=== PATIENT | male | born 1965 | race Hispanic/Latino ===

== ENCOUNTER 2016-06-19 23:45 | Observation (INO) | payer OTHER ==
[2016-06-19 23:48] VITALS: BMI 31.1
--- NOTE | 2016-06-20 00:03 | ED PDOC ---
Arrival/HPI - General Chief Complaint: Chest Pain Time Seen by Provider: 06/19/16 23:49 Historian: Patient - History of Present Illness Narrative History of Present Illness (Text): 06/20/16 00:06 Donovan Tariq, a 51 year old male, whose past medical history includes open heart surgery, hypertension and drug abuse, presents to the emergency department complaining of chest pain since today. Patient notes mid sternum chest pain and he feels "anxious". Patient reports has taken aspirin today. Patient denies any fever, cough, nausea, vomiting or any other complaints at this time. Time/Duration: 24 hours Symptom Onset: Sudden Symptom Course: Unchanged Activities at Onset: Rest Context: Home Associated Symptoms (Text): none Past Medical History - Provider Review Nursing Documentation Reviewed: Yes - Infectious Disease Hx of Infectious Diseases: None - Tetanus Immunization Tetanus Immunization: Unknown - Cardiac Hx Cardiac Disorders: Yes Hx Hypertension: Yes - Pulmonary Hx Chronic Obstructive Pulmonary Disease (COPD): Yes Other/Comment: smoker - Neurological Hx Neurological Disorder: Yes Hx Migraine: Yes Other/Comment: Has history of migraine, does not get headaches a lot but has aura most of the time like. floaters - HEENT Hx HEENT Disorder: No - Renal Hx Renal Disorder: No - Endocrine/Metabolic Hx Endocrine Disorders: No - Hematological/Oncological Hx Blood Disorders: No - Integumentary Hx Dermatological Disorder: Yes Other/Comment: rash - Musculoskeletal/Rheumatological Hx Musculoskeletal Disorders: No Hx Falls: No - Gastrointestinal Hx Gastrointestinal Disorders: Yes Hx Gastroesophageal Reflux: Yes - Genitourinary/Gynecological Hx Genitourinary Disorders: No - Psychiatric Hx Psychophysiologic Disorder: Yes Hx Anxiety: Yes Hx Depression: No Hx Emotional Abuse: No Hx Physical Abuse: No Hx Substance Use: Yes - Surgical History Hx Appendectomy: Yes Hx Cardiac Catheterization: Yes Hx Coronary Artery Bypass Graft: Yes (2012) Hx Open Heart Surgery: Yes - Anesthesia Hx Anesthesia: Yes Hx Anesthesia Reactions: No Hx Malignant Hyperthermia: No - Suicidal Assessment Feels Threatened In Home Enviroment: No Family/Social History - Physician Review Nursing Documentation Reviewed: Yes Family/Social History: No Known Family HX Smoking Status: Light Smoker < 10 Cigarettes Daily Hx Alcohol Use: Yes Hx Substance Use: Yes Substance used: cocaine Hx Substance Use Treatment: No Allergies/Home Meds Allergies/Adverse Reactions: Allergies peanut Allergy (Verified 11/11/15 07:46) ANAPHYLAXIS AND ANYTHING THAT IS DERIVED FROM ANY NUTS PER PATIENT. shellfish derived Allergy (Verified 11/11/15 07:46) ANAPHYLAXIS Review of Systems - Physician Review All systems were reviewed & negative as marked: Yes - Review of Systems Constitutional: absent: Fevers Respiratory: absent: Cough Cardiovascular: Chest Pain Gastrointestinal: absent: Nausea, Vomiting Physical Exam Vital Signs Reviewed: Yes Vital Signs Temp Pulse Resp BP Pulse Ox 06/20/16 03:17 115 H 16 154/88 H 06/19/16 23:58 98.5 F 111 H 18 113/73 95 Temperature: Afebrile Blood Pressure: Normal Pulse: Tachycardic Respiratory Rate: Normal Appearance: Positive for: Non-Toxic, Comfortable, Other (anxious appearing) Pain Distress: None Mental Status: Positive for: Alert and Oriented X 3 - Systems Exam Head: Present: Atraumatic, Normocephalic Pupils: Present: PERRL Extroacular Muscles: Present: EOMI Conjunctiva: Present: Normal Mouth: Present: Moist Mucous Membranes Neck: Present: Normal Range of Motion Respiratory/Chest: Present: Wheezes (minimal scattered bilaterally). No: Respiratory Distress Cardiovascular: Present: Tachycardic. No: Murmurs Abdomen: Present: Normal Bowel Sounds. No: Tenderness, Distention, Peritoneal Signs Upper Extremity: Present: Normal Inspection. No: Cyanosis, Edema Lower Extremity: Present: Normal Inspection. No: Edema Neurological: Present: GCS=15, CN II-XII Intact, Speech Normal Skin: Present: Warm, Dry, Normal Color. No: Rashes Psychiatric: Present: Alert, Oriented x 3 Medical Decision Making ED Course and Treatment: 06/20/16 00:00 Impression: 51 year old male with chest pain. Differential Diagnosis include but are not limited to: Plan: -- EKG -- Chest Xray -- Urinalysis -- Labs -- Ativan -- Reassess and disposition Prior Visits: Notes and results from previous visits were reviewed. Patient reported to emergency department on 11/11/15 for evaluation of allergic reaction. Progress Notes: EKG: Ordered, reviewed, and independently interpreted the EKG. Rate : 113 BPM Rhythm : Sinus tachycardia Interpretation : Nonspecific ST/T changes Comparison : No interval changes from previous Chest X-ray: Chest Xray shows no acute disease. 06/20/16 02:15 Dr. hWiting accepts patient for admission. - Lab Interpretations Lab Results: 06/20/16 00:10 06/20/16 00:10 Lab Results 06/20/16 01:31: D-Dimer, Quantitative 0.42 06/20/16 00:10: WBC 10.8 D, RBC 4.94, Hgb 17.4, Hct 46.9, MCV 94.9, MCH 35.2 H , MCHC 37.1 H, RDW 14.8 H, Plt Count 244, MPV 8.9, Gran % 53.3, Lymph % (Auto) 37.6 H, [place] % (Auto) 7.8 H, Eos % (Auto) 0.9 L, Baso % (Auto) 0.4, Gran # 5.77 , Lymph # 4.1 H, [place] # 0.9 H, Eos # 0.1, Baso # 0.04, PT 11.9 H, INR 1.10 H, APTT 29.5, Sodium 132, Potassium 4.3, Chloride 98, Carbon Dioxide 23, Anion Gap 15, BUN 10, Creatinine 0.9, Est GFR ( Amer) > 60, Est GFR (Non-Af Amer) > 60, Random Glucose 86, Calcium 9.0, Magnesium 1.9, Total Bilirubin 1.0, AST 39 , ALT 48, Alkaline Phosphatase 95, Lactate Dehydrogenase 577, Total Creatine Kinase 101, Troponin I < 0.01, Total Protein 8.0, Albumin 4.3, Globulin 3.7, Albumin/Globulin Ratio 1.2 I have reviewed the lab results: Yes - RAD Interpretation Radiology Orders: 06/20/16 00:03 CHEST PORTABLE [RAD] Stat - EKG Interpretation Interpreted by ED Physician: Yes Type: 12 lead EKG - Medication Orders Current Medication Orders: Albuterol/Ipratropium (Duoneb 3 Mg/0.5 Mg (3 Ml) Ud) 3 ml IH [id number] PRN PRN Reason: Shortness of Breath Alprazolam (Xanax) 0.25 mg PO TID PRN; Protocol PRN Reason: Anxiety Stop: 06/27/16 10:01 Last Admin: 06/20/16 09:00 Dose: 0.25 MG Behavioural Document 06/20/16 09:00 RDS (Rec: 06/20/16 09:00 [email or web address]) Maintenance Maintenance Dose No Nonmedicinal Nonmedicinal Interventions Redirect Therapeutic Communication Activity Give food/fluids See nurse's notes Behavior Behavior for Medication: Anxiety Re-Assess: Reassess Psych Meds Document 06/20/16 10:00 RDS (Rec: 06/20/16 11:25 [id number]) Reassess Psych Med Effective Aspirin (Ecotrin) 81 mg PO DAILY [facility] Last Admin: 06/20/16 09:00 Dose: 81 MG Atorvastatin Calcium (Lipitor) 40 mg PO DIN [facility] Lisinopril (Zestril) 20 mg PO DAILY [facility] Last Admin: 06/20/16 09:00 Dose: 20 MG MAR Pulse and Blood Pressure Document 06/20/16 09:00 RDS (Rec: 06/20/16 09:00 [id number]) Pulse Pulse Rate (60-90) 107 Blood Pressure Blood Pressure (100/60-150/90) 107/70 Nicotine (Nicoderm Cq) 1 patch TD DAILY [facility] Last Admin: 06/20/16 09:00 Dose: 1 PATCH MAR Patch Placement/Removal Document 06/20/16 09:00 RDS (Rec: 06/20/16 09:01 [id number]) Patch Removal Removal of previous patch done No: first dose MAR Transdermal Patch Site Document 06/20/16 09:00 RDS (Rec: 06/20/16 09:01 [place] [id number]) Transdermal Patch Site Transdermal Patch Site Left Outer Upper Arm Oxycodone/Acetaminophen (Percocet 5/325 Mg Tab) 1 tab PO Q6H PRN PRN Reason: Pain, moderate (4-7) Stop: 06/23/16 08:16 Last Admin: 06/20/16 08:43 Dose: 1 TAB MAR Pain Assessment Document 06/20/16 08:43 RDS (Rec: 06/20/16 08:46 [email or web address]) Pain Reassessment Is this a pain reassessment? No Sleep Is patient sleeping during reassessment? No Presence of Pain Presence of Pain Yes Pain Scale Used Pain Scale Used Numeric Location Left, Right or Bilateral Bilateral Pain Location Body Site Chest Description Intensity of Pain at present 5 Alleviating Factors/Management Medication Techniques Alleviating Factors Medication Re-Assess: MAR Pain Assessment Document 06/20/16 09:43 RDS (Rec: 06/20/16 11:25 [email or web address]) Pain Reassessment Is this a pain reassessment? Yes Sleep Is patient sleeping during reassessment? No Presence of Pain Presence of Pain No Discontinued Medications Aspirin (Aspirin) 325 mg PO STAT STA Stop: 06/20/16 00:22 Last Admin: 06/20/16 00:33 Dose: Not Given Non-Admin Reason: Patient Refused Lorazepam (Ativan) 0.5 mg IVP ONCE ONE PRN Reason: Protocol Stop: 06/20/16 00:04 Last Admin: 06/20/16 00:15 Dose: 0.5 MG Behavioural Document 06/20/16 00:15 EKEOO (Rec: 06/20/16 00:16 [facility] [id number]) Maintenance Maintenance Dose Yes Nonmedicinal Nonmedicinal Interventions Redirect Therapeutic Communication IVP Administration Document 06/20/16 00:15 EKEOO (Rec: 06/20/16 00:16 [facility] [id number]) Charges for Administration # of IVP Administrations 1 Morphine Sulfate (Morphine) 4 mg IVP STAT STA Stop: 06/20/16 00:34 Last Admin: 06/20/16 00:40 Dose: 4 MG MAR Pain Assessment Document 06/20/16 00:40 EKEOO (Rec: 06/20/16 00:40 [facility] [id number]) Pain Reassessment Is this a pain reassessment? No Sleep Is patient sleeping during reassessment? No Presence of Pain Presence of Pain Yes IVP Administration Document 06/20/16 00:40 EKEOO (Rec: 06/20/16 00:40 EKE[facility] [id number]) Charges for Administration # of IVP Administrations 1 Morphine Sulfate (Morphine) 4 mg IVP STAT STA Stop: 06/20/16 01:37 Last Admin: 06/20/16 01:38 Dose: 4 MG MAR Pain Assessment Document 06/20/16 01:38 EKEOO (Rec: 06/20/16 01:38 EKE[facility] [id number]) Pain Reassessment Is this a pain reassessment? No Sleep Is patient sleeping during reassessment? No Presence of Pain Presence of Pain Yes IVP Administration Document 06/20/16 01:38 EKEOO (Rec: 06/20/16 01:38 EKE[facility] [id number]) Charges for Administration # of IVP Administrations 1 Morphine Sulfate (Morphine) 0.5 mg IVP ONCE ONE Stop: 06/20/16 04:20 Last Admin: 06/20/16 04:25 Dose: 0.5 MG Comments: 0.25ml given MAR Pain Assessment Document 06/20/16 04:25 KTR (Rec: 06/20/16 04:25 KTR [id number]) Pain Reassessment Is this a pain reassessment? No Presence of Pain Presence of Pain Yes Pain Scale Used Pain Scale Used Numeric Location Pain Location Body Site Chest Description Description Constant Pain Behavior Guarding Irritability Alleviating Factors Medication IVP Administration Document 06/20/16 04:25 KTR (Rec: 06/20/16 04:25 KTR [id number]) Charges for Administration # of IVP Administrations 1 - Scribe Statement The provider has reviewed the documentation as recorded by the Scribe Robby Mobley All medical record entries made by the Scribe were at my direction and personally dictated by me. I have reviewed the chart and agree that the record accurately reflects my personal performance of the history, physical exam, medical decision making, and the department course for this patient. I have also personally directed, reviewed, and agree with the discharge instructions and disposition. Disposition/Present on Arrival - Present on Arrival Any Indicators Present on Arrival: No History of DVT/PE: No History of Uncontrolled Diabetes: No Urinary Catheter: No History of Decub. Ulcer: No History Surgical Site Infection Following: None - Disposition Have Diagnosis and Disposition been Completed?: Yes Diagnosis: Chest pain Disposition: HOSPITALIZED Disposition Time: 03:00 Patient Problems: Current Active Problems Problem Status Diagnosed Chest pain Acute Condition: STABLE
[2016-06-20 00:15] LABS: ADD MANUAL DIFF? NO
[2016-06-20 00:21] LABS: BASO # 0.04 K/mm3 (0.0-2.0); BASO % 0.4 % (0.0-3.0); EOS # 0.1 (0.0-0.7); EOS % 0.9 % (1.5-5.0); GRAN # 5.77 (1.4-6.5); GRAN % 53.3 % (50.0-68.0); HEMATOCRIT 46.9 % (42.0-52.0); LYMPH # 4.1 (1.2-3.4); LYMPH % 37.6 % (22.0-35.0); MEAN CELL VOLUME 94.9 fL (80.0-105.0); MEAN CORPUSCULAR HEMOGLOBIN 35.2 pg (25.0-35.0); MEAN CORPUSCULAR HGB CONC 37.1 g/dl (31.0-37.0); MEAN PLATELET VOLUME 8.9 fl (7.0-11.0); MONO # 0.9 (0.1-0.6); MONO % 7.8 % (1.0-6.0); PLATELET COUNT 244 10^3/uL (120.0-450.0); RED CELL DISTRIBUTION WIDTH 14.8 % (11.5-14.5)
[2016-06-20 00:33] LABS: INR 1.1 (0.93-1.08); PARTIAL THROMBOPLASTIN TIME 29.5 Seconds (23.7-30.8)
[2016-06-20] MEDS ORDERED: Morphine 4 mg/ml ISec IVP STA ×2 (00:33→01:36)
[2016-06-20 00:36] LABS: WHITE BLOOD COUNT 10.8 10^3/ul (4.5-11.0)
[2016-06-20 00:49] LABS: ALB/GLOB RATIO 1.2 (1.1-1.8); ALKALINE PHOSPHATASE 95 U/L (38-133); ALT/SGPT 48 U/L (7-56); AST/SGOT 39 U/L (15-59); BLOOD UREA NITROGEN 10 mg/dL (7-21); CARBON DIOXIDE 23 mmol/L (21-33); CHLORIDE 98 mmol/L (98-107); GFR AFRICAN-AMERICAN > 60; GLUCOSE,RANDOM 86 mg/dL (70-110); MAGNESIUM 1.9 mg/dL (1.7-2.2); POTASSIUM 4.3 mmol/L (3.6-5.0); SODIUM 132 mmol/L (132-148)
[2016-06-20 01:18] LABS: TROPONIN I < 0.01 ng/mL
[2016-06-20 03:08] LABS: URINE BILIRUBIN NEGATIVE (NEGATIVE); URINE BLOOD NEGATIVE (NEGATIVE); URINE GLUCOSE (UA) NEGATIVE (NEGATIVE); URINE KETONE NEGATIVE (NEGATIVE); URINE LEUKOCYTE ESTERASE NEGATIVE Leu/uL (NEGATIVE); URINE PROTEIN NEGATIVE mg/dL (<30 mg/dL); URINE UROBILINOGEN 0.2 E.U./dL (<1 E.U./dL)
[2016-06-20 03:12] LABS: URINE APPEARANCE CLEAR (CLEAR); URINE COLOR YELLOW (YELLOW)
[2016-06-20] MEDS ORDERED: Morphine 2 mg/ml ISec IVP ONE (04:19)
[2016-06-20] MEDS ORDERED: Albuterol-Ipratrop 3 mg / 0.5 (3 ml) UD IH PRN (08:17)
[2016-06-20] MEDS: Oxycodone/Acetaminophen 5/325 mg Tab PO PRN ×3 (08:43→22:05)
--- NOTE | 2016-06-20 10:42 | RAD ---
HISTORY: cp COMPARISON: No prior. FINDINGS: LUNGS: Poor inspiration with low lung volumes, mild crowded bronchovascular markings and mild bibasilar atelectasis. PLEURA: No significant pleural effusion identified, no pneumothorax apparent. CARDIOVASCULAR: Normal. OSSEOUS STRUCTURES: No significant abnormalities. VISUALIZED UPPER ABDOMEN: Normal. OTHER FINDINGS: None. IMPRESSION: Poor inspiration with low lung volumes, mild crowded bronchovascular markings and mild bibasilar atelectasis.
--- NOTE | 2016-06-20 11:39 | CARD ---
APPROVED REPORT EKG Measurement Heart [id number] DE 126P [id number] <Conclusion> RSR Possible limb lead reversal RVCD STTW changes Suggest repeat ECG
--- NOTE | 2016-06-20 15:44 | CON ---
DATE: 06/20/2016 REASON FOR CONSULTATION: Chest pain. HISTORY OF PRESENT ILLNESS: The patient is a 51-year-old male who is a smoker, has chronic obstructi ve lung disease, history of coronary artery disease, status post coronary artery bypass surgery 4 yea rs ago at [facility]. The patient is on Percocet at home. He ran out of his medications. He p resented because of bilateral sharp chest pain associated with shortness of breath. The patient letitia es any associated diaphoresis. The patient is experiencing productive cough. SOCIAL HISTORY: The patient is a smoker. MEDICATIONS: Albuterol inhaler q. 6 hours, aspirin 81 mg once a day, Lipitor 40 mg once a day, Nicod erm patch, Zestril 20 mg once a day. REVIEW OF SYSTEMS: No fever or chills. No vomiting or diarrhea. No hemoptysis. PHYSICAL EXAMINATION: GENERAL: The patient is a middle-aged male who does not appear to be in acute distress. VITAL SIGNS: Blood pressure 137/77, heart rate 97, temperature 97.8, respirations 20. HEENT: Normocephalic. NECK: No JVD. CHEST: Diffuse bilateral rhonchi. HEART: S1, S2 regular. ABDOMEN: Soft. EXTREMITIES: No edema. LABORATORY DATA: Hemoglobin and hematocrit 17.4 and 46.9, white count and platelet count are within normal limits. SMA-7 is entirely within normal limits. Two sets of troponins are negative. Urine d rug screen is positive for opiates. D-dimer is within normal limits. EKG revealed sinus tachycardia at a rate of 115, left atrial enlargement, consider arm lead reversal. Chest x-ray revealed poor in spiration with low lung volumes, mild bronchoalveolar markings and mild bibasilar atelectasis. ASSESSMENT: 1. Atypical chest pain, myocardial infarction is ruled out. 2. Coronary artery disease status post coronary artery bypass surgery. 3. Chronic obstructive lung disease. 4. Hypertension. RECOMMENDATIONS: Continue current aspirin, Lipitor and Zestril. The patient is not a suitable renu date for beta xin therapy in view of advanced chronic obstructive lung disease. Danilo Martines MD cc: [id number] TT: 06/20/2016 15:43:55 Confirmation # [id number] Dictation # [id number] rn
--- NOTE | 2016-06-20 18:50 | HP ---
HISTORY OF PRESENT ILLNESS: The patient is a 51-year-old white male known to me from office practice . He states he ran out of his Xanax and Percocet. I saw him on the day before yesterday, unab le to get. He started to have chest discomfort last night associated with palpitation and chest pres sure across the chest. He states he felt the same thing when he had a heart attack, he got nervous, so he came to Emergency Room for further evaluation. The patient is an active smoker, smokes almost half a pack per day. Denies any nausea or vomiting, no fever or chills. Does have history of . PAST MEDICAL HISTORY: Significant for hypertension, hyperlipidemia, and COPD. ALLERGIES: He is not allergic to any medication. SOCIAL HISTORY: He is single, lives in [facility], actively smokes, socially drinks. MEDICATIONS AT HOME: He is on Ventolin inhaler, aspirin 81 daily, Lipitor 40 mg daily, Zestril 20 mg daily, metoprolol 25 daily. REVIEW OF SYSTEMS: Significant for chest pressure and palpitations at times and scanty cough. PHYSICAL EXAMINATION: GENERAL: He is awake and alert, communicative. VITAL SIGNS: He is afebrile, pulse 90, respirations 19, blood pressure 137/77. LUNGS: Bilateral diffusely decreased breath sounds. HEART: S1, S2 audible. ABDOMEN: Soft, nontender, no rebound, no guarding. NEUROLOGIC: He is awake and alert, communicative, ambulatory. LABORATORY DATA: WBC is 10.8, hemoglobin 17, hematocrit 46, platelets 244. PT 11.9, INR 1.10. Chem istry: Sodium 132, potassium 4.3, chloride 98, CO2 of 23, BUN 10, creatinine 0.9, blood sugar of 86. LFTs are within normal limits. Urinalysis is unremarkable. Urine drug is positive for opiates, bu t he takes Xanax at home. ASSESSMENT: 1. Probably noncardiac chest pain. 2. Hypertension. 3. Open heart surgery 2 years old. 4. Active smoking. 5. Hyperlipidemia. PLAN: We will monitor. We will do cardiac monitoring. We will follow up with troponin. Continue h im on nebulizer treatment. If patient remains stable, we will be discharging in a.m. Justin Whiting MD cc: [phone] TT: 06/20/2016 18:49:06 [facility] # [id number] mn
[2016-06-20] MEDS: Albuterol-Ipratrop 3 mg / 0.5 (3 ml) UD IH SCH (20:52)
[2016-06-20] MEDS ORDERED: guaiFENesin DM 200 mg-20 mg/10 ml UD PO STA (23:42)
[2016-06-21] MEDS: Oxycodone/Acetaminophen 5/325 mg Tab PO PRN (04:03)
[2016-06-21 06:01] VITALS: RESP 19; TEMP 97.4; O2SAT 96
[2016-06-21] MEDS ORDERED: DiphenhydrAMINE 50 mg/ml Inj IVP STA (08:35)
[2016-06-21] MEDS: Albuterol-Ipratrop 3 mg / 0.5 (3 ml) UD IH SCH (09:00)
--- NOTE | 2016-06-21 09:47 | CP.PCM.PN ---
Subjective - Date & Time of Evaluation Date of Evaluation: 06/21/16 Time of Evaluation: 08:45 - Subjective Subjective: called by nurse pt states he ate food with packet made in factory where there is peanuts and he is allergic to peanuts and his throat is scratchy and he is afraid he is going to get severe allergic reaction .pt is admitted with chest pain non cardiac. Objective - Vital Signs/Intake and Output Vital Signs (last 24 hours): Temp Pulse Resp BP Pulse Ox 97.4 F L 88 19 127/74 96 06/21/16 06:00 06/21/16 06:00 06/21/16 06:00 06/21/16 06:00 06/21/16 06:00 Intake and Output: 06/21/16 06/21/16 06:59 18:59 Intake Total 660 Output Total 1250 Balance -590 - Medications Medications: Current Medications Albuterol/Ipratropium (Duoneb 3 Mg/0.5 Mg (3 Ml) Ud) [id number] [facility] Last Admin: 06/21/16 09:00 Dose: Not Given Alprazolam (Xanax) 0.25 mg PO TID PRN; Protocol PRN Reason: Anxiety Stop: 06/27/16 10:01 Last Admin: 06/20/16 09:00 Dose: 0.25 mg Aspirin (Ecotrin) [address] [facility] Last Admin: 06/20/16 09:00 Dose: 81 mg Atorvastatin Calcium (Lipitor) [address] [facility] Last Admin: 06/20/16 16:29 Dose: 40 mg Lisinopril (Zestril) [address] [facility] Last Admin: 06/20/16 09:00 Dose: 20 mg Nicotine (Nicoderm Cq) [address] [facility] Last Admin: 06/20/16 09:00 Dose: 1 patch Oxycodone/Acetaminophen (Percocet 5/325 Mg Tab) 1 tab PO Q6H PRN PRN Reason: Pain, moderate (4-7) Stop: 06/23/16 08:16 Last Admin: 06/21/16 04:03 Dose: 1 tab - Labs Labs: PT 11.9 Seconds (9.9-11.8) H 06/20/16 00:10 INR 1.10 (0.93-1.08) H 06/20/16 00:10 APTT 29.5 Seconds (23.7-30.8) 06/20/16 00:10 - Constitutional Appears: No Acute Distress - Head Exam Head Exam: NORMOCEPHALIC - Eye Exam Eye Exam: Normal appearance Pupil Exam: PERRL - ENT Exam ENT Exam: Mucous Membranes Moist - Neck Exam Neck Exam: Full ROM - Respiratory Exam Respiratory Exam: Clear to Ausculation Bilateral - Cardiovascular Exam Cardiovascular Exam: RRR, +S1, +S2 - GI/Abdominal Exam GI & Abdominal Exam: Normal Bowel Sounds - Rectal Exam Rectal Exam: Deferred - Extremities Exam Extremities Exam: Full ROM - Neurological Exam Neurological Exam: Alert, Awake, CN II-XII Intact, Oriented x3 - Psychiatric Exam Psychiatric exam: Anxious - Skin Skin Exam: Dry, Normal Color, Warm Assessment and Plan - Assessment and Plan (Free Text) Assessment: anxiety . allergic reaction. Plan: benadryl 25 mg x1 stat.
--- NOTE | 2016-06-21 11:05 | DS ---
The patient is 51 years old, seen and examined. He seemed to be upset this morning because he did gutierrez ve some bread that has some elements of peanut, and HE DOES HAVE ALLERGY TO PEANUT that was brought t o his ____, and she immediately gave Benadryl. He has been no sign or symptom of reaction at this po int. PHYSICAL EXAMINATION: GENERAL: He is awake and alert, communicative. VITAL SIGNS: He is afebrile, pulse 8____, respirations 19, blood pressure 127/74. LUNGS: Bilateral fair airflow. No rhonchi or crackle. HEART: S1, S2 audible. No murmur. ABDOMEN: Soft, nontender. No rebound, no guarding. NEUROLOGIC: He is awake and alert, communicative, ambulatory. ASSESSMENT AND PLAN: 1. Noncardiac chest pain. 2. Coronary artery disease, status post open heart surgery. 3. Hypertension. 4. Hyperlipidemia. 5. Active smoker. PLAN: The patient is clinically stable. He has no signs of bronchospasm. No chest pain. Cardiac e nzymes are negative. He is being discharged home, and he will resume his medication as prior to admission. Justin Whiting MD cc: [phone] TT: 06/21/2016 11:04:42 jn
[2016-06-21 12:44] VITALS: BP 115/69; PULSE 87
== END 2016-06-21 10:53 | disposition home or self-care (01) ==
LOC: ED 23:45 → ERH 06-20 02:14 → 2RSO 06-20 03:53
PROVIDERS: ADMIT Internal Medicine; ATTEND Internal Medicine
DX: R07.89 Other chest pain (principal); I25.10 Atherosclerotic heart disease of native coronary artery without angina pectoris; I10 Essential (primary) hypertension; E78.5 Hyperlipidemia, unspecified; F17.210 Nicotine dependence, cigarettes, uncomplicated; F41.9 Anxiety disorder, unspecified; J44.9 Chronic obstructive pulmonary disease, unspecified; K21.9 Gastro-esophageal reflux disease without esophagitis; Z90.49 Acquired absence of other specified parts of digestive tract; Z91.010 Allergy to peanuts; Z95.1 Presence of aortocoronary bypass graft; Z79.899 Other long term (current) drug therapy; Z87.892 Personal history of anaphylaxis; Z91.013 Allergy to seafood; R00.0 Tachycardia, unspecified
CPT/HCPCS: 71010; 80053; 80324; 80345; 80346; 80349; 80353; 80358; 80361; 81003; 82550; 83615; 83735; 83992; 84484; 85025; 85378; 85610; 85730; 93005; 94640; 96374; 96375; 96376; 99285; G0378; J1200; J2060; J2270

== ENCOUNTER 2016-07-19 08:44 | Emergency (ER) | payer OTHER ==
[2016-07-19 08:45] VITALS: BMI 31.1
[2016-07-19 09:01] VITALS: RESP 18; TEMP 97.9
--- NOTE | 2016-07-19 09:13 | ED PDOC ---
Arrival/HPI - General Time Seen by Provider: 07/19/16 09:00 Historian: Patient - History of Present Illness Narrative History of Present Illness (Text): 07/19/16 09:09 51 year old male, pmh including hypertension/hyperlipidemia/copd/cad/bypass 4 years ago/chronic testicle pain, psychiatric history including anxiety, nkda, complaining of lt. testicle pain started again this morning with no fall or trauma. Pt. stated that he woke up this morning with the lt. testicle pain again as he had it for the past 40 years, making him feel anxious and scared which he started to panicking and having chest pain for couple seconds but resolved, no nausea or vomiting, no palpitation, no night sweat, no nausea or vomiting, no rash, no night sweat, no other medical or psychological complaints. Past Medical History - Provider Review Nursing Documentation Reviewed: Yes - Infectious Disease Hx of Infectious Diseases: None - Tetanus Immunization Tetanus Immunization: Unknown - Cardiac Hx Cardiac Disorders: Yes Hx Hypertension: Yes - Pulmonary Hx Chronic Obstructive Pulmonary Disease (COPD): Yes Other/Comment: smoker - Neurological Hx Neurological Disorder: Yes Hx Migraine: Yes Other/Comment: Has history of migraine, does not get headaches a lot but has aura most of the time like. floaters - HEENT Hx HEENT Disorder: No - Renal Hx Renal Disorder: No - Endocrine/Metabolic Hx Endocrine Disorders: No - Hematological/Oncological Hx Blood Disorders: No - Integumentary Hx Dermatological Disorder: Yes Other/Comment: rash - Musculoskeletal/Rheumatological Hx Musculoskeletal Disorders: No Hx Falls: No - Gastrointestinal Hx Gastrointestinal Disorders: Yes Hx Gastroesophageal Reflux: Yes - Genitourinary/Gynecological Hx Genitourinary Disorders: No - Psychiatric Hx Psychophysiologic Disorder: Yes Hx Anxiety: Yes Hx Depression: No Hx Emotional Abuse: No Hx Physical Abuse: No Hx Substance Use: Yes - Surgical History Hx Appendectomy: Yes Hx Cardiac Catheterization: Yes Hx Coronary Artery Bypass Graft: Yes (2012) Hx Open Heart Surgery: Yes - Anesthesia Hx Anesthesia: Yes Hx Anesthesia Reactions: No Hx Malignant Hyperthermia: No - Suicidal Assessment Feels Threatened In Home Enviroment: No Family/Social History - Physician Review Nursing Documentation Reviewed: Yes Family/Social History: Unknown Family HX Smoking Status: Light Smoker < 10 Cigarettes Daily Hx Alcohol Use: Yes Hx Substance Use: Yes Substance used: cocaine Hx Substance Use Treatment: No Allergies/Home Meds Allergies/Adverse Reactions: Allergies peanut Allergy (Verified 07/22/16 13:25) ANAPHYLAXIS AND ANYTHING THAT IS DERIVED FROM ANY NUTS PER PATIENT. shellfish derived Allergy (Verified 07/22/16 13:25) ANAPHYLAXIS Home Medications: Home Meds Medication Instructions Recorded Confirmed ALPRAZolam [Xanax] 0 mg PO PRN PRN 07/19/16 07/22/16 oxyCODONE/Acetaminophen [Percocet 1 tab PO PRN PRN 07/19/16 07/22/16 5/325 mg Tab] Review of Systems - Review of Systems Constitutional: absent: Fatigue, Fevers Eyes: absent: Vision Changes ENT: absent: Hearing Changes Respiratory: absent: Cough, Sputum Cardiovascular: absent: Chest Pain Gastrointestinal: absent: Abdominal Pain, Nausea, Vomiting Genitourinary Male: Other (testicle pain) Psychiatric: Anxiety. absent: Depression, Suicidal Ideation Physical Exam Vital Signs Reviewed: Yes Vital Signs Temp Pulse Resp BP Pulse Ox 07/19/16 12:17 89 18 160/79 H 98 07/19/16 11:00 101 H 18 159/96 H 96 07/19/16 09:00 97.9 F 101 H 18 160/98 H 96 Temperature: Afebrile Blood Pressure: Hypertensive Pulse: Tachycardic Respiratory Rate: Normal Appearance: Positive for: Well-Appearing, Non-Toxic, Comfortable Pain Distress: Mild Mental Status: Positive for: Alert and Oriented X 3 - Systems Exam Head: Present: Atraumatic, Normocephalic Pupils: Present: PERRL Extroacular Muscles: Present: EOMI Conjunctiva: Present: Normal Mouth: Present: Moist Mucous Membranes Neck: Present: Normal Range of Motion Respiratory/Chest: Present: Clear to Auscultation, Good Air Exchange. No: Respiratory Distress, Accessory Muscle Use Cardiovascular: Present: Regular Rate and Rhythm, Normal S1, S2. No: Murmurs Abdomen: Present: Normal Bowel Sounds. No: Tenderness, Distention, Peritoneal Signs Genitourinary Male: Present: Normal External Genitalia, Circumcised Penis, Other (Female Eligibility Technician: SPECIAL EVENT ASSISTANTGILLIAN Rosales). No: Lesions, Penile Discharge, Testicle Tenderness, Penile Swelling, Masses, Erythema, Hernias, Testicle Swelling Back: Present: Normal Inspection Upper Extremity: Present: Normal Inspection. No: Cyanosis, Edema Lower Extremity: Present: Normal Inspection. No: Edema Neurological: Present: GCS=15, Speech Normal, Motor Func Grossly Intact, Gait Normal, Memory Normal Skin: Present: Warm, Dry, Normal Color. No: Rashes Psychiatric: Present: Alert, Oriented x 3, Normal Insight, Normal Concentration , Anxious Medical Decision Making ED Course and Treatment: 07/19/16 09:20 -labs/ua -testicular sonogram -IV toradol/ativan/percocet -observe and reassess 07/19/16 11:42 -Labs are non-significant except hemoconcentrated with hgb 18.5 from 17.4, IVF ordered. -Urinalysis show no UTI -Sonogram show hydroceles -I discussed all labs and radiology results with the patient, pt. 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 Pt. has no anxious or chest pain now, relief with ativan. -Discharge home with [facility], follow up with your own pmd and urologist within 2 days, return to the ER for any new or worsening signs or symptoms - Lab Interpretations Lab Results: 07/19/16 09:25 07/19/16 11:15 Lab Results 07/19/16 11:15: Sodium 138, Potassium 4.6, Chloride 106, Carbon Dioxide 23, Anion Gap 14, BUN 17, Creatinine 0.9, Est GFR ( Amer) > 60, Est GFR (Non- Af Amer) > 60, Random Glucose 100, Calcium 8.6, Total Bilirubin 0.9, AST 30, ALT 47, Alkaline Phosphatase 92, Total Protein 7.5, Albumin 4.0, Globulin 3.6, Albumin/Globulin Ratio 1.1 07/19/16 09:25: Urine Color Yellow, Urine Appearance Clear, Urine pH 6.0, Ur Specific [place] 1.015, Urine Protein Negative, Urine Glucose (UA) Negative, Urine Ketones Negative, Urine Blood Negative, Urine Nitrate Negative, Urine Bilirubin Negative, Urine Urobilinogen 0.2, Ur Leukocyte Esterase Negative 07/19/16 09:25: WBC 9.3, RBC 5.45, Hgb 18.5 H*, Hct 52.4 H, MCV 96.1, MCH 33.9, MCHC 35.3, RDW 14.7 H, Plt Count 229, MPV 9.1, Gran % 66.3, Lymph % (Auto) 20.7 L, [place] % (Auto) 11.4 H, Eos % (Auto) 1.2 L, Baso % (Auto) 0.4, Gran # 6.17, Lymph # 1.9, [place] # 1.1 H, Eos # 0.1, Baso # 0.04 I have reviewed the lab results: Yes Interpretation: Abnormal lab values (hgb 18.5) - RAD Interpretation Radiology Orders: 07/19/16 09:21 TESTES DUPLEX COMPLETE [US] Stat HISTORY: chronic lt. testicular pain TECHNIQUE: Realtime sonography through the scrotum with color and doppler flow. COMPARISON: None Available. FINDINGS: RIGHT TESTICLE: Measures 4.2 x 2 x 2.6 cm. Normal echotexture and flow. RIGHT EPIDIDYMIS: Epididymal head measures 1 x 0.7 x 0.5 cm. Grossly unremarkable appearance with normal flow. LEFT TESTICLE: Measures 4.4 x 2.2 x 2.5 cm. Normal echotexture and flow. LEFT EPIDIDYMIS: Epididymal head measures 0.8 x 0.5 x 0.6 cm. Grossly unremarkable appearance with normal flow. HYDROCELE: Small bilateral hydroceles. VARICOCELE: None seen. OTHER FINDINGS: None. IMPRESSION: No evidence of acute testicular torsion at the time of evaluation. Bilateral small hydroceles. Records Management Technician: Radiologist - EKG Interpretation EKG Interpretation (Text): 07/19/16 09:13 NSR @ 99 BPM, no acute ST or T wave changes compared with previous ekg. Interpreted by ED Physician: Yes Type: 12 lead EKG Comparison: Com.w/previous EKG - Medication Orders Current Medication Orders: Discontinued Medications Sodium Chloride (Sodium Chloride 0.9%) 1,000 mls @ 250 mls/hr IV .Q4H STA Stop: 07/19/16 13:20 Last Admin: 07/19/16 09:40 Dose: 250 mls/hr Ketorolac Tromethamine (Toradol) 30 mg IVP STAT STA Stop: 07/19/16 09:22 Last Admin: 07/19/16 09:40 Dose: 30 mg Re-Assess: [facility] Pain Assessment Document 07/19/16 10:40 SF (Rec: 07/19/16 12:15 SF [id number]) Pain Reassessment Is this a pain reassessment? Yes Sleep Is patient sleeping during reassessment? No Presence of Pain Presence of Pain Yes Pain Scale Used Pain Scale Used Numeric Description Pain not relieved and LIP/MD was Yes notified Lidocaine HCl (Lidocaine 1% (20ml)) Confirm Administered Dose 20 ml .ROUTE .STK- MED ONE Stop: 07/19/16 12:14 Lorazepam (Ativan) 1 mg IVP ONCE ONE PRN Reason: Protocol Stop: 07/19/16 09:22 Last Admin: 07/19/16 09:40 Dose: 1 mg Morphine Sulfate (Morphine) 2 mg IVP STAT STA Stop: 07/19/16 11:43 Last Admin: 07/19/16 12:18 Dose: 2 mg Oxycodone/Acetaminophen (Percocet 5/325 Mg Tab) 1 tab PO STAT STA Stop: 07/19/16 10:03 Last Admin: 07/19/16 10:12 Dose: 1 tab Re-Assess: MAR Pain Assessment Document 07/19/16 11:12 SF (Rec: 07/19/16 12:15 SF [id number]) Pain Reassessment Is this a pain reassessment? Yes Sleep Is patient sleeping during reassessment? No Presence of Pain Presence of Pain Yes Pain Scale Used Pain Scale Used Numeric Description Pain not relieved and LIP/MD was Yes notified - PA / CARE MANAGEMENT ASSOCIATE / Resident Statement MD/DO has reviewed & agrees with the documentation as recorded. Disposition/Present on Arrival - Present on Arrival Any Indicators Present on Arrival: No History of DVT/PE: No History of Uncontrolled Diabetes: No Urinary Catheter: No History of Decub. Ulcer: No History Surgical Site Infection Following: None - Disposition Have Diagnosis and Disposition been Completed?: Yes Diagnosis: Hydrocele in adult, Anxiety Disposition: HOME/ ROUTINE Disposition Time: 11:44 Patient Plan: Discharge Condition: IMPROVED Additional Instructions: Discharge home with mobic, follow up with your own pmd and urologist within 2 days, return to the ER for any new or worsening signs or symptoms Prescriptions: Meloxicam [Mobic] 15 mg PO DAILY PRN #10 tab PRN Reason: Other Referrals: Justin Whiting MD [Primary Care Provider] - Follow up with primary Philipp Guzmán MD [Staff Provider] - Follow up with primary Forms: [employer] (Tunisian), WORK NOTE
[2016-07-19] MEDS ORDERED: Sodium Chloride 0.9% 1,000 ML IV STA (09:21)
[2016-07-19 09:40] LABS: ADD MANUAL DIFF? NO
[2016-07-19 09:44] LABS: BASO # 0.04 K/mm3 (0.0-2.0); BASO % 0.4 % (0.0-3.0); EOS # 0.1 (0.0-0.7); EOS % 1.2 % (1.5-5.0); GRAN # 6.17 (1.4-6.5); GRAN % 66.3 % (50.0-68.0); HEMATOCRIT 52.4 % (42.0-52.0); LYMPH # 1.9 (1.2-3.4); LYMPH % 20.7 % (22.0-35.0); MEAN CELL VOLUME 96.1 fL (80.0-105.0); MEAN CORPUSCULAR HEMOGLOBIN 33.9 pg (25.0-35.0); MEAN CORPUSCULAR HGB CONC 35.3 g/dl (31.0-37.0); MEAN PLATELET VOLUME 9.1 fl (7.0-11.0); MONO # 1.1 (0.1-0.6); MONO % 11.4 % (1.0-6.0); PLATELET COUNT 229 10^3/uL (120.0-450.0); RED CELL DISTRIBUTION WIDTH 14.7 % (11.5-14.5); WHITE BLOOD COUNT 9.3 10^3/ul (4.5-11.0)
[2016-07-19 09:45] LABS: URINE BILIRUBIN NEGATIVE (NEGATIVE); URINE BLOOD NEGATIVE (NEGATIVE); URINE GLUCOSE (UA) NEGATIVE (NEGATIVE); URINE KETONE NEGATIVE (NEGATIVE); URINE LEUKOCYTE ESTERASE NEGATIVE Leu/uL (NEGATIVE); URINE PROTEIN NEGATIVE mg/dL (<30 mg/dL); URINE UROBILINOGEN 0.2 E.U./dL (<1 E.U./dL)
[2016-07-19 09:55] LABS: URINE APPEARANCE CLEAR (CLEAR); URINE COLOR YELLOW (YELLOW)
[2016-07-19] MEDS ORDERED: Oxycodone/Acetaminophen 5/325 mg Tab PO STA (10:02)
--- NOTE | 2016-07-19 11:21 | US ---
HISTORY: chronic lt. testicular pain TECHNIQUE: Realtime sonography through the scrotum with color and doppler flow. COMPARISON: None Available. FINDINGS: RIGHT TESTICLE: Measures 4.2 x 2 x 2.6 cm. Normal echotexture and flow. RIGHT EPIDIDYMIS: Epididymal head measures 1 x 0.7 x 0.5 cm. Grossly unremarkable appearance with normal flow. LEFT TESTICLE: Measures 4.4 x 2.2 x 2.5 cm. Normal echotexture and flow. LEFT EPIDIDYMIS: Epididymal head measures 0.8 x 0.5 x 0.6 cm. Grossly unremarkable appearance with normal flow. HYDROCELE: Small bilateral hydroceles. VARICOCELE: None seen. OTHER FINDINGS: None. IMPRESSION: No evidence of acute testicular torsion at the time of evaluation. Bilateral small hydroceles.
[2016-07-19 11:37] LABS: ALB/GLOB RATIO 1.1 (1.1-1.8); ALKALINE PHOSPHATASE 92 U/L (38-133); ALT/SGPT 47 U/L (7-56); AST/SGOT 30 U/L (15-59); BILIRUBIN,TOTAL 0.9 mg/dL (0.2-1.3); BLOOD UREA NITROGEN 17 mg/dL (7-21); CALCIUM 8.6 mg/dL (8.4-10.5); CARBON DIOXIDE 23 mmol/L (21-33); CHLORIDE 106 mmol/L (98-107); GFR AFRICAN-AMERICAN > 60; GLUCOSE,RANDOM 100 mg/dL (70-110); POTASSIUM 4.6 mmol/L (3.6-5.0); SODIUM 138 mmol/L (132-148); TOTAL PROTEIN 7.5 g/dL (5.8-8.3)
[2016-07-19] MEDS ORDERED: Morphine 2 mg/ml ISec IVP STA (11:42)
[2016-07-19] MEDS ORDERED: Lidocaine 1% Inj (20ml) ONE (12:13)
[2016-07-19 12:17] VITALS: BP 160/79; PULSE 89; O2SAT 98
--- NOTE | 2016-07-20 11:33 | CARD ---
APPROVED REPORT EKG Measurement Heart [id number] <Conclusion> Normal sinus rhythm Biatrial enlargement Nonspecific ST and T wave abnormality LVH RVCD
== END 2016-07-19 12:26 | disposition home or self-care (01) ==
LOC: ED 08:44
DX: N43.3 Hydrocele, unspecified (principal); F41.9 Anxiety disorder, unspecified
CPT/HCPCS: 80053; 81003; 85025; 93005; 93975; 96361; 96374; 96375; 99285; J1885; J2060; J2270; J7040

== ENCOUNTER 2016-07-22 13:14 | Emergency (ER) | payer OTHER ==
[2016-07-22 13:25] VITALS: BMI 30.7
[2016-07-22 13:28] VITALS: TEMP 98.4
--- NOTE | 2016-07-22 14:28 | ED PDOC ---
Arrival/HPI - General Chief Complaint: Groin Pain Time Seen by Provider: 07/22/16 14:15 Historian: Patient - History of Present Illness Narrative History of Present Illness (Text): 07/22/16 14:25 Donovan Tariq is a 51 year old male, whose past medical history includes hypertension, hyperlipidemia, COPD, CAD and CABG, presents to the emergency department complaining of 4 day duration of testicular pain. Describes quality as a sharp pain and states he was experienced similar symptoms in the past 40 years with each episode lasting from few weeks to months. Patient was evaluated at [facility] for these symptoms 4 days prior when testicular ultrasound revealed small bilateral hydroceles and was discharged home on Meloxicam. States he has been taking the medication for minimal relief. States he also has been taking Percocet chronically from his PMD for pain at home for no relief. Denies any penile swelling, erythema, or discharge. Patient also states he was evaluated by urologists in the past for these symptoms without a diagnosis. He reports multiple US and CTs. Denies fever, chills, headache, dizziness, chest pain, shortness of breath, urinary symptoms, or any other complaints at this time. Time/Duration: < week (4 days ) Symptom Onset: Gradual Activities at Onset: Light Past Medical History - Provider Review Nursing Documentation Reviewed: Yes - Infectious Disease Hx of Infectious Diseases: None - Tetanus Immunization Tetanus Immunization: Unknown - Reproductive Currently : No - Cardiac Hx Cardiac Disorders: Yes Hx Hypertension: Yes - Pulmonary Hx Respiratory Disorders: Yes Hx Chronic Obstructive Pulmonary Disease (COPD): Yes Other/Comment: smoker - Neurological Hx Neurological Disorder: Yes Hx Migraine: Yes Other/Comment: Has history of migraine, does not get headaches a lot but has aura most of the time like. floaters - HEENT Hx HEENT Disorder: No - Renal Hx Renal Disorder: No - Endocrine/Metabolic Hx Endocrine Disorders: No - Hematological/Oncological Hx Blood Disorders: No - Integumentary Hx Dermatological Disorder: Yes Other/Comment: rash - Musculoskeletal/Rheumatological Hx Musculoskeletal Disorders: No Hx Falls: No - Gastrointestinal Hx Gastrointestinal Disorders: Yes Hx Gastroesophageal Reflux: Yes - Genitourinary/Gynecological Hx Genitourinary Disorders: No - Psychiatric Hx Psychophysiologic Disorder: Yes Hx Anxiety: Yes Hx Depression: No Hx Emotional Abuse: No Hx Physical Abuse: No Hx Substance Use: No - Surgical History Hx Appendectomy: Yes Hx Cardiac Catheterization: Yes Hx Coronary Artery Bypass Graft: Yes (2012) Hx Open Heart Surgery: Yes - Anesthesia Hx Anesthesia: Yes Hx Anesthesia Reactions: No Hx Malignant Hyperthermia: No - Suicidal Assessment Feels Threatened In Home Enviroment: No Family/Social History - Physician Review Nursing Documentation Reviewed: Yes Family/Social History: No Known Family HX Smoking Status: Light Smoker < 10 Cigarettes Daily Hx Alcohol Use: No Hx Substance Use: No Substance used: cocaine Hx Substance Use Treatment: No Allergies/Home Meds Allergies/Adverse Reactions: Allergies peanut Allergy (Verified 07/22/16 13:25) ANAPHYLAXIS AND ANYTHING THAT IS DERIVED FROM ANY NUTS PER PATIENT. shellfish derived Allergy (Verified 07/22/16 13:25) ANAPHYLAXIS Home Medications: Home Meds Medication Instructions Recorded Confirmed ALPRAZolam [Xanax] 0 mg PO PRN PRN 07/19/16 07/22/16 oxyCODONE/Acetaminophen [Percocet 1 tab PO PRN PRN 07/19/16 07/22/16 5/325 mg Tab] Review of Systems - Physician Review All systems were reviewed & negative as marked: Yes - Review of Systems Constitutional: Normal. absent: Fatigue, Fevers Respiratory: Normal. absent: SOB, Cough, Sputum Cardiovascular: Normal. absent: Chest Pain, Palpitations Genitourinary Male: Other (testicular pain ) Skin: Normal Neurological: Normal. absent: Headache, Dizziness Psychiatric: Normal Physical Exam - Physical Exam Narrative Physical Exam (Text): Constitutional: No acute distress. Head: Normocephalic. Atraumatic. Genitourinary: bilateral testicular tenderness. No testicular swelling or erythema. No discharge. No erythema or induration in perineum Musculoskeletal: No tenderness or swelling of extremities. Skin: No rash. Neurologic: Alert, no focal deficit. Vital Signs Reviewed: Yes Vital Signs Temp Pulse Resp BP Pulse Ox 07/22/16 15:15 98 H 18 176/96 H 96 07/22/16 13:25 98.4 F 109 H 17 183/103 H 96 Temperature: Afebrile Blood Pressure: Hypertensive Pulse: Tachycardic Respiratory Rate: Normal Appearance: Positive for: Well-Appearing, Non-Toxic, Comfortable Pain Distress: None Mental Status: Positive for: Alert and Oriented X 3 Medical Decision Making ED Course and Treatment: 07/22/16 14:35 Impression: A 51 year old male who presents to emergency department complaining of 4 day duration of testicular pain. Plan: -- Labs -- Toradol -- Ativan -- Morphine -- Urinalysis -- Reassess and disposition Progress Notes: Patient is chronically on Percocet and presents today with a chronic pain of 40 years intermittently. I informed the patient that I can not discharge him on any narcotic pain medication. The patient states that he can not follow up with Urology for another month because that was the earliest appointment. I rechecked his labs and urine, which were unremarkable. I offered the patient repeat US and/or CT but he did not want either. Also sent GC/Chlamydia which are pending. Patient treated with pain medication in ER. No remarkable findings. Discussed case with Dr. Guzmán, who states he will likely see patient in his office on Wednesday. Phone number provided to patient to arrange this follow up. KUB ordered as recommended by Dr. Guzmán prior to discharge. - Lab Interpretations Lab Results: 07/22/16 14:51 07/22/16 14:51 Lab Results 07/22/16 15:32: Urine Color Yellow, Urine Appearance Clear, Urine pH 6.0, Ur Specific [place] 1.025, Urine Protein 100 H, Urine Glucose (UA) Negative, Urine Ketones Negative, Urine Blood Trace-lysed H, Urine Nitrate Negative, Urine Bilirubin Small H, Urine Urobilinogen 0.2, Ur Leukocyte Esterase Negative, Urine RBC 0 - 2, Urine WBC 1 - 3, Ur Epithelial Cells 0 - 2, Urine Bacteria Small, Urine Other Usperm 07/22/16 14:51: Sodium 133, Potassium 4.2, Chloride 100, Carbon Dioxide 23, Anion Gap 14, BUN 10, Creatinine 0.9, Est GFR ( Amer) > 60, Est GFR (Non- Af Amer) > 60, Random Glucose 109, Calcium 9.3, Total Bilirubin 1.8 H, AST 25, ALT 38, Alkaline Phosphatase 122, Total Protein 7.8, Albumin 4.2, Globulin 3.6, Albumin/Globulin Ratio 1.2 07/22/16 14:51: WBC 11.2 H D, RBC 5.22, Hgb 18.1 H*, Hct 49.4, MCV 94.6, MCH 34.7, MCHC 36.6, RDW 14.2, Plt Count 228, MPV 9.1, Gran % 62.6, Lymph % (Auto) 26.1, [place] % (Auto) 9.9 H, Eos % (Auto) 0.9 L, Baso % (Auto) 0.5, Gran # 7.00 H , Lymph # 2.9, [place] # 1.1 H, Eos # 0.1, Baso # 0.06 - RAD Interpretation Radiology Orders: 07/22/16 16:20 ABDOMEN (FLAT PLATE) 1VIEW [RAD] Stat - Medication Orders Current Medication Orders: Morphine Sulfate (Morphine) 4 mg IVP STAT STA Stop: 07/22/16 16:26 Discontinued Medications Ketorolac Tromethamine (Toradol) 30 mg IVP STAT STA Stop: 07/22/16 14:43 Last Admin: 07/22/16 15:02 Dose: 30 mg Lorazepam (Ativan) 1 mg IVP ONCE ONE PRN Reason: Protocol Stop: 07/22/16 14:43 Last Admin: 07/22/16 15:02 Dose: 1 mg Morphine Sulfate (Morphine) 4 mg IVP STAT STA Stop: 07/22/16 14:43 Last Admin: 07/22/16 15:02 Dose: 4 mg - Scribe Statement The provider has reviewed the documentation as recorded by the Seng Dyson Provider Attestation: All medical record entries made by the Seng were at my direction and personally dictated by me. I have reviewed the chart and agree that the record accurately reflects my personal performance of the history, physical exam, medical decision making, and the department course for this patient. I have also personally directed, reviewed, and agree with the discharge instructions and disposition. Disposition/Present on Arrival - Present on Arrival Any Indicators Present on Arrival: No History of DVT/PE: No History of Uncontrolled Diabetes: No Urinary Catheter: No History of Decub. Ulcer: No History Surgical Site Infection Following: None - Disposition Have Diagnosis and Disposition been Completed?: Yes Diagnosis: Testicular pain Disposition: HOME/ ROUTINE Disposition Time: 16:15 Patient Plan: Discharge Condition: STABLE Discharge Instructions (ExitCare): Testicle Pain (ED) Additional Instructions: Call Dr. Guzmán at [phone] to arrange your follow up. He stated that he will likely see you in the office on Wednesday. Referrals: Philipp Guzmán MD [Staff Provider] - Follow up with primary
[2016-07-22] MEDS ORDERED: Morphine 4 mg/ml ISec IVP STA ×2 (14:42→16:25)
[2016-07-22 15:01] LABS: ADD MANUAL DIFF? NO
[2016-07-22 15:33] VITALS: PULSE 98; RESP 18
[2016-07-22 15:33] LABS: ALB/GLOB RATIO 1.2 (1.1-1.8); ALKALINE PHOSPHATASE 122 U/L (38-133); ALT/SGPT 38 U/L (7-56); AST/SGOT 25 U/L (15-59); BILIRUBIN,TOTAL 1.8 mg/dL (0.2-1.3); BLOOD UREA NITROGEN 10 mg/dL (7-21); CALCIUM 9.3 mg/dL (8.4-10.5); CARBON DIOXIDE 23 mmol/L (21-33); CHLORIDE 100 mmol/L (98-107); GFR AFRICAN-AMERICAN > 60; GLUCOSE,RANDOM 109 mg/dL (70-110); POTASSIUM 4.2 mmol/L (3.6-5.0); SODIUM 133 mmol/L (132-148); TOTAL PROTEIN 7.8 g/dL (5.8-8.3)
[2016-07-22 15:37] LABS: URINE BILIRUBIN SMALL (NEGATIVE); URINE BLOOD TRACE-LYSED (NEGATIVE); URINE GLUCOSE (UA) NEGATIVE (NEGATIVE); URINE KETONE NEGATIVE (NEGATIVE); URINE LEUKOCYTE ESTERASE NEGATIVE Leu/uL (NEGATIVE); URINE PROTEIN 100 mg/dL (<30 mg/dL); URINE UROBILINOGEN 0.2 E.U./dL (<1 E.U./dL)
[2016-07-22 15:37] LABS: BASO # 0.06 K/mm3 (0.0-2.0); BASO % 0.5 % (0.0-3.0); EOS # 0.1 (0.0-0.7); EOS % 0.9 % (1.5-5.0); GRAN % 62.6 % (50.0-68.0); HEMATOCRIT 49.4 % (42.0-52.0); LYMPH # 2.9 (1.2-3.4); LYMPH % 26.1 % (22.0-35.0); MEAN CELL VOLUME 94.6 fL (80.0-105.0); MEAN CORPUSCULAR HEMOGLOBIN 34.7 pg (25.0-35.0); MEAN CORPUSCULAR HGB CONC 36.6 g/dl (31.0-37.0); MEAN PLATELET VOLUME 9.1 fl (7.0-11.0); MONO # 1.1 (0.1-0.6); MONO % 9.9 % (1.0-6.0); PLATELET COUNT 228 10^3/uL (120.0-450.0); RED CELL DISTRIBUTION WIDTH 14.2 % (11.5-14.5); WHITE BLOOD COUNT 11.2 10^3/ul (4.5-11.0)
[2016-07-22 16:03] LABS: URINE APPEARANCE CLEAR (CLEAR); URINE COLOR YELLOW (YELLOW)
[2016-07-22 16:14] LABS: URINE BACTERIA SMALL (NEG); URINE EPITHELIAL CELLS 0 - 2 /hpf (0-5); URINE RBC 0 - 2 /hpf (0-2)
[2016-07-22 16:35] VITALS: BP 125/76; O2SAT 99
--- NOTE | 2016-07-23 08:40 | RAD ---
HISTORY: testicular pain, KUB, assess for stone COMPARISON: No prior. FINDINGS: BOWEL: Normal. No obstruction. No free air. BONES: Normal. OTHER FINDINGS: There is a small stone in the region of the right UVJ which probably represents a ureteral stone. Clinical correlation is suggested IMPRESSION: There is a small stone in the region of the right UVJ which probably represents a ureteral stone. Clinical correlation is suggested
== END 2016-07-22 17:13 | disposition home or self-care (01) ==
LOC: ED 13:14
DX: N50.819 Testicular pain, unspecified (principal); I10 Essential (primary) hypertension; J44.9 Chronic obstructive pulmonary disease, unspecified; E78.5 Hyperlipidemia, unspecified; I25.10 Atherosclerotic heart disease of native coronary artery without angina pectoris; Z95.1 Presence of aortocoronary bypass graft; F17.210 Nicotine dependence, cigarettes, uncomplicated
CPT/HCPCS: 74000; 80053; 81001; 85025; 87491; 87591; 96374; 96375; 96376; 99284; J1885; J2060; J2270

== ENCOUNTER 2016-07-23 12:20 | Emergency (ER) | payer OTHER ==
[2016-07-22 13:25] VITALS: BMI 30.7
[2016-07-24 06:23] LABS: HEMATOCRIT 48.1 % (42.0-52.0); MEAN CELL VOLUME 94.9 fL (80.0-105.0); MEAN CORPUSCULAR HEMOGLOBIN 34.3 pg (25.0-35.0); WHITE BLOOD COUNT 10.6 10^3/ul (4.5-11.0)
[2016-07-24 06:24] LABS: MEAN CORPUSCULAR HGB CONC 36.2 g/dl (31.0-37.0); MEAN PLATELET VOLUME 9.2 fl (7.0-11.0); RED CELL DISTRIBUTION WIDTH 14.3 % (11.5-14.5)
[2016-07-24 10:23] LABS: PH,URINE 5.5 (4.7-8.0); URINE APPEARANCE SL CLOUDY (CLEAR); URINE BILIRUBIN NEGATIVE (NEGATIVE); URINE BLOOD NEGATIVE (NEGATIVE); URINE COLOR YELLOW (YELLOW); URINE GLUCOSE (UA) NEGATIVE (NEGATIVE); URINE KETONE NEGATIVE (NEGATIVE); URINE LEUKOCYTE ESTERASE NEGATIVE Leu/uL (NEGATIVE); URINE PROTEIN 30 mg/dL (<30 mg/dL); URINE RBC 0 - 2 /hpf (0-2); URINE UROBILINOGEN 0.2 E.U./dL (<1 E.U./dL); URINE WBC 0 - 2 /hpf (0-6)
[2016-07-24 10:24] LABS: URINE EPITHELIAL CELLS 0 - 2 /hpf (0-5)
--- NOTE | 2016-07-24 13:46 | US ---
Testicular ultrasound dated 07/23/2016. History: Rule out torsion. Sonographic evaluation of scrotum/testicles performed in standard fashion. Comparison weighed made with prior testicular ultrasound 07/19/2016. Findings: The right testicle measures 4.4 x 2.3 x 3.4 cm. Right testicle exhibits arterial flow and homogeneous architecture. There is a small to medium-sized right-sided hydrocele. Epididymal head measures 6 mm x 10 mm x 13 mm. Left testicle measures 4.2 x 1.9 x 3.0 cm and also exhibits arterial flow and homogeneous architecture. There is also a small left-sided hydrocele. Left epididymis measures 8 mm x 6 mm x 10 mm. Impression: Both testicles exhibit arterial flow. Small bilateral hydroceles as detailed above.
--- NOTE | 2016-07-24 13:50 | US ---
Abdominal ultrasound dated 07/23/2016 History: Rule out kidney stones. Rule out cholecystitis. Sonographic evaluation of the abdomen performed. No prior study available for comparison. Findings: There is within range of normal size measuring 17.5 cm CC dimension. Liver demonstrates increased echotexture likely due to fatty infiltration however other infiltrative hepatocellular disease process not excluded. No obvious hepatic mass or collection. The gallbladder is physiologically distended. No evidence of intraluminal gallbladder calculi. Questionable trace fluid about the gallbladder. No evidence sonographic Vazquez sign. Common bile duct measures 4.7 mm. Visualized portions of the pancreas appear grossly unremarkable. Spleen exhibits normal size measures 12.4 cm greatest dimension. No splenic mass collection or calcification. Kidneys are relatively symmetric in size. Right kidney measures 11.7 x 5.5 x 5.5 cm. Left kidney measures 11.9 x 6.6 x 5.6 cm. No evidence shadowing calculi or. Impression: Increased hepatic echotexture likely representing fatty infiltration however other infiltrative hepatocellular disease process cannot be excluded. Questionable trace fluid about the gallbladder however no evidence of intraluminal gallbladder calculi or sonographic Vazquez sign. .
[2016-07-24 14:32] LABS: ALB/GLOB RATIO 1.1 (1.1-1.8); ALKALINE PHOSPHATASE 108 U/L (38-133); ALT/SGPT 33 U/L (7-56); AST/SGOT 24 U/L (15-59); BILIRUBIN,TOTAL 1.4 mg/dL (0.2-1.3); BLOOD UREA NITROGEN 13 mg/dL (7-21); CALCIUM 9.2 mg/dL (8.4-10.5); CARBON DIOXIDE 24 mmol/L (21-33); CHLORIDE 102 mmol/L (98-107); GFR AFRICAN-AMERICAN > 60; GLUCOSE,RANDOM 122 mg/dL (70-110); LIPASE 57 U/L (23-300); MAGNESIUM 1.9 mg/dL (1.7-2.2); PHOSPHOROUS 2.8 mg/dL (2.5-4.5); POTASSIUM 4.2 mmol/L (3.6-5.0); SODIUM 134 mmol/L (132-148); TOTAL PROTEIN 7.9 g/dL (5.8-8.3)
== END 2016-07-24 08:39 | disposition home or self-care (01) ==
LOC: ED 12:20
DX: N50.819 Testicular pain, unspecified (principal); I86.1 Scrotal varices; R10.9 Unspecified abdominal pain

== ENCOUNTER 2017-04-05 10:52 | Inpatient (IN) | payer OTHER ==
[2017-04-05 10:52] VITALS: BMI 30.7
--- NOTE | 2017-04-05 11:21 | ED PDOC ---
Arrival/HPI - General Time Seen by Provider: 04/05/17 11:04 Historian: Patient - History of Present Illness Narrative History of Present Illness (Text): you were treated in the ED today for generalized chest pain and mild shortness of breath with anxiety for 2-3 days. secondary complaint chronic testicular pain radiating to chest noted otherwise without any nausea/vomiting/headache/ dizziness/abdomen pain/numbness/tingling/loss of limb function/pain with urination/suicidal ideation/homicidal ideation/hallucinations. history of hypertension, hyperlipidemia, CAD s/p cardiac bypass surgery, and active smoker. testicular ultrasound done on 07/23/16 which showed both testicles exhibit arterial flow and small bilateral hydroceles. Time/Duration: Other (2-3 days) Symptom Course: Unchanged Context: Home Past Medical History - Provider Review Nursing Documentation Reviewed: Yes - Infectious Disease Hx of Infectious Diseases: None - Tetanus Immunization Tetanus Immunization: Unknown - Cardiac Hx Cardiac Disorders: Yes Hx Hypertension: Yes - Pulmonary Hx Chronic Obstructive Pulmonary Disease (COPD): Yes Other/Comment: smoker - Neurological Hx Neurological Disorder: Yes Hx Migraine: Yes Other/Comment: Has history of migraine, does not get headaches a lot but has aura most of the time like. floaters - HEENT Hx HEENT Disorder: No - Renal Hx Renal Disorder: No - Endocrine/Metabolic Hx Endocrine Disorders: No - Hematological/Oncological Hx Blood Disorders: No - Integumentary Hx Dermatological Disorder: Yes Other/Comment: rash - Musculoskeletal/Rheumatological Hx Musculoskeletal Disorders: No Hx Falls: No - Gastrointestinal Hx Gastrointestinal Disorders: Yes Hx Gastroesophageal Reflux: Yes - Genitourinary/Gynecological Hx Genitourinary Disorders: No - Psychiatric Hx Substance Use: No - Surgical History Hx Appendectomy: Yes Hx Cardiac Catheterization: Yes Hx Coronary Artery Bypass Graft: Yes (2012) Hx Open Heart Surgery: Yes - Anesthesia Hx Anesthesia: Yes Hx Anesthesia Reactions: No Hx Malignant Hyperthermia: No - Suicidal Assessment Feels Threatened In Home Enviroment: No Family/Social History - Physician Review Nursing Documentation Reviewed: Yes Family/Social History: No Known Family HX Smoking Status: Light Smoker < 10 Cigarettes Daily Hx Alcohol Use: No Hx Substance Use: No Substance used: cocaine Hx Substance Use Treatment: No Allergies/Home Meds Allergies/Adverse Reactions: Allergies peanut Allergy (Verified 07/22/16 13:25) ANAPHYLAXIS AND ANYTHING THAT IS DERIVED FROM ANY NUTS PER PATIENT. shellfish derived Allergy (Verified 07/22/16 13:25) ANAPHYLAXIS Home Medications: Home Meds Medication Instructions Recorded Confirmed ALPRAZolam [Xanax] 0 mg PO PRN PRN 07/19/16 07/22/16 oxyCODONE/Acetaminophen [Percocet 1 tab PO PRN PRN 07/19/16 07/22/16 5/325 mg Tab] Review of Systems - Physician Review All systems were reviewed & negative as marked: Yes - Review of Systems Respiratory: SOB Cardiovascular: Chest Pain Gastrointestinal: absent: Abdominal Pain, Nausea, Vomiting Genitourinary Male: absent: Dysuria Neurological: absent: Headache, Dizziness, Focal Weakness Psychiatric: Anxiety. absent: Suicidal Ideation, Other (Homicidal ideation/ Hallucinations) Physical Exam Vital Signs Reviewed: Yes Vital Signs Temp Pulse Resp BP Pulse Ox 04/05/17 13:30 110 H 20 132/80 97 04/05/17 11:16 98.3 F 112 H 20 121/86 98 Temperature: Afebrile Blood Pressure: Normal Pulse: Tachycardic Respiratory Rate: Tachypneic Appearance: Positive for: Well-Appearing, Non-Toxic, Comfortable Pain Distress: None Mental Status: Positive for: Alert and Oriented X 3 - Systems Exam Head: Present: Atraumatic, Normocephalic Pupils: Present: PERRL Extroacular Muscles: Present: EOMI Conjunctiva: Present: Normal Mouth: Present: Moist Mucous Membranes Neck: Present: Normal Range of Motion Respiratory/Chest: Present: Clear to Auscultation, Good Air Exchange. No: Respiratory Distress, Accessory Muscle Use Cardiovascular: Present: Regular Rate and Rhythm, Normal S1, S2. No: Murmurs Abdomen: Present: Normal Bowel Sounds. No: Tenderness, Distention, Peritoneal Signs Genitourinary Male: Present: Normal External Genitalia, Other (Bilateral testicles in good position, line and cremasteric reflex). No: Lesions (penile/ scrotal lesions), Penile Discharge, Testicle Tenderness, Penile Swelling, Testicle Swelling Back: Present: Normal Inspection Upper Extremity: Present: Normal Inspection. No: Cyanosis, Edema Lower Extremity: Present: Normal Inspection. No: Edema Neurological: Present: GCS=15, CN II-XII Intact, Speech Normal Skin: Present: Warm, Dry, Normal Color. No: Rashes Psychiatric: Present: Alert, Oriented x 3, Normal Insight, Normal Concentration Medical Decision Making ED Course and Treatment: you were treated in the ED today for generalized chest pain and mild shortness of breath with anxiety for 2-3 days. secondary complaint chronic testicular pain radiating to chest noted otherwise without any nausea/vomiting/headache/ dizziness/abdomen pain/numbness/tingling/loss of limb function/pain with urination/suicidal ideation/homicidal ideation/hallucinations. history of hypertension, hyperlipidemia, CAD s/p cardiac bypass surgery, and active smoker. testicular ultrasound done on 07/23/16 which showed both testicles exhibit arterial flow and small bilateral hydroceles. You were otherwise breathing easily, pink/moist lips, smiling when you were talking, good strength/ sensation, alert/oriented, walking easily, clear lungs, no abdomen tenderness, no fever temp 98.3, heart rate 112, breathing rate 98, elevated blood pressure 121/86 which we recommend repeat in 2-3 days primary care office to determine further treatment, hb 19, trop neg, and pt recurrent chest pain and given morphine, aspirin. Report Date : 04/05/2017 11:52:59 Procedure: Chest xray Dictator : Nisha Wood MD IMPRESSION: No active pulmonary disease. 04/05/17 14:07 04/05/17 14:[address] Whiting who stated pt with chronic tachycardia, difficulty pain control , to admit to the hospitalist as patient requires pain control as well. 04/05/17 14:31 d/w Dr. Krishna who will accept patient for chest pain eval, hb 19. pt recieved morphine, dilouded, ntg for pain control, and patient ambulated around ed. d/w Dr. Krishna and pt requested pain medication right during initial eval and thus utox unable to be completed prior to medication narcotic administration. 04/05/17 14:46 04/05/17 14:47 04/05/17 14:48 04/05/17 14:49 - Lab Interpretations Lab Results: 04/05/17 11:20 04/05/17 11:20 Lab Results 04/05/17 11:20: Sodium 137, Potassium 4.2, Chloride 103, Carbon Dioxide 20 L, Anion Gap 19, BUN 12, Creatinine 0.9, Est GFR ( Amer) > 60, Est GFR (Non- Af Amer) > 60, Random Glucose 146 H, Calcium 9.9, Magnesium 2.0, Total Bilirubin 0.9, AST 66 H, ALT 77 H, Alkaline Phosphatase 126, Lactate Dehydrogenase 549, Total Creatine Kinase 62, Troponin I < 0.01, NT-Pro-B Natriuret Pep 247, Total Protein 8.0, Albumin 4.6, Globulin 3.4, Albumin/ Globulin Ratio 1.4 04/05/17 11:20: PT 11.2, INR 0.97, APTT 27.7 04/05/17 11:20: WBC 9.6, RBC 5.38, Hgb 19.0 H*, Hct 53.8 H, MCV 100.0, MCH 35.3 H, MCHC 35.3, RDW 14.2, Plt Count 223, MPV 9.0, Gran % 61.6, Lymph % (Auto) 29.8 , [place] % (Auto) 7.4 H, Eos % (Auto) 0.5 L, Baso % (Auto) 0.7, Gran # 5.87, Lymph # 2.9, [place] # 0.7 H, Eos # 0.1, Baso # 0.07 - RAD Interpretation Radiology Orders: 04/05/17 11:24 CHEST PORTABLE [RAD] Stat Multi Line Claims Adjuster: Radiologist - EKG Interpretation Interpreted by ED Physician: Yes (sinus tachycardia) Type: 12 lead EKG - Medication Orders Current Medication Orders: Discontinued Medications Aspirin (Aspirin) 325 mg PO STAT STA Stop: 04/05/17 11:24 Last Admin: 04/05/17 11:48 Dose: 325 mg Hydromorphone HCl (Dilaudid) 1 mg IVP STAT STA Stop: 04/05/17 14:23 Sodium Chloride (Sodium Chloride 0.9%) 1,000 mls @ 999 mls/hr IV .Q1H1M STA Stop: 04/05/17 13:20 Last Admin: 04/05/17 13:00 Dose: 999 mls/hr eMAR Start Stop Document 04/05/17 13:00 ALVARO (Rec: 04/05/17 13:52 ALVARO [id number]) Intravenous Solution Start Date 04/05/17 Start Time 13:00 End Date 04/05/17 End time 14:00 Total Infusion Time 60 Lorazepam (Ativan) 0.5 mg IVP ONCE ONE PRN Reason: Protocol Stop: 04/05/17 11:26 Last Admin: 04/05/17 11:49 Dose: 0.5 mg IVP Administration Document 04/05/17 11:49 SZA (Rec: 04/05/17 11:49 SZA [id number]) Charges for Administration # of IVP Administrations 1 Morphine Sulfate (Morphine) 2 mg IVP STAT STA Stop: 04/05/17 11:24 Last Admin: 04/05/17 11:48 Dose: 2 mg MAR Pain Assessment Document 04/05/17 11:48 SZA (Rec: 04/05/17 11:49 SZA [id number]) Pain Reassessment Is this a pain reassessment? No Sleep Is patient sleeping during reassessment? No Presence of Pain Presence of Pain Yes IVP Administration Document 04/05/17 11:48 SZA (Rec: 04/05/17 11:49 SZA [id number]) Charges for Administration # of IVP Administrations 1 Morphine Sulfate (Morphine) 2 mg IVP STAT STA Stop: 04/05/17 13:07 Last Admin: 04/05/17 13:52 Dose: 2 mg MAR Pain Assessment Document 04/05/17 13:52 SZA (Rec: 04/05/17 13:53 SZA [id number]) Pain Reassessment Is this a pain reassessment? No Presence of Pain Presence of Pain Yes Pain Scale Used Pain Scale Used Numeric IVP Administration Document 04/05/17 13:52 SZA (Rec: 04/05/17 13:53 SZA [id number]) Charges for Administration # of IVP Administrations 1 Nitroglycerin (Nitrostat Sl Tab) 0.4 mg SL STAT STA Stop: 04/05/17 14:45 Disposition/Present on Arrival - Present on Arrival Any Indicators Present on Arrival: No History of DVT/PE: No History of Uncontrolled Diabetes: No Urinary Catheter: No History Surgical Site Infection Following: None - Disposition Have Diagnosis and Disposition been Completed?: Yes Diagnosis: Chest pain, Coronary atherosclerosis of [place] coronary artery, Postsurgical aortocoronary bypass status, Anxiety Disposition: HOSPITALIZED Disposition Time: 14:48 Patient Plan: Admission, Telemetry Patient Problems: Current Active Problems Problem Status Onset Anxiety Acute Chest pain Acute Coronary atherosclerosis of [place] coronary artery Acute Postsurgical aortocoronary bypass status Acute Condition: STABLE Discharge Instructions (ExitCare): Chest Pain (ED) Referrals: Justin Whiting MD [Primary Care Provider] - Follow up with primary
[2017-04-05] MEDS ORDERED: Morphine 4 mg/ml ISec IVP STA ×2 (11:23→13:06)
[2017-04-05 11:40] LABS: BASO # 0.07 K/mm3 (0.0-2.0); BASO % 0.7 % (0.0-3.0); EOS # 0.1 (0.0-0.7); EOS % 0.5 % (1.5-5.0); GRAN # 5.87 (1.4-6.5); GRAN % 61.6 % (50.0-68.0); LYMPH # 2.9 (1.2-3.4); LYMPH % 29.8 % (22.0-35.0); MEAN CORPUSCULAR HEMOGLOBIN 35.3 pg (25.0-35.0); MEAN CORPUSCULAR HGB CONC 35.3 g/dl (31.0-37.0); MONO # 0.7 (0.1-0.6); MONO % 7.4 % (1.0-6.0); RBC 5.38 10^6/uL (3.5-6.1); RED CELL DISTRIBUTION WIDTH 14.2 % (11.5-14.5); WHITE BLOOD COUNT 9.6 10^3/ul (4.5-11.0)
[2017-04-05 11:53] LABS: ALB/GLOB RATIO 1.4 (1.1-1.8); ALBUMIN 4.6 g/dL (3.0-4.8); ALT/SGPT 77 U/L (7-56); AST/SGOT 66 U/L (17-59); BLOOD UREA NITROGEN 12 mg/dL (7-21); CALCIUM 9.9 mg/dL (8.4-10.5); GFR AFRICAN-AMERICAN > 60; GFR NON-AFRICAN AMERICAN > 60
--- NOTE | 2017-04-05 11:54 | RAD ---
HISTORY: Chest pain the lungs are COMPARISON: 06/20/2016. FINDINGS: LUNGS: The lungs are well inflated and clear. PLEURA: No significant pleural effusion identified, no pneumothorax apparent. CARDIOVASCULAR: The heart is normal in size. Status post CABG. OSSEOUS STRUCTURES: No significant abnormalities. VISUALIZED UPPER ABDOMEN: Normal. OTHER FINDINGS: None. IMPRESSION: No active pulmonary disease.
[2017-04-05 11:55] LABS: INR 0.97 (0.93-1.08); PARTIAL THROMBOPLASTIN TIME 27.7 Seconds (25.1-36.5); PROTHROMBIN TIME 11.2 SECONDS (9.4-12.5)
[2017-04-05 12:04] LABS: B-TYPE NATRIURETIC PEPTIDE 247 pg/mL (0-450); TROPONIN I < 0.01 ng/mL
[2017-04-05] MEDS ORDERED: Sodium Chloride 0.9% 1,000 ML IV STA (12:20)
[2017-04-05] MEDS ORDERED: HYDROmorphone 1 mg/ml ISec IVP STA (14:22)
[2017-04-05 15:54] LABS: PH,URINE 7.5 (4.7-8.0); URINE BILIRUBIN NEGATIVE (NEGATIVE); URINE BLOOD NEGATIVE (NEGATIVE); URINE GLUCOSE (UA) NEGATIVE (NEGATIVE); URINE LEUKOCYTE ESTERASE NEGATIVE Leu/uL (NEGATIVE); URINE NITRATE NEGATIVE (NEGATIVE); URINE PROTEIN 30 mg/dL (<30 mg/dL); URINE UROBILINOGEN 0.2 E.U./dL (<1 E.U./dL)
[2017-04-05 15:58] LABS: URINE APPEARANCE CLEAR (CLEAR); URINE COLOR YELLOW (YELLOW)
[2017-04-05 16:14] LABS: URINE EPITHELIAL CELLS 0 - 2 /hpf (0-5); URINE WBC NEGATIVE /hpf (0-6)
--- NOTE | 2017-04-05 16:32 | CP.PCM.HP ---
<TomTrinh - Last Filed: 04/05/17 15:55> History of Present Illness - History of Present Illness History of Present Illness: Medicine note for Dr. Krishna Patient is a 52M with PMH of HTN, HLD, CAD s/p CABG (2012), hydrocele with chronic testicular pain, COPD, anxiety, and migraines who presents to the ED with chest pain that has been ongoing for months. Patient says he came in because he has had a pressure on the left side of his chest for the past 2 days. Patient says today his arms started tingling as well and he noticed partial numbness in his right thumb as well as pain radiating from his left armpit down to his forearm that started 30 minutes ago. Patient has a history of testicular pain which he says causes him anxiety which leads to the chest pain but he has not had the pressure feeling since his LA in 2012. Patient also says he has never had the symptoms in his arms. ROS: + dizziness, headache (right sided and occipital), SOB on exertion and occasionally at rest, palpitations, morning cough, nausea and vomiting in the morning from coughing, diarrhea [id number], right foor numbness - abdominal pain, constipation, blood in vomit/stool, leg swelling/pain/numbness /tingling, urinary symptoms PMH: HTN, HLD, CAD s/p CABG (2012), hydrocele with chronic testicular pain, COPD , anxiety, and migraines Meds: see [facility] PSH: CABG (2012) Allergies: peanut, shellfish FH: denies SH: smokes 1 pack/week, occasionally drinks beer (weekends), denies drug use ( but history of positive UDS for cocaine) Present on Admission - Present on Admission Any Indicators Present on Admission: No Review of Systems - Review of Systems All systems: reviewed and no additional remarkable complaints except (as per HPI ) Past Patient History - Infectious Disease Hx of Infectious Diseases: None - Tetanus Immunizations Tetanus Immunization: Unknown - Past Medical History & Family History Past Medical History?: Yes - Past Social History Smoking Status: Light Smoker < 10 Cigarettes Daily - CARDIAC Hx Cardiac Disorders: Yes Hx Hypertension: Yes - PULMONARY Hx Chronic Obstructive Pulmonary Disease (COPD): Yes Other/Comment: smoker - NEUROLOGICAL Hx Neurological Disorder: Yes Hx Migraine: Yes Other/Comment: Has history of migraine, does not get headaches a lot but has aura most of the time like. floaters - HEENT Hx HEENT Problems: No - RENAL Hx Chronic Kidney Disease: No - ENDOCRINE/METABOLIC Hx Endocrine Disorders: No - HEMATOLOGICAL/ONCOLOGICAL Hx Blood Disorders: No - INTEGUMENTARY Hx Dermatological Problems: Yes Other/Comment: rash - MUSCULOSKELETAL/RHEUMATOLOGICAL Hx Musculoskeletal Disorders: No Hx Falls: No - GASTROINTESTINAL Hx Gastrointestinal Disorders: Yes Hx Gastroesophageal Reflux: Yes - GENITOURINARY/GYNECOLOGICAL Hx Genitourinary Disorders: No - PSYCHIATRIC Hx Substance Use: No - SURGICAL HISTORY Hx Appendectomy: Yes Hx Cardiac Catheterization: Yes Hx Coronary Artery Bypass Graft: Yes (2012) Hx Open Heart Surgery: Yes - ANESTHESIA Hx Anesthesia: Yes Hx Anesthesia Reactions: No Hx Malignant Hyperthermia: No Meds Allergies/Adverse Reactions: Allergies Allergy/AdvReac Type Severity Reaction Status Date / Time peanut Allergy ANAPHYLAXIS Verified 07/22/16 13:25 shellfish derived Allergy ANAPHYLAXIS Verified 07/22/16 13:25 Physical Exam - Constitutional Appears: Non-toxic, No Acute Distress, Other (anxious) - Head Exam Head Exam: ATRAUMATIC, NORMAL INSPECTION, NORMOCEPHALIC - Eye Exam Eye Exam: EOMI, Normal appearance, PERRL - ENT Exam ENT Exam: Mucous Membranes Moist - Neck Exam Neck exam: Positive for: Normal Inspection - Respiratory Exam Respiratory Exam: Decreased Breath Sounds, Clear to Auscultation Bilateral, NORMAL BREATHING PATTERN. absent: Accessory Muscle Use, Rales, Rhonchi, Wheezes , Respiratory Distress - Cardiovascular Exam Cardiovascular Exam: Tachycardia, REGULAR RHYTHM, +S1, +S2. absent: Bradycardia , JVD, Systolic Murmur - GI/Abdominal Exam GI & Abdominal Exam: Normal Bowel Sounds, Soft. absent: Distended, Tenderness - Extremities Exam Extremities exam: Positive for: normal capillary refill, normal inspection, pedal pulses present. Negative for: calf tenderness, pedal edema, tenderness - Neurological Exam Neurological exam: Alert, Oriented x3 - Psychiatric Exam Psychiatric exam: Anxious - Skin Skin Exam: Dry, Intact, Normal Color, Warm Results - Vital Signs Recent Vital Signs: Last Vital Signs Temp 97.2 F L 04/05/17 15:48 Pulse 104 H 04/05/17 15:48 Resp 20 04/05/17 15:48 BP 171/98 H 04/05/17 15:48 Pulse Ox 98 04/05/17 15:48 - Labs Result Diagrams: 04/05/17 11:20 04/05/17 11:20 Assessment & Plan - Assessment and Plan (Free Text) Assessment: 52M with PMH of HTN, HLD, CAD s/p CABG (2012), hydrocele with chronic testicular pain, COPD, anxiety, and migraines who presents to the ED with chest pain likely 2/2 anxiety vs ACS. Plan: Chest pain * anxiety vs ACS * EKG: tachycardia and LVH * Trop negative x1 * will f/u trend * Cardiology consulted (Dr. Garcia), recs appreciated * f/u lipid panel * f/u echo (last on [facility] records was 2012) * continue home meds (ASA, Zestril, norvasc, simvastatin) * will hold metoprolol until ACS and cocaine use r/o * Morphine PRN pain * Heart healthy diet Anxiety * continue home meds (xanax 0.5 mg BID PRN) * Consider psych consult if needed HTN * continue home meds (Norvasc, lisinopril), but hold metoprolol as stated above * monitor vitals HLD * Continue home meds (simvastatin) * f/u Lipid panel Chronic testicular pain * Morphine PRN pain * hold home percocet COPD * continue home meds (methylprednisolone, ventolin) * monitor O2 sat Cough * continue home med (promethazine) Right foot numbness * f/u HbA1c DVT: heparin GI: omperazole (home med) Patient seen, examined, and discussed with Dr. Krishna <Sandra Krishna - Last Filed: 04/05/17 18:24> Results - Vital Signs Recent Vital Signs: Last Vital Signs Temp 97.2 F L 04/05/17 15:48 Pulse 72 04/05/17 16:00 Resp 16 04/05/17 16:00 BP 151/76 H 04/05/17 16:00 Pulse Ox 96 04/05/17 16:00 - Labs Result Diagrams: 04/05/17 11:20 04/05/17 11:20 Labs: Laboratory Results - last 24 hr 04/05/17 04/05/17 04/05/17 15:30 15:30 17:30 Lactate Dehydrogenase 400 Total Creatine Kinase 61 Urine Color Yellow Urine Appearance Clear Urine pH 7.5 Ur Specific Becc[place] 1.020 Urine Protein 30 H Urine Glucose (UA) Negative Urine Ketones Negative Urine Blood Negative Urine Nitrate Negative Urine Bilirubin Negative Urine Urobilinogen 0.2 Ur Leukocyte Esterase Negative Urine RBC 1 - 3 Urine WBC Negative Ur Epithelial Cells 0 - 2 Hyaline Casts None Fine Granular Casts None Urine Opiates Screen Positive H Urine Methadone Screen Negative Ur Barbiturates Screen Negative Ur Phencyclidine Scrn Negative Ur Amphetamines Screen Negative U Benzodiazepines Scrn Positive H U Oth Cocaine Metabols Negative U Cannabinoids Screen Negative Attending/Attestation - Attestation I have personally seen and examined this patient.: Yes I have fully participated in the care of the patient.: Yes I have reviewed all pertinent clinical information: Yes Notes (Text): 04/05/17 18:19 52 year old male with past medical history of CAD s/p CABG (2012), hypertension , COPD, anxiety, substance abuse (cocaine) and chronic back pain who presents with complaint of chest pain and anxiety. Will admit to telemetry unit to rule out ACS. Serial cardiac enzymes and echocardiogram are ordered. Cardiology evaluation is requested. Will check urine drug screen. Continue with aspirin, statin, lisinopril. Resume metoprolol if drug screen is negative for cocaine. Will check lipid panel and A1c level. Continue home medication xanax for anxiety. He is also noted by have erythrocytosis. EPO/JAK2 levels are ordered. Hematology evaluation is requested. He was counselled on smoking cessation. He was counselled on risks of continued alcohol, tobacco and substance abuse. Sandra Krishna MD Hospitalist.
[2017-04-05] MEDS: Promethazine DM 6.25 mg-15 mg/5 ml Syrup PO SCH (17:00)
[2017-04-05] MEDS: Morphine 5 MG/ML SYRINGE IVP PRN ×2 (17:01→22:59)
--- NOTE | 2017-04-05 18:12 | CARD ---
APPROVED REPORT EKG Measurement Heart [id number] <Conclusion> Sinus tachycardia Biatrial enlargement Left ventricular hypertrophy with repolarization abnormality Abnormal ECG
[2017-04-05 18:15] LABS: BENZODIAZEPINES, UR POSITIVE (NEGATIVE); OPIATES, UR POSITIVE (NEGATIVE)
[2017-04-05 18:17] LABS: BARBITURATES, UR NEGATIVE (NEGATIVE); PHENCYCLIDINE, UR NEGATIVE (NEGATIVE)
[2017-04-05 18:19] LABS: TROPONIN I < 0.01 ng/mL
[2017-04-05] MEDS ORDERED: Influenza Vaccine 60 mcg/0.5 mL SYR (4YR UP) IM ONE (18:46)
[2017-04-05] MEDS ORDERED: Pneumococcal 23-Valent Vaccine IM ONE (18:46)
[2017-04-05] MEDS ORDERED: Albuterol HFA 90 mcg/actuation (8 g) INH SCH (20:00)
[2017-04-06] MEDS: Morphine 5 MG/ML SYRINGE IVP PRN ×4 (05:18→23:21)
[2017-04-06 07:24] LABS: BASO # 0.04 K/mm3 (0.0-2.0); BASO % 0.6 % (0.0-3.0); EOS # 0.1 (0.0-0.7); EOS % 1.7 % (1.5-5.0); GRAN # 3.62 (1.4-6.5); GRAN % 50.7 % (50.0-68.0); HEMOGLOBIN 16.8 g/dL (14.0-18.0); LYMPH # 2.8 (1.2-3.4); LYMPH % 38.9 % (22.0-35.0); MEAN CELL VOLUME 100.8 fl (80.0-105.0); MEAN CORPUSCULAR HEMOGLOBIN 34.4 pg (25.0-35.0); MEAN CORPUSCULAR HGB CONC 34.1 g/dl (31.0-37.0); MEAN PLATELET VOLUME 9.2 fl (7.0-11.0); MONO # 0.6 (0.1-0.6); MONO % 8.1 % (1.0-6.0); RBC 4.88 10^6/uL (3.5-6.1); RED CELL DISTRIBUTION WIDTH 14.1 % (11.5-14.5); WHITE BLOOD COUNT 7.1 10^3/ul (4.5-11.0)
[2017-04-06 07:54] LABS: LDL CHOLESTEROL 138 mg/dL (0-129)
[2017-04-06 07:58] LABS: ALB/GLOB RATIO 1.4 (1.1-1.8); ALBUMIN 3.9 g/dL (3.0-4.8); ALT/SGPT 64 U/L (7-56); AST/SGOT 36 U/L (17-59); BLOOD UREA NITROGEN 12 mg/dL (7-21); CALCIUM 9.3 mg/dL (8.4-10.5); GFR AFRICAN-AMERICAN > 60; GFR NON-AFRICAN AMERICAN > 60; HDL CHOLESTEROL 32 mg/dL (29-60); MAGNESIUM 2.1 mg/dL (1.7-2.2)
[2017-04-06] MEDS: Albuterol 0.5% Inhal Sol (2.5 mg/0.5 ml) UD IH SCH ×2 (08:00→14:51)
[2017-04-06] MEDS: Promethazine DM 6.25 mg-15 mg/5 ml Syrup PO SCH ×3 (10:30→17:25)
[2017-04-06] MEDS: Pantoprazole 40 mg EC Tab PO SCH (10:31)
--- NOTE | 2017-04-06 11:45 | CARD ---
APPROVED REPORT EXAM: Two-dimensional and M-mode echocardiogram with Doppler and color Doppler. INDICATION Chest Pain CABG 2D DIMENSIONS Left Atrium (2D)3.2 (1.6-4.0cm)IVSd1.4 (0.7-1.1cm) LVDd5.2 (3.9-5.9cm)PWd1.6 (0.7-1.1cm) LVDs3.3 (2.5-4.0cm)LVEF (%)65.0 (>50%) M-Mode DIMENSIONS Aortic Root3.30 (2.2-3.7cm)Aortic Cusp Exc.1.60 (1.5-2.0cm) Aortic Valve AoV Peak Wozceibq899.0cm/Ricardo Peak GR.7mmHg Mitral Valve MV E Chmflgts22.0cm/sMV A Xdwnfigj71.5cm/sE/A ratio1.1 TDI Lateral E' Peak V7.90cm/sMedial E' Peak V4.58cm/sE/Lateral E'11.0 E/Medial E'19.0 Tricuspid Valve TR Peak [id number]/sRAP [id number] Peak Gr.9mmHg [id number] LEFT VENTRICLE The left ventricle is normal size. There is mild concentric left ventricular hypertrophy. The left ventricular function is normal.EF-65% There is normal LV segmental wall motion. The left ventricular diastolic function is normal. No left ventricle thrombus noted on this study. There is no ventricular septal defect visualized. There is no left ventricular aneurysm. There is no mass noted in the left ventricle. RIGHT VENTRICLE The right ventricle is normal size. There is normal right ventricular wall thickness. The right ventricular systolic function is normal. ATRIA The left atrium size is normal. The right atrium size is normal. The interatrial septum is intact with no evidence for an atrial septal defect. AORTIC VALVE The aortic valve is thickened but opens well. There is trace aortic regurgitation. There is no aortic valvular stenosis. There is no aortic valvular vegetation. MITRAL VALVE The mitral valve is thickened but opens well. Mitral regurgitation is trace to mild. There is no mitral valve stenosis. There is no evidence of mitral valve prolapse. TRICUSPID VALVE The tricuspid valve leaflets are thickened , but open well. There is trace to mild tricuspid regurgitation.RVSP-19 mmof hg. There is no tricuspid valve stenosis. There is no tricuspid valve prolapse or vegetation. PULMONIC VALVE The pulmonary valve is normal in structure. There is trace pulmonic valvular regurgitation. There is no pulmonic valvular stenosis. GREAT VESSELS The aortic root is normal in size. The ascending aorta is normal in size. The pulmonary artery is normal. The IVC is normal in size and collapses >50% with inspiration. PERICARDIAL EFFUSION There is no pleural effusion. There is no pericardial effusion. <Conclusion> The left ventricle is normal size. There is mild concentric left ventricular hypertrophy. The left ventricular function is normal.EF-65% There is trace aortic regurgitation. Mitral regurgitation is trace to mild. There is trace to mild tricuspid regurgitation.RVSP-19 mmof hg. There is trace pulmonic valvular regurgitation. The IVC is normal in size and collapses >50% with inspiration. There is no pericardial effusion.
[2017-04-06 12:13] LABS: ARTERIAL BLOOD GAS HCO3 23.1 mmol/L (21-28); ARTERIAL BLOOD GAS HEMOGLOBIN 16.9 g/dL (11.7-17.4); ARTERIAL BLOOD GAS O2 CAPACITY 22.5 mL/dl (16-24); ARTERIAL BLOOD GAS O2 CONTENT 21.7 ML/dl (15-23); ARTERIAL BLOOD GAS O2 SAT 96.5 % (95-98); ARTERIAL BLOOD GAS PCO2 34 mm/Hg (35-45); ARTERIAL BLOOD GAS PH 7.44 (7.35-7.45); ARTERIAL BLOOD GAS TCO2 24.1 mmol.L (22-28)
--- NOTE | 2017-04-06 12:24 | CP.PCM.CON ---
History of Present Illness - History of Present Illness History of Present Illness: 52 y/o M with PMH of HTN, HLD, CAD s/p CABG,chronic testicular pain, COPD, anxiety, and migraines who initially presented to the ED for left sided chest pain radiating to the jaw. Patient has had intermittent chest pain for months, but has gotten worse over the last couple days. Patient also describes b/l arm numbness and tingling that suddenly presented when chest pain became worse. Patient states right thumb is also specifically intermittently numb. Patient has also been to the ED numerous times for chest pain and testicular pain. Pain in chest now, was similar to the pain he felt in his chest when he had a heart attack several years ago. Patient does admit to right sided and occipital headaches. Denies shortness of breath, nausea, vomiting, diarrhea, changes in vision, fatigue, history of blood clots, strokes, fever, chills, dysuria, blood transfusions. PMH: HTN, HLD, CAD, chronic testicular pain, COPD, anxiety, and migraines PSH: CABG FH: denies SH: smokes 1 pack/week, occasionally alcohol use, denies illicit drug use Allergies: peanut, shellfish Medications: Reviewed, as per MAR. Review of Systems - Review of Systems Review of Systems: 12 point ROS as per HPI, otherwise negative Past Patient History - Infectious Disease Hx of Infectious Diseases: None - Tetanus Immunizations Tetanus Immunization: Unknown - Past Medical History & Family History Past Medical History?: Yes - Past Social History Smoking Status: Light Smoker < 10 Cigarettes Daily - CARDIAC Hx Cardiac Disorders: Yes (mi 2013 triple bypass at [facility]) Hx Hypertension: Yes - PULMONARY Hx Chronic Obstructive Pulmonary Disease (COPD): Yes Other/Comment: smoker - NEUROLOGICAL Hx Neurological Disorder: Yes Hx Migraine: Yes Other/Comment: Has history of migraine, does not get headaches a lot but has aura most of the time like. floaters - HEENT Hx HEENT Problems: No - RENAL Hx Chronic Kidney Disease: No - ENDOCRINE/METABOLIC Hx Endocrine Disorders: No - HEMATOLOGICAL/ONCOLOGICAL Hx Blood Disorders: No - INTEGUMENTARY Hx Dermatological Problems: Yes Other/Comment: generalized red raised chronic body rash unknown origin "I have has it for years.", multiple tatoos, - MUSCULOSKELETAL/RHEUMATOLOGICAL Hx Falls: No - GASTROINTESTINAL Hx Gastrointestinal Disorders: Yes Hx Gastroesophageal Reflux: Yes - GENITOURINARY/GYNECOLOGICAL Hx Genitourinary Disorders: Yes Other/Comment: hydrocele with chronic testicular pain - PSYCHIATRIC Hx Substance Use: No (pt denies ever doing drugs) - SURGICAL HISTORY Hx Appendectomy: Yes Hx Cardiac Catheterization: Yes Hx Open Heart Surgery: Yes - ANESTHESIA Hx Anesthesia: Yes Hx Anesthesia Reactions: No Hx Malignant Hyperthermia: No Meds Allergies/Adverse Reactions: Allergies Allergy/AdvReac Type Severity Reaction Status Date / Time peanut Allergy ANAPHYLAXIS Verified 07/22/16 13:25 shellfish derived Allergy ANAPHYLAXIS Verified 07/22/16 13:25 - Medications Medications: Current Medications Albuterol Sulfate (Albuterol 0.5% Inhal Lazara (2.5 Mg/0.5 Ml) Ud) 2.5 mg IH [id number] REPLACED BY [facility] Alprazolam (Xanax) 0.5 mg PO BID PRN; Protocol PRN Reason: Anxiety Stop: 04/12/17 16:13 Last Admin: 04/05/17 17:01 Dose: 0.5 mg Amlodipine Besylate (Norvasc) 10 mg PO DAILY REPLACED BY [facility] Last Admin: 04/06/17 10:30 Dose: 10 mg Aspirin (Ecotrin) 81 mg PO DAILY REPLACED BY [facility] Last Admin: 04/06/17 10:31 Dose: 81 mg Atorvastatin Calcium (Lipitor) 10 mg PO DIN REPLACED BY [facility] Last Admin: 04/05/17 17:01 Dose: 10 mg Heparin Sodium (Porcine) (Heparin) 5,000 units SC Q8 DARY PRN Reason: Protocol Last Admin: 04/06/17 05:19 Dose: 5,000 units Lisinopril (Zestril) 40 mg PO DAILY REPLACED BY [facility] Last Admin: 04/06/17 10:31 Dose: 40 mg Methylprednisolone (Medrol) 4 mg PO DAILY REPLACED BY [facility] Last Admin: 04/06/17 10:31 Dose: 4 mg Morphine Sulfate (Morphine) 2 mg IVP Q6H PRN PRN Reason: Pain, moderate (4-7) Last Admin: 04/06/17 11:24 Dose: 2 mg Pantoprazole Sodium (Protonix Ec Tab) 40 mg PO DAILY [facility]PLACED BY [facility] Last Admin: 04/06/17 10:31 Dose: 40 mg Promethazine HCl/Dextromethorphan (Phenergan Dm Syrup) 5 ml PO TID REPLACED BY [facility] Last Admin: 04/06/17 10:30 Dose: 5 ml Physical Exam - Constitutional Appears: Non-toxic, No Acute Distress - Head Exam Head Exam: ATRAUMATIC, NORMAL INSPECTION, NORMOCEPHALIC - Eye Exam Eye Exam: EOMI, Normal appearance - ENT Exam ENT Exam: Mucous Membranes Moist, Normal Exam - Neck Exam Neck exam: Positive for: Normal Inspection. Negative for: Lymphadenopathy - Respiratory Exam Respiratory Exam: Clear to Auscultation Bilateral, NORMAL BREATHING PATTERN. absent: Rales, Rhonchi, Wheezes - Cardiovascular Exam Cardiovascular Exam: RRR, +S1, +S2 - GI/Abdominal Exam GI & Abdominal Exam: Normal Bowel Sounds, Soft. absent: Tenderness - Extremities Exam Extremities exam: Positive for: normal inspection. Negative for: calf tenderness, pedal edema - Neurological Exam Neurological exam: Alert, CN II-XII Intact, Oriented x3 - Expanded Neurological Exam Expanded Sensory exam: Upper Extremity Light Touch: Normal, Upper Extremity Pin Prick: Normal Neuro motor strength exam: Left Upper Extremity: 5, Right Upper Extremity: 5, Left Lower Extremity: 5, Right Lower Extremity: 5 - Psychiatric Exam Psychiatric exam: Normal Affect, Normal Mood - Skin Skin Exam: Normal Color, Warm Results - Vital Signs Recent Vital Signs: Last Vital Signs Temp 98 F 04/06/17 06:00 Pulse 77 04/06/17 06:00 Resp 20 04/06/17 06:00 BP 140/71 04/06/17 10:30 Pulse Ox 97 04/06/17 06:00 - Labs Result Diagrams: 04/06/17 06:45 04/06/17 06:45 Labs: Laboratory Results - last 24 hr 04/05/17 04/05/17 04/05/17 15:30 15:30 17:30 WBC RBC Hgb Hct MCV MCH MCHC RDW Plt Count MPV Gran % Lymph % (Auto) [place] % (Auto) Eos % (Auto) Baso % (Auto) Gran # Lymph # [place] # Eos # Baso # Sodium Potassium Chloride Carbon Dioxide Anion Gap BUN Creatinine Est GFR ( Amer) Est GFR (Non-Af Amer) Random Glucose Calcium Phosphorus Magnesium Total Bilirubin AST ALT Alkaline Phosphatase Lactate Dehydrogenase 400 Total Creatine Kinase 61 Troponin I < 0.01 Total Protein Albumin Globulin Albumin/Globulin Ratio Triglycerides Cholesterol LDL Cholesterol Direct HDL Cholesterol Urine Color Yellow Urine Appearance Clear Urine pH 7.5 Ur Specific [place] 1.020 Urine Protein 30 H Urine Glucose (UA) Negative Urine Ketones Negative Urine Blood Negative Urine Nitrate Negative Urine Bilirubin Negative Urine Urobilinogen 0.2 Ur Leukocyte Esterase Negative Urine RBC 1 - 3 Urine WBC Negative Ur Epithelial Cells 0 - 2 Hyaline Casts None Fine Granular Casts None Urine Opiates Screen Positive H Urine Methadone Screen Negative Ur Barbiturates Screen Negative Ur Phencyclidine Scrn Negative Ur Amphetamines Screen Negative U Benzodiazepines Scrn Positive H U Oth Cocaine Metabols Negative U Cannabinoids Screen Negative 04/05/17 04/06/17 04/06/17 23:59 06:45 06:45 WBC 7.1 D RBC 4.88 Hgb 16.8 D Hct 49.2 MCV 100.8 MCH 34.4 MCHC 34.1 RDW 14.1 Plt Count 167 MPV 9.2 Gran % 50.7 Lymph % (Auto) 38.9 H [place] % (Auto) 8.1 H Eos % (Auto) 1.7 Baso % (Auto) 0.6 Gran # 3.62 Lymph # 2.8 [place] # 0.6 Eos # 0.1 Baso # 0.04 Sodium 139 Potassium 3.9 Chloride 107 Carbon Dioxide 23 Anion Gap 13 BUN 12 Creatinine 0.8 Est GFR ( Amer) > 60 Est GFR (Non-Af Amer) > 60 Random Glucose 106 Calcium 9.3 Phosphorus 4.0 Magnesium 2.1 Total Bilirubin 0.9 AST 36 ALT 64 H Alkaline Phosphatase 95 Lactate Dehydrogenase Total Creatine Kinase Troponin I < 0.01 Total Protein 6.7 Albumin 3.9 Globulin 2.8 Albumin/Globulin Ratio 1.4 Triglycerides 438 H Cholesterol 206 H LDL Cholesterol Direct 138 H HDL Cholesterol 32 Urine Color Urine Appearance Urine pH Ur Specific [place] Urine Protein Urine Glucose (UA) Urine Ketones Urine Blood Urine Nitrate Urine Bilirubin Urine Urobilinogen Ur Leukocyte Esterase Urine RBC Urine WBC Ur Epithelial Cells Hyaline Casts Fine Granular Casts Urine Opiates Screen Urine Methadone Screen Ur Barbiturates Screen Ur Phencyclidine Scrn Ur Amphetamines Screen U Benzodiazepines Scrn U Oth Cocaine Metabols U Cannabinoids Screen Assessment & Plan - Assessment and Plan (Free Text) Plan: 52 y/o M with PMH of HTN, HLD, CAD s/p CABG,chronic testicular pain, COPD, anxiety, and migraines who presents with atypical chest pain and erythrocytosis. Patient with negative cardiac workup at this time, awaiting evaluation by collar sewer. Patient noted to have elevated hemoglobin levels, which have always been on the upper limit of normal. We will work the patient up for primary vs secondary causes of erythrocytosis. We will obtain serum EPO levels, carboxyhemoglobin levels, JAK2 mutation, Calretinin, and leukocyte alkaline phosphatase. We will also obtain an abdominal ultrasound to evaluate the kidneys and liver. If patient becomes symptomatic or blood count levels increase, we will consider phlebotomy. Continue current medical management, we will continue to follow along closely. Plan discussed with Dr. Kurtz. Herbert, PGY-2
--- NOTE | 2017-04-06 17:47 | CP.PCM.PN ---
<Trinh Santos - Last Filed: 04/06/17 18:52> Subjective - Date & Time of Evaluation Date of Evaluation: 04/06/17 Time of Evaluation: 17:44 - Subjective Subjective: Patient seen and examined at bedside. Patient resting comfortably in bed with no new complaints at this time. Patient still having chest pain with numbness in the arms and right thumb. No acute events overnight. Patient denies headaches , dizziness, SOB, abdominal pain, n/v/d/c, LE pain/swelling. Objective - Vital Signs/Intake and Output Vital Signs (last 24 hours): Temp Pulse Resp BP Pulse Ox 98.2 F 83 21 118/84 97 04/06/17 12:00 04/06/17 17:24 04/06/17 12:00 04/06/17 17:24 04/06/17 06:00 Intake and Output: 04/06/17 04/06/17 06:59 18:59 Intake Total 360 Balance 360 - Medications Medications: Current Medications Albuterol Sulfate (Albuterol 0.5% Inhal Lazara (2.5 Mg/0.5 Ml) Ud) 2.5 mg IH [id number] [facility] Last Admin: 04/06/17 14:51 Dose: 2.5 mg Alprazolam (Xanax) 0.5 mg PO BID PRN; Protocol PRN Reason: Anxiety Stop: 04/12/17 16:13 Last Admin: 04/06/17 15:28 Dose: 0.5 mg Amlodipine Besylate (Norvasc) 10 mg PO DAILY [facility] Last Admin: 04/06/17 10:30 Dose: 10 mg Aspirin (Ecotrin) 81 mg PO DAILY [facility] Last Admin: 04/06/17 10:31 Dose: 81 mg Atorvastatin Calcium (Lipitor) 10 mg PO DIN [facility] Last Admin: 04/06/17 17:25 Dose: 10 mg Heparin Sodium (Porcine) (Heparin) 5,000 units SC Q8 DARY PRN Reason: Protocol Last Admin: 04/06/17 14:46 Dose: 5,000 units Lisinopril (Zestril) 40 mg PO DAILY [facility] Last Admin: 04/06/17 10:31 Dose: 40 mg Methylprednisolone (Medrol) 4 mg PO DAILY [facility] Last Admin: 04/06/17 10:31 Dose: 4 mg Metoprolol Tartrate (Lopressor) 50 mg PO BID [facility] Last Admin: 04/06/17 17:24 Dose: 50 mg Morphine Sulfate (Morphine) 2 mg IVP Q6H PRN PRN Reason: Pain, moderate (4-7) Last Admin: 04/06/17 17:25 Dose: 2 mg Pantoprazole Sodium (Protonix Ec Tab) 40 mg PO DAILY [facility] Last Admin: 04/06/17 10:31 Dose: 40 mg Promethazine HCl/Dextromethorphan (Phenergan Dm Syrup) 5 ml PO TID [facility] Last Admin: 04/06/17 17:25 Dose: 5 ml - Labs Labs: 04/06/17 06:45 04/06/17 06:45 PT 11.2 SECONDS (9.4-12.5) 04/05/17 11:20 INR 0.97 (0.93-1.08) 04/05/17 11:20 APTT 27.7 Seconds (25.1-36.5) 04/05/17 11:20 - Constitutional Appears: Non-toxic, No Acute Distress - Head Exam Head Exam: ATRAUMATIC, NORMAL INSPECTION, NORMOCEPHALIC - Eye Exam Eye Exam: EOMI, Normal appearance, PERRL - ENT Exam ENT Exam: Mucous Membranes Moist - Respiratory Exam Respiratory Exam: Clear to Ausculation Bilateral, NORMAL BREATHING PATTERN - Cardiovascular Exam Cardiovascular Exam: RRR, +S1, +S2 - GI/Abdominal Exam GI & Abdominal Exam: Soft, Normal Bowel Sounds. absent: Distended, Tenderness - Extremities Exam Extremities Exam: Normal Inspection. absent: Calf Tenderness, Pedal Edema - Neurological Exam Neurological Exam: Alert, Awake, Oriented x3 - Psychiatric Exam Psychiatric exam: Normal Affect, Normal Mood - Skin Skin Exam: Dry, Intact, Normal Color, Warm Assessment and Plan - Assessment and Plan (Free Text) Assessment: 52M with PMH of HTN, HLD, CAD s/p CABG (2012), hydrocele with chronic testicular pain, COPD, anxiety, and migraines who presents to the ED with chest pain likely 2/2 anxiety vs ACS. Plan: Chest pain * anxiety vs ACS * EKG: tachycardia and LVH * Trop negative x3 * Cardiology consulted (Dr. Walker), recs appreciated * lipid panel: Trig 438, Chol 206, LDL 138, HDL 32 * BNP 247 * echo: EF 65%, trace AR * continue home meds (ASA, Zestril, norvasc, simvastatin,metoprolol) * Morphine PRN pain * Heart healthy diet Polycythemia * Heme/Onc consulted (Jerardo), recs appreciated * f/u JAK2 mutations and erythropoietin * f/u flow cytometry * f/u abdominal US Anxiety * continue home meds (xanax 0.5 mg BID PRN) * Consider psych consult if needed HTN * continue home meds (Norvasc, lisinopril, metoprolol) * monitor vitals HLD * Continue home meds (simvastatin) * Lipid panel as above Chronic testicular pain * Morphine PRN pain * hold home percocet COPD * continue home meds (methylprednisolone, ventolin) * monitor O2 sat Cough * continue home med (promethazine) Right foot numbness * HbA1c 5.9 DVT: heparin GI: omperazole (home med) Patient seen, examined, and discussed with Dr. Krishna <Sandra Krishna - Last Filed: 04/06/17 21:40> Objective - Vital Signs/Intake and Output Vital Signs (last 24 hours): Temp Pulse Resp BP Pulse Ox 98.2 F 83 21 118/84 97 04/06/17 12:00 04/06/17 17:24 04/06/17 12:00 04/06/17 17:24 04/06/17 06:00 Intake and Output: 04/06/17 04/07/17 18:59 06:59 Intake Total 360 Balance 360 - Medications Medications: Current Medications Albuterol Sulfate (Albuterol 0.5% Inhal Lazara (2.5 Mg/0.5 Ml) Ud) 2.5 mg IH [id number] [facility] Alprazolam (Xanax) 0.5 mg PO BID PRN; Protocol PRN Reason: Anxiety Stop: 04/12/17 16:13 Last Admin: 04/06/17 15:28 Dose: 0.5 mg Amlodipine Besylate (Norvasc) 10 mg PO DAILY [facility] Last Admin: 04/06/17 10:30 Dose: 10 mg Aspirin (Ecotrin) 81 mg PO DAILY [facility] Last Admin: 04/06/17 10:31 Dose: 81 mg Atorvastatin Calcium (Lipitor) 10 mg PO DIN [facility] Last Admin: 04/06/17 17:25 Dose: 10 mg Heparin Sodium (Porcine) (Heparin) 5,000 units SC Q8 [facility] PRN Reason: Protocol Last Admin: 04/06/17 14:46 Dose: 5,000 units Lisinopril (Zestril) 40 mg PO DAILY [facility] Last Admin: 04/06/17 10:31 Dose: 40 mg Methylprednisolone (Medrol) 4 mg PO DAILY [facility] Last Admin: 04/06/17 10:31 Dose: 4 mg Metoprolol Tartrate (Lopressor) 50 mg PO BID [facility] Last Admin: 04/06/17 17:24 Dose: 50 mg Morphine Sulfate (Morphine) 2 mg IVP Q6H PRN PRN Reason: Pain, moderate (4-7) Last Admin: 04/06/17 17:25 Dose: 2 mg Pantoprazole Sodium (Protonix Ec Tab) 40 mg PO DAILY [facility] Last Admin: 04/06/17 10:31 Dose: 40 mg Promethazine HCl/Dextromethorphan (Phenergan Dm Syrup) 5 ml PO TID [facility] Last Admin: 04/06/17 17:25 Dose: 5 ml - Labs Labs: 04/06/17 06:45 04/06/17 06:45 PT 11.2 SECONDS (9.4-12.5) 04/05/17 11:20 INR 0.97 (0.93-1.08) 04/05/17 11:20 APTT 27.7 Seconds (25.1-36.5) 04/05/17 11:20 Attending/Attestation - Attestation I have personally seen and examined this patient.: Yes I have fully participated in the care of the patient.: Yes I have reviewed all pertinent clinical information, including history, physical exam and plan: Yes Notes (Text): 04/06/17 21:37 52 year old male with past medical history of CAD s/p CABG (2012), hypertension , COPD, anxiety, substance abuse (cocaine) and chronic back pain who presented with complaint of chest pain and anxiety. Serial cardiac enzymes were negative and ACS was ruled out. He still complains of chest pain, on morphine prn. He is on aspirin, statin, lisinopril and metoprolol. Echocardiogram is pending. Pain seeking behavior and anxiety component is suspected. Continue home medication xanax for anxiety. He was also noted by have erythrocytosis which improved. Workup including EPO/ JAK2 levels are pending. Hematology evaluation was appreciated and abdominal ultrasound was ordered as well. He was counselled on smoking cessation. He was counselled on risks of continued alcohol, tobacco and substance abuse. Sandra Krishna MD Hospitalist.
[2017-04-06] MEDS ORDERED: Albuterol 0.5% Inhal Sol (2.5 mg/0.5 ml) UD IH SCH (20:00)
--- NOTE | 2017-04-06 20:34 | US ---
EXAM: US Abdomen Complete EXAM DATE/TIME: 04/06/2017 11:37 AM CLINICAL HISTORY: The patient age is 52 years old and is male; Abnormal findings; Abnormal lab test; Elevated wbc; Additional info: Erythrocytosis Facility exam id and description: Us abd abdomen complete TECHNIQUE: Real-time ultrasound of the abdomen (complete) with image documentation. COMPARISON: US - ABDOMEN COMPLETE 2016-07-23 16:30 FINDINGS: Limitations: This study is technically limited. Liver: The liver is increased in echogenicity, most commonly due to fatty infiltration, but other chronic liver diseases may have a similar appearance. The liver measures 14.1 x 13.6 cm. Artifact limits evaluation of the liver. Gallbladder: No shadowing gallstones are visualized. There is no significant gallbladder wall thickening. The sonographic Vazquez sign is negative. Common bile duct: The common bile duct measures 0.4 cm in diameter, which is within normal limits. Pancreas: The pancreas is not visualized. Kidneys: The right kidney measures 12.0 x 5.5 x 6.1 cm. The left kidney measures 1.6 x 6.8 x 6.1 cm. There is no hydronephrosis or shadowing nephrolithiasis bilaterally. Spleen: The spleen measures 12.4 x 6.4 cm, borderline for splenomegaly. The spleen is normal in echotexture. Aorta: Not imaged. Inferior vena cava: Not imaged. IMPRESSION: 1. The liver is again increased in echogenicity, most commonly due to fatty infiltration, but other chronic liver diseases may have a similar appearance. 2. Borderline splenomegaly. 3. No sonographic evidence of acute cholecystitis. 4. Additional findings described above.
[2017-04-07] MEDS: Morphine 5 MG/ML SYRINGE IVP PRN ×4 (05:06→23:32)
[2017-04-07 07:23] LABS: BASO # 0.04 K/mm3 (0.0-2.0); BASO % 0.5 % (0.0-3.0); EOS # 0.1 (0.0-0.7); EOS % 1.3 % (1.5-5.0); GRAN # 3.53 (1.4-6.5); GRAN % 44.6 % (50.0-68.0); HEMOGLOBIN 16.7 g/dL (14.0-18.0); LYMPH # 3.5 (1.2-3.4); LYMPH % 44.5 % (22.0-35.0); MEAN CELL VOLUME 101.6 fl (80.0-105.0); MEAN CORPUSCULAR HEMOGLOBIN 34.2 pg (25.0-35.0); MEAN CORPUSCULAR HGB CONC 33.6 g/dl (31.0-37.0); MONO # 0.7 (0.1-0.6); MONO % 9.1 % (1.0-6.0); RBC 4.89 10^6/uL (3.5-6.1); RED CELL DISTRIBUTION WIDTH 14.2 % (11.5-14.5); WHITE BLOOD COUNT 7.9 10^3/ul (4.5-11.0)
[2017-04-07 07:56] LABS: ALB/GLOB RATIO 1.2 (1.1-1.8); ALBUMIN 3.7 g/dL (3.0-4.8); ALT/SGPT 56 U/L (7-56); AST/SGOT 35 U/L (17-59); BLOOD UREA NITROGEN 14 mg/dL (7-21); CALCIUM 9.3 mg/dL (8.4-10.5); GFR AFRICAN-AMERICAN > 60; GFR NON-AFRICAN AMERICAN > 60; MAGNESIUM 2.2 mg/dL (1.7-2.2)
[2017-04-07] MEDS ORDERED: Aminophylline 25 mg/ml Inj ONE (09:31)
[2017-04-07] MEDS: Promethazine DM 6.25 mg-15 mg/5 ml Syrup PO SCH ×3 (10:50→17:34)
[2017-04-07] MEDS: Pantoprazole 40 mg EC Tab PO SCH (10:53)
--- NOTE | 2017-04-07 11:15 | CP.PCM.PN ---
Subjective - Date & Time of Evaluation Date of Evaluation: 04/07/17 Time of Evaluation: 11:06 - Subjective Subjective: Patient seen and examined at bedside. Patient complaining of pain, that is not controlled by pain medication. He states his paresthesias in his upper extremities are still intermittent, but admits to decreased numbness than previous day. Patient had bowel movement this morning. Denies shortness of breath, nausea, vomiting, diarrhea, fever, chills, headache. Objective - Vital Signs/Intake and Output Vital Signs (last 24 hours): Temp Pulse Resp BP Pulse Ox 97.6 F 76 20 141/74 98 04/07/17 06:00 04/07/17 06:00 04/07/17 06:00 04/07/17 06:00 04/07/17 06:00 Intake and Output: 04/07/17 04/07/17 06:59 18:59 Intake Total 780 Balance 780 - Medications Medications: Current Medications Albuterol Sulfate (Albuterol 0.5% Inhal Lazara (2.5 Mg/0.5 Ml) Ud) 2.5 mg IH [id number] [facility] Alprazolam (Xanax) 0.5 mg PO BID PRN; Protocol PRN Reason: Anxiety Stop: 04/12/17 16:13 Last Admin: 04/06/17 21:56 Dose: 0.5 mg Amlodipine Besylate (Norvasc) 10 mg PO DAILY [facility] Last Admin: 04/06/17 10:30 Dose: 10 mg Aspirin (Ecotrin) 81 mg PO DAILY [facility] Last Admin: 04/06/17 10:31 Dose: 81 mg Atorvastatin Calcium (Lipitor) 10 mg PO DIN [facility] Last Admin: 04/06/17 17:25 Dose: 10 mg Heparin Sodium (Porcine) (Heparin) 5,000 units SC Q8 [facility] PRN Reason: Protocol Last Admin: 04/07/17 05:06 Dose: 5,000 units Lisinopril (Zestril) 40 mg PO DAILY [facility] Last Admin: 04/06/17 10:31 Dose: 40 mg Methylprednisolone (Medrol) 4 mg PO DAILY [facility] Last Admin: 04/06/17 10:31 Dose: 4 mg Metoprolol Tartrate (Lopressor) 50 mg PO BID [facility] Last Admin: 04/06/17 17:24 Dose: 50 mg Morphine Sulfate (Morphine) 2 mg IVP Q6H PRN PRN Reason: Pain, moderate (4-7) Last Admin: 04/07/17 05:06 Dose: 2 mg Pantoprazole Sodium (Protonix Ec Tab) 40 mg PO DAILY [facility] Last Admin: 04/06/17 10:31 Dose: 40 mg Promethazine HCl/Dextromethorphan (Phenergan Dm Syrup) 5 ml PO TID [facility] Last Admin: 04/06/17 17:25 Dose: 5 ml - Labs Labs: 04/07/17 06:30 04/07/17 06:30 PT 11.2 SECONDS (9.4-12.5) 04/05/17 11:20 INR 0.97 (0.93-1.08) 04/05/17 11:20 APTT 27.7 Seconds (25.1-36.5) 04/05/17 11:20 - Constitutional Appears: Non-toxic, No Acute Distress - Head Exam Head Exam: ATRAUMATIC, NORMAL INSPECTION, NORMOCEPHALIC - ENT Exam ENT Exam: Mucous Membranes Moist - Respiratory Exam Respiratory Exam: Clear to Ausculation Bilateral, NORMAL BREATHING PATTERN - Cardiovascular Exam Cardiovascular Exam: RRR, +S1, +S2 - GI/Abdominal Exam GI & Abdominal Exam: Soft, Normal Bowel Sounds. absent: Tenderness - Extremities Exam Extremities Exam: Normal Inspection. absent: Calf Tenderness, Pedal Edema - Neurological Exam Neurological Exam: Alert, Awake, Oriented x3 - Psychiatric Exam Psychiatric exam: Normal Affect, Normal Mood - Skin Skin Exam: Normal Color, Warm Assessment and Plan - Assessment and Plan (Free Text) Plan: 52 y/o M with PMH of HTN, HLD, CAD s/p CABG,chronic testicular pain, COPD, anxiety, and migraines who presents with atypical chest pain and erythrocytosis. Patient with negative cardiac workup, will have cardiac stress test this morning. Hemoglobin levels remain at the upper limit of normal. We are awaiting tests previously ordered. Calretinin is a send out test and will likely take several days to come back. Patient does have an elevated carboxyhemoglobin, which may contribute to secondary polycythemia. Abdominal ultrasound demonstrated a fatty liver, with no significant abnormalities. If patient becomes symptomatic or blood count levels increase, we will consider phlebotomy. Continue current medical management, we will continue to follow along closely. Plan discussed with Dr. Iyengar. Godinez, PGY-2
--- NOTE | 2017-04-07 13:43 | CP.PCM.PN ---
<Trinh Santos - Last Filed: 04/07/17 13:38> Subjective - Date & Time of Evaluation Date of Evaluation: 04/07/17 Time of Evaluation: 13:39 - Subjective Subjective: Patient seen and examined at bedside. Patient sleeping but easily woken up. Patient still having chest pain with numbness in the arms and right thumb and wants his pain to be completely gone before he leaves. He seems to have unrealistic goals and repeatedly keeps asking for additional pain medicine. Patient denies headaches, dizziness, SOB, abdominal pain, n/v/d/c, LE pain/ swelling. Objective - Vital Signs/Intake and Output Vital Signs (last 24 hours): Temp Pulse Resp BP Pulse Ox 97.6 F 68 20 141/74 98 04/07/17 06:00 04/07/17 10:50 04/07/17 06:00 04/07/17 10:53 04/07/17 06:00 Intake and Output: 04/07/17 04/07/17 06:59 18:59 Intake Total 780 Balance 780 - Medications Medications: Current Medications Albuterol Sulfate (Albuterol 0.5% Inhal Lazara (2.5 Mg/0.5 Ml) Ud) 2.5 mg IH [id number] [facility] Alprazolam (Xanax) 0.5 mg PO BID PRN; Protocol PRN Reason: Anxiety Stop: 04/12/17 16:13 Last Admin: 04/07/17 13:34 Dose: 0.5 mg Amlodipine Besylate (Norvasc) 10 mg PO DAILY [facility] Last Admin: 04/07/17 10:53 Dose: 10 mg Aspirin (Ecotrin) 81 mg PO DAILY [facility] Last Admin: 04/07/17 10:53 Dose: 81 mg Atorvastatin Calcium (Lipitor) 10 mg PO DIN [facility] Last Admin: 04/06/17 17:25 Dose: 10 mg Heparin Sodium (Porcine) (Heparin) 5,000 units SC Q8 [facility] PRN Reason: Protocol Last Admin: 04/07/17 13:28 Dose: 5,000 units Lisinopril (Zestril) 40 mg PO DAILY [facility] Last Admin: 04/07/17 10:53 Dose: 40 mg Methylprednisolone (Medrol) 4 mg PO DAILY [facility] Last Admin: 04/07/17 10:55 Dose: 4 mg Metoprolol Tartrate (Lopressor) 50 mg PO BID [facility] Last Admin: 04/07/17 10:50 Dose: 50 mg Morphine Sulfate (Morphine) 2 mg IVP Q6H PRN PRN Reason: Pain, moderate (4-7) Last Admin: 04/07/17 10:53 Dose: 2 mg Pantoprazole Sodium (Protonix Ec Tab) 40 mg PO DAILY [facility] Last Admin: 04/07/17 10:53 Dose: 40 mg Promethazine HCl/Dextromethorphan (Phenergan Dm Syrup) 5 ml PO TID [facility] Last Admin: 04/07/17 13:29 Dose: 5 ml - Labs Labs: 04/07/17 06:30 04/07/17 06:30 PT 11.2 SECONDS (9.4-12.5) 04/05/17 11:20 INR 0.97 (0.93-1.08) 04/05/17 11:20 APTT 27.7 Seconds (25.1-36.5) 04/05/17 11:20 - Additional Findings Additional findings: - Constitutional Appears: Non-toxic, No Acute Distress - Head Exam Head Exam: ATRAUMATIC, NORMAL INSPECTION, NORMOCEPHALIC - Eye Exam Eye Exam: EOMI, Normal appearance, PERRL - ENT Exam ENT Exam: Mucous Membranes Moist - Respiratory Exam Respiratory Exam: Clear to Ausculation Bilateral, NORMAL BREATHING PATTERN - Cardiovascular Exam Cardiovascular Exam: RRR, +S1, +S2 - GI/Abdominal Exam GI & Abdominal Exam: Soft, Normal Bowel Sounds. absent: Distended, Tenderness - Extremities Exam Extremities Exam: Normal Inspection. absent: Calf Tenderness, Pedal Edema - Neurological Exam Neurological Exam: Alert, Awake, Oriented x3 - Psychiatric Exam Psychiatric exam: Normal Affect, Normal Mood - Skin Skin Exam: Dry, Intact, Normal Color, Warm Assessment and Plan - Assessment and Plan (Free Text) Assessment: 52M with PMH of HTN, HLD, CAD s/p CABG (2012), hydrocele with chronic testicular pain, COPD, anxiety, and migraines who presents to the ED with chest pain likely 2/2 anxiety, unlikely ACS. Plan: Disposition: currently awaiting results of stress test; will need outpatient follow up with neurologist for nerve testing Chest pain * likely anxiety, unlikely ACS * EKG: tachycardia and LVH * Trop negative x3 * Cardiology consulted (Dr. Aaron), recs appreciated * lipid panel: Trig 438, Chol 206, LDL 138, HDL 32 * BNP 247 * echo: EF 65%, trace AR * stress test pending results * continue home meds (ASA, Zestril, norvasc, simvastatin,metoprolol) * Morphine PRN pain * Heart healthy diet Polycythemia * Heme/Onc consulted (Jerardo), recs appreciated * f/u JAK2 mutations and erythropoietin * f/u flow cytometry * f/u abdominal US Anxiety * continue home meds (xanax 0.5 mg BID PRN) * Consider psych consult if needed HTN * continue home meds (Norvasc, lisinopril, metoprolol) * monitor vitals HLD * Continue home meds (simvastatin) * Lipid panel as above Chronic testicular pain * Morphine PRN pain * hold home percocet COPD * continue home meds (methylprednisolone, ventolin) * monitor O2 sat Cough * continue home med (promethazine) Numbness in UE and Right foot * HbA1c 5.9 * needs outpatient nerve testing DVT: heparin GI: omperazole (home med) Patient seen, examined, and discussed with Dr. Krishna <Sandra Krishna - Last Filed: 04/07/17 14:50> Objective - Vital Signs/Intake and Output Vital Signs (last 24 hours): Temp Pulse Resp BP Pulse Ox 97.6 F 68 20 141/74 98 04/07/17 06:00 04/07/17 10:50 04/07/17 06:00 04/07/17 10:53 04/07/17 06:00 Intake and Output: 04/07/17 04/07/17 06:59 18:59 Intake Total 780 Balance 780 - Medications Medications: Current Medications Albuterol Sulfate (Albuterol 0.5% Inhal Lazara (2.5 Mg/0.5 Ml) Ud) 2.5 mg IH [id number] [facility] Alprazolam (Xanax) 0.5 mg PO BID PRN; Protocol PRN Reason: Anxiety Stop: 04/12/17 16:13 Last Admin: 04/07/17 13:34 Dose: 0.5 mg Amlodipine Besylate (Norvasc) 10 mg PO DAILY [facility] Last Admin: 04/07/17 10:53 Dose: 10 mg Aspirin (Ecotrin) 81 mg PO DAILY [facility] Last Admin: 04/07/17 10:53 Dose: 81 mg Atorvastatin Calcium (Lipitor) 10 mg PO DIN [facility] Last Admin: 04/06/17 17:25 Dose: 10 mg Heparin Sodium (Porcine) (Heparin) 5,000 units SC Q8 [facility] PRN Reason: Protocol Last Admin: 04/07/17 13:28 Dose: 5,000 units Lisinopril (Zestril) 40 mg PO DAILY [facility] Last Admin: 04/07/17 10:53 Dose: 40 mg Methylprednisolone (Medrol) 4 mg PO DAILY [facility] Last Admin: 04/07/17 10:55 Dose: 4 mg Metoprolol Tartrate (Lopressor) 50 mg PO BID [facility] Last Admin: 04/07/17 10:50 Dose: 50 mg Morphine Sulfate (Morphine) 2 mg IVP Q6H PRN PRN Reason: Pain, moderate (4-7) Last Admin: 04/07/17 10:53 Dose: 2 mg Pantoprazole Sodium (Protonix Ec Tab) 40 mg PO DAILY [facility] Last Admin: 04/07/17 10:53 Dose: 40 mg Promethazine HCl/Dextromethorphan (Phenergan Dm Syrup) 5 ml PO TID [facility] Last Admin: 04/07/17 13:29 Dose: 5 ml - Labs Labs: 04/07/17 06:30 04/07/17 06:30 PT 11.2 SECONDS (9.4-12.5) 04/05/17 11:20 INR 0.97 (0.93-1.08) 04/05/17 11:20 APTT 27.7 Seconds (25.1-36.5) 04/05/17 11:20 Attending/Attestation - Attestation I have personally seen and examined this patient.: Yes I have fully participated in the care of the patient.: Yes I have reviewed all pertinent clinical information, including history, physical exam and plan: Yes Notes (Text): 04/07/17 14:48 52 year old male with past medical history of CAD s/p CABG (2012), hypertension , COPD, anxiety, substance abuse (cocaine) and chronic back pain who presented with complaint of chest pain and anxiety. Serial cardiac enzymes were negative and ACS was ruled out. However he continued to complain of chest pain. He was seen by cardiology and underwent stress test this morning. Will follow up with results. He is on aspirin, statin, lisinopril and metoprolol. He is on morphine prn. Echocardiogram was reviewed. Pain seeking behavior and anxiety component is suspected. Continue home medication xanax for anxiety. He was also noted by have erythrocytosis which improved. Will follow up with hematology recommendations. He was counselled on smoking cessation. He was counselled on risks of continued alcohol, tobacco and substance abuse. Sandra Krishna MD Hospitalist.
--- NOTE | 2017-04-07 20:32 | CARD ---
APPROVED REPORT Protocol: LEXISCAN Test Type: Lexiscan Sestamibi Stress Test Attending Physician: Dr. Espinoza Martinez Referring Physician: Dr. Dr. CHOUDHARY Test Indications: Chest Pain Height:5 ft 11 in Weight:213lbs Medications: ALBUTEROL, XANAX, NORVASC, ASPIRIN, LIPITOR, HEPARIN, ZESTRIL, PREDNISONE, PROTONIX, MORPHINE, PHENERGAN DM, Medical History: 52 YEAR OLD MALE WITH A H/O COPD, AL, HTN, CABG, ANXIETY, KIDNEY STONES, MIGRAINES AND GERD Target HR: 166 bpm Resting ECG: RSR. LVH Resting Heart Rate: 88 bpm Resting Blood Pressure: 152/86mmHg Submaximum (85%): 141 bpm PROCEDURE Pharmacologic stress testing was performed using 0.4mg per 5ml of regadenoson given intravenously over 7-10 seconds. Reversal agent aminophyline 150 mg, given intravenously for Dyspnea. POST EXERCISE Reason for Termination: Protocol completed Target HR: No Max HR: 91 bpm 69% of Maximum Predicted HR: 166 bpm Exercise duration: 00:32 min:sec, 0 Stage Exercise capacity: 1.0METs Max Blood Pressure: 160/88mmHg Blood Pressure response to exercise: resting hypertension - appropriate response Heart Rate response to exercise: appropriate Chest Pain: Yes, Chest Pain Before during and after Stress Test. Angina index: 0 Arrhythmia: No, none ST Change: No, none Deviation: 0 mm INTERPRETATION Stress EKG Conclusion: IV LXISCAN NUCLEAR STRESS TEST. PATIENT HAD SAME CHEST PAIN BEFORE, DURING AND AFTER STRESS TEST. NO ST-T CHANGES SEEN. NUCLEAR SCAN REPORT PENDING. Signed by Espinoza Martinez Electronically Approved: 04/07/2017 12:06:34 EXAM: Myocardial Perfusion REST/STRESS Stress Test Type: Pharmacologic Imaging Protocol Rest Spect myocardial perfusion imaging was performed in supine position 45 minutes following the injection of 10.3 mCi of Tc-99 Myoview. At peak stress, the patient was injected intravenously with 30.4mCi of Tc-99 tetrofosmin after an infusion time of 0 minutes and 10 seconds. Gated Stress Spect was performed 65 minutes after intravenous Tc-99 Myoview injection. The images were gated to evaluate regional wall motion and calculate ventricular ejection fraction.Images were reconstructed using backfilter projection method in short horizontal and verticle long axis. Spect slices were generated. LV Perfusion The quality of the study is good. The left ventricle is within normal limits in size with thickened myocardium. The right ventricle is unremarkable. The lung uptake is normal. The distribution of tracer reveals mildly and diffusely decreased perfusion in the inferior wall on the stress study. The remainder of the LV myocardium is unremarkable. The rest myocardial perfusion study shows no significant change. Wall Motion Wall motion study shows good contractility of the left ventricle except for paradoxical septal wall motion. LVEF = 52%. Conclusion 1. Essentially normal SPECT myocardial perfusion study. 2. Fixed, inferior defect is most likely due to diaphrgmatic attenuation. 3. Normal overall LV function despite paradoxical septal wall motion. 4. In comparison with the last study of 09/19/2013, there is no significant change.
--- NOTE | 2017-04-08 01:30 | CON ---
DATE: REASON FOR CONSULTATION AND FOLLOWUP: Cardiac evaluation, chest pain, history of coronary artery disease, CABG, substance abuse. BRIEF CLINICAL HISTORY: This is a 52-year-old male with a past medical history significant for coronary artery disease, hypertension, hyperlipidemia, substance abuse, history of CABG in 2012, came in with complaint of shooting pain left-side and right side, going to the arm and numbness. Denies any chest pain, dyspnea on exertion. The patient is on multiple narcotics. PAST MEDICAL HISTORY: Significant for GA in 2013, coronary artery disease, CABG in 2012. Past history is significant for chronic testicular pain, COPD, anxiety disorder, migraine. PAST SURGICAL HISTORY: Significant for coronary artery disease, CABG in 2013, history of cardiac work up as follows. History of coronary artery disease, CABG because he is substance abuse and very noncompliant with the medication. History of cocaine abuse in the past. History of coronary artery bypass surgery. History of Lexiscan done on previous admission was negative. History of last echo on 10/12/2015 shows left ventricular hypertrophy, normal LV function, septal hypokinesis. No aortic regurgitation. Mitral valve structure normal. No pulmonary hypertension. LV systolic pressure 20. Calculated ejection fraction 52%. The patient had echocardiography done yesterday that shows ejection fraction 65%. Trace aortic regurgitation. Trace to mild mitral regurgitation and trace to mild tricuspid regurgitation. Diastolic pressure of 19. History of stress test on 09/19/2013 essentially negative. History of cardiac catheterization in 01/09/2013, at that time shows left main disease, diffuse 60% to 70% with significant drop in systolic pressure of 30 to 40 mm and engaging the left main associated with chest pain. Plaque going into ostial circumflex at 90% stenosis, moderate disease in RCA and PDA, ejection fraction 55%. The patient underwent open heart surgery. ALLERGIES: PEANUT, SHELLFISH. CURRENT MEDICATIONS: The patient is taking oxycodone, amlodipine, simvastatin, Promethazine, Omeprazole, metoprolol, lisinopril, and aspirin. SOCIAL HISTORY: Denies smoking. Denies any history of alcohol abuse. Denies any history of substance abuse any more. PHYSICAL EXAMINATION: VITAL SIGNS: As follows. Temperature afebrile. Heart rate 60, blood pressure 141/74. HEENT: PERRLA. Extraocular muscles are intact. NECK: Supple. No carotid bruit or thyromegaly. CHEST: Clear to auscultation. HEART: S1 and S2, regular. ABDOMEN: Soft. EXTREMITIES: Clubbing and cyanosis are negative. LABORATORY DATA: EKG shows sinus tachycardia with elevated normal sinus. Blood work up as follows. WBC 11.9, hemoglobin 16.7, hematocrit 49.7, and platelet count 175. Chemistry shows sodium 140, potassium 3.8, chloride 109, carbon dioxide 22, anion gap of 13, BUN 14, and creatinine 0.9. cholesterol 206. IMPRESSION: Atypical chest pain, history of substance abuse, history of narcotic abuse, history of coronary artery disease, status post coronary artery bypass graft, left main disease. Recent echo shows preserved LV function. Diabetes, hypertension, and hyperlipidemia. RECOMMENDATION: We will do a stress test today. No evidence of acute GA. Life style modification, risk factors for coronary artery disease, aggressive medical treatment. We will do a stress test today. We will continue DVT prophylaxis. Thank you Dr. Krishna for providing us the opportunity in taking the care of the patient. Espinoza Walker MD cc: Sandra Krishna MD
[2017-04-08] MEDS: Pantoprazole 40 mg EC Tab PO SCH (09:46)
[2017-04-08] MEDS: Promethazine DM 6.25 mg-15 mg/5 ml Syrup PO SCH (09:47)
[2017-04-08 11:47] VITALS: BP 122/83; PULSE 83; RESP 17; TEMP 98; O2SAT 95
[2017-04-08 12:46] LABS: BASO # 0.02 K/mm3 (0.0-2.0); BASO % 0.2 % (0.0-3.0); EOS # 0.1 (0.0-0.7); EOS % 1.6 % (1.5-5.0); GRAN # 5.15 (1.4-6.5); GRAN % 61.7 % (50.0-68.0); HEMOGLOBIN 17.4 g/dL (14.0-18.0); LYMPH # 2.4 (1.2-3.4); LYMPH % 29.3 % (22.0-35.0); MEAN CELL VOLUME 101.6 fl (80.0-105.0); MEAN CORPUSCULAR HEMOGLOBIN 35.2 pg (25.0-35.0); MEAN CORPUSCULAR HGB CONC 34.7 g/dl (31.0-37.0); MEAN PLATELET VOLUME 9.1 fl (7.0-11.0); MONO # 0.6 (0.1-0.6); MONO % 7.2 % (1.0-6.0); RBC 4.94 10^6/uL (3.5-6.1); RED CELL DISTRIBUTION WIDTH 14.2 % (11.5-14.5); WHITE BLOOD COUNT 8.3 10^3/ul (4.5-11.0)
[2017-04-08 13:07] LABS: ALB/GLOB RATIO 1.4 (1.1-1.8); ALBUMIN 4.2 g/dL (3.0-4.8); ALT/SGPT 82 U/L (7-56); AST/SGOT 72 U/L (17-59); BLOOD UREA NITROGEN 16 mg/dL (7-21); CALCIUM 9.6 mg/dL (8.4-10.5); GFR AFRICAN-AMERICAN > 60; GFR NON-AFRICAN AMERICAN > 60
--- NOTE | 2017-04-08 15:24 | CP.PCM.DIS ---
<Trinh Santos - Last Filed: 04/08/17 15:14> Provider - Provider Date of Admission: 04/06/17 14:52 Attending physician: Sandra Krishna MD Primary care physician: Justin Whiting MD Time Spent in preparation of Discharge (in minutes): 35 Hospital Course - Lab Results Lab Results: Most Recent Lab Values WBC 8.3 10^3/ul (4.5-11.0) 04/08/17 12:40 RBC 4.94 10^6/uL (3.5-6.1) 04/08/17 12:40 Hgb 17.4 g/dL (14.0-18.0) 04/08/17 12:40 Hct 50.2 % (42.0-52.0) 04/08/17 12:40 MCV 101.6 fl (80.0-105.0) 04/08/17 12:40 MCH 35.2 pg (25.0-35.0) H 04/08/17 12:40 MCHC 34.7 g/dl (31.0-37.0) 04/08/17 12:40 RDW 14.2 % (11.5-14.5) 04/08/17 12:40 Plt Count 201 10^3/uL (120.0-450.0) 04/08/17 12:40 MPV 9.1 fl (7.0-11.0) 04/08/17 12:40 Gran % 61.7 % (50.0-68.0) 04/08/17 12:40 Lymph % (Auto) 29.3 % (22.0-35.0) 04/08/17 12:40 [place] % (Auto) 7.2 % (1.0-6.0) H 04/08/17 12:40 Eos % (Auto) 1.6 % (1.5-5.0) 04/08/17 12:40 Baso % (Auto) 0.2 % (0.0-3.0) 04/08/17 12:40 Gran # 5.15 (1.4-6.5) 04/08/17 12:40 Lymph # (Auto) 2.4 (1.2-3.4) 04/08/17 12:40 [place] # (Auto) 0.6 (0.1-0.6) 04/08/17 12:40 Eos # (Auto) 0.1 (0.0-0.7) 04/08/17 12:40 Baso # (Auto) 0.02 K/mm3 (0.0-2.0) 04/08/17 12:40 PT 11.2 SECONDS (9.4-12.5) 04/05/17 11:20 INR 0.97 (0.93-1.08) 04/05/17 11:20 APTT 27.7 Seconds (25.1-36.5) 04/05/17 11:20 pCO2 34 mm/Hg (35-45) L 04/06/17 12:10 pO2 63.0 mm/Hg (80-100) L 04/06/17 12:10 HCO3 23.1 mmol/L (21-28) 04/06/17 12:10 ABG pH 7.44 (7.35-7.45) 04/06/17 12:10 ABG Total CO2 24.1 mmol.L (22-28) 04/06/17 12:10 ABG O2 Saturation 96.5 % (95-98) 04/06/17 12:10 ABG O2 Content 21.7 ML/dl (15-23) 04/06/17 12:10 ABG Base Excess -0.3 mmol/L (-2.0-3.0) 04/06/17 12:10 ABG Hemoglobin 16.9 g/dL (11.7-17.4) 04/06/17 12:10 ABG Carboxyhemoglobin 4.0 % (0.5-1.5) H 04/06/17 12:10 POC ABG HHb (Measured) 3.3 % (0-5) 04/06/17 12:10 ABG Methemoglobin 1.0 % (0.0-3.0) 04/06/17 12:10 ABG O2 Capacity 22.5 mL/dl (16-24) 04/06/17 12:10 Hgb O2 Saturation 91.6 % (95.0-98.0) L 04/06/17 12:10 FiO2 21.0 % 04/06/17 12:10 Sodium 144 mmol/L (132-148) 02/01/18 12:40 Potassium 4.1 mmol/L (3.6-5.0) 04/08/17 12:40 Chloride 108 mmol/L (98-107) H 04/08/17 12:40 Carbon Dioxide 25 mmol/L (21-33) 04/08/17 12:40 Anion Gap 15 (10-20) 04/08/17 12:40 BUN 16 mg/dL (7-21) 04/08/17 12:40 Creatinine 0.8 mg/dl (0.8-1.5) 04/08/17 12:40 Est GFR ( Amer) > 60 04/08/17 12:40 Est GFR (Non-Af Amer) > 60 04/08/17 12:40 Random Glucose 141 mg/dL (70-110) H 04/08/17 12:40 Hemoglobin A1c 5.9 % (4.2-6.5) 04/06/17 06:45 Calcium 9.6 mg/dL (8.4-10.5) 04/08/17 12:40 Phosphorus 4.0 mg/dL (2.5-4.5) 04/07/17 06:30 Magnesium 2.2 mg/dL (1.7-2.2) 04/07/17 06:30 Erythropoietin 25.2 mIU/mL (2.6-18.5) H 04/06/17 06:45 Total Bilirubin 0.7 mg/dL (0.2-1.3) 04/08/17 12:40 AST 72 U/L (17-59) H D 04/08/17 12:40 ALT 82 U/L (7-56) H 04/08/17 12:40 Alkaline Phosphatase 85 U/L (38-126) 04/08/17 12:40 Lactate Dehydrogenase 400 U/L (333-699) 04/05/17 17:30 Total Creatine Kinase 61 U/L (35-230) 04/05/17 17:30 Troponin I < 0.01 ng/mL 04/05/17 23:59 NT-Pro-B Natriuret Pep 247 pg/mL (0-450) 04/05/17 11:20 Total Protein 7.2 g/dL (5.8-8.3) 04/08/17 12:40 Albumin 4.2 g/dL (3.0-4.8) 04/08/17 12:40 Globulin 3.0 gm/dL 04/08/17 12:40 Albumin/Globulin Ratio 1.4 (1.1-1.8) 04/08/17 12:40 Triglycerides 438 mg/dL (35-160) H 04/06/17 06:45 Cholesterol 206 mg/dL (130-200) H 04/06/17 06:45 LDL Cholesterol Direct 138 mg/dL (0-129) H 04/06/17 06:45 HDL Cholesterol 32 mg/dL (29-60) 04/06/17 06:45 Vitamin B12 369 pg/mL (239-931) 04/06/17 06:00 Urine Color Yellow (YELLOW) 04/05/17 15:30 Urine Appearance Clear (CLEAR) 04/05/17 15:30 Urine pH 7.5 (4.7-8.0) 04/05/17 15:30 Ur Specific [place] 1.020 (1.005-1.035) 04/05/17 15:30 Urine Protein 30 mg/dL (<30 mg/dL) H 04/05/17 15:30 Urine Glucose (UA) Negative mg/dL (NEGATIVE) 04/05/17 15:30 Urine Ketones Negative mg/dL (NEGATIVE) 04/05/17 15:30 Urine Blood Negative (NEGATIVE) 04/05/17 15:30 Urine Nitrate Negative (NEGATIVE) 04/05/17 15:30 Urine Bilirubin Negative (NEGATIVE) 04/05/17 15:30 Urine Urobilinogen 0.2 E.U./dL (<1 E.U./dL) 04/05/17 15:30 Ur Leukocyte Esterase Negative Radha/uL (NEGATIVE) 04/05/17 15:30 Urine RBC 1 - 3 /hpf (0-2) 04/05/17 15:30 Urine WBC Negative /hpf (0-6) 04/05/17 15:30 Ur Epithelial Cells 0 - 2 /hpf (0-5) 04/05/17 15:30 Hyaline Casts None /hpf 04/05/17 15:30 Fine Granular Casts None /hpf (0-2) 04/05/17 15:30 Urine Opiates Screen Positive (NEGATIVE) H 04/05/17 15:30 Urine Methadone Screen Negative (NEGATIVE) 04/05/17 15:30 Ur Barbiturates Screen Negative (NEGATIVE) 04/05/17 15:30 Ur Phencyclidine Scrn Negative (NEGATIVE) 04/05/17 15:30 Ur Amphetamines Screen Negative (NEGATIVE) 04/05/17 15:30 U Benzodiazepines Scrn Positive (NEGATIVE) H 04/05/17 15:30 U Oth Cocaine Metabols Negative (NEGATIVE) 04/05/17 15:30 U Cannabinoids Screen Negative (NEGATIVE) 04/05/17 15:30 Alcohol, Quantitative < 10 mg/dL (0-10) 04/05/17 11:00 WB Flow Cytometry Reference test 04/06/17 06:00 - Hospital Course Hospital Course: Upon admission: Patient is a 52M with PMH of HTN, HLD, CAD s/p CABG (2012), hydrocele with chronic testicular pain, COPD, anxiety, and migraines who presents to the ED with chest pain that has been ongoing for months. Patient says he came in because he has had a pressure on the left side of his chest for the past 2 days. Patient says today his arms started tingling as well and he noticed partial numbness in his right thumb as well as pain radiating from his left armpit down to his forearm that started 30 minutes ago. Patient has a history of testicular pain which he says causes him anxiety which leads to the chest pain but he has not had the pressure feeling since his LA in 2012. Patient also says he has never had the symptoms in his arms. ROS: + dizziness, headache (right sided and occipital), SOB on exertion and occasionally at rest, palpitations, morning cough, nausea and vomiting in the morning from coughing, diarrhea [id number], right foor numbness - abdominal pain, constipation, blood in vomit/stool, leg swelling/pain/numbness /tingling, urinary symptoms Hospital course: Patient was admitted to rule out ACS. EKG showed tachycardia and LVH. Troponins were negative x3. Cardiology was consulted (Dr. Walker) who performed echo and stress test. Both tests were normal and echo showed EF of 65% with trace AR. Patient was continued on home meds including ASA, zestril, norvasc, simvastatin , and metoprolol. Patient was given morphine for pain. Patient had high hemoglobin upon admission but by day 2 this normalized. Polycythemia work up was ordered and showed elevated erythropoietin. Abdominal US showed fatty liver and borderline splenomegaly. Patient's home meds were continued for his history of anxiety, COPD, HLD, and HTN during hospital stay. Upon discharge: Patient clear for discharge per Dr. Krishna and Dr. Walker. Patient should follow up with his PCP within 1 week and have EMG testing for extremity numbness. Please note that this is a summary of events. For more details, please see complete medical record. Discharge Exam - Head Exam Head Exam: ATRAUMATIC, NORMAL INSPECTION, NORMOCEPHALIC - Eye Exam Eye Exam: EOMI, Normal appearance, PERRL - ENT Exam ENT Exam: Mucous Membranes Moist - Respiratory Exam Respiratory Exam: Chest Wall Tenderness, Clear to PA & Lateral, NORMAL BREATHING PATTERN - Cardiovascular Exam Cardiovascular Exam: RRR, +S1, +S2. absent: Diastolic murmur, Gallop, JVD, Rubs , Systolic Murmur - GI/Abdominal Exam GI & Abdominal Exam: Normal Bowel Sounds, Unremarkable - Extremities Exam Extremities exam: normal inspection - Neurological Exam Neurological exam: Alert, Oriented x3 - Psychiatric Exam Psychiatric exam: Normal Affect, Normal Mood - Skin Skin Exam: Dry, Intact, Normal Color, Warm Discharge Plan - Follow Up Plan Condition: STABLE Disposition: HOME/ ROUTINE Additional Instructions: Please follow up with your PCP in 1 week. Follow up with a neurologist for outpatient nerve conduction studies. Referrals: Justin Whiting MD [Primary Care Provider] - <Sandra Krishna - Last Filed: 04/08/17 16:13> Provider - Provider Date of Admission: 04/06/17 14:52 Attending physician: Sandra Krishna MD Primary care physician: Justin Whiting MD Hospital Course - Lab Results Lab Results: Most Recent Lab Values WBC 8.3 10^3/ul (4.5-11.0) 04/08/17 12:40 RBC 4.94 10^6/uL (3.5-6.1) 04/08/17 12:40 Hgb 17.4 g/dL (14.0-18.0) 04/08/17 12:40 Hct 50.2 % (42.0-52.0) 04/08/17 12:40 MCV 101.6 fl (80.0-105.0) 04/08/17 12:40 MCH 35.2 pg (25.0-35.0) H 04/08/17 12:40 MCHC 34.7 g/dl (31.0-37.0) 04/08/17 12:40 RDW 14.2 % (11.5-14.5) 04/08/17 12:40 Plt Count 201 10^3/uL (120.0-450.0) 04/08/17 12:40 MPV 9.1 fl (7.0-11.0) 04/08/17 12:40 Gran % 61.7 % (50.0-68.0) 04/08/17 12:40 Lymph % (Auto) 29.3 % (22.0-35.0) 04/08/17 12:40 [place] % (Auto) 7.2 % (1.0-6.0) H 04/08/17 12:40 Eos % (Auto) 1.6 % (1.5-5.0) 04/08/17 12:40 Baso % (Auto) 0.2 % (0.0-3.0) 04/08/17 12:40 Gran # 5.15 (1.4-6.5) 04/08/17 12:40 Lymph # (Auto) 2.4 (1.2-3.4) 04/08/17 12:40 [place] # (Auto) 0.6 (0.1-0.6) 04/08/17 12:40 Eos # (Auto) 0.1 (0.0-0.7) 04/08/17 12:40 Baso # (Auto) 0.02 K/mm3 (0.0-2.0) 04/08/17 12:40 PT 11.2 SECONDS (9.4-12.5) 04/05/17 11:20 INR 0.97 (0.93-1.08) 04/05/17 11:20 APTT 27.7 Seconds (25.1-36.5) 04/05/17 11:20 pCO2 34 mm/Hg (35-45) L 04/06/17 12:10 pO2 63.0 mm/Hg (80-100) L 04/06/17 12:10 HCO3 23.1 mmol/L (21-28) 04/06/17 12:10 ABG pH 7.44 (7.35-7.45) 04/06/17 12:10 ABG Total CO2 24.1 mmol.L (22-28) 04/06/17 12:10 ABG O2 Saturation 96.5 % (95-98) 04/06/17 12:10 ABG O2 Content 21.7 ML/dl (15-23) 04/06/17 12:10 ABG Base Excess -0.3 mmol/L (-2.0-3.0) 04/06/17 12:10 ABG Hemoglobin 16.9 g/dL (11.7-17.4) 04/06/17 12:10 ABG Carboxyhemoglobin 4.0 % (0.5-1.5) H 04/06/17 12:10 POC ABG HHb (Measured) 3.3 % (0-5) 04/06/17 12:10 ABG Methemoglobin 1.0 % (0.0-3.0) 04/06/17 12:10 ABG O2 Capacity 22.5 mL/dl (16-24) 04/06/17 12:10 Hgb O2 Saturation 91.6 % (95.0-98.0) L 04/06/17 12:10 FiO2 21.0 % 04/06/17 12:10 Sodium 144 mmol/L (132-148) 04/08/17 12:40 Potassium 4.1 mmol/L (3.6-5.0) 04/08/17 12:40 Chloride 108 mmol/L (98-107) H 04/08/17 12:40 Carbon Dioxide 25 mmol/L (21-33) 04/08/17 12:40 Anion Gap 15 (10-20) 04/08/17 12:40 BUN 16 mg/dL (7-21) 04/08/17 12:40 Creatinine 0.8 mg/dl (0.8-1.5) 04/08/17 12:40 Est GFR ( Amer) > 60 04/08/17 12:40 Est GFR (Non-Af Amer) > 60 04/08/17 12:40 Random Glucose 141 mg/dL (70-110) H 04/08/17 12:40 Hemoglobin A1c 5.9 % (4.2-6.5) 04/06/17 06:45 Calcium 9.6 mg/dL (8.4-10.5) 04/08/17 12:40 Phosphorus 4.0 mg/dL (2.5-4.5) 04/07/17 06:30 Magnesium 2.2 mg/dL (1.7-2.2) 04/07/17 06:30 Erythropoietin 25.2 mIU/mL (2.6-18.5) H 04/06/17 06:45 Total Bilirubin 0.7 mg/dL (0.2-1.3) 04/08/17 12:40 AST 72 U/L (17-59) H D 04/08/17 12:40 ALT 82 U/L (7-56) H 04/08/17 12:40 Alkaline Phosphatase 85 U/L (38-126) 04/08/17 12:40 Lactate Dehydrogenase 400 U/L (333-699) 04/05/17 17:30 Total Creatine Kinase 61 U/L (35-230) 04/05/17 17:30 Troponin I < 0.01 ng/mL 04/05/17 23:59 NT-Pro-B Natriuret Pep 247 pg/mL (0-450) 04/05/17 11:20 Total Protein 7.2 g/dL (5.8-8.3) 04/08/17 12:40 Albumin 4.2 g/dL (3.0-4.8) 04/08/17 12:40 Globulin 3.0 gm/dL 04/08/17 12:40 Albumin/Globulin Ratio 1.4 (1.1-1.8) 04/08/17 12:40 Triglycerides 438 mg/dL (35-160) H 04/06/17 06:45 Cholesterol 206 mg/dL (130-200) H 04/06/17 06:45 LDL Cholesterol Direct 138 mg/dL (0-129) H 04/06/17 06:45 HDL Cholesterol 32 mg/dL (29-60) 04/06/17 06:45 Vitamin B12 369 pg/mL (239-931) 04/06/17 06:00 Urine Color Yellow (YELLOW) 04/05/17 15:30 Urine Appearance Clear (CLEAR) 04/05/17 15:30 Urine pH 7.5 (4.7-8.0) 04/05/17 15:30 Ur Specific [place] 1.020 (1.005-1.035) 04/05/17 15:30 Urine Protein 30 mg/dL (<30 mg/dL) H 04/05/17 15:30 Urine Glucose (UA) Negative mg/dL (NEGATIVE) 04/05/17 15:30 Urine Ketones Negative mg/dL (NEGATIVE) 04/05/17 15:30 Urine Blood Negative (NEGATIVE) 04/05/17 15:30 Urine Nitrate Negative (NEGATIVE) 04/05/17 15:30 Urine Bilirubin Negative (NEGATIVE) 04/05/17 15:30 Urine Urobilinogen 0.2 E.U./dL (<1 E.U./dL) 04/05/17 15:30 Ur Leukocyte Esterase Negative Radha/uL (NEGATIVE) 04/05/17 15:30 Urine RBC 1 - 3 /hpf (0-2) 04/05/17 15:30 Urine WBC Negative /hpf (0-6) 04/05/17 15:30 Ur Epithelial Cells 0 - 2 /hpf (0-5) 04/05/17 15:30 Hyaline Casts None /hpf 04/05/17 15:30 Fine Granular Casts None /hpf (0-2) 04/05/17 15:30 Urine Opiates Screen Positive (NEGATIVE) H 04/05/17 15:30 Urine Methadone Screen Negative (NEGATIVE) 04/05/17 15:30 Ur Barbiturates Screen Negative (NEGATIVE) 04/05/17 15:30 Ur Phencyclidine Scrn Negative (NEGATIVE) 04/05/17 15:30 Ur Amphetamines Screen Negative (NEGATIVE) 04/05/17 15:30 U Benzodiazepines Scrn Positive (NEGATIVE) H 04/05/17 15:30 U Oth Cocaine Metabols Negative (NEGATIVE) 04/05/17 15:30 U Cannabinoids Screen Negative (NEGATIVE) 04/05/17 15:30 Alcohol, Quantitative < 10 mg/dL (0-10) 04/05/17 11:00 WB Flow Cytometry Reference test 04/06/17 06:00 Attending/Attestation - Attestation I have personally seen and examined this patient.: Yes I have fully participated in the care of the patient.: Yes I have reviewed all pertinent clinical information, including history, physical exam and plan: Yes Notes (Text): 04/08/17 16:09 52 year old male with past medical history of CAD s/p CABG (2012), hypertension , COPD, anxiety, substance abuse (cocaine) and chronic back pain who presented with complaint of chest pain and anxiety. Serial cardiac enzymes were negative and ACS was ruled out. However he continued to complain of chest pain. He was seen by cardiology and underwent stress test yesterday which was essentially negative. He is on aspirin, statin , lisinopril and metoprolol. Pain seeking behavior and anxiety component is suspected. His triglycerides were elevated. His statin was not increased at this time nor gemfibrozil added due to mildly elevated LFTs (likely secondary to Etoh use). He was counselled on lifestyle/diet modifications and to repeat lipid panel in 3-6 month. He is on xanax for anxiety. He was also noted by have erythrocytosis which improved. He was seen by hematology and was recommended to follow up as outpatient. Patient is discharged home to follow up with his pmd, psychiatrist and hematology. Counselled on smoking cessation. Counselled on risks of continued alcohol, tobacco and substance abuse. Follow up with neurology. Sandra Krishna MD Hospitalist.
--- NOTE | 2017-04-08 18:19 | PN ---
DATE: REASON FOR CONSULTATION AND FOLLOWUP: Cardiac evaluation, chest pain, history of coronary artery disease, CABG, history of substance abuse in the past, appears narcotic dependent. SUBJECTIVE: Not in distress, but complaining of chest pain, on some pain medication. OBJECTIVE: GENERAL: Not in apparent distress. Lying flat in the bed, sleeping. VITAL SIGNS: Temperature afebrile, heart rate 83, and blood pressure 122/83. HEENT: PERRLA. Extraocular muscles intact. NECK: Supple. No carotid bruits or thyromegaly. CHEST: Clear to auscultation. HEART: S1 and S2, regular. ABDOMEN: Soft. EXTREMITIES: Clubbing and cyanosis, negative. LABORATORY DATA: Blood workup as follows: WBC 11.9, hemoglobin , hematocrit 49.7, and platelet count 175. Chemistry shows sodium 139, potassium , chloride 109, carbon dioxide 22, anion gap of 13, BUN 14, and creatinine 0.9. IMAGING STUDIES: No evidence of acute [place]. His stress test shows essentially normal myocardial perfusion study, no reversible ischemia, ejection fraction of 52%. Patient underwent echocardiography, ejection fraction 65%, trace aortic regurgitation, [id number] mitral regurgitation, [id number] tricuspid regurgitation, diastolic pressure of 19. ASSESSMENT AND PLAN: Nonischemic chest pain, history of coronary artery disease, coronary artery bypass graft, hyperlipidemia, history of substance abuse in the past, history of narcotic dependence inpatient, aggressive medical treatment, discontinue telemetry. Adequate analgesia. Continue baby aspirin, continue atorvastatin, continue deep venous thrombosis prophylaxis, continue lisinopril. We will discontinue telemetry. Okay to discharge home. Thank you Dr. Krishna for providing us the opportunity in taking the care of the patient, Donovan Tariq. Espinoza Walker MD cc: Dr. Krishna.
--- NOTE | 2017-04-08 23:18 | PN ---
DATE: 04/08/2017 This is [facility]'s hospital visit on the medical floor. For Dr. Kurtz. SUBJECTIVE: Patient is a 52-year-old male, seen sitting up in bed reporting occasional chest discomfort for which he was evaluated by Dr. Walker, Cardiology. Upon admission, he was noted to have significantly elevated values for his hemoglobin with suspicion of polycythemia secondary to his strong smoking history. At present, he appears to be in no acute distress with analgesics taking care of his pain, he reports. Testing was sent out as per Dr. Kurtz's recommendations with workup, otherwise, pending. DENISSE-2 mutations are pending along with other testing as per Dr. Kurtz's protocol. OBJECTIVE AND PHYSICAL EXAMINATION: VITAL SIGNS: Temperature 98, pulse 82, respirations 17, blood pressure 122/83, pulse ox 95%. HEENT: Unremarkable. NECK: Supple. HEART: Regular rate. LUNGS: Clear. ABDOMEN: Obese, soft, and nontender. EXTREMITIES: No edema. SKIN: Warm and dry. NEUROLOGIC: Awake and alert. LABORATORY DATA: Patient's labs were done today. White blood cell count of 8.3. Hemoglobin of 17.4; on admission, it was 19.0. Hematocrit of 50.2; on admission, it was 53.8. Platelet count of 201,000, with a chem metabolic panel within normal limits except for an AST of 72, ALT of 82. Patient also had flow cytometric analysis; however, the report is not returned yet with his DENISSE-2 mutation testing also pending. Patient did have a myocardial stress test done yesterday. Stress EKG conclusion, nuclear stress test; patient had same the chest pain before, during, and after stress test; no ST changes were seen. The conclusion is, essentially normal SPECT myocardial perfusion study, fixed inferior defect, most likely due to diaphragmatic attenuation; normal overall left ventricular function despite paradoxical septal wall motion, and compared to last study in 2013, no significant change. With this, the patient was then cleared by his parts specialist as the chest pain not being of cardiac etiology. ASSESSMENT: For this patient is that of thrombocythemia, probably secondary to smoking with recommendations to stop smoking; chest discomfort, probably musculoskeletal; history of coronary artery bypass graft; hypertension; chronic obstructive pulmonary disease; anxiety. PLAN: For this patient is to continue his present medical regimen as per Dr. Walker and Dr. Krishna with follow up with his primary doctor with the lab testing to be determined and interpreted regarding his polycythemia secondary to smoking workup with follow up with Dr. Kurtz in the office in approximately 2 weeks' time for further evaluation and treatment as indicated. Norman Collado MD
== END 2017-04-08 17:15 | disposition home or self-care (01) | DRG 143 ==
LOC: ED 10:52 → ERH 14:42 → 3RSO 16:36 → OBSVTOIN 04-06 14:52
PROVIDERS: ADMIT Internal Medicine; ATTEND Internal Medicine
DX: R07.89 Other chest pain (principal); I25.10 Atherosclerotic heart disease of native coronary artery without angina pectoris; I11.9 Hypertensive heart disease without heart failure; D75.1 Secondary polycythemia; K76.0 Fatty (change of) liver, not elsewhere classified; I08.3 Combined rheumatic disorders of mitral, aortic and tricuspid valves; D47.3 Essential (hemorrhagic) thrombocythemia; E11.9 Type 2 diabetes mellitus without complications; E78.5 Hyperlipidemia, unspecified; F14.10 Cocaine abuse, uncomplicated; J44.9 Chronic obstructive pulmonary disease, unspecified; F17.210 Nicotine dependence, cigarettes, uncomplicated; F41.9 Anxiety disorder, unspecified; G43.909 Migraine, unspecified, not intractable, without status migrainosus; G89.29 Other chronic pain; I25.2 Old myocardial infarction; I51.7 Cardiomegaly; K21.9 Gastro-esophageal reflux disease without esophagitis; K59.00 Constipation, unspecified; N43.3 Hydrocele, unspecified; Z79.82 Long term (current) use of aspirin; Z90.49 Acquired absence of other specified parts of digestive tract; Z91.14 Patient's other noncompliance with medication regimen; Z95.1 Presence of aortocoronary bypass graft; Z87.892 Personal history of anaphylaxis; Z91.018 Allergy to other foods; Z91.010 Allergy to peanuts; Z91.013 Allergy to seafood; R40.2412 Glasgow coma scale score 13-15, at arrival to emergency department; N50.819 Testicular pain, unspecified; R05 Cough; R20.0 Anesthesia of skin

== ENCOUNTER 2017-07-03 16:21 | Inpatient (IN) | payer OTHER ==
[2017-07-03 16:22] VITALS: BMI 30.7
[2017-07-03] MEDS ORDERED: TDAP Vaccine 0.5 mL Syr IM ONE (16:44)
--- NOTE | 2017-07-03 17:07 | ED PDOC ---
Arrival/HPI - General Chief Complaint: Trauma Time Seen by Provider: 07/03/17 16:23 Historian: Patient - History of Present Illness Narrative History of Present Illness (Text): 07/03/17 17:04 52 yo male, h/o HTN, CAD s/p CABG (2012), HLD, COPD, presents to the ED c/o mechanical fall with head injury. States he tripped on either a piece of paper or a treat on the floor. He fell backwards and hit his head. + LOC for unknown length of time. He woke up and started having chest pain midsternal with palpitations. No shortness of breathe. Patient admits to drinking alcohol. No drugs. No cough or fever. PMD: Dr. Whiting Past Medical History - Provider Review Nursing Documentation Reviewed: Yes - Infectious Disease Hx of Infectious Diseases: None - Tetanus Immunization Tetanus Immunization: Unknown - Cardiac Hx [place]: Yes Hx Hypertension: Yes - Pulmonary Hx Chronic Obstructive Pulmonary Disease (COPD): Yes - Neurological Hx Neurological Disorder: Yes Hx Migraine: Yes Other/Comment: Has history of migraine, does not get headaches a lot but has aura most of the time like. floaters - HEENT Hx HEENT Disorder: No - Renal Hx Renal Disorder: No - Endocrine/Metabolic Hx Endocrine Disorders: No - Hematological/Oncological Hx Blood Disorders: No - Integumentary Hx Dermatological Disorder: Yes Other/Comment: generalized red raised chronic body rash unknown origin "I have has it for years.", multiple tatoos, - Musculoskeletal/Rheumatological Hx Falls: No - Gastrointestinal Hx Gastrointestinal Disorders: Yes Hx Gastroesophageal Reflux: Yes - Genitourinary/Gynecological Hx Genitourinary Disorders: Yes Other/Comment: hydrocele with chronic testicular pain - Psychiatric Hx Psychophysiologic Disorder: Yes Hx Anxiety: Yes Hx Depression: No Hx Emotional Abuse: No Hx Physical Abuse: No Hx Substance Use: No (pt denies ever doing drugs) - Surgical History Hx Coronary Artery Bypass Graft: Yes - Anesthesia Hx Anesthesia: Yes Hx Anesthesia Reactions: No Hx Malignant Hyperthermia: No - Suicidal Assessment Feels Threatened In Home Enviroment: No Family/Social History - Physician Review Nursing Documentation Reviewed: Yes Family/Social History: No Known Family HX Smoking Status: Light Smoker < 10 Cigarettes Daily Hx Alcohol Use: Yes (occasional beer) Hx Substance Use: No (pt denies ever doing drugs) Substance used: cocaine Hx Substance Use Treatment: No Allergies/Home Meds Allergies/Adverse Reactions: Allergies peanut Allergy (Verified 07/03/17 16:32) ANAPHYLAXIS AND ANYTHING THAT IS DERIVED FROM ANY NUTS PER PATIENT. shellfish derived Allergy (Verified 07/03/17 16:32) ANAPHYLAXIS Home Medications: Home Meds Medication Instructions Recorded Confirmed ALPRAZolam [Xanax] 0.5 mg PO BID PRN 07/19/16 07/03/17 oxyCODONE/Acetaminophen [Percocet 1 tab PO BID PRN 07/19/16 07/03/17 5/325 mg Tab] Albuterol HFA [Ventolin HFA 90 2 puff INH Q4 04/05/17 07/03/17 mcg/actuation (8 g)] Lisinopril [Zestril] 40 mg PO DAILY 04/05/17 07/03/17 Metoprolol Tartrate [Lopressor] 100 mg PO DAILY 04/05/17 07/03/17 Simvastatin [Zocor] 20 mg PO DAILY 04/05/17 07/03/17 Review of Systems - Physician Review All systems were reviewed & negative as marked: Yes - Review of Systems Constitutional: Normal Eyes: Normal ENT: Normal Respiratory: Normal. absent: SOB, Cough Cardiovascular: Chest Pain, Palpitations Gastrointestinal: Normal Genitourinary Male: Normal Musculoskeletal: Normal Skin: Normal Neurological: Headache. absent: Dizziness, Focal Weakness, Gait Changes, Speech Changes, Facial Droop, Disequilibrium, Seizure Endocrine: Normal Hemo/Lymphatic: Normal Psychiatric: Normal Physical Exam Vital Signs Reviewed: Yes Vital Signs Temp Pulse Resp BP Pulse Ox 07/03/17 18:20 88 18 102/68 98 07/03/17 16:38 97.8 F 75 18 100/72 98 07/03/17 16:22 97.8 F 75 19 100/72 96 Temperature: Afebrile Blood Pressure: Normal Pulse: Regular Respiratory Rate: Normal Appearance: Positive for: Well-Appearing, Non-Toxic, Comfortable Pain Distress: None Mental Status: Positive for: Alert and Oriented X 3 - Systems Exam Head: Present: Normocephalic, Tenderness, Contusion, Laceration. No: Atraumatic (1.5 cm laceration to the right posterior head) Pupils: Present: PERRL Extroacular Muscles: Present: EOMI Conjunctiva: Present: Normal Mouth: Present: Moist Mucous Membranes Pharnyx: Present: Normal Nose (External): Present: Atraumatic Nose (Internal): Present: Normal Inspection, No Active Bleeding Neck: Present: Normal Range of Motion Respiratory/Chest: Present: Clear to Auscultation, Good Air Exchange. No: Respiratory Distress, Accessory Muscle Use Cardiovascular: Present: Regular Rate and Rhythm, Normal S1, S2. No: Murmurs Abdomen: No: Tenderness, Distention, Peritoneal Signs Back: Present: Normal Inspection. No: Midline Tenderness Upper Extremity: Present: Normal Inspection. No: Cyanosis, Edema Lower Extremity: Present: Normal Inspection. No: Edema Neurological: Present: GCS=15, CN II-XII Intact, Speech Normal Skin: Present: Warm, Dry, Normal Color. No: Rashes Psychiatric: Present: Alert, Oriented x 3, Normal Insight, Normal Concentration Medical Decision Making ED Course and Treatment: 07/03/17 17:09 52 yo male with mechanical fall with head injury r/o ICH r/o fracture; laceration; Chest pain r/o ACS -- Labs -- EKG -- CXR -- CT head, CT Cervical -- Tetanus EKG: NSR at [address] depressions, V2, V3, V4, V5, V6; V2, V3 and v4 are inverted which is different then previous EKG on 07/19/16 and 04/05/17. 07/03/17 18:28 Labs reviewed. Troponin negative. CXR and CT pending results. Signed out to Dr. Lacey to f/u CXR and CT, reevaluate and disposition. - Critical Care Critical Care Minutes: 30 minutes - Lab Interpretations Lab Results: 07/03/17 17:26 07/03/17 17:26 Lab Results 07/03/17 17:26: Alcohol, Quantitative 99 H 07/03/17 17:26: Sodium 140, Potassium 3.9, Chloride 104, Carbon Dioxide 22, Anion Gap 18, BUN 14, Creatinine 0.9, Est GFR ( Amer) > 60, Est GFR (Non- Af Amer) > 60, Random Glucose 104, Calcium 9.3, Lactate Dehydrogenase 410, Total Creatine Kinase 85, Troponin I < 0.01 07/03/17 17:26: WBC 8.9, RBC 4.69, Hgb 16.5, Hct 46.1, MCV 98.3 D, MCH 35.2 H, MCHC 35.8, RDW 13.2, Plt Count 217, MPV 8.7, Gran % 54.3, Lymph % (Auto) 36.3 H , [place] % (Auto) 7.1 H, Eos % (Auto) 1.6, Baso % (Auto) 0.7, Gran # 4.82, Lymph # (Auto) 3.2, [place] # (Auto) 0.6, Eos # (Auto) 0.1, Baso # (Auto) 0.06 - RAD Interpretation Radiology Orders: 07/03/17 16:42 HEAD W/O CONTRAST [CT] Stat 07/03/17 16:43 CXR [CHEST PORTABLE] [RAD] Stat - Medication Orders Current Medication Orders: Discontinued Medications Acetaminophen (Tylenol 325mg Tab) 650 mg PO STAT STA Stop: 07/03/17 16:45 Last Admin: 07/03/17 17:25 Dose: 650 mg MAR Pain/Vitals Document 07/03/17 17:25 RD (Rec: 07/03/17 17:25 RD [id number]) Pain Reassessment Is This A Pain ReAssessment? No Sleep Is patient sleeping during reassessment? No Presence of Pain Presence of Pain Yes Morphine Sulfate (Morphine) 4 mg IVP STAT STA Stop: 07/03/17 17:12 Last Admin: 07/03/17 17:36 Dose: 4 mg MAR Pain Assessment Document 07/03/17 17:36 RD (Rec: 07/03/17 17:36 RD [id number]) Pain Reassessment Is this a pain reassessment? No Sleep Is patient sleeping during reassessment? No Presence of Pain Presence of Pain Yes IVP Administration Document 07/03/17 17:36 RD (Rec: 07/03/17 17:36 RD [id number]) Charges for Administration # of IVP Administrations 1 Tetanus/Reduced Diphtheria/Acell Pertussis (Boostrix Vaccine Inj) 0.5 ml IM .ONCE ONE Stop: 07/03/17 16:45 Last Admin: 07/03/17 17:25 Dose: 0.5 ml MAR Immunization Data Document 07/03/17 17:25 RD (Rec: 07/03/17 17:25 RD [id number]) Immunization Data Vaccine Information Sheet Given Yes Vaccine Information Sheet Given Date 07/03/17 Immunization Registry Document 07/03/17 17:25 RD (Rec: 07/03/17 17:25 RD [id number]) Immunization Registry Consent Date 07/03/17 Disposition/Present on Arrival - Present on Arrival Any Indicators Present on Arrival: No History of DVT/PE: No History of Uncontrolled Diabetes: No Urinary Catheter: No History of Decub. Ulcer: No History Surgical Site Infection Following: None - Disposition Have Diagnosis and Disposition been Completed?: No Diagnosis: Chest pain, Alcohol intoxication Disposition Time: 18:31 Condition: FAIR Discharge Instructions (ExitCare): Chest Pain (ED) Referrals: Justin Whiting MD [Primary Care Provider] - Follow up with primary Forms: [employer] (Greek)
[2017-07-03] MEDS ORDERED: Morphine 4 mg/ml ISec IVP STA (17:11)
[2017-07-03 17:36] LABS: BASO # 0.06 K/mm3 (0.0-2.0); BASO % 0.7 % (0.0-3.0); EOS # 0.1 (0.0-0.7); EOS % 1.6 % (1.5-5.0); GRAN # 4.82 (1.4-6.5); GRAN % 54.3 % (50.0-68.0); HEMOGLOBIN 16.5 g/dL (14.0-18.0); LYMPH # 3.2 (1.2-3.4); LYMPH % 36.3 % (22.0-35.0); MEAN CELL VOLUME 98.3 fl (80.0-105.0); MEAN CORPUSCULAR HEMOGLOBIN 35.2 pg (25.0-35.0); MEAN CORPUSCULAR HGB CONC 35.8 g/dl (31.0-37.0); MEAN PLATELET VOLUME 8.7 fl (7.0-11.0); MONO # 0.6 (0.1-0.6); MONO % 7.1 % (1.0-6.0); RBC 4.69 10^6/uL (3.5-6.1); RED CELL DISTRIBUTION WIDTH 13.2 % (11.5-14.5); WHITE BLOOD COUNT 8.9 10^3/ul (4.5-11.0)
[2017-07-03 17:50] LABS: BLOOD UREA NITROGEN 14 mg/dL (7-21); CALCIUM 9.3 mg/dL (8.4-10.5); GFR AFRICAN-AMERICAN > 60; GFR NON-AFRICAN AMERICAN > 60
[2017-07-03 18:01] LABS: TROPONIN I < 0.01 ng/mL
--- NOTE | 2017-07-03 18:38 | PCM.PROC ---
Procedures Attestation:: I certify that I have explained the specified Operation(s) or Procedure(s), risks, benefits and reasonable alternatives to the Patient and/or other person responsible. The opportunity was given to ask questions and all questions answered - Laceration with EPI clean irrigated extensively scalp other other Site: scalp Side (if applicable): right (posterior ) Description: clean Depth: simple, single layer Anesthesia used: lidocaine 1%, with EPI Anesthesia technique: local infiltration Amount (mLs): 2 Pre-repair: wound explored, irrigated extensively Skin layer closed with: other (grey ) Number of sutures: 2
--- NOTE | 2017-07-03 19:28 | CT ---
EXAM: CT Head Without Intravenous Contrast EXAM DATE/TIME: 07/03/2017 4:42 PM CLINICAL HISTORY: The patient age is 52 years old and is male; Injury or trauma; Fall; Initial encounter; Abrasion; Not specified; Additional info: Head injury R/O ich. Estimated image count due to issues with pacs Facility exam id and description: Ct heads head w/o contrast TECHNIQUE: Axial computed tomography images of the head/brain without intravenous contrast. All CT scans at this facility use one or more dose reduction techniques, viz.: automated exposure control; ma/kV adjustment per patient size (including targeted exams where dose is matched to indication; i.e. head); or iterative reconstruction technique. Coronal and sagittal reformatted images were created and reviewed. COMPARISON: CT - HEAD W/O CONTRAST 2015-10-12 21:39 FINDINGS: Brain: The white-boyle differentiation is preserved demonstrating no acute territorial type infarct. No acute intracranial hemorrhage is seen. No significant white matter disease visualized. Midline shift: There is no midline shift. Ventricles: No ventriculomegaly. Bones/joints: The calvarium demonstrates no evidence for a depressed fracture. Soft tissues: There is mild scalp swelling overlying the right occipital skull. Scalp grey are seen in this region. Vasculature: There is atherosclerotic calcification of the intracranial internal carotid arteries. Sinuses: Unremarkable as visualized. No acute sinusitis. Mastoid air cells: Effusions are visualized within the left mastoid air cells, new compared to the prior study. This is likely inflammatory or post traumatic. IMPRESSION: 1. No acute intracranial hemorrhage or acute territorial type infarct. 2. There is mild scalp swelling overlying the right occipital skull. Scalp grey are seen in this region. 3. Effusions are visualized within the left mastoid air cells, new compared to the prior study. This is likely inflammatory or post traumatic.
[2017-07-03] MEDS: Morphine 4 mg/ml ISec IVP PRN (19:56)
[2017-07-03] MEDS ORDERED: Nitroglycerin 2% Ointment Foilpak UD TOP STA (20:02)
--- NOTE | 2017-07-03 21:19 | CP.PCM.HP ---
<Eusebio Herron - Last Filed: 07/03/17 21:49> History of Present Illness - History of Present Illness History of Present Illness: This patient is a 52 year old male with a PMHx of HTN, HLD, CAD s/p CABG in 2012 , Hydrocele w/ chronic testicular pain, COPD, anxiety, and migraines who presents to the E.R with chest pain s/p syncopal episode that happened around 3PM today. Patient states he getting up from a seated position when he passed out. He denies any biting of the tongue or urinary/bowel incontinence. Patient had wound to the occipital portion of his head. CT scan was negative for any intracranial bleed. Patient does complain of head pain where he hit his head. When he woke up from being passed out he began to feel sharp reproducible chest pain that started at his left chest wall and radiated to his midsternum. Patient admits to one 24oz beer today. ROS: POSITIVES: Headache, Chest pain, Lightheadedness, neck pain, chest wall tenderness NEGATIVES: Fever, chills, blurry vision, palpitations, SOB, abdominal pain, changes in bowel habits or urinary symptoms. PMHx: HTN, HLD, CAD s/p CABG in 2012, Hydrocele w/ chronic testicular pain, COPD , anxiety, and migraines PSHx: Appendectomy, CABG Allergies: Peanut, Shellfish (Anaphylaxis) SocialHx: 1/2-1 PPD for 40 years, admits to occasional EtOH use. Denies Illicit drug use Hos: 04/06/17 for Chest pain. Negative Stress Test and ECHO with 65% EF at that time. Meds: Patient states he had anti-hypertensive medications changed from last visit but does not remember the name. PMD: Dr. Whiting. Present on Admission - Present on Admission Any Indicators Present on Admission: No Review of Systems - Review of Systems All systems: reviewed and no additional remarkable complaints except (As per HPI ) Review of Systems: As per HPI Past Patient History - Infectious Disease Hx of Infectious Diseases: None - Tetanus Immunizations Tetanus Immunization: Unknown - Past Medical History & Family History Past Medical History?: Yes - Past Social History Smoking Status: Light Smoker < 10 Cigarettes Daily - CARDIAC Hx Heart Attack: Yes Hx Hypertension: Yes - PULMONARY Hx Chronic Obstructive Pulmonary Disease (COPD): Yes - NEUROLOGICAL Hx Neurological Disorder: Yes Hx Migraine: Yes Other/Comment: Has history of migraine, does not get headaches a lot but has aura most of the time like. floaters - HEENT Hx HEENT Problems: No - RENAL Hx Chronic Kidney Disease: No - ENDOCRINE/METABOLIC Hx Endocrine Disorders: No - HEMATOLOGICAL/ONCOLOGICAL Hx Blood Disorders: No - INTEGUMENTARY Hx Dermatological Problems: Yes Other/Comment: generalized red raised chronic body rash unknown origin "I have has it for years.", multiple tatoos, - MUSCULOSKELETAL/RHEUMATOLOGICAL Hx Falls: No - GASTROINTESTINAL Hx Gastrointestinal Disorders: Yes Hx Gastroesophageal Reflux: Yes - GENITOURINARY/GYNECOLOGICAL Hx Genitourinary Disorders: Yes Other/Comment: hydrocele with chronic testicular pain - PSYCHIATRIC Hx Psychophysiologic Disorder: Yes Hx Anxiety: Yes Hx Depression: No Hx Emotional Abuse: No Hx Physical Abuse: No Hx Substance Use: No (pt denies ever doing drugs) - SURGICAL HISTORY Hx Coronary Artery Bypass Graft: Yes - ANESTHESIA Hx Anesthesia: Yes Hx Anesthesia Reactions: No Hx Malignant Hyperthermia: No Meds Allergies/Adverse Reactions: Allergies Allergy/AdvReac Type Severity Reaction Status Date / Time peanut Allergy ANAPHYLAXIS Verified 07/03/17 16:32 shellfish derived Allergy ANAPHYLAXIS Verified 07/03/17 16:32 Physical Exam - Constitutional Appears: Well, Non-toxic, No Acute Distress - Head Exam Head Exam: ATRAUMATIC ([place] in Occipital Wound. ), NORMOCEPHALIC - Eye Exam Eye Exam: EOMI, Normal appearance - ENT Exam ENT Exam: Mucous Membranes Moist - Neck Exam Neck exam: Positive for: Normal Inspection, Tenderness (Cervical paraspinal tenderness) - Respiratory Exam Respiratory Exam: Clear to Auscultation Bilateral, NORMAL BREATHING PATTERN. absent: Wheezes - Cardiovascular Exam Cardiovascular Exam: RRR, +S1, +S2. absent: Diastolic murmur, Systolic Murmur - GI/Abdominal Exam GI & Abdominal Exam: Normal Bowel Sounds, Soft, Tenderness (mild RUQ tenderness) . absent: Firm, Guarding - Extremities Exam Extremities exam: Positive for: normal inspection. Negative for: pedal edema - Neurological Exam Neurological exam: Alert, Oriented x3 - Psychiatric Exam Psychiatric exam: Normal Affect, Normal Mood - Skin Skin Exam: Dry, Intact, Normal Color, Warm Additional comments: Multiple Tattoos Results - Vital Signs Recent Vital Signs: Last Vital Signs Temp 97.8 F 07/03/17 16:38 Pulse 96 H 07/03/17 20:51 Resp 18 07/03/17 20:51 BP 103/50 L 07/03/17 20:51 Pulse Ox 98 07/03/17 20:51 - Labs Result Diagrams: 07/03/17 17:26 07/03/17 17:26 Labs: Laboratory Results - last 24 hr 07/03/17 07/03/17 07/03/17 17:26 17:26 17:26 WBC 8.9 RBC 4.69 Hgb 16.5 Hct 46.1 MCV 98.3 D MCH 35.2 H MCHC 35.8 RDW 13.2 Plt Count 217 MPV 8.7 Gran % 54.3 Lymph % (Auto) 36.3 H [place] % (Auto) 7.1 H Eos % (Auto) 1.6 Baso % (Auto) 0.7 Gran # 4.82 Lymph # (Auto) 3.2 [place] # (Auto) 0.6 Eos # (Auto) 0.1 Baso # (Auto) 0.06 Sodium 140 Potassium 3.9 Chloride 104 Carbon Dioxide 22 Anion Gap 18 BUN 14 Creatinine 0.9 Est GFR ( Amer) > 60 Est GFR (Non-Af Amer) > 60 Random Glucose 104 Calcium 9.3 Lactate Dehydrogenase 410 Total Creatine Kinase 85 Troponin I < 0.01 Alcohol, Quantitative 99 H Assessment & Plan - Assessment and Plan (Free Text) Assessment: 52 year old male with a PMHx of HTN, HLD, CAD s/p CABG in 2012, Hydrocele w/ chronic testicular pain, COPD, anxiety, and migraines admitted for evaluation and treatment of chest pain s/p syncopal episode. Plan: Syncopy DDx: Medications induced vs VasoVagal vs EtOH intoxication CT Head (Adm): Negative for any intracranial Bleed Orthostatic Vitals CIWA protocol PRN Ativan Fall Precautions Neurology Consult NeuroChecks Chest Pain, R/O ACS DDx: ACS vs Costochondritis (Likely) 1st Trop NEGATIVE EKG showed NSR with T wave abnormalities, PENDING Official Read CXR(Adm): Negative for acute disease process, PENDING Official Read ED: Morphine 4mg/2mg, NitroPaste, Tylenol, Ativan Serial Troponins Serial EKG's Toradol PRN for pain Hx of HTN Restart Home Medications Patient states his Anti-Hypertensives have been changed. F/U with changes in morning with Dr. Whiting or Pharmacy Hx of HLD Restart Home Medications Hx of COPD DuoNebs PRN Hx of Anxiety Home Xanax 0.5 BID Hx of Migraines Tylenol PRN Proph Lovenox Patient discussed with Attending Eusebio Herron, PGY-1 <Naresh Ta - Last Filed: 07/03/17 22:58> Results - Vital Signs Recent Vital Signs: Last Vital Signs Temp 98.5 F 07/03/17 22:15 Pulse 98 H 07/03/17 22:15 Resp 20 07/03/17 22:15 BP 148/86 07/03/17 22:15 Pulse Ox 98 07/03/17 20:51 - Labs Result Diagrams: 07/03/17 17:26 07/03/17 17:26 Attending/Attestation - Attestation I have personally seen and examined this patient.: Yes I have fully participated in the care of the patient.: Yes I have reviewed all pertinent clinical information: Yes Notes (Text): 07/03/17 22:56 Patient was seen when he was in -. Agree with history, physical examination,assessment and plan. Gives history of pancreatic cancer, DM, HTN in the family, complains of dyspnea , dizziness.
[2017-07-04] MEDS: Morphine 4 mg/ml ISec IVP PRN ×5 (06:22→23:39)
[2017-07-04] MEDS ORDERED: Magnesium Sulfate 2 GM in Sodium Chloride 0.9% 100 ML IVPB ONE (07:09)
[2017-07-04] MEDS ORDERED: Valproate 500 MG in Sodium Chloride 0.9% 100 ML IVPB ONE (07:10)
[2017-07-04 07:19] LABS: BASO # 0.04 K/mm3 (0.0-2.0); BASO % 0.6 % (0.0-3.0); EOS # 0.1 (0.0-0.7); EOS % 1.8 % (1.5-5.0); GRAN # 2.57 (1.4-6.5); GRAN % 36.2 % (50.0-68.0); HEMOGLOBIN 15.3 g/dL (14.0-18.0); LYMPH # 3.9 (1.2-3.4); LYMPH % 54.4 % (22.0-35.0); MEAN CELL VOLUME 100.2 fl (80.0-105.0); MEAN CORPUSCULAR HEMOGLOBIN 33.9 pg (25.0-35.0); MEAN CORPUSCULAR HGB CONC 33.8 g/dl (31.0-37.0); MEAN PLATELET VOLUME 8.7 fl (7.0-11.0); MONO # 0.5 (0.1-0.6); RBC 4.51 10^6/uL (3.5-6.1); RED CELL DISTRIBUTION WIDTH 13.5 % (11.5-14.5); WHITE BLOOD COUNT 7.1 10^3/ul (4.5-11.0)
[2017-07-04 07:37] LABS: ALB/GLOB RATIO 1.3 (1.1-1.8); ALBUMIN 3.8 g/dL (3.0-4.8); ALT/SGPT 62 U/L (7-56); AST/SGOT 52 U/L (17-59); BLOOD UREA NITROGEN 18 mg/dL (7-21); CALCIUM 8.8 mg/dL (8.4-10.5); GFR AFRICAN-AMERICAN > 60; GFR NON-AFRICAN AMERICAN > 60
[2017-07-04 07:42] LABS: TROPONIN I < 0.01 ng/mL
[2017-07-04] MEDS: Enoxaparin 40 mg Syringe SC SCH (09:35)
--- NOTE | 2017-07-04 09:45 | RAD ---
PROCEDURE: CHEST RADIOGRAPH, 1 VIEW HISTORY: palpitations/chest pain COMPARISON: 04/05/2017 FINDINGS: LUNGS: Clear. PLEURA: No pneumothorax or pleural fluid seen. CARDIOVASCULAR: Normal. OSSEOUS STRUCTURES: There is evidence of prior median sternotomy. VISUALIZED UPPER ABDOMEN: Normal. OTHER FINDINGS: None. IMPRESSION: No new focal infiltrate or CHF. No interval change from prior study.
--- NOTE | 2017-07-04 10:40 | CP.PCM.CON ---
History of Present Illness - History of Present Illness History of Present Illness: Lying in bed denies chest pain,denies shortness of breath, mild headache Reason for consult: Cardiac evaluation,chest pain, status post syncopal episode.history of CAD, post CABG 2012, COPD, hypertension and hyperlipidemia. Brief history of present illness: A 52 year old male who came in to the ER due to chest pain and claimed to passed out while getting up from sitting position. He hit his head and CT of head done in ER with negative for bleeding. History of CAD, post CABG 2012, COPD, hypertension and hyperlipidemia. hydrocele with chronic testicular pain,anxiety, and migraine, appendectomy, current smoker, occasional drinker. Seen and examined by me and Dr. Walker Review of Systems - Cardiovascular Additional comments: chest pain uponadmission, passed out - Respiratory Additional comments: COPD - Gastrointestinal Additional comments: denies nausea and vomiting - Genitourinary Additional comments: denies any problems - Musculoskeletal Additional comments: hydrocele chronic pain - Neurological Additional comments: anxiety and migraine Past Patient History - Infectious Disease Hx of Infectious Diseases: None - Tetanus Immunizations Tetanus Immunization: Unknown - Past Medical History & Family History Past Medical History?: Yes - Past Social History Smoking Status: Heavy Smoker > 10 Cigarettes Daily - CARDIAC Hx Hypertension: Yes - PULMONARY Hx Chronic Obstructive Pulmonary Disease (COPD): Yes - NEUROLOGICAL Hx Neurological Disorder: Yes Hx Migraine: Yes Other/Comment: Has history of migraine, does not get headaches a lot but has aura most of the time like. floaters - HEENT Hx HEENT Problems: No - RENAL Hx Chronic Kidney Disease: No - ENDOCRINE/METABOLIC Hx Endocrine Disorders: No - HEMATOLOGICAL/ONCOLOGICAL Hx Blood Disorders: No - INTEGUMENTARY Hx Dermatological Problems: Yes Other/Comment: generalized red raised chronic body rash unknown origin "I have has it for years.", multiple tatoos, - MUSCULOSKELETAL/RHEUMATOLOGICAL Hx Falls: Yes - GASTROINTESTINAL Hx Gastrointestinal Disorders: Yes Hx Gastroesophageal Reflux: Yes - GENITOURINARY/GYNECOLOGICAL Hx Genitourinary Disorders: Yes Other/Comment: hydrocele with chronic testicular pain - PSYCHIATRIC Hx Substance Use: No - SURGICAL HISTORY Hx Coronary Artery Bypass Graft: Yes - ANESTHESIA Hx Anesthesia: Yes Hx Anesthesia Reactions: No Hx Malignant Hyperthermia: No Meds Allergies/Adverse Reactions: Allergies Allergy/AdvReac Type Severity Reaction Status Date / Time peanut Allergy ANAPHYLAXIS Verified 04/28/18 16:32 shellfish derived Allergy ANAPHYLAXIS Verified 07/03/17 16:32 - Medications Medications: Current Medications Acetaminophen (Tylenol 325mg Tab) 650 mg PO Q6H PRN PRN Reason: Pain, moderate (4-7) Albuterol/Ipratropium (Duoneb 3 Mg/0.5 Mg (3 Ml) Ud) 3 ml IH [id number] PRN PRN Reason: Shortness of Breath Alprazolam (Xanax) 0.5 mg PO BID PRN; Protocol PRN Reason: Anxiety Stop: 07/10/17 21:37 Last Admin: 07/04/17 00:42 Dose: 0.5 mg Aspirin (Ecotrin) 81 mg PO DAILY [facility] Last Admin: 07/04/17 09:33 Dose: 81 mg Atorvastatin Calcium (Lipitor) 10 mg PO DIN [facility] Enoxaparin Sodium (Lovenox) 40 mg SC DAILY [facility] PRN Reason: Protocol Last Admin: 07/04/17 09:35 Dose: 40 mg Ketorolac Tromethamine (Toradol) 30 mg IVP Q6H PRN PRN Reason: Pain, severe (8-10) Last Admin: 07/04/17 09:34 Dose: 30 mg Lisinopril (Zestril) 40 mg PO DAILY [facility] Last Admin: 07/04/17 10:15 Dose: 40 mg Lorazepam (Ativan) 1 mg IVP Q6H PRN; Protocol PRN Reason: Symptoms of alcohol withdrawl Metoprolol Tartrate (Lopressor) 100 mg PO DAILY [facility] Last Admin: 07/04/17 09:33 Dose: 100 mg Morphine Sulfate (Morphine) 2 mg IVP Q4H PRN PRN Reason: Pain, moderate (4-7) Last Admin: 07/04/17 06:22 Dose: 2 mg Results - Vital Signs Recent Vital Signs: Last Vital Signs Temp 97.2 F L 07/04/17 06:00 Pulse 109 H 07/04/17 09:33 Resp 20 07/04/17 06:00 BP 157/107 H 07/04/17 09:33 Pulse Ox 96 07/04/17 06:00 - Labs Result Diagrams: 07/04/17 06:30 07/04/17 06:30 Labs: Laboratory Results - last 24 hr 07/03/17 07/04/17 07/04/17 23:00 06:30 06:30 WBC 7.1 D RBC 4.51 Hgb 15.3 Hct 45.2 MCV 100.2 MCH 33.9 MCHC 33.8 RDW 13.5 Plt Count 192 MPV 8.7 Gran % 36.2 L Lymph % (Auto) 54.4 H [place] % (Auto) 7.0 H Eos % (Auto) 1.8 Baso % (Auto) 0.6 Gran # 2.57 Lymph # (Auto) 3.9 H [place] # (Auto) 0.5 Eos # (Auto) 0.1 Baso # (Auto) 0.04 Sodium 141 Potassium 3.9 Chloride 108 H Carbon Dioxide 24 Anion Gap 13 BUN 18 Creatinine 0.9 Est GFR ( Amer) > 60 Est GFR (Non-Af Amer) > 60 Random Glucose 97 Calcium 8.8 Phosphorus Magnesium Total Bilirubin 0.5 AST 52 ALT 62 H Alkaline Phosphatase 82 Troponin I < 0.01 < 0.01 Total Protein 6.7 Albumin 3.8 Globulin 2.8 Albumin/Globulin Ratio 1.3 07/04/17 06:30 WBC RBC Hgb Hct MCV MCH MCHC RDW Plt Count MPV Gran % Lymph % (Auto) [place] % (Auto) Eos % (Auto) Baso % (Auto) Gran # Lymph # (Auto) [place] # (Auto) Eos # (Auto) Baso # (Auto) Sodium Potassium Chloride Carbon Dioxide Anion Gap BUN Creatinine Est GFR ( Amer) Est GFR (Non-Af Amer) Random Glucose Calcium Phosphorus 4.8 H Magnesium 2.2 Total Bilirubin AST ALT Alkaline Phosphatase Troponin I Total Protein Albumin Globulin Albumin/Globulin Ratio Assessment & Plan - Assessment and Plan (Free Text) Assessment: A 52 year old male who came in to the ER due to chest pain and claimed to passed out while getting up from sitting position. He hit his head and CT of head done in ER with negative for bleeding. History of CAD, post CABG 2012, COPD , hypertension and hyperlipidemia. hydrocele with chronic testicular pain, anxiety, and migraine, appendectomy, current smoker,occasional drinker. ECHO 04/07/17- normal, LVEF 65% Stress test 04/07/17- normal Plan: Last cardiac work up March this year. ECHO and stress test normal Rule out syncope, Passing out maybe due to postural hypotension Will monitor BP lying,sitting and up On Lopressor 100 mg daily, lisinopril 10 mg daily,ASA 81 mg daily and Lipitor 10 mg daily. Continue current medications Continue current treatment Will follow up Thank you Dr. Hammer for giving us the oppotunity to take care of Donovan Tariq.
--- NOTE | 2017-07-04 14:21 | CP.PCM.PN ---
Subjective - Date & Time of Evaluation Date of Evaluation: 07/04/17 Time of Evaluation: 07:00 - Subjective Subjective: IM Progress Note for Hospitalist Service Patient seen and examined at bedside. No acute events reported overnight. Patient eating meal during exam, no acute issues, does still complain of left- chest reproducible chest pain and headache/head pain at site of grey. No further syncopal episodes, near-syncopal spells, or any dizziness/ lightheadedness. Objective - Vital Signs/Intake and Output Vital Signs (last 24 hours): Temp Pulse Resp BP Pulse Ox 98.7 F 85 19 161/89 H 96 07/04/17 12:00 07/04/17 12:00 07/04/17 12:00 07/04/17 12:00 07/04/17 06:00 - Medications Medications: Current Medications Acetaminophen (Tylenol 325mg Tab) 650 mg PO Q6H PRN PRN Reason: Pain, moderate (4-7) Albuterol/Ipratropium (Duoneb 3 Mg/0.5 Mg (3 Ml) Ud) 3 ml IH [id number] PRN PRN Reason: Shortness of Breath Alprazolam (Xanax) 0.5 mg PO BID PRN; Protocol PRN Reason: Anxiety Stop: 07/10/17 21:37 Last Admin: 07/04/17 12:48 Dose: 0.5 mg Aspirin (Ecotrin) 81 mg PO DAILY [facility] Last Admin: 07/04/17 09:33 Dose: 81 mg Atorvastatin Calcium (Lipitor) 10 mg PO DIN [facility] Enoxaparin Sodium (Lovenox) 40 mg SC DAILY [facility] PRN Reason: Protocol Last Admin: 07/04/17 09:35 Dose: 40 mg Ketorolac Tromethamine (Toradol) 30 mg IVP Q6H PRN PRN Reason: Pain, severe (8-10) Last Admin: 07/04/17 09:34 Dose: 30 mg Lisinopril (Zestril) 40 mg PO DAILY [facility] Last Admin: 07/04/17 10:15 Dose: 40 mg Lorazepam (Ativan) 1 mg IVP Q6H PRN; Protocol PRN Reason: Symptoms of alcohol withdrawl Metoprolol Tartrate (Lopressor) 100 mg PO DAILY [facility] Last Admin: 07/04/17 09:33 Dose: 100 mg Morphine Sulfate (Morphine) 2 mg IVP Q4H PRN PRN Reason: Pain, moderate (4-7) Last Admin: 07/04/17 10:58 Dose: 2 mg - Labs Labs: 07/04/17 06:30 07/04/17 06:30 - Additional Findings Additional findings: - Constitutional Appears: Well, Non-toxic, No Acute Distress - Head Exam Head Exam: ATRAUMATIC (Grey in Occipital Wound. ), NORMOCEPHALIC - Eye Exam Eye Exam: EOMI, Normal appearance - ENT Exam ENT Exam: Mucous Membranes Moist - Neck Exam Neck exam: Positive for: Normal Inspection, Tenderness (Cervical paraspinal tenderness) - Respiratory Exam Respiratory Exam: Clear to Auscultation Bilateral, NORMAL BREATHING PATTERN. absent: Wheezes - Cardiovascular Exam Cardiovascular Exam: RRR, +S1, +S2. absent: Diastolic murmur, Systolic Murmur - GI/Abdominal Exam GI & Abdominal Exam: Normal Bowel Sounds, Soft, Tenderness (now more diffuse epigastric than RUQ, less tender overall). absent: Firm, Guarding - Extremities Exam Extremities exam: Positive for: normal inspection. Negative for: pedal edema - Neurological Exam Neurological exam: Alert, Oriented x3 - Psychiatric Exam Psychiatric exam: Normal Affect, Normal Mood - Skin Skin Exam: Dry, Intact, Normal Color, Warm Additional comments: Multiple Tattoos Assessment and Plan - Assessment and Plan (Free Text) Assessment: 52 year old male with a PMHx of HTN, HLD, CAD s/p CABG in 2012, Hydrocele w/ chronic testicular pain, COPD, anxiety, and migraines admitted for evaluation of syncopal episode of unclear etiology, reproducible chest pain, and likely pending alcohol withdrawal. Plan: 1) Syncope -Medications induced vs Vasovagal vs EtOH intoxication -CT Head negative for any acute intracranial process -Orthostatic Vitals ordered -[facility] protocol, EtOH on admit was 98 -PRN Ativan -Fall Precautions -Neuro and cardio consulted, appreciate all recs; as per Cardio, recent Echo and stress test normal so no need for repeat at this time -NeuroChecks 2) Chest Pain, R/O ACS -less likely ACS, more likely Costochondritis -trops x3 negative -EKG showed NSR with T wave abnormalities, PENDING Official Read -CXR on admit Negative for acute disease process, PENDING Official Read -Toradol PRN for pain 3) Hx of HTN -continue lopressor, lisinopril, ASA, lipitor 4) Hx of HLD -continue lipitor 5) Hx of COPD -DuoNebs PRN 6) Hx of Anxiety -Home Xanax 0.5 BID 7) Hx of Migraines -Tylenol PRN Dispo: Tele, pending Neuro recs, pending possible alcohol withdrawal FEN: HDD Access: Peripheral IV Consults: Neuro, Cardio Ppx: protonix for GI, lovenox for DVT Pt seen, reviewed, and discussed with attending, Dr. Hammer.
[2017-07-04 16:18] LABS: BARBITURATES, UR NEGATIVE (NEGATIVE); BENZODIAZEPINES, UR POSITIVE (NEGATIVE); OPIATES, UR POSITIVE (NEGATIVE); PHENCYCLIDINE, UR NEGATIVE (NEGATIVE)
--- NOTE | 2017-07-04 16:59 | CP.PCM.CON ---
History of Present Illness - History of Present Illness History of Present Illness: Mr. Tariq is a 52-year-old man with a past medical history of HTN, HLD, CAD s /p CABG in 2013, Hydrocele w/ chronic testicular pain, COPD, anxiety, alcoholism , and migraines who presented to the ED yesterday after he had a syncopal episode after standing up from a seated position yesterday at 3 PM. There was no abnormal movement noted, no aura, no tongue biting, and no mention of urinary /bowel incontinence. He injured the occipital portion of his head and complains of headache. He was back to baseline after his syncopal episode without residual deficits. CT scan of the head did not show any evidence of intracranial injury. Review of Systems - Review of Systems All systems: reviewed and no additional remarkable complaints except Past Patient History - Infectious Disease Hx of Infectious Diseases: None - Tetanus Immunizations Tetanus Immunization: Unknown - Past Medical History & Family History Past Medical History?: Yes - Past Social History Smoking Status: Heavy Smoker > 10 Cigarettes Daily - CARDIAC Hx Hypertension: Yes - PULMONARY Hx Chronic Obstructive Pulmonary Disease (COPD): Yes - NEUROLOGICAL Hx Neurological Disorder: Yes Hx Migraine: Yes Other/Comment: Has history of migraine, does not get headaches a lot but has aura most of the time like. floaters - HEENT Hx HEENT Problems: No - RENAL Hx Chronic Kidney Disease: No - ENDOCRINE/METABOLIC Hx Endocrine Disorders: No - HEMATOLOGICAL/ONCOLOGICAL Hx Blood Disorders: No - INTEGUMENTARY Hx Dermatological Problems: Yes Other/Comment: generalized red raised chronic body rash unknown origin "I have has it for years.", multiple tatoos, - MUSCULOSKELETAL/RHEUMATOLOGICAL Hx Falls: Yes - GASTROINTESTINAL Hx Gastrointestinal Disorders: Yes Hx Gastroesophageal Reflux: Yes - GENITOURINARY/GYNECOLOGICAL Hx Genitourinary Disorders: Yes Other/Comment: hydrocele with chronic testicular pain - PSYCHIATRIC Hx Substance Use: No - SURGICAL HISTORY Hx Coronary Artery Bypass Graft: Yes - ANESTHESIA Hx Anesthesia: Yes Hx Anesthesia Reactions: No Hx Malignant Hyperthermia: No Meds Allergies/Adverse Reactions: Allergies Allergy/AdvReac Type Severity Reaction Status Date / Time peanut Allergy ANAPHYLAXIS Verified 07/03/17 16:32 shellfish derived Allergy ANAPHYLAXIS Verified 07/03/17 16:32 - Medications Medications: Current Medications Acetaminophen (Tylenol 325mg Tab) 650 mg PO Q6H PRN PRN Reason: Pain, moderate (4-7) Albuterol/Ipratropium (Duoneb 3 Mg/0.5 Mg (3 Ml) Ud) 3 ml IH [id number] PRN PRN Reason: Shortness of Breath Alprazolam (Xanax) 0.5 mg PO BID PRN; Protocol PRN Reason: Anxiety Stop: 07/10/17 21:37 Last Admin: 07/04/17 12:48 Dose: 0.5 mg Aspirin (Ecotrin) 81 mg PO DAILY [facility] Last Admin: 07/04/17 09:33 Dose: 81 mg Atorvastatin Calcium (Lipitor) 10 mg PO DIN [facility] Enoxaparin Sodium (Lovenox) 40 mg SC DAILY [facility] PRN Reason: Protocol Last Admin: 07/04/17 09:35 Dose: 40 mg Ketorolac Tromethamine (Toradol) 30 mg IVP Q6H PRN PRN Reason: Pain, severe (8-10) Last Admin: 07/04/17 09:34 Dose: 30 mg Lisinopril (Zestril) 40 mg PO DAILY [facility] Last Admin: 07/04/17 10:15 Dose: 40 mg Lorazepam (Ativan) 1 mg IVP Q6H PRN; Protocol PRN Reason: Symptoms of alcohol withdrawl Metoprolol Tartrate (Lopressor) 100 mg PO DAILY [facility] Last Admin: 07/04/17 09:33 Dose: 100 mg Morphine Sulfate (Morphine) 2 mg IVP Q4H PRN PRN Reason: Pain, moderate (4-7) Last Admin: 07/04/17 14:49 Dose: 2 mg Physical Exam - Neurological Exam Neurological exam: Alert, CN II-XII Intact, Normal Gait, Oriented x3, Reflexes Normal Results - Vital Signs Recent Vital Signs: Last Vital Signs Temp 98.7 F 07/04/17 12:00 Pulse 89 07/04/17 14:00 Resp 19 07/04/17 12:00 BP 161/89 H 07/04/17 12:00 Pulse Ox 96 07/04/17 06:00 - Labs Result Diagrams: 07/04/17 06:30 07/04/17 06:30 Labs: Laboratory Results - last 24 hr 07/04/17 15:25 Urine Opiates Screen Positive H Urine Methadone Screen Negative Ur Barbiturates Screen Negative Ur Phencyclidine Scrn Negative Ur Amphetamines Screen Negative U Benzodiazepines Scrn Positive U Oth Cocaine Metabols Negative U Cannabinoids Screen Negative Assessment & Plan (1) Neurocardiogenic syncope Assessment and Plan: Could be due to medication use and alcohol use with possible vaso-vagal episode. Continue supportive care and cardiac work-up. No further recommendations from a neurological standpoint. Thank you. Status: Acute Priority: High
[2017-07-04] MEDS: Albuterol-Ipratrop 3 mg / 0.5 (3 ml) UD IH PRN ×2 (17:55→21:45)
[2017-07-04 18:12] VITALS: RESP 20
--- NOTE | 2017-07-04 22:42 | CARD ---
APPROVED REPORT EKG Measurement Heart [id number] <Conclusion> Normal sinus rhythm Possible Left atrial enlargement ST & T wave abnormality, consider anterior ischemia Abnormal ECG
--- NOTE | 2017-07-04 22:47 | CARD ---
APPROVED REPORT EKG Measurement Heart [id number] ID [id number] <Conclusion> Normal sinus rhythm Biatrial enlargement Left ventricular hypertrophy Nonspecific ST and T wave abnormality Prolonged QT Abnormal ECG
[2017-07-05] MEDS: Morphine 4 mg/ml ISec IVP PRN ×2 (04:04→08:29)
[2017-07-05 05:53] VITALS: O2SAT 96
[2017-07-05 07:35] LABS: BASO # 0.01 K/mm3 (0.0-2.0); BASO % 0.1 % (0.0-3.0); EOS % 0.4 % (1.5-5.0); GRAN # 6.32 (1.4-6.5); GRAN % 64.7 % (50.0-68.0); HEMOGLOBIN 15.3 g/dL (14.0-18.0); LYMPH # 2.6 (1.2-3.4); LYMPH % 26.3 % (22.0-35.0); MEAN CELL VOLUME 99.6 fl (80.0-105.0); MEAN CORPUSCULAR HEMOGLOBIN 34.2 pg (25.0-35.0); MEAN CORPUSCULAR HGB CONC 34.3 g/dl (31.0-37.0); MEAN PLATELET VOLUME 8.9 fl (7.0-11.0); MONO # 0.8 (0.1-0.6); MONO % 8.5 % (1.0-6.0); RBC 4.48 10^6/uL (3.5-6.1); RED CELL DISTRIBUTION WIDTH 13.5 % (11.5-14.5); WHITE BLOOD COUNT 9.8 10^3/ul (4.5-11.0)
[2017-07-05 07:55] LABS: ALB/GLOB RATIO 1.4 (1.1-1.8); ALBUMIN 3.9 g/dL (3.0-4.8); ALT/SGPT 58 U/L (7-56); AST/SGOT 38 U/L (17-59); BLOOD UREA NITROGEN 20 mg/dL (7-21); CALCIUM 8.9 mg/dL (8.4-10.5); GFR AFRICAN-AMERICAN > 60; GFR NON-AFRICAN AMERICAN > 60
[2017-07-05] MEDS ORDERED: Morphine 2 mg/2 mL syringe IVP PRN (08:40)
[2017-07-05] MEDS: Enoxaparin 40 mg Syringe SC SCH (09:36)
--- NOTE | 2017-07-05 11:00 | CP.PCM.DIS ---
<Tom Oscar - Last Filed: 07/05/17 16:21> Provider - Provider Date of Admission: 07/04/17 15:19 Attending physician: Ene Hernandez MD Primary care physician: Justin Whiting MD Consults: Neuro: Víctorya Cardio: Michelle Time Spent in preparation of Discharge (in minutes): 35 Diagnosis - Discharge Diagnosis (1) Alcohol intoxication Status: Acute Priority: High (2) Chest pain Status: Acute Priority: Medium (3) Neurocardiogenic syncope Status: Acute Priority: High (4) Coronary atherosclerosis of [place] coronary artery Status: Chronic Priority: Medium Hospital Course - Lab Results Lab Results: Most Recent Lab Values WBC 9.8 10^3/ul (4.5-11.0) D 07/05/17 07:00 RBC 4.48 10^6/uL (3.5-6.1) 07/05/17 07:00 Hgb 15.3 g/dL (14.0-18.0) 07/05/17 07:00 Hct 44.6 % (42.0-52.0) 07/05/17 07:00 MCV 99.6 fl (80.0-105.0) 07/05/17 07:00 MCH 34.2 pg (25.0-35.0) 07/05/17 07:00 MCHC 34.3 g/dl (31.0-37.0) 07/05/17 07:00 RDW 13.5 % (11.5-14.5) 07/05/17 07:00 Plt Count 212 10^3/uL (120.0-450.0) 07/05/17 07:00 MPV 8.9 fl (7.0-11.0) 07/05/17 07:00 Gran % 64.7 % (50.0-68.0) 07/05/17 07:00 Lymph % (Auto) 26.3 % (22.0-35.0) 07/05/17 07:00 Stark % (Auto) 8.5 % (1.0-6.0) H 07/05/17 07:00 Eos % (Auto) 0.4 % (1.5-5.0) L 07/05/17 07:00 Baso % (Auto) 0.1 % (0.0-3.0) 07/05/17 07:00 Gran # 6.32 (1.4-6.5) 07/05/17 07:00 Lymph # (Auto) 2.6 (1.2-3.4) 07/05/17 07:00 Stark # (Auto) 0.8 (0.1-0.6) H 07/05/17 07:00 Eos # (Auto) 0.0 (0.0-0.7) 07/05/17 07:00 Baso # (Auto) 0.01 K/mm3 (0.0-2.0) 07/05/17 07:00 Sodium 140 mmol/L (132-148) 07/05/17 07:00 Potassium 3.9 mmol/L (3.6-5.0) 07/05/17 07:00 Chloride 106 mmol/L (98-107) 07/05/17 07:00 Carbon Dioxide 23 mmol/L (21-33) 07/05/17 07:00 Anion Gap 15 (10-20) 07/05/17 07:00 BUN 20 mg/dL (7-21) 07/05/17 07:00 Creatinine 0.8 mg/dl (0.8-1.5) 07/05/17 07:00 Est GFR ( Amer) > 60 07/05/17 07:00 Est GFR (Non-Af Amer) > 60 07/05/17 07:00 Random Glucose 134 mg/dL (70-110) H 07/05/17 07:00 Calcium 8.9 mg/dL (8.4-10.5) 07/05/17 07:00 Phosphorus 3.5 mg/dL (2.5-4.5) 07/05/17 07:30 Magnesium 2.4 mg/dL (1.7-2.2) H 07/05/17 07:30 Total Bilirubin 0.5 mg/dL (0.2-1.3) 07/05/17 07:00 AST 38 U/L (17-59) 07/05/17 07:00 ALT 58 U/L (7-56) H 07/05/17 07:00 Alkaline Phosphatase 76 U/L (38-126) 07/05/17 07:00 Lactate Dehydrogenase 410 U/L (333-699) 07/03/17 17:26 Total Creatine Kinase 85 U/L (35-230) 07/03/17 17:26 Troponin I < 0.01 ng/mL 07/04/17 06:30 Total Protein 6.7 g/dL (5.8-8.3) 07/05/17 07:00 Albumin 3.9 g/dL (3.0-4.8) 07/05/17 07:00 Globulin 2.7 gm/dL 07/05/17 07:00 Albumin/Globulin Ratio 1.4 (1.1-1.8) 07/05/17 07:00 Urine Opiates Screen Positive (NEGATIVE) H 07/04/17 15:25 Urine Methadone Screen Negative (NEGATIVE) 07/04/17 15:25 Ur Barbiturates Screen Negative (NEGATIVE) 07/04/17 15:25 Ur Phencyclidine Scrn Negative (NEGATIVE) 07/04/17 15:25 Ur Amphetamines Screen Negative (NEGATIVE) 07/04/17 15:25 U Benzodiazepines Scrn Positive (NEGATIVE) 07/04/17 15:25 U Oth Cocaine Metabols Negative (NEGATIVE) 07/04/17 15:25 U Cannabinoids Screen Negative (NEGATIVE) 07/04/17 15:25 Alcohol, Quantitative 99 mg/dL (0-10) H 07/03/17 17:26 - Hospital Course Hospital Course: This is a 52 year old male with a PMH of HTN, HLD, CAD s/p CABG in 2012, Hydrocele w/ chronic testicular pain, COPD, anxiety, and migraines who [place] [facility] [place] episode with fall and head trauma. He underwent syncope workup, including head CT, EKG, and UDS. His EKG on admission was notable for a QTc > 700, but in reviewing the EKG, it appears to be a miscalculation by the EKG machine, and QTc on repeat EKG was 435. USD was notable for being positive for opioids and benzos, but patient's home medications are reported to include Xanax and Percocet; called pt's pharmacy ( [facility] on and ) to confirm but their phone number is currently not operations (attempted twice, [phone] and [phone], 07/05/17). Quantitative alcohol level was [address] was negative for acute intracranial process. As per Cardio, he had just undergone a stress test and had an Echo March 2017 , both of which were normal (LVEF 65%), so they did not feel that a repeat Echo was needed at this time. As per Neuro, this is not neurogenic in origin, more likely vasovagal or 2/2 medications and alcohol use. PT assessed the patient with a cane (pt reports uses a cane at home at baseline), but he refused to participate past walking in his room. Patient was unhappy that he was being discharged due to his desire to have a definite answer as to what caused him to pass out, and also because he wanted to "feel more better" before returning home , but it was explained to him that not all syncopal episodes have an identifiable cause. He also continues to be extremely sensitive about any discussions regarding his drinking, frequently stating that med staff is accusing him of being an alcoholic, even though no one has used that word with him. He was reminded that med team was simply informing him that he was under treatment for possible withdrawal due to an alcohol level of 99 on admission, and instructed him that alcohol can contribute to his syncopal episode, so he should avoid further intake at this time. He stated that he was currently under a lot of stress due to personal issues, and was having drinks to feel better. He was offered an opportunity to speak with a therapist or a psychiatrist about these issues, but he adamantly refused. Patient was instructed to follow up with his PMD (Dr. Whiting) within 1 week of discharge. He was also instructed to resume all home medications as previously prescribed, to avoid further alcohol use for now, and to follow up in either the ED or with his PMD in 1-2 weeks for removal of the grey used to close his scalp wound. He expressed understanding of these instructions, but again comments that his drinking isn't a problem, and that we are discharging him without helping him to feel better. He was reminded that he was medically stable for discharge, but that it did not mean he didn't need additional follow up after discharge. He would not state whether he would comply with these instructions, and was uncooperative from that point on. He was then discharged , and was observed walking out of the building. Patient seen, reviewed, and discussed with attending, Dr. Hernandez. Discharge Exam - Additional Findings Additional findings: - Constitutional Appears: Well, Non-toxic, No Acute Distress - Head Exam Head Exam: Healing occipital laceration closed with grey, but no overt signs of fracture or asymmetry elsewhere - Eye Exam Eye Exam: EOMI, Normal appearance - ENT Exam ENT Exam: Mucous Membranes Moist - Neck Exam Neck exam: Positive for: Normal Inspection, Tenderness (Cervical paraspinal tenderness) - Respiratory Exam Respiratory Exam: Clear to Auscultation Bilateral, NORMAL BREATHING PATTERN. absent: Wheezes - Cardiovascular Exam Cardiovascular Exam: RRR, +S1, +S2. absent: Diastolic murmur, Systolic Murmur, JVD - GI/Abdominal Exam GI & Abdominal Exam: Normal Bowel Sounds, Soft, Tenderness (mild epigastric tenderness). absent: Firm, Guarding - Extremities Exam Extremities exam: Positive for: normal inspection. Negative for: pedal edema - Neurological Exam Neurological exam: Alert, Oriented x3 - Psychiatric Exam Psychiatric exam: Normal Affect, Normal Mood - Skin Skin Exam: Dry, Intact (except as documented in Head Exam), Normal Color, Warm Additional comments: Multiple Tattoos Discharge Plan - Follow Up Plan Condition: FAIR Disposition: HOME/ ROUTINE Instructions: Quitting Smoking for Older Adults, Anxiety, Adult (DC), Syncope ( Fainting) (DC), Vasovagal Response (DC), Alcohol Level Additional Instructions: Please resume all home medications as previously prescribed. Please follow up with your PMD (Dr. Whiting) within 1 week of discharge. Please avoid any further alcohol use at this time, as alcohol is a diuretic and may contribute to further brief drops in blood pressure. Please return to a hospital if you experience worsening or new concerning symptoms. Referrals: Justin Whiting MD [Primary Care Provider] - <Ene Hernandez - Last Filed: 07/06/17 16:01> Provider - Provider Date of Admission: 07/04/17 15:19 Attending physician: Ene Hernandez MD Primary care physician: Justin Whiting MD Hospital Course - Lab Results Lab Results: Most Recent Lab Values WBC 9.8 10^3/ul (4.5-11.0) D 07/05/17 07:00 RBC 4.48 10^6/uL (3.5-6.1) 07/05/17 07:00 Hgb 15.3 g/dL (14.0-18.0) 07/05/17 07:00 Hct 44.6 % (42.0-52.0) 07/05/17 07:00 MCV 99.6 fl (80.0-105.0) 07/05/17 07:00 MCH 34.2 pg (25.0-35.0) 07/05/17 07:00 MCHC 34.3 g/dl (31.0-37.0) 07/05/17 07:00 RDW 13.5 % (11.5-14.5) 07/05/17 07:00 Plt Count 212 10^3/uL (120.0-450.0) 07/05/17 07:00 MPV 8.9 fl (7.0-11.0) 07/05/17 07:00 Gran % 64.7 % (50.0-68.0) 07/05/17 07:00 Lymph % (Auto) 26.3 % (22.0-35.0) 07/05/17 07:00 Stark % (Auto) 8.5 % (1.0-6.0) H 07/05/17 07:00 Eos % (Auto) 0.4 % (1.5-5.0) L 07/05/17 07:00 Baso % (Auto) 0.1 % (0.0-3.0) 07/05/17 07:00 Gran # 6.32 (1.4-6.5) 07/05/17 07:00 Lymph # (Auto) 2.6 (1.2-3.4) 07/05/17 07:00 Stark # (Auto) 0.8 (0.1-0.6) H 07/05/17 07:00 Eos # (Auto) 0.0 (0.0-0.7) 07/05/17 07:00 Baso # (Auto) 0.01 K/mm3 (0.0-2.0) 07/05/17 07:00 Sodium 140 mmol/L (132-148) 07/05/17 07:00 Potassium 3.9 mmol/L (3.6-5.0) 07/05/17 07:00 Chloride 106 mmol/L (98-107) 07/05/17 07:00 Carbon Dioxide 23 mmol/L (21-33) 07/05/17 07:00 Anion Gap 15 (10-20) 07/05/17 07:00 BUN 20 mg/dL (7-21) 07/05/17 07:00 Creatinine 0.8 mg/dl (0.8-1.5) 07/05/17 07:00 Est GFR ( Amer) > 60 07/05/17 07:00 Est GFR (Non-Af Amer) > 60 07/05/17 07:00 Random Glucose 134 mg/dL (70-110) H 07/05/17 07:00 Calcium 8.9 mg/dL (8.4-10.5) 07/05/17 07:00 Phosphorus 3.5 mg/dL (2.5-4.5) 07/05/17 07:30 Magnesium 2.4 mg/dL (1.7-2.2) H 07/05/17 07:30 Total Bilirubin 0.5 mg/dL (0.2-1.3) 07/05/17 07:00 AST 38 U/L (17-59) 07/05/17 07:00 ALT 58 U/L (7-56) H 07/05/17 07:00 Alkaline Phosphatase 76 U/L (38-126) 07/05/17 07:00 Lactate Dehydrogenase 410 U/L (333-699) 07/03/17 17:26 Total Creatine Kinase 85 U/L (35-230) 07/03/17 17:26 Troponin I < 0.01 ng/mL 07/04/17 06:30 Total Protein 6.7 g/dL (5.8-8.3) 07/05/17 07:00 Albumin 3.9 g/dL (3.0-4.8) 07/05/17 07:00 Globulin 2.7 gm/dL 07/05/17 07:00 Albumin/Globulin Ratio 1.4 (1.1-1.8) 07/05/17 07:00 Urine Opiates Screen Positive (NEGATIVE) H 07/04/17 15:25 Urine Methadone Screen Negative (NEGATIVE) 07/04/17 15:25 Ur Barbiturates Screen Negative (NEGATIVE) 07/04/17 15:25 Ur Phencyclidine Scrn Negative (NEGATIVE) 07/04/17 15:25 Ur Amphetamines Screen Negative (NEGATIVE) 07/04/17 15:25 U Benzodiazepines Scrn Positive (NEGATIVE) 07/04/17 15:25 U Oth Cocaine Metabols Negative (NEGATIVE) 07/04/17 15:25 U Cannabinoids Screen Negative (NEGATIVE) 07/04/17 15:25 Alcohol, Quantitative 99 mg/dL (0-10) H 07/03/17 17:26 Attending/Attestation - Attestation I have personally seen and examined this patient.: Yes I have fully participated in the care of the patient.: Yes I have reviewed all pertinent clinical information, including history, physical exam and plan: Yes Notes (Text): 07/06/17 15:58 attending note; Patient seen and examined with resident. Patient is a 52-year-old male with a history of anxiety, smoking, COPD, active alcohol abuse is admitted with chest pain and dizziness. CT head is negative. Neurology evaluation appreciated. Cardiology evaluation appreciated. Cardiac enzymes negative. Patient had recent stress test which was normal. Symptoms may be related to alcohol abuse. Patient is in denial about alcohol related issues. patient is ambulating fine without difficulty. PT evaluation appreciated. anxiety issues;gets aggravated by alcohol abuse. patient is taking Xanax at home. Psychiatric evaluation offered. Patient refused. Patient with personality disorder. Abusive to the nursing staff at times. Patient is medically stable for discharge. Advised to follow-up with PMD Dr. Whiting in 1 week. Complete smoking and alcohol cessation is advised.
[2017-07-05 12:12] VITALS: BP 152/89
[2017-07-05 12:26] VITALS: TEMP 98.3
[2017-07-05 15:59] VITALS: PULSE 79
--- NOTE | 2017-07-05 16:28 | PN ---
DATE: 07/05/2017 REASON FOR THE CONSULTATION AND FOLLOWUP: Shortness of breath, coronary artery disease, status post CABG in 2012, admitted with near syncope. SUBJECTIVE: The patient denies any chest pain, shortness of breath, or any palpitation. OBJECTIVE: GENERAL: Lying in the bed, not in any apparent distress. VITAL SIGNS: Temperature afebrile, heart rate 97, blood pressure 132/87. HEENT: PERRLA, intact. NECK: Supple. No carotid bruit. No thyromegaly. CHEST: Clear to auscultation. HEART: S1 and S2, regular. ABDOMEN: Soft. EXTREMITIES: Clubbing and cyanosis negative. LABORATORY DATA: Blood workup as follows. WBC 9.8, hemoglobin 15.3, hematocrit 44.6, platelet count 212. Chemistry shows sodium 140, potassium 3.9, chloride 106, carbon dioxide 23, anion gap of 15. BUN 20, creatinine 0.8. IMPRESSION: Status post near syncope; coronary artery disease; alcohol abuse, admitting alcohol level 99; history of substance abuse in the past; history of coronary artery disease; history of coronary artery bypass graft. No evidence of acute myocardial infarction. RECOMMENDATION: Aggressive medical treatment. Abstinence from alcohol, abstinence from smoking, abstinence from substance abuse. Continue DVT prophylaxis. Continue metoprolol. Continue lisinopril. We will discontinue telemetry. Possible discharge home and discharge planning. Thank you, Dr. Hammer for providing us the opportunity in taking care of the patient, Donovan Tariq. We will follow with you. Espinoza Walker MD
--- NOTE | 2017-07-05 20:15 | CARD ---
APPROVED REPORT EKG Measurement Heart [id number] ID [id number] <Conclusion> Normal sinus rhythm Possible Left atrial enlargement Left ventricular hypertrophy with repolarization abnormality Abnormal ECG
== END 2017-07-05 15:00 | disposition home or self-care (01) | DRG 750 ==
LOC: ED 16:21 → ERH 20:31 → 2RSO 21:24 → OBSVTOIN 07-04 15:19
PROVIDERS: ADMIT Hospitalist; ATTEND Internal Medicine
PROC: 0HQ0XZZ Repair Scalp Skin, External Approach (ICD-10-PCS; principal; 2017-07-03)
DX: F10.229 Alcohol dependence with intoxication, unspecified (principal); J44.9 Chronic obstructive pulmonary disease, unspecified; S09.90XA Unspecified injury of head, initial encounter; S01.01XA Laceration without foreign body of scalp, initial encounter; I25.10 Atherosclerotic heart disease of native coronary artery without angina pectoris; I10 Essential (primary) hypertension; E78.5 Hyperlipidemia, unspecified; N43.3 Hydrocele, unspecified; F41.9 Anxiety disorder, unspecified; Y90.4 Blood alcohol level of 80-99 mg/100 ml; K21.9 Gastro-esophageal reflux disease without esophagitis; G43.909 Migraine, unspecified, not intractable, without status migrainosus; F17.210 Nicotine dependence, cigarettes, uncomplicated; W01.0XXA Fall on same level from slipping, tripping and stumbling without subsequent striking against object, initial encounter; Y92.9 Unspecified place or not applicable; I25.2 Old myocardial infarction; Z95.1 Presence of aortocoronary bypass graft

== ENCOUNTER 2017-07-12 11:27 | Emergency (ER) | payer OTHER ==
[2017-07-12 11:34] VITALS: RESP 18; TEMP 98.2; O2SAT 100; BMI 31.4
--- NOTE | 2017-07-12 13:15 | ED PDOC ---
Arrival/HPI - General Chief Complaint: Suture/Staple Removal Time Seen by Provider: 07/12/17 11:41 Historian: Patient - History of Present Illness Narrative History of Present Illness (Text): 07/12/17 13:10 52-year-old male presents today for staple removal. Patient states he had grey placed 9 days ago. Patient went to his primary care physician today to have the 2 grey removed. He states that the primary care physician was only able to remove one staple and struggled with the second staple. Patient states that the primary care physician told him that the staple was twisted and crooked in the scalp. Patient states he was told to follow with Dr. Mian Ramirez for assistance with staple removal but instead return to the emergency room. Patient denies headache dizziness or weakness. No chest pain or shortness of breath no abdominal pain. He presents only for removal of the one remaining staple from the right posterior scalp. Past Medical History - Provider Review Nursing Documentation Reviewed: Yes - Travel History Have you recently traveled outside [place] w/in the past 3 mons?: No - Infectious Disease Hx of Infectious Diseases: None - Tetanus Immunization Tetanus Immunization: Unknown - Cardiac Hx Hypertension: Yes - Pulmonary Hx Chronic Obstructive Pulmonary Disease (COPD): Yes - Neurological Hx Neurological Disorder: Yes Hx Migraine: Yes Other/Comment: Has history of migraine, does not get headaches a lot but has aura most of the time like. floaters - HEENT Hx HEENT Disorder: No - Renal Hx Renal Disorder: No - Endocrine/Metabolic Hx Endocrine Disorders: No - Hematological/Oncological Hx Blood Disorders: No - Integumentary Hx Dermatological Disorder: Yes Other/Comment: generalized red raised chronic body rash unknown origin "I have has it for years.", multiple tatoos, - Musculoskeletal/Rheumatological Hx Falls: Yes - Gastrointestinal Hx Gastrointestinal Disorders: Yes Hx Gastroesophageal Reflux: Yes - Genitourinary/Gynecological Hx Genitourinary Disorders: Yes Other/Comment: hydrocele with chronic testicular pain - Psychiatric Hx Psychophysiologic Disorder: Yes Hx Anxiety: Yes Hx Depression: No Hx Emotional Abuse: No Hx Physical Abuse: No Hx Substance Use: No - Surgical History Hx Coronary Artery Bypass Graft: Yes - Anesthesia Hx Anesthesia: Yes Hx Anesthesia Reactions: No Hx Malignant Hyperthermia: No - Suicidal Assessment Feels Threatened In Home Enviroment: No Family/Social History - Physician Review Nursing Documentation Reviewed: Yes Family/Social History: Unknown Family HX Smoking Status: Heavy Smoker > 10 Cigarettes Daily Hx Alcohol Use: Yes (occasional) Hx Substance Use: No Substance used: cocaine Hx Substance Use Treatment: No Allergies/Home Meds Allergies/Adverse Reactions: Allergies peanut Allergy (Verified 07/03/17 16:32) ANAPHYLAXIS AND ANYTHING THAT IS DERIVED FROM ANY NUTS PER PATIENT. shellfish derived Allergy (Verified 07/03/17 16:32) ANAPHYLAXIS Home Medications: Home Meds Medication Instructions Recorded Confirmed ALPRAZolam [Xanax] 0.5 mg PO BID PRN 07/19/16 07/03/17 oxyCODONE/Acetaminophen [Percocet 1 tab PO BID PRN 07/19/16 07/05/17 5/325 mg Tab] Albuterol HFA [Ventolin HFA 90 2 puff INH Q4 04/05/17 07/03/17 mcg/actuation (8 g)] Lisinopril [Zestril] 40 mg PO DAILY 04/05/17 07/03/17 Metoprolol Tartrate [Lopressor] 100 mg PO DAILY 04/05/17 07/03/17 Simvastatin [Zocor] 20 mg PO DAILY 04/05/17 07/03/17 Review of Systems - Review of Systems Constitutional: absent: Fatigue, Fevers Respiratory: absent: SOB, Cough Cardiovascular: absent: Chest Pain, Palpitations Gastrointestinal: absent: Abdominal Pain, Diarrhea, Vomiting Musculoskeletal: absent: Arthralgias Skin: Laceration Psychiatric: Anxiety (hc of anxiety). absent: Suicidal Ideation Physical Exam Vital Signs Reviewed: Yes Vital Signs Temp Pulse Resp BP Pulse Ox 07/12/17 13:58 80 18 142/82 100 07/12/17 12:48 79 18 142/79 100 07/12/17 11:33 98.2 F 85 18 148/84 100 Temperature: Afebrile Blood Pressure: Normal Pulse: Regular Respiratory Rate: Normal Appearance: Positive for: Well-Appearing, Non-Toxic, Comfortable Pain Distress: None Mental Status: Positive for: Alert and Oriented X 3 - Systems Exam Head: Present: Laceration (healing laceration to right posterior scalp with one suture in place. no erythema, no edema, no ecchymosis) Mouth: Present: Moist Mucous Membranes Nose (Internal): Present: Normal Inspection Neck: Present: Normal Range of Motion Respiratory/Chest: Present: Clear to Auscultation, Good Air Exchange. No: Respiratory Distress, Accessory Muscle Use Cardiovascular: Present: Regular Rate and Rhythm, Normal S1, S2. No: Murmurs Neurological: Present: GCS=15 Skin: Present: Warm, Dry Psychiatric: Present: Alert, Oriented x 3 Medical Decision Making ED Course and Treatment: 07/12/17 13:19 Patient is nontoxic well-appearing in no distress. Vital signs are stable. Patient with [address] to the right posterior scalp. Staple is completely twisted underneath the skin of the scalp. resident care aid dr. florez and dr. east at bedside; staple removed. Wound healing well without signs of infection I advised the patient to keep the wound clean and dry apply bacitracin twice daily and return if symptoms worsen persist or if new symptoms develop Patient verbalizes understanding of discharge instructions and need for immediate followup. all aspects of this case were discussed the attending of record. Impression: Wound check,staple removal Keep the wound clean and dry Apply bacitracin twice daily Follow up with primary care physician within the next 2 days Return immediately if symptoms worsen persist or if new symptoms develop Disposition/Present on Arrival - Present on Arrival Any Indicators Present on Arrival: No History of DVT/PE: No History of Uncontrolled Diabetes: No Urinary Catheter: No History of Decub. Ulcer: No History Surgical Site Infection Following: None - Disposition Have Diagnosis and Disposition been Completed?: Yes Diagnosis: Removal of staple Disposition: HOME/ ROUTINE Disposition Time: 12:50 Patient Plan: Discharge Condition: GOOD Discharge Instructions (ExitCare): Staple Removal Additional Instructions: Follow up with the primary care physician within the next 2 days return immediately if symptoms worsen,persist or if new symptoms develop. return if signs of infection develop; high fevers, increasing pain, redness, swelling, purulent discharge. Referrals: Justin Whiting MD [Family Provider] - Follow up with primary Mian Ramirez MD [Staff Provider] - Follow up with primary Forms: [employer] [facility] (Faroese), WORK NOTE
[2017-07-12 14:00] VITALS: BP 142/82; PULSE 80
== END 2017-07-12 14:00 | disposition home or self-care (01) ==
LOC: ED 11:27
DX: Z48.02 Encounter for removal of sutures (principal)

== ENCOUNTER 2017-11-24 17:57 | Inpatient (IN) | payer OTHER ==
[2017-11-24 18:07] VITALS: BMI 41.1
[2017-11-24 18:28] LABS: BASO # 0.06 K/mm3 (0.0-2.0); BASO % 0.5 % (0.0-3.0); EOS # 0.2 (0.0-0.7); EOS % 1.5 % (1.5-5.0); GRAN # 5.7 (1.4-6.5); HEMOGLOBIN 16.5 g/dL (14.0-18.0); LYMPH % 42.6 % (22.0-35.0); MEAN CELL VOLUME 96.2 fl (80.0-105.0); MEAN CORPUSCULAR HEMOGLOBIN 34.4 pg (25.0-35.0); MEAN CORPUSCULAR HGB CONC 35.8 g/dl (31.0-37.0); MEAN PLATELET VOLUME 8.5 fl (7.0-11.0); MONO # 0.8 (0.1-0.6); MONO % 6.4 % (1.0-6.0); RBC 4.79 10^6/uL (3.5-6.1); RED CELL DISTRIBUTION WIDTH 13.4 % (11.5-14.5); WHITE BLOOD COUNT 11.7 10^3/ul (4.5-11.0)
[2017-11-24 18:36] LABS: INR 1.01; PARTIAL THROMBOPLASTIN TIME 29.3 Seconds (25.1-36.5); PROTHROMBIN TIME 11.5 SECONDS (9.4-12.5)
[2017-11-24 18:38] LABS: ALB/GLOB RATIO 1.4 (1.1-1.8); ALBUMIN 4.5 g/dL (3.0-4.8); ALT/SGPT 41 U/L (7-56); AST/SGOT 38 U/L (17-59); BLOOD UREA NITROGEN 15 mg/dL (7-21); CALCIUM 8.7 mg/dL (8.4-10.5); GFR NON-AFRICAN AMERICAN > 60
--- NOTE | 2017-11-24 18:38 | ED PDOC ---
Arrival/HPI - General Chief Complaint: Chest Pain Time Seen by Provider: 11/24/17 18:07 Historian: Patient - History of Present Illness Narrative History of Present Illness (Text): 11/24/17 19:27 52-year-old male with a history of triple bypass, smoking, alcohol abuse and anxiety presents today with a 2 day history of worsening anterior chest pain. Patient describes a pressure sensation "between his nipples" that is nonradiati ng. Patient denies shortness of breath. He denies any abdominal pain. He denies numbness weakness or tingling in the extremities. Patient denies back pain. Patient states the pain has been gradually worsening for the past 2 days and today the pain became unbearable. Patient states he went to his friend's house and drank some alcohol in an attempt to alleviate the pain. No other complaints Past Medical History - Provider Review Nursing Documentation Reviewed: Yes - Travel History Have you recently traveled outside [place] w/in the past 3 mons?: No - Infectious Disease Hx of Infectious Diseases: None - Tetanus Immunization Tetanus Immunization: Unknown - Cardiac Hx MA: Yes Hx Hypertension: Yes Other/Comment: open heart surgery - Pulmonary Hx Chronic Obstructive Pulmonary Disease (COPD): Yes - Neurological Hx Neurological Disorder: Yes Hx Migraine: Yes Other/Comment: Has history of migraine, does not get headaches a lot but has aura most of the time like. floaters - HEENT Hx HEENT Disorder: No - Renal Hx Renal Disorder: No - Endocrine/Metabolic Hx Endocrine Disorders: No - Hematological/Oncological Hx Blood Disorders: No - Integumentary Hx Dermatological Disorder: Yes Other/Comment: generalized red raised chronic body rash unknown origin "I have has it for years.", multiple tatoos, - Musculoskeletal/Rheumatological Hx Falls: Yes - Gastrointestinal Hx Gastrointestinal Disorders: Yes Hx Gastroesophageal Reflux: Yes - Genitourinary/Gynecological Hx Genitourinary Disorders: Yes Other/Comment: hydrocele with chronic testicular pain - Psychiatric Hx Psychophysiologic Disorder: Yes Hx Anxiety: Yes Hx Depression: No Hx Emotional Abuse: No Hx Physical Abuse: No Hx Substance Use: No - Surgical History Hx Coronary Artery Bypass Graft: Yes - Anesthesia Hx Anesthesia: Yes Hx Anesthesia Reactions: No Hx Malignant Hyperthermia: No - Suicidal Assessment Feels Threatened In Home Enviroment: No Family/Social History - Physician Review Nursing Documentation Reviewed: Yes Family/Social History: Unknown Family HX Smoking Status: Heavy Smoker > 10 Cigarettes Daily Hx Alcohol Use: Yes (occasional) Frequency of alcohol use: Socially Hx Substance Use: No Substance used: cocaine Hx Substance Use Treatment: No Allergies/Home Meds Allergies/Adverse Reactions: Allergies peanut Allergy (Verified 07/03/17 16:32) ANAPHYLAXIS AND ANYTHING THAT IS DERIVED FROM ANY NUTS PER PATIENT. shellfish derived Allergy (Verified 07/03/17 16:32) ANAPHYLAXIS Home Medications: Home Meds Medication Instructions Recorded Confirmed ALPRAZolam [Xanax] 0.5 mg PO BID PRN 07/19/16 07/03/17 oxyCODONE/Acetaminophen [Percocet 1 tab PO BID PRN 07/19/16 07/05/17 5/325 mg Tab] Albuterol HFA [Ventolin HFA 90 2 puff INH Q4 04/05/17 07/03/17 mcg/actuation (8 g)] Lisinopril [Zestril] 40 mg PO DAILY 04/05/17 07/03/17 Metoprolol Tartrate [Lopressor] 100 mg PO DAILY 04/05/17 07/03/17 Simvastatin [Zocor] 20 mg PO DAILY 04/05/17 07/03/17 Review of Systems - Review of Systems Constitutional: absent: Fatigue, Fevers Respiratory: absent: SOB, Cough Cardiovascular: Chest Pain, Palpitations Gastrointestinal: absent: Abdominal Pain, Nausea, Vomiting Genitourinary Male: absent: Dysuria Musculoskeletal: absent: Arthralgias, Back Pain, Neck Pain Skin: absent: Rash, Pruritis Neurological: absent: Headache, Dizziness Psychiatric: Anxiety. absent: Depression Physical Exam Vital Signs Reviewed: Yes Vital Signs Temp Pulse Resp BP Pulse Ox 11/24/17 18:09 98.4 F 88 18 131/79 95 Temperature: Afebrile Blood Pressure: Normal Pulse: Regular Respiratory Rate: Normal Appearance: Positive for: Well-Appearing, Non-Toxic, Uncomfortable Pain Distress: None Mental Status: Positive for: Alert and Oriented X 3 - Systems Exam Head: Present: Atraumatic Mouth: Present: Moist Mucous Membranes Neck: Present: Normal Range of Motion Respiratory/Chest: Present: Clear to Auscultation, Good Air Exchange. No: Respiratory Distress, Accessory Muscle Use Cardiovascular: Present: Regular Rate and Rhythm, Normal S1, S2. No: Murmurs Abdomen: No: Tenderness, Distention, Rebound, Guarding Upper Extremity: Present: Normal ROM Lower Extremity: Present: Normal ROM Neurological: Present: GCS=15, Speech Normal Skin: Present: Warm, Dry, Normal Color. No: Rashes Psychiatric: Present: Alert, Oriented x 3 Medical Decision Making ED Course and Treatment: 11/24/17 18:[address] Davis who reviewed ekg from today and 07/05/17. He advised no acute changes. 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 11/24/17 18:39 pt was seen and evaluated by dr. Clemente. cbc; wbc; 11.7 cmp; wnl trop: wnl ekg; normal sinus rhythm at [address] depressions in V3 [address] elevations. No reciprocal changes. Compared to EKG from 07/05/2017 no acute changes. cxr: wnl asa 325 mg by mouth nitro sublingual given. oxygen 2 L via nasal cannula pt reassessment; patient still with pain feeling slightly better. pt states he wants morphine for the pain and wants more medications for anxiety. case discussed with Dr. kalpan will Admit observational status to Tele for chest pain r/o acs. impression; chest pain Admit observational status to tele; - Lab Interpretations Lab Results: 11/24/17 18:21 11/24/17 18:21 Lab Results 11/24/17 18:21: Alcohol, Quantitative 151 H 11/24/17 18:21: PT 11.5, INR 1.01, APTT 29.3 11/24/17 18:21: Sodium 133, Potassium 3.8, Chloride 95 L, Carbon Dioxide 22, Anion Gap 19, BUN 15, Creatinine 1.0, Est GFR ( Amer) > 60, Est GFR (Non- Af Amer) > 60, Random Glucose 105, Calcium 8.7, Magnesium 2.1, Total Bilirubin 0.6, AST 38, ALT 41, Alkaline Phosphatase 98, Lactate Dehydrogenase 437, Total Creatine Kinase 67, Troponin I < 0.01, Total Protein 7.9, Albumin 4.5, Globulin 3.3, Albumin/Globulin Ratio 1.4 11/24/17 18:21: WBC 11.7 H, RBC 4.79, Hgb 16.5, Hct 46.1, MCV 96.2 D, MCH 34.4, MCHC 35.8, RDW 13.4, Plt Count 253, MPV 8.5, Gran % 49.0 L, Lymph % (Auto) 42.6 H, [place] % (Auto) 6.4 H, Eos % (Auto) 1.5, Baso % (Auto) 0.5, Gran # 5.70, Lymph # (Auto) 5.0 H, [place] # (Auto) 0.8 H, Eos # (Auto) 0.2, Baso # (Auto) 0.06 - RAD Interpretation Radiology Orders: 11/24/17 18:19 CHEST PORTABLE [RAD] Stat - Medication Orders Current Medication Orders: Discontinued Medications Aspirin (Aspirin) 325 mg PO STAT STA Stop: 11/24/17 19:17 Lorazepam (Ativan) 0.5 mg IVP ONCE ONE PRN Reason: Protocol Stop: 11/24/17 18:48 Last Admin: 11/24/17 19:15 Dose: 0.5 mg IVP Administration Document 11/24/17 19:15 AD (Rec: 11/24/17 19:16 AD [id number]) Charges for Administration # of IVP Administrations 1 Nitroglycerin (Nitrostat Sl Tab) 0.4 mg SL STAT STA Stop: 11/24/17 18:16 Last Admin: 11/24/17 19:15 Dose: 0.4 mg Disposition/Present on Arrival - Present on Arrival Any Indicators Present on Arrival: No History of DVT/PE: No History of Uncontrolled Diabetes: No Urinary Catheter: No History of Decub. Ulcer: No History Surgical Site Infection Following: None - Disposition Have Diagnosis and Disposition been Completed?: Yes Diagnosis: Chest pain Disposition: HOSPITALIZED Disposition Time: 19:27 Patient Plan: Observation Condition: FAIR Discharge Instructions (ExitCare): Chest Pain (ED) Forms: [employer] (Greenlandic)
[2017-11-24 18:50] LABS: TROPONIN I < 0.01 ng/mL
[2017-11-24 19:28] LABS: URINE BILIRUBIN NEGATIVE (NEGATIVE); URINE BLOOD NEGATIVE (NEGATIVE); URINE GLUCOSE (UA) NEGATIVE (NEGATIVE); URINE LEUKOCYTE ESTERASE NEGATIVE Leu/uL (NEGATIVE); URINE PROTEIN NEGATIVE mg/dL (<30 mg/dL); URINE UROBILINOGEN 0.2 E.U./dL (<1 E.U./dL)
[2017-11-24 19:29] LABS: URINE APPEARANCE CLEAR (CLEAR); URINE COLOR YELLOW (YELLOW)
--- NOTE | 2017-11-24 19:56 | CARD ---
APPROVED REPORT Date of service: 11/24/2017 EKG Measurement Heart [id number] <Conclusion> Normal sinus rhythm Biatrial enlargement Cannot rule out Inferior infarct, age undetermined ST & T wave abnormality, consider anterior ischemia Abnormal ECG
[2017-11-24] MEDS ORDERED: clonazePAM 0.125 mg Disinteg Tab PO STA (21:03)
--- NOTE | 2017-11-24 21:28 | CP.PCM.HP ---
<Zeny Gilman - Last Filed: 11/25/17 05:25> History of Present Illness - History of Present Illness History of Present Illness: Zeny Gilman, PGY-1 H&P for Hospitalist Service This is a 52 year old male with PMH of COPD, anxiety, HTN. HLD, chronic back pain, alcohol abuse, substance abuse, and CAD s/p CABG 2012 presenting to the ED for 2 day history of chest pain. Patient says he was relaxing at home watching T.V when he felt sudden onset of chest pain located in the anterior chest region, rated 10/10, constant, radiating to the right and left side of the chest wall and described as pressure like. Per patient, nothing makes the pain better or worse. Patient tried ice packs and lidociane patches with minimal improvement in symptoms. Patient states he has had similar pain several times in the past, but came to the ED because the pain was worse this time. He currently denies fevers, chills, nausea, vomiting, SOB, abdominal pain, numbness , tingling, urinary complaints, recent travel and recent sickness. 12 point ROS noted here, otherwise unremarkable. In ED, EKG showed NSR at [address] depressions V3-V5 with no ST elevations. No change from prior EKG on 07/05/17. Dr. Davis reviewed EKG, no cath needed at this time. Troponin <0.01. CXR showed no acute disease. Alcohol level noted to be 151. Received nitroglycerin, aspirin and ativan. Patient noted to be requesting IV morphine in ED. PMD: Dr. Whiting PMH: as above SH: 1/2ppd for 30 years, 6-8 beers/week and denies drug use Sx: CABG in 2013, appendectomy FH: mom had pancreatic cancer, dad had heart problems All: shellfish, peanuts Present on Admission - Present on Admission Any Indicators Present on Admission: No Past Patient History - Infectious Disease Hx of Infectious Diseases: None - Tetanus Immunizations Tetanus Immunization: Unknown - Past Medical History & Family History Past Medical History?: Yes - Past Social History Smoking Status: Heavy Smoker > 10 Cigarettes Daily - CARDIAC Hx Heart Attack: Yes Hx Hypertension: Yes Other/Comment: open heart surgery - PULMONARY Hx Chronic Obstructive Pulmonary Disease (COPD): Yes - NEUROLOGICAL Hx Neurological Disorder: Yes Hx Migraine: Yes Other/Comment: Has history of migraine, does not get headaches a lot but has aura most of the time like. floaters - HEENT Hx HEENT Problems: No - RENAL Hx Chronic Kidney Disease: No - ENDOCRINE/METABOLIC Hx Endocrine Disorders: No - HEMATOLOGICAL/ONCOLOGICAL Hx Blood Disorders: No - INTEGUMENTARY Hx Dermatological Problems: Yes Other/Comment: generalized red raised chronic body rash unknown origin "I have has it for years.", multiple tatoos, - MUSCULOSKELETAL/RHEUMATOLOGICAL Hx Falls: Yes - GASTROINTESTINAL Hx Gastrointestinal Disorders: Yes Hx Gastroesophageal Reflux: Yes - GENITOURINARY/GYNECOLOGICAL Hx Genitourinary Disorders: Yes Other/Comment: hydrocele with chronic testicular pain - PSYCHIATRIC Hx Psychophysiologic Disorder: Yes Hx Anxiety: Yes Hx Depression: No Hx Emotional Abuse: No Hx Physical Abuse: No Hx Substance Use: No - SURGICAL HISTORY Hx Coronary Artery Bypass Graft: Yes - ANESTHESIA Hx Anesthesia: Yes Hx Anesthesia Reactions: No Hx Malignant Hyperthermia: No Meds Allergies/Adverse Reactions: Allergies Allergy/AdvReac Type Severity Reaction Status Date / Time peanut Allergy ANAPHYLAXIS Verified 07/03/17 16:32 shellfish derived Allergy ANAPHYLAXIS Verified 07/03/17 16:32 Physical Exam - Constitutional Appears: No Acute Distress - Head Exam Head Exam: ATRAUMATIC, NORMAL INSPECTION - Eye Exam Eye Exam: EOMI Pupil Exam: PERRL - ENT Exam ENT Exam: Mucous Membranes Moist - Respiratory Exam Respiratory Exam: Clear to Auscultation Bilateral, NORMAL BREATHING PATTERN. absent: Wheezes, Respiratory Distress - Cardiovascular Exam Cardiovascular Exam: REGULAR RHYTHM, +S1, +S2. absent: Tachycardia Additional comments: chest pain reproducible with palpation of sternum - GI/Abdominal Exam GI & Abdominal Exam: Normal Bowel Sounds. absent: Distended, Firm, Guarding, Tenderness - Extremities Exam Extremities exam: Positive for: normal inspection. Negative for: calf tenderness - Neurological Exam Neurological exam: Alert, CN II-XII Intact, Oriented x3 - Skin Skin Exam: Normal Color, Warm Results - Vital Signs Recent Vital Signs: Last Vital Signs Temp 98.2 F 11/24/17 20:54 Pulse 84 11/24/17 20:54 Resp 20 11/24/17 20:54 BP 127/72 11/24/17 20:54 Pulse Ox 95 11/24/17 20:54 - Labs Result Diagrams: 11/24/17 18:21 11/24/17 18:21 Assessment & Plan - Assessment and Plan (Free Text) Assessment: This is a 52 year old male with PMH of COPD, anxiety, HTN, HLD, chronic back pain, alcohol abuse, substance abuse, and CAD s/p CABG 2012 presenting to the hospital for management of chest pain. Plan: Chest pain -EKG showed NSR at [address] depressions V3-V5 with no ST elevations. No change from prior EKG on 07/05/17 -Troponin <0.01 -CXR showed no acute disease -trending troponins x2 -EKG in AM -Hx of CAD s/p CABG 2012 -stress test and echo in 03/2017 were normal with EF of 65% -cardiology on consult, Dr. Holm History of alcohol abuse -alcohol level of 151 on admission -[facility] protocol -bannan bag -ativan q6 prn Drug seeking behavior -requesting IV morphine in ED -history of substance abuse History anxiety -continue home xanax Hx of COPD -continue home albuterol Hx of HTN -continue home lopressor, lisinopril Hx of HLD -continue home simvastatin PPX with pepcid and heparin Patient seen and case discussed with attending, Dr. Katy Hammer <Katy Hammer N - Last Filed: 11/27/17 06:41> Results - Vital Signs Recent Vital Signs: Last Vital Signs Temp 97.6 F 11/27/17 06:00 Pulse 75 11/27/17 06:00 Resp 20 11/27/17 06:00 BP 151/66 H 11/27/17 06:00 Pulse Ox 98 11/27/17 06:00 - Labs Result Diagrams: 11/26/17 08:20 11/26/17 08:20
[2017-11-24] MEDS: Oxycodone/Acetaminophen 5/325 mg Tab PO PRN (21:35)
[2017-11-24] MEDS ORDERED: Multivitamin (MVI) 10 ML, Thiamine 100 MG, Folic Acid 1 MG in Sodium Chloride 0.9% 1,00... IV ONE (21:50)
[2017-11-24] MEDS ORDERED: Morphine 2 mg/ml ISec IVP ONE (23:11)
[2017-11-24] MEDS ORDERED: Albuterol 0.083% Inhal Sol (2.5 mg/3 mL) UD INH SCH (23:30)
[2017-11-25] MEDS ORDERED: DiphenhydrAMINE 50 mg/ml Inj IVP ONE (04:15)
[2017-11-25 07:24] LABS: BASO # 0.05 K/mm3 (0.0-2.0); BASO % 0.6 % (0.0-3.0); EOS # 0.2 (0.0-0.7); EOS % 1.9 % (1.5-5.0); GRAN # 3.32 (1.4-6.5); HEMOGLOBIN 14.8 g/dL (14.0-18.0); LYMPH % 49.1 % (22.0-35.0); MEAN CELL VOLUME 97.1 fl (80.0-105.0); MEAN CORPUSCULAR HEMOGLOBIN 32.8 pg (25.0-35.0); MEAN CORPUSCULAR HGB CONC 33.8 g/dl (31.0-37.0); MEAN PLATELET VOLUME 8.6 fl (7.0-11.0); MONO # 0.6 (0.1-0.6); MONO % 7.4 % (1.0-6.0); RBC 4.51 10^6/uL (3.5-6.1); RED CELL DISTRIBUTION WIDTH 13.6 % (11.5-14.5); WHITE BLOOD COUNT 8.1 10^3/ul (4.5-11.0)
[2017-11-25 07:37] LABS: TROPONIN I < 0.01 ng/mL
[2017-11-25 07:51] LABS: ALB/GLOB RATIO 1.3 (1.1-1.8); ALBUMIN 3.7 g/dL (3.0-4.8); ALT/SGPT 40 U/L (7-56); AST/SGOT 29 U/L (17-59); BLOOD UREA NITROGEN 14 mg/dL (7-21); CALCIUM 8.4 mg/dL (8.4-10.5); GFR NON-AFRICAN AMERICAN > 60
[2017-11-25] MEDS: Oxycodone/Acetaminophen 5/325 mg Tab PO PRN ×2 (08:33→18:07)
--- NOTE | 2017-11-25 08:49 | RAD ---
Date of service: 11/24/2017 HISTORY: Chest pain COMPARISON: 07/03/2017. FINDINGS: LUNGS: Lungs are well inflated. There is interval improved aeration in the lungs. No focal consolidation. PLEURA: No significant pleural effusion identified, no pneumothorax apparent. CARDIOVASCULAR: The heart is normal in size. Status post CABG. OSSEOUS STRUCTURES: No significant abnormalities. VISUALIZED UPPER ABDOMEN: Normal. OTHER FINDINGS: None. IMPRESSION: Interval improved aeration the lungs. No acute findings.
--- NOTE | 2017-11-25 08:57 | CON ---
DATE: 11/25/2017 REASON FOR CONSULTATION: Chest pain, coronary artery disease, alcohol abuse. HISTORY OF PRESENT ILLNESS: This is a 52-year-old man admitted yesterday through the emergency room with mid chest pain, described as an aching sensation. He was drinking. He came to the emergency room. He underwent evaluation. He was admitted to telemetry. Two troponins are negative. His EKG is abnormal, but basically unchanged. He has been asking for pain medications and has received multiple doses of medications. This morning, he is resting comfortably in bed. There is no chest pain at the moment. He denied shortness of breath, orthopnea, PND, syncope, presyncope, lightheadedness, dizziness and vertigo. No fever, chills, cough, sputum production, hemoptysis. No abdominal pain, nausea, vomiting, diarrhea, constipation, melena. PAST MEDICAL HISTORY: His past medical history is notable for coronary artery disease, myocardial infarction and coronary bypass surgery in 2012. He has had several [facility] admissions for chest pain. He has a history of hypertension, hyperlipidemia, COPD, anxiety, migraine headaches. He has had an appendectomy. MEDICATIONS AT THE TIME OF ADMISSION: Aspirin, metoprolol, Percocet, Ventolin, Xanax, Zestril simvastatin. ALLERGIES: HE NOTES ALLERGIES TO PEANUTS AND SHELLFISH. SOCIAL HISTORY: He continues to smoke. He drinks alcohol regularly. He denies current drug abuse. FAMILY HISTORY: Positive for heart problems. REVIEW OF SYSTEMS: Ten-point review of systems otherwise unremarkable. PHYSICAL EXAMINATION: GENERAL: He is a well-developed male, in no acute distress, lying in bed on telemetry. VITAL SIGNS: Notable for a sinus rhythm at 76 beats per minute. He is afebrile. Blood pressure 115/59, respirations 18-20, O2 sat 95% on room air. HEENT: Exam reveals no neck vein distention, thyromegaly, carotid bruit. Mucous membranes moist. Conjunctivae pink. NECK: Supple. LUNGS: Lung pat clear throughout. Heart: Revealed normal first and second heart sounds. ABDOMEN: Soft. Bowel sounds present. No mass, organomegaly, tenderness, rebound or guarding. No CVA tenderness. No palpable abdominal aortic aneurysm. EXTREMITY: Revealed no cyanosis, clubbing, edema. NEUROLOGICAL: Awake, alert and oriented. SKIN: Warm and dry. No rash or cellulitis. LABORATORY DATA AND IMAGING: The chest x-ray is not yet interpreted. It shows clear lung pat. No infiltrate or effusion. EKG shows regular sinus rhythm, ST-T wave changes about the same as a prior EKG. White count initially 11,700, now 8100; hemoglobin and hematocrit unremarkable; platelet count normal. PT, INR, PTT unremarkable. Electrolytes: BUN, creatinine, LFTs all unremarkable. CK 67, troponins negative x2. Urinalysis is unremarkable. Toxicology reveals an alcohol level of 151. IMPRESSION: Donovan Tariq is a 52-year-old man with known coronary artery disease, admitted with chest pain, high alcohol level, drug seeking behavior, a history of coronary artery disease, myocardial infarction and coronary artery bypass surgery. At this time, he is admitted to telemetry. He is getting multiple medications for his heart and pain including lisinopril, Xanax, Percocet, Pepcid nitroglycerin, morphine, metoprolol, Lipitor, Klonopin, subcu heparin, aspirin, Benadryl, Ativan, albuterol. I will repeat his EKG this morning. I will review his old records. We will get an echocardiogram. He can be considered for nuclear stress testing, especially if chest pain continues. I will follow along with you and make additional recommendations based on his clinical course. Cruz Holm MD LAURA
[2017-11-25] MEDS ORDERED: Albuterol 0.083% Inhal Sol (2.5 mg/3 mL) UD INH SCH ×2 (09:00→11:30)
[2017-11-25] MEDS ORDERED: Albuterol 0.083% Inhal Sol (2.5 mg/3 mL) UD IH PRN (11:05)
[2017-11-25] MEDS: Albuterol 0.083% Inhal Sol (2.5 mg/3 mL) UD IH SCH ×4 (11:08→22:43)
--- NOTE | 2017-11-25 18:01 | CP.PCM.PN ---
<Akira Lunsford - Last Filed: 11/25/17 18:22> Subjective - Date & Time of Evaluation Date of Evaluation: 11/25/17 Time of Evaluation: 07:00 - Subjective Subjective: Pt seen and examined. Pt reports nonspecific chest pain. Objective - Vital Signs/Intake and Output Vital Signs (last 24 hours): Temp Pulse Resp BP Pulse Ox 98.7 F 83 18 128/96 H 95 11/25/17 12:00 11/25/17 14:00 11/25/17 12:00 11/25/17 12:00 11/24/17 20:54 Intake and Output: 11/25/17 11/25/17 06:59 18:59 Intake Total 500 100 Output Total 575 Balance -75 100 - Medications Medications: Current Medications Albuterol Sulfate (Albuterol 0.083% Inhal Lazara (2.5 Mg/3 Ml) Ud) 2.[id number] [facility] Last Admin: 11/25/17 15:56 Dose: 2.5 mg Alprazolam (Xanax) 0.5 mg PO BID PRN; Protocol PRN Reason: Anxiety Stop: 12/01/17 21:03 Last Admin: 11/25/17 08:33 Dose: 0.5 mg Aspirin (Ecotrin) [address] [facility] Last Admin: 11/25/17 09:20 Dose: 81 mg Atorvastatin Calcium (Lipitor) 10 mg PO DIN [facility] Famotidine (Pepcid) [address] [facility] Heparin Sodium (Porcine) (Heparin) 5,[address] [facility] PRN Reason: Protocol Last Admin: 11/25/17 09:22 Dose: 5,000 units Lisinopril (Zestril) [address] [facility] Last Admin: 11/25/17 09:21 Dose: 40 mg Lorazepam (Ativan) 1 mg PO Q8 PRN; Protocol PRN Reason: Agitation Last Admin: 11/25/17 14:34 Dose: 1 mg Metoprolol Tartrate (Lopressor) [address] [facility] Last Admin: 11/25/17 09:20 Dose: 100 mg Oxycodone/Acetaminophen (Percocet 5/325 Mg Tab) 1 tab PO BID PRN PRN Reason: Pain, moderate (4-7) Stop: 11/27/17 21:03 Last Admin: 11/25/17 08:33 Dose: 1 tab - Labs Labs: 11/25/17 06:30 11/25/17 06:30 PT 11.5 SECONDS (9.4-12.5) 11/24/17 18:21 INR 1.01 11/24/17 18:21 APTT 29.3 Seconds (25.1-36.5) 11/24/17 18:21 - Constitutional Appears: No Acute Distress - Head Exam Head Exam: NORMOCEPHALIC - ENT Exam ENT Exam: Mucous Membranes Moist - Respiratory Exam Respiratory Exam: Clear to Ausculation Bilateral, NORMAL BREATHING PATTERN. absent: Wheezes - Cardiovascular Exam Cardiovascular Exam: RRR, +S1, +S2 - Neurological Exam Neurological Exam: Alert, Awake Assessment and Plan - Assessment and Plan (Free Text) Assessment: This is a 52 year old male with PMH of COPD, anxiety, HTN, HLD, chronic back pain, alcohol abuse, substance abuse, and CAD s/p CABG 2012 presenting to the hospital for management of chest pain. Plan: Chest pain - EKG showed NSR at [address] depressions V3-V5 with no ST elevations. No change from prior EKG on 07/05/17 - Troponin negative x3 - Hx of CAD s/p CABG 2012 - cardiology on consult, Dr. Holm - cardio recommends nuclear stress test and ECHO History of alcohol abuse -[facility] protocol -ativan q6 prn Anxiety - xanax COPD - albuterol HLD - simvastatin HTN - lopressor - lisinopril Ppx pepcid heparin Pt seen, examined, assessment, plan discussed with Dr Manav Lunsford PGY1 <Espinoza Em - Last Filed: 11/28/17 16:15> Objective - Vital Signs/Intake and Output Vital Signs (last 24 hours): Temp Pulse Resp BP Pulse Ox 98 F 82 20 170/94 H 98 11/28/17 12:00 11/28/17 14:00 11/28/17 12:00 11/28/17 12:00 11/28/17 06:00 Intake and Output: 11/28/17 11/28/17 06:59 18:59 Intake Total 600 Output Total 700 Balance -100 - Medications Medications: Current Medications Albuterol Sulfate (Albuterol 0.083% Inhal Lazara (2.5 Mg/3 Ml) Ud) 2.[id number] [facility] Last Admin: 11/28/17 13:01 Dose: Not Given Alprazolam (Xanax) 0.5 mg PO BID PRN; Protocol PRN Reason: Anxiety Stop: 12/01/17 21:03 Last Admin: 11/28/17 11:44 Dose: 0.5 mg Aspirin (Ecotrin) [address] [facility] Last Admin: 11/28/17 09:00 Dose: 81 mg Atorvastatin Calcium (Lipitor) [address] [facility] Last Admin: 11/27/17 17:34 Dose: 10 mg Enoxaparin Sodium (Lovenox) [address] [facility] PRN Reason: Protocol Last Admin: 11/28/17 09:00 Dose: 40 mg Famotidine (Pepcid) [address] [facility] Last Admin: 11/27/17 21:32 Dose: 40 mg Heparin Sodium (Porcine) (Heparin) 5,000 units SC Q12 [facility] PRN Reason: Protocol Last Admin: 11/26/17 09:10 Dose: 5,000 units Ketorolac Tromethamine (Toradol) 15 mg IVP Q6H PRN PRN Reason: Pain, severe (8-10) Last Admin: 11/28/17 11:44 Dose: 15 mg Lisinopril (Zestril) [address] [facility] Last Admin: 11/28/17 09:00 Dose: 40 mg Lorazepam (Ativan) 1 mg PO Q8 PRN; Protocol PRN Reason: Agitation Last Admin: 11/28/17 08:58 Dose: 1 mg Metoprolol Tartrate (Lopressor) [address] [facility] Last Admin: 11/28/17 09:00 Dose: 100 mg Oxycodone/Acetaminophen (Percocet 5/325 Mg Tab) 1 tab PO BID PRN PRN Reason: Pain, severe (8-10) Stop: 12/01/17 08:29 Last Admin: 11/28/17 08:58 Dose: 1 tab - Labs Labs: 11/28/17 07:00 11/28/17 07:00 PT 11.5 SECONDS (9.4-12.5) 11/24/17 18:21 INR 1.01 11/24/17 18:21 APTT 29.3 Seconds (25.1-36.5) 11/24/17 18:21 Attending/Attestation - Attestation I have personally seen and examined this patient.: Yes I have fully participated in the care of the patient.: Yes I have reviewed all pertinent clinical information, including history, physical exam and plan: Yes Notes (Text): 11/28/17 16:14 Medical record note made by the resident after discussion with my direction and input after the patient was personally seen and examined by me. I have reviewed the chart and agree that the record accurately reflects by personal performance of the history, physical exam, data review, and medical decision-making, in the course for the patient. I have also personally directed the plan of care.
--- NOTE | 2017-11-25 21:24 | CARD ---
APPROVED REPORT Date of service: 11/25/2017 EKG Measurement Heart [id number] <Conclusion> Normal sinus rhythm Left ventricular hypertrophy with repolarization abnormality Marked ST abnormality, possible anterior subendocardial injury Abnormal ECG
[2017-11-26] MEDS: Oxycodone/Acetaminophen 5/325 mg Tab PO PRN ×2 (02:00→15:39)
[2017-11-26] MEDS: Albuterol 0.083% Inhal Sol (2.5 mg/3 mL) UD IH SCH ×5 (03:30→20:29)
--- NOTE | 2017-11-26 08:10 | CP.PCM.PN ---
Subjective - Date & Time of Evaluation Date of Evaluation: 11/26/17 Time of Evaluation: 07:00 - Subjective Subjective: Stable, sedated on 2R. "Pain all over" No SOB V/S noted. RSR PE: Lungs: clear Cor.: S1S2 Abd.: soft Ext.: no edema Neuro.: sedated Trops neg X3 ECG 11/25: RSR, LVH, STTW changes. No change. Echo: Nl LV fx. See report. Objective - Vital Signs/Intake and Output Vital Signs (last 24 hours): Temp Pulse Resp BP Pulse Ox 97.8 F 78 18 125/64 97 11/26/17 06:00 11/26/17 06:00 11/26/17 06:00 11/26/17 06:00 11/26/17 06:00 Intake and Output: 11/26/17 11/26/17 06:59 18:59 Intake Total 360 Balance 360 - Medications Medications: Current Medications Albuterol Sulfate (Albuterol 0.083% Inhal Lazara (2.5 Mg/3 Ml) Ud) 2.5 mg IH [id number] [facility] Last Admin: 11/26/17 07:42 Dose: Not Given Alprazolam (Xanax) 0.5 mg PO BID PRN; Protocol PRN Reason: Anxiety Stop: 12/01/17 21:03 Last Admin: 11/26/17 02:01 Dose: 0.5 mg Aspirin (Ecotrin) 81 mg PO DAILY [facility] Last Admin: 11/25/17 09:20 Dose: 81 mg Atorvastatin Calcium (Lipitor) 10 mg PO DIN [facility] Last Admin: 11/25/17 17:59 Dose: 10 mg Famotidine (Pepcid) 40 mg PO HS [facility] Last Admin: 11/25/17 22:19 Dose: 40 mg Heparin Sodium (Porcine) (Heparin) 5,000 units SC Q12 [facility] PRN Reason: Protocol Last Admin: 11/25/17 22:15 Dose: 5,000 units Lisinopril (Zestril) 40 mg PO DAILY [facility] Last Admin: 11/25/17 09:21 Dose: 40 mg Lorazepam (Ativan) 1 mg PO Q8 PRN; Protocol PRN Reason: Agitation Last Admin: 11/25/17 22:14 Dose: 1 mg Metoprolol Tartrate (Lopressor) 100 mg PO DAILY [facility] Last Admin: 11/25/17 09:20 Dose: 100 mg Oxycodone/Acetaminophen (Percocet 5/325 Mg Tab) 1 tab PO BID PRN PRN Reason: Pain, moderate (4-7) Stop: 11/27/17 21:03 Last Admin: 11/26/17 02:00 Dose: 1 tab - Labs Labs: 11/25/17 06:30 11/25/17 06:30 PT 11.5 SECONDS (9.4-12.5) 11/24/17 18:21 INR 1.01 11/24/17 18:21 APTT 29.3 Seconds (25.1-36.5) 11/24/17 18:21 Assessment and Plan - Assessment and Plan (Free Text) Assessment: Chest and Body Pain CAD/CABG 2013 HBP HLD COPD Migraine BURNETTE S/P AP + ETOH + Tobacco Plan: Await ECG today. Continue cardiac meds OOB as jhonathan. Nuclear stress testing when able Psych/Detox. Evaluations
[2017-11-26 08:33] LABS: BASO # 0.04 K/mm3 (0.0-2.0); BASO % 0.7 % (0.0-3.0); EOS # 0.1 (0.0-0.7); GRAN # 2.34 (1.4-6.5); GRAN % 42.4 % (50.0-68.0); HEMOGLOBIN 14.7 g/dL (14.0-18.0); LYMPH # 2.6 (1.2-3.4); LYMPH % 47.5 % (22.0-35.0); MEAN CORPUSCULAR HGB CONC 33.7 g/dl (31.0-37.0); MEAN PLATELET VOLUME 8.6 fl (7.0-11.0); MONO # 0.4 (0.1-0.6); MONO % 7.4 % (1.0-6.0); RBC 4.45 10^6/uL (3.5-6.1); RED CELL DISTRIBUTION WIDTH 13.5 % (11.5-14.5); WHITE BLOOD COUNT 5.5 10^3/ul (4.5-11.0)
[2017-11-26 08:56] LABS: ALB/GLOB RATIO 1.4 (1.1-1.8); ALBUMIN 3.7 g/dL (3.0-4.8); ALT/SGPT 40 U/L (7-56); AST/SGOT 30 U/L (17-59); BLOOD UREA NITROGEN 14 mg/dL (7-21); CALCIUM 8.9 mg/dL (8.4-10.5); GFR NON-AFRICAN AMERICAN > 60
--- NOTE | 2017-11-26 10:14 | CARD ---
APPROVED REPORT Date of service: 11/25/2017 EXAM: Two-dimensional and M-mode echocardiogram with Doppler and color Doppler. Other Information Quality : AverageRhythm : INDICATION Chest Pain 2D DIMENSIONS Left Atrium (2D)4.0 (1.6-4.0cm)IVSd1.2 (0.7-1.1cm) LVDd4.2 (3.9-5.9cm)PWd1.2 (0.7-1.1cm) LVDs2.9 (2.5-4.0cm)FS (%) 30.5 % LVEF (%)58.0 (>50%) M-Mode DIMENSIONS Aortic Root3.10 (2.2-3.7cm)Aortic Cusp Exc.1.90 (1.5-2.0cm) Aortic Valve AoV Peak Xnjooais759.0cm/s Mitral Valve MV E Aczdvpty53.1cm/sMV A Vlrziakm52.6cm/sE/A ratio1.2 TDI Lateral E' Peak V10.30cm/sMedial E' Peak V5.07cm/sE/Lateral E'8.3 E/Medial E'16.8 Tricuspid Valve TR Peak Dpdbhxko661ml/sRAP [id number] Peak Gr.20mmHg [id number] LEFT VENTRICLE The left ventricle is normal size. There is normal left ventricular wall thickness. The left ventricular function is normal. The left ventricular ejection fraction is within the normal range. There is normal LV segmental wall motion. RIGHT VENTRICLE The right ventricle is normal size. ATRIA The left atrium size is normal. The right atrium size is normal. The interatrial septum is intact with no evidence for an atrial septal defect. AORTIC VALVE The aortic valve is normal in structure. MITRAL VALVE The mitral valve is normal in structure. TRICUSPID VALVE The tricuspid valve is normal in structure. There is trace tricuspid regurgitation. PULMONIC VALVE The pulmonic valve is not well visualized. PERICARDIAL EFFUSION There is no pericardial effusion. <Conclusion> The left ventricle is normal size. There is normal left ventricular wall thickness. The left ventricular function is normal.
--- NOTE | 2017-11-26 11:21 | CT ---
Date of service: 11/26/2017 PROCEDURE: CT HEAD WITHOUT CONTRAST. HISTORY: confusion COMPARISON: 07/03/2017 TECHNIQUE: Axial computed tomography images were obtained through the head/brain without intravenous contrast. Radiation dose: Total exam DLP = 984 mGy-cm. This CT exam was performed using one or more of the following dose reduction techniques: Automated exposure control, adjustment of the mA and/or kV according to patient size, and/or use of iterative reconstruction technique. FINDINGS: HEMORRHAGE: No intracranial hemorrhage. BRAIN: No mass effect or edema. No atrophy or chronic microvascular ischemic changes. VENTRICLES: Unremarkable. No hydrocephalus. CALVARIUM: Unremarkable. PARANASAL SINUSES: Unremarkable as visualized. No significant inflammatory changes. MASTOID AIR CELLS: Unremarkable as visualized. No inflammatory changes. OTHER FINDINGS: None. IMPRESSION: No acute findings
--- NOTE | 2017-11-26 18:47 | CP.PCM.PN ---
<Akira Lunsford - Last Filed: 11/26/17 18:56> Subjective - Date & Time of Evaluation Date of Evaluation: 11/26/17 Time of Evaluation: 07:00 - Subjective Subjective: Pt seen and examined at bedside. Reports vague chest pain. Pt reports waking up in the middle of the night and feeling confused. Objective - Vital Signs/Intake and Output Vital Signs (last 24 hours): Temp Pulse Resp BP Pulse Ox 98 F 80 18 153/91 H 98 11/26/17 17:03 11/26/17 18:00 11/26/17 17:03 11/26/17 17:03 11/26/17 17:03 - Medications Medications: Current Medications Albuterol Sulfate (Albuterol 0.083% Inhal Lazara (2.5 Mg/3 Ml) Ud) 2.5 mg IH [id number] [facility] Last Admin: 11/26/17 16:27 Dose: Not Given Alprazolam (Xanax) 0.5 mg PO BID PRN; Protocol PRN Reason: Anxiety Stop: 12/01/17 21:03 Last Admin: 11/26/17 11:11 Dose: 0.5 mg Aspirin (Ecotrin) 81 mg PO DAILY [facility] Last Admin: 11/26/17 09:11 Dose: 81 mg Atorvastatin Calcium (Lipitor) 10 mg PO DIN [facility] Last Admin: 11/26/17 16:54 Dose: 10 mg Famotidine (Pepcid) 40 mg PO HS [facility] Last Admin: 11/25/17 22:19 Dose: 40 mg Heparin Sodium (Porcine) (Heparin) 5,000 units SC Q12 [facility] PRN Reason: Protocol Last Admin: 11/26/17 09:10 Dose: 5,000 units Ketorolac Tromethamine (Toradol) 15 mg IVP Q6H PRN PRN Reason: Pain, severe (8-10) Lisinopril (Zestril) 40 mg PO DAILY [facility] Last Admin: 11/26/17 09:11 Dose: 40 mg Lorazepam (Ativan) 1 mg PO Q8 PRN; Protocol PRN Reason: Agitation Last Admin: 11/25/17 22:14 Dose: 1 mg Metoprolol Tartrate (Lopressor) 100 mg PO DAILY [facility] Last Admin: 11/26/17 11:12 Dose: 100 mg Oxycodone/Acetaminophen (Percocet 5/325 Mg Tab) 1 tab PO BID PRN PRN Reason: Pain, moderate (4-7) Stop: 11/27/17 21:03 Last Admin: 11/26/17 15:39 Dose: 1 tab - Labs Labs: PT 11.5 SECONDS (9.4-12.5) 11/24/17 18:21 INR 1.01 11/24/17 18:21 APTT 29.3 Seconds (25.1-36.5) 11/24/17 18:21 - Constitutional Appears: No Acute Distress - Head Exam Head Exam: ATRAUMATIC, NORMOCEPHALIC - ENT Exam ENT Exam: Mucous Membranes Moist - Respiratory Exam Respiratory Exam: Accessory Muscle Use, Clear to Ausculation Bilateral, NORMAL BREATHING PATTERN - Cardiovascular Exam Cardiovascular Exam: REGULAR RHYTHM, +S1, +S2 - GI/Abdominal Exam GI & Abdominal Exam: Soft, Tenderness, Normal Bowel Sounds - Extremities Exam Extremities Exam: Full ROM. absent: Calf Tenderness, Pedal Edema - Skin Skin Exam: Normal Color, Warm Assessment and Plan - Assessment and Plan (Free Text) Assessment: This is a 52 yo male with PMH of COPD, anxiety, HTN, HLD, chronic back pain, alcohol abuse, substance abuse, and CAD s/p CABG 2012 presenting to the hospital for management of chest pain. Plan: Chest pain - EKG showed NSR at [address] depressions V3-V5 with no ST elevations. No change from prior EKG on 07/05/17 - CAD s/p CABG 2012 - cardiology, Dr. Holm: recommends nuclear stress test when able - ECHO: EF 58% - toradol 15mg IVP PRN Confusion - Head CT (11-26-17): no acute findings - pysc consult - continue to monitor History of alcohol abuse, drug seeking behavior - CIWA 4 - ativan q6 prn - avoid narcotic medications, Toradol for pain Anxiety - xanax COPD - albuterol HLD - simvastatin HTN - lopressor - lisinopril Ppx - pepcid - SCD Dispo: case management recommends discharge home when medically stable Pt seen, examined, assessment and plan discussed with Dr Manav Lunsford PGY1 <Espinoza Em - Last Filed: 11/28/17 16:15> Objective - Vital Signs/Intake and Output Vital Signs (last 24 hours): Temp Pulse Resp BP Pulse Ox 98 F 82 20 170/94 H 98 11/28/17 12:00 11/28/17 14:00 11/28/17 12:00 11/28/17 12:00 11/28/17 06:00 Intake and Output: 11/28/17 11/28/17 06:59 18:59 Intake Total 600 Output Total 700 Balance -100 - Medications Medications: Current Medications Albuterol Sulfate (Albuterol 0.083% Inhal Lazara (2.5 Mg/3 Ml) Ud) 2.5 mg IH [id number] [facility] Last Admin: 11/28/17 13:01 Dose: Not Given Alprazolam (Xanax) 0.5 mg PO BID PRN; Protocol PRN Reason: Anxiety Stop: 12/01/17 21:03 Last Admin: 11/28/17 11:44 Dose: 0.5 mg Aspirin (Ecotrin) 81 mg PO DAILY [facility] Last Admin: 11/28/17 09:00 Dose: 81 mg Atorvastatin Calcium (Lipitor) 10 mg PO DIN [facility] Last Admin: 11/27/17 17:34 Dose: 10 mg Enoxaparin Sodium (Lovenox) 40 mg SC DAILY [facility] PRN Reason: Protocol Last Admin: 11/28/17 09:00 Dose: 40 mg Famotidine (Pepcid) 40 mg PO HS [facility] Last Admin: 11/27/17 21:32 Dose: 40 mg Heparin Sodium (Porcine) (Heparin) 5,000 units SC Q12 [facility] PRN Reason: Protocol Last Admin: 11/26/17 09:10 Dose: 5,000 units Ketorolac Tromethamine (Toradol) 15 mg IVP Q6H PRN PRN Reason: Pain, severe (8-10) Last Admin: 11/28/17 11:44 Dose: 15 mg Lisinopril (Zestril) 40 mg PO DAILY [facility] Last Admin: 11/28/17 09:00 Dose: 40 mg Lorazepam (Ativan) 1 mg PO Q8 PRN; Protocol PRN Reason: Agitation Last Admin: 11/28/17 08:58 Dose: 1 mg Metoprolol Tartrate (Lopressor) 100 mg PO DAILY [facility] Last Admin: 11/28/17 09:00 Dose: 100 mg Oxycodone/Acetaminophen (Percocet 5/325 Mg Tab) 1 tab PO BID PRN PRN Reason: Pain, severe (8-10) Stop: 12/01/17 08:29 Last Admin: 11/28/17 08:58 Dose: 1 tab - Labs Labs: 11/28/17 07:00 11/28/17 07:00 PT 11.5 SECONDS (9.4-12.5) 11/24/17 18:21 INR 1.01 11/24/17 18:21 APTT 29.3 Seconds (25.1-36.5) 11/24/17 18:21 Attending/Attestation - Attestation I have personally seen and examined this patient.: Yes I have fully participated in the care of the patient.: Yes I have reviewed all pertinent clinical information, including history, physical exam and plan: Yes Notes (Text): 11/28/17 16:15 Medical record note made by the resident after discussion with my direction and input after the patient was personally seen and examined by me. I have reviewed the chart and agree that the record accurately reflects by personal performance of the history, physical exam, data review, and medical decision-making, in the course for the patient. I have also personally directed the plan of care.
--- NOTE | 2017-11-26 20:59 | CARD ---
APPROVED REPORT Date of service: 11/26/2017 EKG Measurement Heart [id number] <Conclusion> Normal sinus rhythm Biatrial enlargement Cannot rule out Inferior infarct, age undetermined ST & T wave abnormality, consider anterior ischemia Abnormal ECG
[2017-11-27] MEDS: Albuterol 0.083% Inhal Sol (2.5 mg/3 mL) UD IH SCH ×5 (00:31→19:45)
[2017-11-27] MEDS ORDERED: DiphenhydrAMINE 50 mg/ml Inj IVP ONE (02:56)
[2017-11-27 07:56] LABS: BASO # 0.04 K/mm3 (0.0-2.0); BASO % 0.7 % (0.0-3.0); EOS # 0.1 (0.0-0.7); EOS % 1.8 % (1.5-5.0); GRAN # 3.81 (1.4-6.5); GRAN % 67.8 % (50.0-68.0); HEMOGLOBIN 15.3 g/dL (14.0-18.0); LYMPH # 1.5 (1.2-3.4); MEAN CELL VOLUME 98.5 fl (80.0-105.0); MEAN CORPUSCULAR HEMOGLOBIN 32.7 pg (25.0-35.0); MEAN CORPUSCULAR HGB CONC 33.2 g/dl (31.0-37.0); MEAN PLATELET VOLUME 9.3 fl (7.0-11.0); MONO # 0.2 (0.1-0.6); MONO % 3.7 % (1.0-6.0); RBC 4.68 10^6/uL (3.5-6.1); RED CELL DISTRIBUTION WIDTH 13.4 % (11.5-14.5); WHITE BLOOD COUNT 5.6 10^3/ul (4.5-11.0)
[2017-11-27 08:20] LABS: ALB/GLOB RATIO 1.3 (1.1-1.8); ALT/SGPT 44 U/L (7-56); AST/SGOT 35 U/L (17-59); BLOOD UREA NITROGEN 18 mg/dL (7-21); GFR NON-AFRICAN AMERICAN > 60
[2017-11-27] MEDS: Oxycodone/Acetaminophen 5/325 mg Tab PO PRN ×2 (09:45→21:33)
[2017-11-27] MEDS: Enoxaparin 40 mg Syringe SC SCH (12:38)
--- NOTE | 2017-11-27 13:08 | PN ---
DATE: 11/27/2017 SUBJECTIVE: The patient was seen lying in bed on telemetry. He states that he believes he had an anaphylactic reaction to something last night which was not well documented. He also states he has persistent chest pain which is unremitting since admission and currently is 8/10 intensity. His EKG and cardiac enzymes have been negative. His current medications include albuterol inhaler, Ativan, Ecotrin, subcutaneous heparin, Lipitor, metoprolol tartrate 100 mg daily, Lovenox and Pepcid as well as Toradol, Percocet, Xanax and Zestril. OBJECTIVE: GENERAL: He is a somewhat disheveled-appearing middle-aged man. VITAL SIGNS: His blood pressure is 128/74 with a pulse of 90, respirations are 16. He is in sinus rhythm and he is afebrile. HEENT: No JVD. Chest: Few scattered rhonchi heard. HEART: PMI in normal position. No pathological murmurs or gallops noted. ABDOMEN: Soft, nontender with normoactive bowel sounds. EXTREMITIES: No edema. DIAGNOSTIC DATA: Potassium 5, BUN and creatinine 18 and 0.9, glucose 152. White count 5.6, hemoglobin and hematocrit are 15.3 and 46.1 with platelet count of 185,000. His echocardiogram reveals normal LV size and systolic function with no significant valvular abnormalities noted. IMPRESSION: 1. Chest pain, appears likely noncardiac in nature. 2. Known coronary artery disease status post prior myocardial infarction and bypass surgery. 3. History of polysubstance abuse. RECOMMENDATIONS: His current medications should be continued for now. A followup stress test can be planned. Further recommendations are made based on his clinical course. We will continue to follow and make further recommendations as appropriate. Chetan Davis MD
--- NOTE | 2017-11-27 15:27 | CP.PCM.PN ---
<Akira Lunsford - Last Filed: 11/27/17 15:45> Subjective - Date & Time of Evaluation Date of Evaluation: 11/27/17 Time of Evaluation: 07:00 - Subjective Subjective: Pt seen and examined this morning. Pt reports having a "bad reaction" to his dinner last night, for which he requested Benadryl which alleviated any allergic reaction he was having. Objective - Vital Signs/Intake and Output Vital Signs (last 24 hours): Temp Pulse Resp BP Pulse Ox 98.2 F 83 19 174/89 H 98 11/27/17 12:00 11/27/17 14:00 11/27/17 12:00 11/27/17 12:00 11/27/17 06:00 Intake and Output: 11/27/17 11/27/17 06:59 18:59 Intake Total 460 480 Balance 460 480 - Medications Medications: Current Medications Albuterol Sulfate (Albuterol 0.083% Inhal Lazara (2.5 Mg/3 Ml) Ud) 2.5 mg IH [id number] Last Admin: 11/27/17 11:38 Dose: Not Given Alprazolam (Xanax) 0.5 mg PO BID PRN; Protocol PRN Reason: Anxiety Stop: 12/01/17 21:03 Last Admin: 11/27/17 12:38 Dose: 0.5 mg Aspirin (Ecotrin) 81 mg PO DAILY [facility] Last Admin: 11/27/17 09:42 Dose: 81 mg Atorvastatin Calcium (Lipitor) 10 mg PO DIN [facility] Last Admin: 11/26/17 16:54 Dose: 10 mg Enoxaparin Sodium (Lovenox) 40 mg SC DAILY [facility] PRN Reason: Protocol Last Admin: 11/27/17 12:38 Dose: 40 mg Famotidine (Pepcid) 40 mg PO HS [facility] Last Admin: 11/26/17 22:20 Dose: 40 mg Heparin Sodium (Porcine) (Heparin) 5,000 units SC Q12 [facility] PRN Reason: Protocol Last Admin: 11/26/17 09:10 Dose: 5,000 units Ketorolac Tromethamine (Toradol) 15 mg IVP Q6H PRN PRN Reason: Pain, severe (8-10) Last Admin: 11/27/17 12:38 Dose: 15 mg Lisinopril (Zestril) 40 mg PO DAILY [facility] Last Admin: 11/27/17 09:43 Dose: 40 mg Lorazepam (Ativan) 1 mg PO Q8 PRN; Protocol PRN Reason: Agitation Last Admin: 11/27/17 05:48 Dose: 1 mg Metoprolol Tartrate (Lopressor) 100 mg PO DAILY [facility] Last Admin: 11/27/17 09:42 Dose: 100 mg Oxycodone/Acetaminophen (Percocet 5/325 Mg Tab) 1 tab PO BID PRN PRN Reason: Pain, moderate (4-7) Stop: 11/27/17 21:03 Last Admin: 11/27/17 09:45 Dose: 1 tab - Labs Labs: 11/27/17 07:00 11/27/17 07:00 PT 11.5 SECONDS (9.4-12.5) 11/24/17 18:21 INR 1.01 11/24/17 18:21 APTT 29.3 Seconds (25.1-36.5) 11/24/17 18:21 - Constitutional Appears: In Acute Distress - Head Exam Head Exam: ATRAUMATIC, NORMOCEPHALIC - ENT Exam ENT Exam: Mucous Membranes Moist Additional comments: oral cavity examined, no edema present in the oral pharynx. - Respiratory Exam Respiratory Exam: Clear to Ausculation Bilateral, NORMAL BREATHING PATTERN. absent: Wheezes Additional comments: Pt is on room air, no SOB, no wheezing, no further treatment indicated - Cardiovascular Exam Cardiovascular Exam: REGULAR RHYTHM - GI/Abdominal Exam GI & Abdominal Exam: Soft, Normal Bowel Sounds - Extremities Exam Extremities Exam: Full ROM. absent: Pedal Edema - Neurological Exam Neurological Exam: Alert, Awake, Oriented x3 - Skin Skin Exam: Dry, Intact, Warm Assessment and Plan - Assessment and Plan (Free Text) Assessment: Pt is a 52 yo male with PMH of COPD, anxiety, HTN, HLD, chronic back pain, alcohol abuse, substance abuse, and CAD s/p CABG 2012 presenting to the hospital for management of chest pain. Plan: Chest pain - EKG showed NSR at [address] depressions V3-V5 with no ST elevations. No change from prior EKG on 07/05/17 - CAD s/p CABG 2012 - cardiology, Dr. Holm/ Ryan: recommends nuclear stress Wednesday - ECHO: EF 58% - toradol 15mg IVP PRN Confusion - Head CT (11-26-17): no acute findings - pysc consult - continue to monitor History of alcohol abuse, drug seeking behavior - CIWA 4 - ativan 1mg q8 prn - avoid narcotic medications, Toradol for pain Allergic Reaction - oral cavity free of edema - pt on room air, no SOB, no wheezing - no further treatment indicated at this time Anxiety - xanax 0.5 BID COPD - albuterol HLD - Lipitor 10mg PO HTN - lopressor 100mg PO daily - lisinopril 40mg PO Daily Ppx - pepcid - lovenox 40mg Daily - SCD Dispo: getting stress test Wednesday Pt seen, examined, assessment and plan discussed with Dr Manav Lunsford PGY1 <Espinoza Em - Last Filed: 11/28/17 16:16> Objective - Vital Signs/Intake and Output Vital Signs (last 24 hours): Temp Pulse Resp BP Pulse Ox 98 F 82 20 170/94 H 98 11/28/17 12:00 11/28/17 14:00 11/28/17 12:00 11/28/17 12:00 11/28/17 06:00 Intake and Output: 11/28/17 11/28/17 06:59 18:59 Intake Total 600 Output Total 700 Balance -100 - Medications Medications: Current Medications Albuterol Sulfate (Albuterol 0.083% Inhal Lazara (2.5 Mg/3 Ml) Ud) 2.5 mg IH [id number] [facility] Last Admin: 11/28/17 13:01 Dose: Not Given Alprazolam (Xanax) 0.5 mg PO BID PRN; Protocol PRN Reason: Anxiety Stop: 12/01/17 21:03 Last Admin: 11/28/17 11:44 Dose: 0.5 mg Aspirin (Ecotrin) 81 mg PO DAILY [facility] Last Admin: 11/28/17 09:00 Dose: 81 mg Atorvastatin Calcium (Lipitor) 10 mg PO DIN [facility] Last Admin: 11/27/17 17:34 Dose: 10 mg Enoxaparin Sodium (Lovenox) 40 mg SC DAILY [facility] PRN Reason: Protocol Last Admin: 11/28/17 09:00 Dose: 40 mg Famotidine (Pepcid) 40 mg PO HS [facility] Last Admin: 11/27/17 21:32 Dose: 40 mg Heparin Sodium (Porcine) (Heparin) 5,000 units SC Q12 [facility] PRN Reason: Protocol Last Admin: 11/26/17 09:10 Dose: 5,000 units Ketorolac Tromethamine (Toradol) 15 mg IVP Q6H PRN PRN Reason: Pain, severe (8-10) Last Admin: 11/28/17 11:44 Dose: 15 mg Lisinopril (Zestril) 40 mg PO DAILY [facility] Last Admin: 11/28/17 09:00 Dose: 40 mg Lorazepam (Ativan) 1 mg PO Q8 PRN; Protocol PRN Reason: Agitation Last Admin: 11/28/17 08:58 Dose: 1 mg Metoprolol Tartrate (Lopressor) 100 mg PO DAILY [facility] Last Admin: 11/28/17 09:00 Dose: 100 mg Oxycodone/Acetaminophen (Percocet 5/325 Mg Tab) 1 tab PO BID PRN PRN Reason: Pain, severe (8-10) Stop: 12/01/17 08:29 Last Admin: 11/28/17 08:58 Dose: 1 tab - Labs Labs: 11/28/17 07:00 11/28/17 07:00 PT 11.5 SECONDS (9.4-12.5) 11/24/17 18:21 INR 1.01 11/24/17 18:21 APTT 29.3 Seconds (25.1-36.5) 11/24/17 18:21 Attending/Attestation - Attestation I have personally seen and examined this patient.: Yes I have fully participated in the care of the patient.: Yes I have reviewed all pertinent clinical information, including history, physical exam and plan: Yes Notes (Text): 11/28/17 16:16 Medical record note made by the resident after discussion with my direction and input after the patient was personally seen and examined by me. I have reviewed the chart and agree that the record accurately reflects by personal performance of the history, physical exam, data review, and medical decision-making, in the course for the patient. I have also personally directed the plan of care.
[2017-11-28] MEDS: Albuterol 0.083% Inhal Sol (2.5 mg/3 mL) UD IH SCH ×4 (07:59→23:08)
[2017-11-28 08:11] LABS: BASO # 0.04 K/mm3 (0.0-2.0); BASO % 0.5 % (0.0-3.0); EOS # 0.2 (0.0-0.7); GRAN # 3.57 (1.4-6.5); GRAN % 41.1 % (50.0-68.0); HEMOGLOBIN 15.2 g/dL (14.0-18.0); LYMPH # 4.2 (1.2-3.4); LYMPH % 47.8 % (22.0-35.0); MEAN CELL VOLUME 99.6 fl (80.0-105.0); MEAN CORPUSCULAR HEMOGLOBIN 32.7 pg (25.0-35.0); MEAN CORPUSCULAR HGB CONC 32.8 g/dl (31.0-37.0); MEAN PLATELET VOLUME 9.2 fl (7.0-11.0); MONO # 0.8 (0.1-0.6); MONO % 8.6 % (1.0-6.0); RBC 4.65 10^6/uL (3.5-6.1); RED CELL DISTRIBUTION WIDTH 13.6 % (11.5-14.5); WHITE BLOOD COUNT 8.7 10^3/ul (4.5-11.0)
[2017-11-28 08:34] LABS: ALB/GLOB RATIO 1.3 (1.1-1.8); ALBUMIN 3.8 g/dL (3.0-4.8); ALT/SGPT 40 U/L (7-56); AST/SGOT 31 U/L (17-59); BLOOD UREA NITROGEN 24 mg/dL (7-21); CALCIUM 8.6 mg/dL (8.4-10.5); GFR NON-AFRICAN AMERICAN > 60
[2017-11-28] MEDS: Oxycodone/Acetaminophen 5/325 mg Tab PO PRN ×2 (08:58→21:08)
[2017-11-28] MEDS: Enoxaparin 40 mg Syringe SC SCH (09:00)
--- NOTE | 2017-11-28 12:48 | CP.PCM.PN ---
<Akira Lunsford - Last Filed: 11/28/17 12:54> Subjective - Date & Time of Evaluation Date of Evaluation: 11/28/17 Time of Evaluation: 07:00 - Subjective Subjective: Pt seen and examined this morning. Pt sleeping upon arrival, reports chest pain , denies SOB. Objective - Vital Signs/Intake and Output Vital Signs (last 24 hours): Temp Pulse Resp BP Pulse Ox 98 F 75 20 151/87 H 98 11/28/17 06:00 11/28/17 10:00 11/28/17 06:00 11/28/17 09:00 11/28/17 06:00 Intake and Output: 11/28/17 11/28/17 06:59 18:59 Intake Total 600 Output Total 700 Balance -100 - Medications Medications: Current Medications Albuterol Sulfate (Albuterol 0.083% Inhal Lazara (2.5 Mg/3 Ml) Ud) 2.5 mg IH [id number] [facility] Last Admin: 11/28/17 07:59 Dose: Not Given Alprazolam (Xanax) 0.5 mg PO BID PRN; Protocol PRN Reason: Anxiety Stop: 12/01/17 21:03 Last Admin: 11/28/17 11:44 Dose: 0.5 mg Aspirin (Ecotrin) 81 mg PO DAILY [facility] Last Admin: 11/28/17 09:00 Dose: 81 mg Atorvastatin Calcium (Lipitor) 10 mg PO DIN [facility] Last Admin: 11/27/17 17:34 Dose: 10 mg Enoxaparin Sodium (Lovenox) 40 mg SC DAILY [facility] PRN Reason: Protocol Last Admin: 11/28/17 09:00 Dose: 40 mg Famotidine (Pepcid) 40 mg PO HS [facility] Last Admin: 11/27/17 21:32 Dose: 40 mg Heparin Sodium (Porcine) (Heparin) 5,000 units SC Q12 [facility] PRN Reason: Protocol Last Admin: 11/26/17 09:10 Dose: 5,000 units Ketorolac Tromethamine (Toradol) 15 mg IVP Q6H PRN PRN Reason: Pain, severe (8-10) Last Admin: 11/28/17 11:44 Dose: 15 mg Lisinopril (Zestril) 40 mg PO DAILY [facility] Last Admin: 11/28/17 09:00 Dose: 40 mg Lorazepam (Ativan) 1 mg PO Q8 PRN; Protocol PRN Reason: Agitation Last Admin: 11/28/17 08:58 Dose: 1 mg Metoprolol Tartrate (Lopressor) 100 mg PO DAILY [facility] Last Admin: 11/28/17 09:00 Dose: 100 mg Oxycodone/Acetaminophen (Percocet 5/325 Mg Tab) 1 tab PO BID PRN PRN Reason: Pain, severe (8-10) Stop: 12/01/17 08:29 Last Admin: 11/28/17 08:58 Dose: 1 tab - Labs Labs: 11/28/17 07:00 11/28/17 07:00 PT 11.5 SECONDS (9.4-12.5) 11/24/17 18:21 INR 1.01 11/24/17 18:21 APTT 29.3 Seconds (25.1-36.5) 11/24/17 18:21 - Constitutional Appears: In Acute Distress - Head Exam Head Exam: ATRAUMATIC, NORMOCEPHALIC - Eye Exam Eye Exam: EOMI - ENT Exam ENT Exam: Mucous Membranes Moist - Respiratory Exam Respiratory Exam: Clear to Ausculation Bilateral, NORMAL BREATHING PATTERN. absent: Accessory Muscle Use - Cardiovascular Exam Cardiovascular Exam: REGULAR RHYTHM, +S1, +S2. absent: Irregular Rhythm - GI/Abdominal Exam GI & Abdominal Exam: Soft, Normal Bowel Sounds. absent: Tenderness - Extremities Exam Extremities Exam: Full ROM. absent: Calf Tenderness - Neurological Exam Neurological Exam: Alert, Awake, Oriented x3 - Skin Skin Exam: Dry, Intact, Normal Color, Warm Assessment and Plan - Assessment and Plan (Free Text) Assessment: Pt is a 52 yo male with PMH of COPD, anxiety, HTN, HLD, chronic back pain, alcohol abuse, substance abuse, and CAD s/p CABG 2012 presenting to the hospital for management of chest pain. Plan: Chest pain - EKG: ST depressions V3-V5. No change from prior EKG on 07/05/17 - CAD s/p CABG 2012 - cardiology, Dr. Holm/ Ryan: stress test Wednesday - ECHO: EF 58% - toradol 15mg IVP PRN - restarted Percocet 5/325 BID Confusion - resolved - Head CT (11-26-17): no acute findings - pysc consult - continue to monitor History of alcohol abuse, drug seeking behavior - ativan 1mg q8 prn - avoid narcotic medications, Toradol for pain Anxiety - xanax 0.5 BID COPD - albuterol 2.5mg Q4H HLD - Lipitor 10mg PO HTN - lopressor 100mg PO daily - lisinopril 40mg PO Daily Ppx - pepcid 40mg PO HS - lovenox 40mg Daily - SCD Dispo: Stress test Wednesday Pt seen, examined, assessment and plan discussed with Dr Manav Lunsford PGY1 Internal Medicine Resident <Espinoza Em - Last Filed: 11/28/17 16:13> Objective - Vital Signs/Intake and Output Vital Signs (last 24 hours): Temp Pulse Resp BP Pulse Ox 98 F 82 20 170/94 H 98 11/28/17 12:00 11/28/17 14:00 11/28/17 12:00 11/28/17 12:00 11/28/17 06:00 Intake and Output: 11/28/17 11/28/17 06:59 18:59 Intake Total 600 Output Total 700 Balance -100 - Medications Medications: Current Medications Albuterol Sulfate (Albuterol 0.083% Inhal Lazara (2.5 Mg/3 Ml) Ud) 2.5 mg IH [id number] [facility] Last Admin: 11/28/17 13:01 Dose: Not Given Alprazolam (Xanax) 0.5 mg PO BID PRN; Protocol PRN Reason: Anxiety Stop: 12/01/17 21:03 Last Admin: 11/28/17 11:44 Dose: 0.5 mg Aspirin (Ecotrin) 81 mg PO DAILY [facility] Last Admin: 11/28/17 09:00 Dose: 81 mg Atorvastatin Calcium (Lipitor) 10 mg PO DIN [facility] Last Admin: 11/27/17 17:34 Dose: 10 mg Enoxaparin Sodium (Lovenox) 40 mg SC DAILY [facility] PRN Reason: Protocol Last Admin: 11/28/17 09:00 Dose: 40 mg Famotidine (Pepcid) 40 mg PO HS [facility] Last Admin: 11/27/17 21:32 Dose: 40 mg Heparin Sodium (Porcine) (Heparin) 5,000 units SC Q12 [facility] PRN Reason: Protocol Last Admin: 11/26/17 09:10 Dose: 5,000 units Ketorolac Tromethamine (Toradol) 15 mg IVP Q6H PRN PRN Reason: Pain, severe (8-10) Last Admin: 11/28/17 11:44 Dose: 15 mg Lisinopril (Zestril) 40 mg PO DAILY [facility] Last Admin: 11/28/17 09:00 Dose: 40 mg Lorazepam (Ativan) 1 mg PO Q8 PRN; Protocol PRN Reason: Agitation Last Admin: 11/28/17 08:58 Dose: 1 mg Metoprolol Tartrate (Lopressor) 100 mg PO DAILY [facility] Last Admin: 11/28/17 09:00 Dose: 100 mg Oxycodone/Acetaminophen (Percocet 5/325 Mg Tab) 1 tab PO BID PRN PRN Reason: Pain, severe (8-10) Stop: 12/01/17 08:29 Last Admin: 11/28/17 08:58 Dose: 1 tab - Labs Labs: 11/28/17 07:00 11/28/17 07:00 PT 11.5 SECONDS (9.4-12.5) 11/24/17 18:21 INR 1.01 11/24/17 18:21 APTT 29.3 Seconds (25.1-36.5) 11/24/17 18:21 Attending/Attestation - Attestation I have personally seen and examined this patient.: Yes I have fully participated in the care of the patient.: Yes I have reviewed all pertinent clinical information, including history, physical exam and plan: Yes Notes (Text): 11/28/17 16:13 Medical record note made by the resident after discussion with my direction and input after the patient was personally seen and examined by me. I have reviewed the chart and agree that the record accurately reflects by personal performance of the history, physical exam, data review, and medical decision-making, in the course for the patient. I have also personally directed the plan of care. 52 yo male with PMH of COPD, anxiety, HTN, HLD, chronic back pain, alcohol abuse , substance abuse, and CAD s/p CABG 2012 was admitted with chest pain,EKG no new changes, troponins are normal .Echo showed normal systolic function. Cardiology team planning for stress test Wednesday, last stress test 03/25 was negative. Management plan was discussed in detail with patient. Education was provided.
--- NOTE | 2017-11-28 16:36 | PN ---
DATE: 11/28/2017 SUBJECTIVE: The patient is seen lying in bed on telemetry. He is currently comfortable. He continues to have intermittent chest pain. CURRENT MEDICATIONS: Include albuterol inhaler, Ativan p.r.n., Ecotrin, subcutaneous heparin, Lipitor, metoprolol 100 mg daily, Lovenox, Pepcid, Percocet, Toradol, Xanax and Zestril. OBJECTIVE: GENERAL: He is an obese, middle-aged man. VITAL SIGNS: Blood pressure is 150/86 with pulse of 76 and sinus, respirations are 16. He is afebrile. HEENT: No JVD. CHEST: A few scattered rhonchi. HEART: PMI in normal position. No pathological murmurs, rubs or gallops noted. ABDOMEN: Soft, obese nontender. Normoactive bowel sounds. EXTREMITIES: No edema. LABORATORY DATA: Potassium 4.6, BUN and creatinine are 24 and 0.9. White count 8.7, hemoglobin and hematocrit 15.2, 46.3 with platelet count 196,000 IMPRESSION: 1. Persistent chest pain. Suspect this is likely noncardiac in nature given its characteristics. 2. Known coronary artery disease, status post prior myocardial infarction and bypass surgery. 3. History of polysubstance abuse. 4. Obesity. RECOMMENDATIONS: His current management should continue for now. He is scheduled for a stress test in the morning to exclude any cardiac component of his chest pain. The further recommendations will be made based upon those test results. We will continue to follow and make further recommendations as appropriate. Chetan Davis MD
[2017-11-29] MEDS: Albuterol 0.083% Inhal Sol (2.5 mg/3 mL) UD IH SCH ×6 (03:26→23:30)
[2017-11-29 07:16] LABS: BASO # 0.06 K/mm3 (0.0-2.0); BASO % 0.8 % (0.0-3.0); EOS # 0.2 (0.0-0.7); EOS % 2.2 % (1.5-5.0); GRAN # 2.69 (1.4-6.5); GRAN % 36.8 % (50.0-68.0); LYMPH # 3.8 (1.2-3.4); LYMPH % 51.6 % (22.0-35.0); MEAN CELL VOLUME 98.7 fl (80.0-105.0); MEAN CORPUSCULAR HGB CONC 33.5 g/dl (31.0-37.0); MEAN PLATELET VOLUME 9.1 fl (7.0-11.0); MONO # 0.6 (0.1-0.6); MONO % 8.6 % (1.0-6.0); RBC 4.54 10^6/uL (3.5-6.1); RED CELL DISTRIBUTION WIDTH 13.4 % (11.5-14.5); WHITE BLOOD COUNT 7.3 10^3/ul (4.5-11.0)
[2017-11-29 07:48] LABS: ALB/GLOB RATIO 1.4 (1.1-1.8); ALBUMIN 3.7 g/dL (3.0-4.8); ALT/SGPT 47 U/L (7-56); AST/SGOT 28 U/L (17-59); BLOOD UREA NITROGEN 29 mg/dL (7-21); CALCIUM 9.1 mg/dL (8.4-10.5); GFR NON-AFRICAN AMERICAN > 60
--- NOTE | 2017-11-29 08:17 | CP.PCM.PN ---
Subjective - Date & Time of Evaluation Date of Evaluation: 11/29/17 Time of Evaluation: 07:00 - Subjective Subjective: Stable on 2R. Still having CP, getting pain meds. Refused stress test scheduled for this AM. V/S noted. RSR PE: Lungs: clear Cor.: S1S2 Abd.: soft Ext.: no edema Neuro.: sedated Labs noted. ECG 11/25: RSR, LVH, STTW changes. No change. Echo: Nl LV fx. See report. Objective - Vital Signs/Intake and Output Vital Signs (last 24 hours): Temp Pulse Resp BP Pulse Ox 98.7 F 64 20 128/65 100 11/29/17 05:45 11/29/17 06:00 11/29/17 05:45 11/29/17 05:45 11/29/17 05:45 Intake and Output: 11/29/17 11/29/17 06:59 18:59 Intake Total 760 Balance 760 - Medications Medications: Current Medications Albuterol Sulfate (Albuterol 0.083% Inhal Lazara (2.5 Mg/3 Ml) Ud) 2.5 mg IH [id number] [facility] Last Admin: 11/29/17 03:26 Dose: Not Given Alprazolam (Xanax) 0.5 mg PO BID PRN; Protocol PRN Reason: Anxiety Stop: 12/01/17 21:03 Last Admin: 11/28/17 21:08 Dose: 0.5 mg Aspirin (Ecotrin) 81 mg PO DAILY [facility] Last Admin: 11/28/17 09:00 Dose: 81 mg Atorvastatin Calcium (Lipitor) 10 mg PO DIN [facility] Last Admin: 11/28/17 17:48 Dose: 10 mg Enoxaparin Sodium (Lovenox) 40 mg SC DAILY [facility] PRN Reason: Protocol Last Admin: 11/28/17 09:00 Dose: 40 mg Famotidine (Pepcid) 40 mg PO HS [facility] Last Admin: 11/28/17 21:09 Dose: 40 mg Heparin Sodium (Porcine) (Heparin) 5,000 units SC Q12 [facility] PRN Reason: Protocol Last Admin: 11/26/17 09:10 Dose: 5,000 units Ketorolac Tromethamine (Toradol) 15 mg IVP Q6H PRN PRN Reason: Pain, severe (8-10) Last Admin: 11/29/17 05:37 Dose: 15 mg Lisinopril (Zestril) 40 mg PO DAILY [facility] Last Admin: 11/28/17 09:00 Dose: 40 mg Lorazepam (Ativan) 1 mg PO Q8 PRN; Protocol PRN Reason: Agitation Last Admin: 11/29/17 05:36 Dose: 1 mg Metoprolol Tartrate (Lopressor) 100 mg PO DAILY [facility] Last Admin: 11/28/17 09:00 Dose: 100 mg Oxycodone/Acetaminophen (Percocet 5/325 Mg Tab) 1 tab PO BID PRN PRN Reason: Pain, severe (8-10) Stop: 12/01/17 08:29 Last Admin: 11/28/17 21:08 Dose: 1 tab - Labs Labs: 11/29/17 07:00 11/29/17 06:30 PT 11.5 SECONDS (9.4-12.5) 11/24/17 18:21 INR 1.01 11/24/17 18:21 APTT 29.3 Seconds (25.1-36.5) 11/24/17 18:21 Assessment and Plan - Assessment and Plan (Free Text) Assessment: Chest and Body Pain CAD/CABG 2013 HBP HLD COPD Migraine BURNETTE S/P AP + ETOH + Tobacco Plan: Continue cardiac meds OOB as jhonathan. Can D/C tel. Psych/Detox. Evaluations
[2017-11-29] MEDS: Enoxaparin 40 mg Syringe SC SCH (09:05)
[2017-11-29] MEDS: Oxycodone/Acetaminophen 5/325 mg Tab PO PRN ×2 (09:09→20:35)
[2017-11-29 15:18] VITALS: RESP 20
--- NOTE | 2017-11-29 17:23 | CP.PCM.PN ---
<Maria Varghese - Last Filed: 11/29/17 17:14> Subjective - Date & Time of Evaluation Date of Evaluation: 11/29/17 Time of Evaluation: 17:14 - Subjective Subjective: Maria Varghese PGY1 Progress Note for Dr. Krishna Pt was examined at bedside this morning. He was angry upon questioning. He reported continuation of his chest pain, which he reports is constant. He reports it is on the lateral sides of the chest b/l and pressure in the center of the chest. He denies sweating, palpitations, or radiation. He reportedly refused stress test this morning and last night. However, when asked about this , he denied ever being told that he was going to have a stress test and denied ever refusing the tests. We spoke with Dr. Holm, who said that the next stress test will be tomorrow, 11/30, and communicated this to the pt. He understood that he was to be NPO past midnight and that the stress test is scheduled for tomorrow. Pt denied any headache, dizziness, shortness of breath, abdominal pain, nausea, diarrhea, dysuria. Objective - Vital Signs/Intake and Output Vital Signs (last 24 hours): Temp Pulse Resp BP Pulse Ox 98.3 F 77 20 144/81 96 11/29/17 14:00 11/29/17 14:00 11/29/17 14:00 11/29/17 14:00 11/29/17 14:00 Intake and Output: 11/29/17 11/29/17 06:59 18:59 Intake Total 760 400 Balance 760 400 - Medications Medications: Current Medications Albuterol Sulfate (Albuterol 0.083% Inhal Lazara (2.5 Mg/3 Ml) Ud) 2.5 mg IH [id number] [facility] Last Admin: 11/29/17 15:49 Dose: 2.5 mg Alprazolam (Xanax) 0.5 mg PO BID PRN; Protocol PRN Reason: Anxiety Stop: 12/01/17 21:03 Last Admin: 11/29/17 09:08 Dose: 0.5 mg Aspirin (Ecotrin) 81 mg PO DAILY [facility] Last Admin: 11/29/17 09:09 Dose: 81 mg Atorvastatin Calcium (Lipitor) 10 mg PO DIN [facility] Last Admin: 11/29/17 16:46 Dose: 10 mg Enoxaparin Sodium (Lovenox) 40 mg SC DAILY [facility] PRN Reason: Protocol Last Admin: 11/29/17 09:05 Dose: 40 mg Famotidine (Pepcid) 40 mg PO HS [facility] Last Admin: 11/28/17 21:09 Dose: 40 mg Heparin Sodium (Porcine) (Heparin) 5,000 units SC Q12 [facility] PRN Reason: Protocol Last Admin: 11/26/17 09:10 Dose: 5,000 units Lisinopril (Zestril) 40 mg PO DAILY [facility] Last Admin: 11/29/17 09:09 Dose: 40 mg Lorazepam (Ativan) 1 mg PO Q8 PRN; Protocol PRN Reason: Agitation Last Admin: 11/29/17 13:41 Dose: 1 mg Metoprolol Tartrate (Lopressor) 100 mg PO DAILY [facility] Last Admin: 11/29/17 09:10 Dose: 100 mg Oxycodone/Acetaminophen (Percocet 5/325 Mg Tab) 1 tab PO BID PRN PRN Reason: Pain, severe (8-10) Stop: 12/01/17 08:29 Last Admin: 11/29/17 09:09 Dose: 1 tab - Labs Labs: 11/29/17 07:00 11/29/17 06:30 PT 11.5 SECONDS (9.4-12.5) 11/24/17 18:21 INR 1.01 11/24/17 18:21 APTT 29.3 Seconds (25.1-36.5) 11/24/17 18:21 - Constitutional Appears: Well, No Acute Distress - Head Exam Head Exam: ATRAUMATIC, NORMOCEPHALIC - ENT Exam ENT Exam: Normal Oropharynx - Respiratory Exam Respiratory Exam: Clear to Ausculation Bilateral, NORMAL BREATHING PATTERN - Cardiovascular Exam Cardiovascular Exam: REGULAR RHYTHM, +S1, +S2. absent: Murmur - GI/Abdominal Exam GI & Abdominal Exam: Soft, Normal Bowel Sounds. absent: Distended, Tenderness - Extremities Exam Extremities Exam: Normal Inspection Additional comments: chest: tenderness to palpation of lateral chest wall and sternum. - Neurological Exam Neurological Exam: Alert, Awake, Oriented x3 Assessment and Plan - Assessment and Plan (Free Text) Assessment: 52 yo male with PMH of COPD, anxiety, HTN, HLD, chronic back pain, alcohol abuse , substance abuse, and CAD s/p CABG 2012 presenting to the hospital for management of chest pain. Plan: Chest pain - EKG: ST depressions V3-V5. No change from prior EKG on 07/05/17 - CAD s/p CABG 2012 - ECHO: EF 58% - d/c toradol 15mg IVP PRN - continue Percocet 5/325 BID - d/c tele, as per cardio - Cardiology consulted, Dr. Holm - stress test tomorrow. recs appreciated Confusion - resolved - AAOx3 - Head CT (11/26/17): no acute findings - Psych consult ordered - continue to monitor History of alcohol abuse - ativan 1mg q8 prn - continue to monitor behavior - pending UDS Anxiety - continue xanax 0.5 BID COPD - continue albuterol 2.5mg Q4H HLD - continue Lipitor 10mg PO HTN - continue lopressor 100mg PO daily - continue lisinopril 40mg PO Daily Ppx - pepcid 40mg PO HS - lovenox 40mg Daily - SCDs Pt seen, examined, assessment and plan discussed with Dr Krishna <Sandra Krishna - Last Filed: 11/29/17 18:10> Objective - Vital Signs/Intake and Output Vital Signs (last 24 hours): Temp Pulse Resp BP Pulse Ox 98.3 F 77 20 144/81 96 11/29/17 14:00 11/29/17 14:00 11/29/17 14:00 11/29/17 14:00 11/29/17 14:00 Intake and Output: 11/29/17 11/29/17 06:59 18:59 Intake Total 760 400 Balance 760 400 - Medications Medications: Current Medications Albuterol Sulfate (Albuterol 0.083% Inhal Lazara (2.5 Mg/3 Ml) Ud) 2.5 mg IH [id number] [facility] Last Admin: 11/29/17 15:49 Dose: 2.5 mg Alprazolam (Xanax) 0.5 mg PO BID PRN; Protocol PRN Reason: Anxiety Stop: 12/01/17 21:03 Last Admin: 11/29/17 09:08 Dose: 0.5 mg Aspirin (Ecotrin) 81 mg PO DAILY [facility] Last Admin: 11/29/17 09:09 Dose: 81 mg Atorvastatin Calcium (Lipitor) 10 mg PO DIN [facility] Last Admin: 11/29/17 16:46 Dose: 10 mg Enoxaparin Sodium (Lovenox) 40 mg SC DAILY [facility] PRN Reason: Protocol Last Admin: 11/29/17 09:05 Dose: 40 mg Famotidine (Pepcid) 40 mg PO HS [facility] Last Admin: 11/28/17 21:09 Dose: 40 mg Heparin Sodium (Porcine) (Heparin) 5,000 units SC Q12 [facility] PRN Reason: Protocol Last Admin: 11/26/17 09:10 Dose: 5,000 units Lisinopril (Zestril) 40 mg PO DAILY [facility] Last Admin: 11/29/17 09:09 Dose: 40 mg Lorazepam (Ativan) 1 mg PO Q8 PRN; Protocol PRN Reason: Agitation Last Admin: 11/29/17 13:41 Dose: 1 mg Metoprolol Tartrate (Lopressor) 100 mg PO DAILY [facility] Last Admin: 11/29/17 09:10 Dose: 100 mg Naproxen (Anaprox Ds) 550 mg PO BID [facility] Oxycodone/Acetaminophen (Percocet 5/325 Mg Tab) 1 tab PO BID PRN PRN Reason: Pain, severe (8-10) Stop: 12/01/17 08:29 Last Admin: 11/29/17 09:09 Dose: 1 tab - Labs Labs: 11/29/17 07:00 11/29/17 06:30 PT 11.5 SECONDS (9.4-12.5) 11/24/17 18:21 INR 1.01 11/24/17 18:21 APTT 29.3 Seconds (25.1-36.5) 11/24/17 18:21 Attending/Attestation - Attestation I have personally seen and examined this patient.: Yes I have fully participated in the care of the patient.: Yes I have reviewed all pertinent clinical information, including history, physical exam and plan: Yes Notes (Text): 11/29/17 18:05 52 year old male with past medical history of COPD, hypertension, CAD s/p CABG, substance abuse, and alcohol abuse who presented with complaint of chest pain. Serial cardiac enzymes were negative and ACS was ruled out. He was for planned stress test which he refused this morning. He states he was not informed about the test although the primary team, mill tender warm up and nurse did inform him since yesterday for planned stress test this morning. He still complains of chronic chest pain requesting iv medication around the clock. He is on percocet prn and will switch toradol to trial on naprosyn. Cardiology plans for stress test tomorrow. This was relayed to the patient. UTOX is ordered. He was counselled on risks of continued substance and alcohol abuse. He was counselled on narcotic abuse. Pain medication seeking behavior suspected. Psychiatry consult was requested for anxiety. Sandra Krishna MD Hospitalist.
[2017-11-29] MEDS: Naproxen 550 mg Tab PO SCH (18:13)
--- NOTE | 2017-11-30 05:24 | CON ---
DATE: 11/29/2017 HISTORY OF PRESENT ILLNESS: In short, the patient is a 52-year-old male with a reported history of triple bypass surgery, smoking, alcohol abuse, anxiety, possible pain medication and benzodiazepines abuse and misuse. The patient was admitted on the medical side for evaluation of chest pain. Psych consult was called for evaluation of anxiety. The patient was seen and examined today. The patient presented to be irritable and annoyed, was keep complaining that his pain medication was decreased. The patient reported that also he feels anxious. The patient reported that he definitely needs to be on pain medication. This fha underwriter asked to give a call to his pharmacy to confirm medication, but the patient said that he does not want to give this fha underwriter that information because it is not related to the current situation. The patient presented to be manipulative, was picking and choosing what medication he wants to take. The patient also is not satisfied with all of the treatment what he is having here. The patient also is fixated on food, what food he needs to take. At the same time, the patient did not want to give this fha underwriter permission to talk to his primary care physician, Dr. Whiting. Overall, the patient appears to be irritable, annoyed and not willing to provide information. Discussed with the nursing staff. As per nursing staff, the patient is not agitated, not aggressive. The patient is fixated on pain killers. VITAL SIGNS: Reviewed. Temperature 98.3, pulse is 77, blood pressure 144/84, respirations 20, oxygen saturation is 96. MEDICATIONS: Reviewed. The patient is on albuterol, Xanax 0.5 mg twice a day p.r.n., the patient takes that medication religiously. The patient is on aspirin, Lipitor, Lovenox, Pepcid, heparin, Zestril, Ativan 1 mg p.o. every 8 hours as needed; the patient takes that medication as scheduled. The patient is on Lopressor and Percocet 5/325 twice a day as needed for severe pain. LABORATORY DATA: Labs reviewed. Most recent was from today. Coagulation reviewed. Chemistry reviewed. Urinalysis reviewed. Toxicology reviewed. The patient's alcohol level was 151 at time of admission. This fha underwriter reviewed previous history. This fha underwriter is very familiar with this patient from the previous admission on the medical side, which took place here in [place] in 10/2014. The patient back then reported to have cocaine abuse, heroine abuse, polysubstance abuse and dependence, and this fha underwriter had impression that mood symptoms and anxiety are the symptoms related to the substance use or to rule out panic disorder and rule out generalized anxiety disorder. Another interaction was in 08/2014 when this fha underwriter offered the patient admission due to patient's depressive symptoms, loss of his dog as well as transitional process at his work. But the patient declined that offer. The patient also was seen by Dr. Márquez in the past in 10/2015. MENTAL STATUS EXAMINATION: The patient presented to be alert and oriented, acceptable personal hygiene. The patient appears to be entitled, is telling what medication needs to be prescribed to him, was calling doctors calderon. The patient is irritable and angry because all of his demands about pain killers as well as benzodiazepines from this patient's perspective were not addressed. Intense eye contact. Mood described "I will stay here only for a few days; I need to be medicated properly." Affect was constricted and irritable. Speech was over-productive. Thought process seems to be circumstantial. Thought content; patient does not appear to be psychotic. Mood symptoms are related to the substance abuse as well as personality. The patient denied hearing voices, denied seeing things. The patient also denied any thoughts of harming himself or others. The patient looking to be comfortable, was demanding to be on medication and was picking and choosing what food he needs to eat. IMPRESSION: The patient appears to be having either antisocial personality disorder or mood disorder due to substance abuse or addiction to the pain killers and benzodiazepines. In regards of the medical issues, the patient has multiple medical problems including open heart surgery, also coronary artery disease, the patient is scheduled for stress test tomorrow. PLAN: Continue current management. Continue current medication. The patient did not give permission to talk to the pharmacy or primary care physician, Dr. Whiting. The patient seems to be a poor and unreliable historian, not because of psychosis or depression, but because the patient is selectively compliant and giving only information what he feels important for his care. The patient deemed not to be psychotic, not to be agitated, not aggressive, but mostly entitled, which could be related to personality issues. This fha underwriter does not feel that the patient is in any imminent danger to self or others. This fha underwriter will sign off. The patient might benefit from AA meeting and NA meeting. Additional information needs to be obtained from the patient's pharmacy. This fha underwriter will sign off. Should you have any questions, give me a call back. Na Valadez MD MTDD
[2017-11-30 07:14] LABS: BASO # 0.06 K/mm3 (0.0-2.0); BASO % 0.7 % (0.0-3.0); EOS # 0.2 (0.0-0.7); EOS % 2.1 % (1.5-5.0); GRAN # 3.74 (1.4-6.5); GRAN % 42.1 % (50.0-68.0); HEMOGLOBIN 15.1 g/dL (14.0-18.0); LYMPH # 3.9 (1.2-3.4); LYMPH % 43.6 % (22.0-35.0); MEAN CELL VOLUME 97.8 fl (80.0-105.0); MEAN CORPUSCULAR HEMOGLOBIN 32.8 pg (25.0-35.0); MEAN CORPUSCULAR HGB CONC 33.5 g/dl (31.0-37.0); MEAN PLATELET VOLUME 9.1 fl (7.0-11.0); MONO % 11.5 % (1.0-6.0); RBC 4.61 10^6/uL (3.5-6.1); RED CELL DISTRIBUTION WIDTH 13.4 % (11.5-14.5); WHITE BLOOD COUNT 8.9 10^3/ul (4.5-11.0)
[2017-11-30 07:48] LABS: ALB/GLOB RATIO 1.4 (1.1-1.8); ALT/SGPT 52 U/L (7-56); AST/SGOT 36 U/L (17-59); BLOOD UREA NITROGEN 22 mg/dL (7-21); GFR NON-AFRICAN AMERICAN > 60
[2017-11-30 08:22] VITALS: TEMP 98.2; O2SAT 98
[2017-11-30] MEDS: Albuterol 0.083% Inhal Sol (2.5 mg/3 mL) UD IH SCH (08:44)
[2017-11-30] MEDS: Naproxen 550 mg Tab PO SCH (10:18)
[2017-11-30] MEDS: Enoxaparin 40 mg Syringe SC SCH (10:19)
[2017-11-30 11:09] VITALS: BP 133/79; PULSE 89
--- NOTE | 2017-11-30 17:52 | CP.PCM.DIS ---
<Maria Varghese - Last Filed: 11/30/17 17:49> Provider - Provider Date of Admission: 11/26/17 16:03 Attending physician: Sandra Krishna MD Primary care physician: Justin Whiting MD Consults: Cardiology Psychiatry Time Spent in preparation of Discharge (in minutes): 70 Hospital Course - Lab Results Lab Results: Most Recent Lab Values WBC 8.9 10^3/ul (4.5-11.0) D 11/30/17 06:45 RBC 4.61 10^6/uL (3.5-6.1) 11/30/17 06:45 Hgb 15.1 g/dL (14.0-18.0) 11/30/17 06:45 Hct 45.1 % (42.0-52.0) 11/30/17 06:45 MCV 97.8 fl (80.0-105.0) 11/30/17 06:45 MCH 32.8 pg (25.0-35.0) 11/30/17 06:45 MCHC 33.5 g/dl (31.0-37.0) 11/30/17 06:45 RDW 13.4 % (11.5-14.5) 11/30/17 06:45 Plt Count 200 10^3/uL (120.0-450.0) 11/30/17 06:45 MPV 9.1 fl (7.0-11.0) 11/30/17 06:45 Gran % 42.1 % (50.0-68.0) L 11/30/17 06:45 Lymph % (Auto) 43.6 % (22.0-35.0) H 11/30/17 06:45 [place] % (Auto) 11.5 % (1.0-6.0) H 11/30/17 06:45 Eos % (Auto) 2.1 % (1.5-5.0) 11/30/17 06:45 Baso % (Auto) 0.7 % (0.0-3.0) 11/30/17 06:45 Gran # 3.74 (1.4-6.5) 11/30/17 06:45 Lymph # (Auto) 3.9 (1.2-3.4) H 11/30/17 06:45 [place] # (Auto) 1.0 (0.1-0.6) H 11/30/17 06:45 Eos # (Auto) 0.2 (0.0-0.7) 11/30/17 06:45 Baso # (Auto) 0.06 K/mm3 (0.0-2.0) 11/30/17 06:45 PT 11.5 SECONDS (9.4-12.5) 11/24/17 18:21 INR 1.01 11/24/17 18:21 APTT 29.3 Seconds (25.1-36.5) 11/24/17 18:21 Sodium 138 mmol/L (132-148) 11/30/17 06:45 Potassium 4.2 mmol/L (3.6-5.0) 11/30/17 06:45 Chloride 105 mmol/L (98-107) 11/30/17 06:45 Carbon Dioxide 23 mmol/L (21-33) 11/30/17 06:45 Anion Gap 15 (10-20) 11/30/17 06:45 BUN 22 mg/dL (7-21) H 11/30/17 06:45 Creatinine 0.8 mg/dl (0.8-1.5) 11/30/17 06:45 Est GFR ( Amer) > 60 11/30/17 06:45 Est GFR (Non-Af Amer) > 60 11/30/17 06:45 Random Glucose 131 mg/dL (70-110) H 11/30/17 06:45 Calcium 9.0 mg/dL (8.4-10.5) 11/30/17 06:45 Magnesium 2.1 mg/dL (1.7-2.2) 11/24/17 18:21 Total Bilirubin 0.6 mg/dL (0.2-1.3) 11/30/17 06:45 AST 36 U/L (17-59) 11/30/17 06:45 ALT 52 U/L (7-56) 11/30/17 06:45 Alkaline Phosphatase 77 U/L (38-126) 11/30/17 06:45 Lactate Dehydrogenase 437 U/L (333-699) 11/24/17 18:21 Total Creatine Kinase 67 U/L (35-230) 11/24/17 18:21 Troponin I < 0.01 ng/mL 11/25/17 12:10 Total Protein 6.9 g/dL (5.8-8.3) 11/30/17 06:45 Albumin 4.0 g/dL (3.0-4.8) 11/30/17 06:45 Globulin 2.9 gm/dL 11/30/17 06:45 Albumin/Globulin Ratio 1.4 (1.1-1.8) 11/30/17 06:45 Urine Color Yellow (YELLOW) 11/24/17 17:16 Urine Appearance Clear (CLEAR) 11/24/17 17:16 Urine pH 6.0 (4.7-8.0) 11/24/17 17:16 Ur Specific [place] 1.010 (1.005-1.035) 11/24/17 17:16 Urine Protein Negative mg/dL (<30 mg/dL) 11/24/17 17:16 Urine Glucose (UA) Negative mg/dL (NEGATIVE) 11/24/17 17:16 Urine Ketones Negative mg/dL (NEGATIVE) 11/24/17 17:16 Urine Blood Negative (NEGATIVE) 11/24/17 17:16 Urine Nitrate Negative (NEGATIVE) 11/24/17 17:16 Urine Bilirubin Negative (NEGATIVE) 11/24/17 17:16 Urine Urobilinogen 0.2 E.U./dL (<1 E.U./dL) 11/24/17 17:16 Ur Leukocyte Esterase Negative Radha/uL (NEGATIVE) 11/24/17 17:16 Alcohol, Quantitative 151 mg/dL (0-10) H 11/24/17 18:21 - Hospital Course Hospital Course: Upon Admission: 52 year old male with PMH of COPD, anxiety, HTN. HLD, chronic back pain, alcohol abuse, substance abuse, and CAD s/p CABG 2012 presenting to the ED for 2 day history of chest pain. Patient says he was relaxing at home watching T.V when he felt sudden onset of chest pain located in the anterior chest region, rated 10/10, constant, radiating to the right and left side of the chest wall and described as pressure like. Patient states he has had similar pain several times in the past. In ED, EKG showed NSR at [address] depressions V3-V5 with no ST elevations. No change from prior EKG on 07/05/17, and pt had a Troponin <0.01. CXR showed no acute disease. Alcohol level noted to be 151. Received nitroglycerin, aspirin and ativan. Hospital Course: Pt was admitted to [facility] and put on [facility] protocol. Cardiology was consulted and recommended a stress test. Patient refused the stress test on multiple accounts, but continued to complain of chest pain and request pain control. CT head showed no acute findings. Rpt EKG showed NSR. 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 They recommended continuation of anxiolytic medication regimen. On 11/29/17 pt was explained that the next step of care was to perform a stress test for which he would have to be NPO midnight before. He understood these instructions and agreed to the stress test. Stress test was performed the following day and preliminary report stated Overall: positive for chest pain and indeterminate for ischemia due to resting ST changes. No arrythmia. Upon Discharge: Pt refused [facility] or [facility] referral. He requested to sign out against medical advice. Pt was advised that staying to complete medical care would improve mortality and morbidity. Risks of leaving prior to completion of care were explained. Pt understood instructions and elected to sign out against medical advice. Discharge Exam - Head Exam Head Exam: ATRAUMATIC, NORMOCEPHALIC Discharge Plan - Follow Up Plan Condition: FAIR Disposition: AGAINST MEDICAL ADVICE Referrals: Justin Whiting MD [Primary Care Provider] - <Sandra Krishna - Last Filed: 12/01/17 06:56> Provider - Provider Date of Admission: 11/26/17 16:03 Attending physician: Sandra Krishna MD Primary care physician: Justin Whiting MD Hospital Course - Lab Results Lab Results: Most Recent Lab Values WBC 8.9 10^3/ul (4.5-11.0) D 11/30/17 06:45 RBC 4.61 10^6/uL (3.5-6.1) 11/30/17 06:45 Hgb 15.1 g/dL (14.0-18.0) 11/30/17 06:45 Hct 45.1 % (42.0-52.0) 11/30/17 06:45 MCV 97.8 fl (80.0-105.0) 11/30/17 06:45 MCH 32.8 pg (25.0-35.0) 11/30/17 06:45 MCHC 33.5 g/dl (31.0-37.0) 11/30/17 06:45 RDW 13.4 % (11.5-14.5) 11/30/17 06:45 Plt Count 200 10^3/uL (120.0-450.0) 11/30/17 06:45 MPV 9.1 fl (7.0-11.0) 11/30/17 06:45 Gran % 42.1 % (50.0-68.0) L 11/30/17 06:45 Lymph % (Auto) 43.6 % (22.0-35.0) H 11/30/17 06:45 [place] % (Auto) 11.5 % (1.0-6.0) H 11/30/17 06:45 Eos % (Auto) 2.1 % (1.5-5.0) 11/30/17 06:45 Baso % (Auto) 0.7 % (0.0-3.0) 11/30/17 06:45 Gran # 3.74 (1.4-6.5) 11/30/17 06:45 Lymph # (Auto) 3.9 (1.2-3.4) H 11/30/17 06:45 [place] # (Auto) 1.0 (0.1-0.6) H 11/30/17 06:45 Eos # (Auto) 0.2 (0.0-0.7) 11/30/17 06:45 Baso # (Auto) 0.06 K/mm3 (0.0-2.0) 11/30/17 06:45 PT 11.5 SECONDS (9.4-12.5) 11/24/17 18:21 INR 1.01 11/24/17 18:21 APTT 29.3 Seconds (25.1-36.5) 11/24/17 18:21 Sodium 138 mmol/L (132-148) 11/30/17 06:45 Potassium 4.2 mmol/L (3.6-5.0) 11/30/17 06:45 Chloride 105 mmol/L (98-107) 11/30/17 06:45 Carbon Dioxide 23 mmol/L (21-33) 11/30/17 06:45 Anion Gap 15 (10-20) 11/30/17 06:45 BUN 22 mg/dL (7-21) H 11/30/17 06:45 Creatinine 0.8 mg/dl (0.8-1.5) 11/30/17 06:45 Est GFR ( Amer) > 60 11/30/17 06:45 Est GFR (Non-Af Amer) > 60 11/30/17 06:45 Random Glucose 131 mg/dL (70-110) H 11/30/17 06:45 Calcium 9.0 mg/dL (8.4-10.5) 11/30/17 06:45 Magnesium 2.1 mg/dL (1.7-2.2) 11/24/17 18:21 Total Bilirubin 0.6 mg/dL (0.2-1.3) 11/30/17 06:45 AST 36 U/L (17-59) 11/30/17 06:45 ALT 52 U/L (7-56) 11/30/17 06:45 Alkaline Phosphatase 77 U/L (38-126) 11/30/17 06:45 Lactate Dehydrogenase 437 U/L (333-699) 11/24/17 18:21 Total Creatine Kinase 67 U/L (35-230) 11/24/17 18:21 Troponin I < 0.01 ng/mL 11/25/17 12:10 Total Protein 6.9 g/dL (5.8-8.3) 11/30/17 06:45 Albumin 4.0 g/dL (3.0-4.8) 11/30/17 06:45 Globulin 2.9 gm/dL 11/30/17 06:45 Albumin/Globulin Ratio 1.4 (1.1-1.8) 11/30/17 06:45 Urine Color Yellow (YELLOW) 11/24/17 17:16 Urine Appearance Clear (CLEAR) 11/24/17 17:16 Urine pH 6.0 (4.7-8.0) 11/24/17 17:16 Ur Specific [place] 1.010 (1.005-1.035) 11/24/17 17:16 Urine Protein Negative mg/dL (<30 mg/dL) 11/24/17 17:16 Urine Glucose (UA) Negative mg/dL (NEGATIVE) 11/24/17 17:16 Urine Ketones Negative mg/dL (NEGATIVE) 11/24/17 17:16 Urine Blood Negative (NEGATIVE) 11/24/17 17:16 Urine Nitrate Negative (NEGATIVE) 11/24/17 17:16 Urine Bilirubin Negative (NEGATIVE) 11/24/17 17:16 Urine Urobilinogen 0.2 E.U./dL (<1 E.U./dL) 11/24/17 17:16 Ur Leukocyte Esterase Negative Radha/uL (NEGATIVE) 11/24/17 17:16 Alcohol, Quantitative 151 mg/dL (0-10) H 11/24/17 18:21 Attending/Attestation - Attestation Notes (Text): 12/01/17 06:56 Patient left against medical advice prior to rounds.
== END 2017-11-30 11:47 | disposition left against medical advice (07) | DRG 143 ==
LOC: ED 17:57 → ERH 19:22 → 2RNO 20:28 → OBSVTOIN 11-26 16:03 → 5RNO 11-29 11:58
PROVIDERS: ADMIT Internal Medicine; ATTEND Internal Medicine
DX: R07.89 Other chest pain (principal); J44.9 Chronic obstructive pulmonary disease, unspecified; F19.14 Other psychoactive substance abuse with psychoactive substance-induced mood disorder; G89.29 Other chronic pain; I10 Essential (primary) hypertension; F10.10 Alcohol abuse, uncomplicated; F17.200 Nicotine dependence, unspecified, uncomplicated; I25.10 Atherosclerotic heart disease of native coronary artery without angina pectoris; N43.3 Hydrocele, unspecified; G43.909 Migraine, unspecified, not intractable, without status migrainosus; E78.5 Hyperlipidemia, unspecified; K21.9 Gastro-esophageal reflux disease without esophagitis; F41.9 Anxiety disorder, unspecified; E66.9 Obesity, unspecified; R41.0 Disorientation, unspecified; M54.9 Dorsalgia, unspecified; F60.2 Antisocial personality disorder; Y90.6 Blood alcohol level of 120-199 mg/100 ml; Z68.41 Body mass index [BMI] 40.0-44.9, adult; I25.2 Old myocardial infarction; Z76.5 Malingerer [conscious simulation]; Z95.1 Presence of aortocoronary bypass graft; Z80.0 Family history of malignant neoplasm of digestive organs

== ENCOUNTER 2017-12-02 11:47 | Inpatient (IN) | payer OTHER ==
--- NOTE | 2017-12-02 12:20 | ED PDOC ---
Arrival/HPI - General Chief Complaint: Chest Pain Time Seen by Provider: 12/02/17 11:59 Historian: Patient - History of Present Illness Narrative History of Present Illness (Text): 12/02/17 12:18 52 year old male with PMH of COPD, anxiety, HTN, HLD, chronic back pain, alcohol abuse, substance abuse, and CAD s/p CABG 2012 presenting to the Emergency Department complaining of left sided chest pressure since last night. Patient i nforms non-radiating chest pressure similar to symptoms in the past. Patient states he was recently admitted to the hospital on 11/26/17 for similar symptoms but signed out against medical advice secondary to unchanged symptoms. As per patient, symptoms worsened last night prompting him to present to the Emergency Department or medical evaluation. Patient informs associated nausea and shortness of breath but believes these symptoms may be secondary to his anxiety. Patient denies taking any aspirin or nitroglycerin prior to arrival. Patient denies any fever, chills, vomiting, diarrhea, abdominal pain, headache, dizziness, neck pain, back pain, or any other complaints. Patient admits to smoking cigarettes daily and drinking alcohol occasionally. PMD: Dr. Whiting Mandarin Tutor: Dr. Walker Time/Duration: 4-6 hours Symptom Onset: Gradual Symptom Course: Unchanged Quality: Pressure Activities at Onset: Light Context: Home Past Medical History - Provider Review Nursing Documentation Reviewed: Yes - Infectious Disease Hx of Infectious Diseases: None - Tetanus Immunization Tetanus Immunization: Unknown - Cardiac Hx HI: Yes (unsure of # of stents) Hx Hypertension: Yes - Pulmonary Hx Chronic Obstructive Pulmonary Disease (COPD): Yes - Neurological Hx Neurological Disorder: Yes Hx Migraine: Yes Other/Comment: Has history of migraine, does not get headaches a lot but has aura most of the time like. floaters - HEENT Hx HEENT Disorder: No - Renal Hx Renal Disorder: No - Endocrine/Metabolic Hx Endocrine Disorders: No - Hematological/Oncological Hx Blood Disorders: No - Integumentary Hx Dermatological Disorder: Yes Other/Comment: generalized red raised chronic body rash unknown origin "I have has it for years.", multiple tatoos, - Musculoskeletal/Rheumatological Hx Falls: Yes - Gastrointestinal Hx Gastrointestinal Disorders: Yes Hx Gastroesophageal Reflux: Yes - Genitourinary/Gynecological Hx Genitourinary Disorders: Yes Other/Comment: hydrocele with chronic testicular pain - Psychiatric Hx Psychophysiologic Disorder: Yes Hx Anxiety: Yes Hx Depression: No Hx Emotional Abuse: No Hx Physical Abuse: No Hx Substance Use: No - Surgical History Hx Coronary Artery Bypass Graft: Yes - Anesthesia Hx Anesthesia: Yes Hx Anesthesia Reactions: No Hx Malignant Hyperthermia: No - Suicidal Assessment Feels Threatened In Home Enviroment: No Family/Social History - Physician Review Nursing Documentation Reviewed: Yes Family/Social History: No Known Family HX Smoking Status: Heavy Smoker > 10 Cigarettes Daily Hx Alcohol Use: Yes (occasional) Hx Substance Use: No Substance used: cocaine Hx Substance Use Treatment: No Allergies/Home Meds Allergies/Adverse Reactions: Allergies peanut Allergy (Verified 12/02/17 12:01) ANAPHYLAXIS AND ANYTHING THAT IS DERIVED FROM ANY NUTS PER PATIENT. shellfish derived Allergy (Verified 12/02/17 12:01) ANAPHYLAXIS Home Medications: Home Meds Medication Instructions Recorded Confirmed ALPRAZolam [Xanax] 0.5 mg PO BID PRN 07/19/16 11/27/17 oxyCODONE/Acetaminophen [Percocet 1 tab PO BID PRN 07/19/16 11/27/17 5/325 mg Tab] Albuterol HFA [Ventolin HFA 90 2 puff INH Q4 04/05/17 11/27/17 mcg/actuation (8 g)] Lisinopril [Zestril] 40 mg PO DAILY 04/05/17 11/27/17 Metoprolol Tartrate [Lopressor] 100 mg PO DAILY 04/05/17 11/27/17 Simvastatin [Zocor] 20 mg PO DAILY 04/05/17 11/27/17 Review of Systems - Physician Review All systems were reviewed & negative as marked: Yes - Review of Systems Constitutional: absent: Fevers Respiratory: SOB Cardiovascular: Chest Pain Gastrointestinal: Nausea. absent: Abdominal Pain, Diarrhea, Vomiting Musculoskeletal: absent: Back Pain, Neck Pain Neurological: absent: Headache, Dizziness Physical Exam Vital Signs Reviewed: Yes Vital Signs Temp Pulse Resp BP Pulse Ox 12/02/17 11:54 98.3 F 88 18 147/94 H 99 Temperature: Afebrile Blood Pressure: Hypertensive Pulse: Regular Respiratory Rate: Normal Appearance: Positive for: Well-Appearing, Non-Toxic, Comfortable Pain Distress: None Mental Status: Positive for: Alert and Oriented X 3 - Systems Exam Head: Present: Atraumatic, Normocephalic Pupils: Present: PERRL Extroacular Muscles: Present: EOMI Conjunctiva: Present: Normal Mouth: Present: Moist Mucous Membranes Neck: Present: Normal Range of Motion Respiratory/Chest: Present: Clear to Auscultation, Good Air Exchange. No: Respiratory Distress, Accessory Muscle Use Cardiovascular: Present: Regular Rate and Rhythm, Normal S1, S2. No: Murmurs Abdomen: No: Tenderness, Distention, Peritoneal Signs Back: Present: Normal Inspection Upper Extremity: Present: Normal Inspection. No: Cyanosis, Edema Lower Extremity: Present: Normal Inspection. No: Edema Neurological: Present: GCS=15, CN II-XII Intact, Speech Normal Skin: Present: Warm, Dry, Normal Color. No: Rashes Psychiatric: Present: Alert, Oriented x 3, Normal Insight, Normal Concentration Medical Decision Making ED Course and Treatment: 12/02/17 12:30 Impression: 52 year old male presents to the Emergency Department complaining of left sided chest pressure. Differential Diagnosis included but are not limited to: Chest pain r/o ACS vs. anxiety Plan: -- EKG -- Labs -- Chest X-ray -- Aspirin -- Ativan -- Nitroglycerin -- Reassess and disposition Prior Visits: Notes and results from previous visits were reviewed. Progress Notes: 12/02/17 12:30 EKG: Ordered, reviewed, and independently interpreted the EKG. Rate : 87 BPM Rhythm : NSR Interpretation : ST depression in anterior lateral, unchanged from EKG performed on 11/26/17. 12/02/17 13:10 CXR with no infiltrates. Troponin negative. Udrug screen with positive benzos. Patient did not improve with Aspirin and Nitroglycerin. Ativan was given as well which helped a little with his anxiety. Case discussed with Dr. Krishna who agrees to telemetry observation. - RAD Interpretation Radiology Orders: 12/02/17 12:17 CHEST PORTABLE [RAD] Stat - EKG Interpretation Interpreted by ED Physician: Yes Type: 12 lead EKG - Scribe Statement The provider has reviewed the documentation as recorded by the Scribe Omar Wick. All medical record entries made by the Scribe were at my direction and personally dictated by me. I have reviewed the chart and agree that the record a ccurately reflects my personal performance of the history, physical exam, medical decision making, and the department course for this patient. I have also personally directed, reviewed, and agree with the discharge instructions and disposition. Disposition/Present on Arrival - Present on Arrival Any Indicators Present on Arrival: No History of DVT/PE: No History of Uncontrolled Diabetes: No Urinary Catheter: No History of Decub. Ulcer: No History Surgical Site Infection Following: None - Disposition Have Diagnosis and Disposition been Completed?: Yes Diagnosis: Chest pain Disposition: HOSPITALIZED Disposition Time: 13:11 Patient Plan: Observation Condition: FAIR Discharge Instructions (ExitCare): Chest Pain (ED) Forms: [employer] (French)
[2017-12-02 12:41] LABS: BASO # 0.05 K/mm3 (0.0-2.0); BASO % 0.5 % (0.0-3.0); EOS # 0.1 (0.0-0.7); EOS % 1.3 % (1.5-5.0); GRAN # 6.57 (1.4-6.5); GRAN % 66.8 % (50.0-68.0); HEMOGLOBIN 17.5 g/dL (14.0-18.0); LYMPH # 2.2 (1.2-3.4); LYMPH % 21.8 % (22.0-35.0); MEAN CELL VOLUME 95.6 fl (80.0-105.0); MEAN CORPUSCULAR HEMOGLOBIN 33.8 pg (25.0-35.0); MEAN CORPUSCULAR HGB CONC 35.4 g/dl (31.0-37.0); MONO # 0.9 (0.1-0.6); MONO % 9.6 % (1.0-6.0); RBC 5.17 10^6/uL (3.5-6.1); RED CELL DISTRIBUTION WIDTH 13.3 % (11.5-14.5); WHITE BLOOD COUNT 9.8 10^3/ul (4.5-11.0)
[2017-12-02 12:44] LABS: INR 0.99; PROTHROMBIN TIME 11.4 SECONDS (9.4-12.5)
[2017-12-02 12:53] LABS: TROPONIN I < 0.01 ng/mL
[2017-12-02 12:54] LABS: OPIATES, UR NEGATIVE (NEGATIVE)
--- NOTE | 2017-12-02 12:54 | RAD ---
HISTORY: chest pain COMPARISON: Chest x-ray performed 11/24/17 TECHNIQUE: Chest, one view. FINDINGS: Examination limited by habitus. LUNGS: Discoid atelectasis, left lung base. No focal consolidation. Please note that chest x-ray has limited sensitivity for the detection of pulmonary masses. PLEURA: No significant pleural effusion identified. No definite pneumothorax . CARDIOVASCULAR: Median sternotomy wires. Heart size appears top normal. OSSEOUS STRUCTURES: Degenerative changes of the spine. VISUALIZED UPPER ABDOMEN: Unremarkable. OTHER FINDINGS: None. IMPRESSION: Discoid atelectasis, left lung base.
[2017-12-02 12:55] LABS: ALB/GLOB RATIO 1.5 (1.1-1.8); ALBUMIN 4.7 g/dL (3.0-4.8); ALT/SGPT 61 U/L (7-56); AST/SGOT 41 U/L (17-59); BLOOD UREA NITROGEN 21 mg/dL (7-21); CALCIUM 9.5 mg/dL (8.4-10.5); GFR NON-AFRICAN AMERICAN > 60
[2017-12-02 12:55] LABS: BARBITURATES, UR NEGATIVE (NEGATIVE); BENZODIAZEPINES, UR POSITIVE (NEGATIVE); PHENCYCLIDINE, UR NEGATIVE (NEGATIVE)
[2017-12-02] MEDS ORDERED: Sod Polystyrene Sulf 15 gm/60 ml Susp PO STA (13:03)
[2017-12-02] MEDS ORDERED: Albuterol-Ipratrop 3 mg / 0.5 (3 ml) UD IH PRN (14:20)
[2017-12-02] MEDS: Oxycodone/Acetaminophen 5/325 mg Tab PO PRN ×2 (14:58→21:56)
--- NOTE | 2017-12-02 15:20 | CARD ---
APPROVED REPORT Date of service: 12/02/2017 EKG Measurement Heart [id number] <Conclusion> Normal sinus rhythm Possible Left atrial enlargement Small q waves 2,3,F STTW changes c/w ischemia No change
--- NOTE | 2017-12-02 15:56 | CP.PCM.HP ---
<Sonam Shaw - Last Filed: 12/02/17 16:39> History of Present Illness - History of Present Illness History of Present Illness: PGY-1 Sonam Shaw H&P for Dr. Krishna's service Patient 52 year old male with a past medical history of COPD, anxiety, HTN, HLD, chronic back pain, alcohol abuse, substance abuse, and CAD s/p CABG 2012 who was admitted after presenting to the ED with complaints of 10/10 midsternal chest pain radiating to the left chest with associated left chest pressure. He reports that the pain has been persistent since leaving AMA on 11/29/2017, but worsened one night ago prompting him to present to the ED. Pain is constant, unchanged with rest or exertion. He was given Aspirin, Ketorolac 15mg IVP, nitro, and lorazepam 1 mg in the ED but did not experience relief. He has also had SOB, nausea, feeling lightheaded, dizziness, chills, generalized weakness, and palpitations. He has had decreased PO secondary to pain, but denies weight loss. Patient's last echo and stress test were performed 03/2017, resulting an EF of 65%. He notes feeling anxious, but denies any other symptoms at this time. Patient presented with similar symptoms on 11/24/2017 during which time he was admitted to tele and placed on CIWA protocol. Alcohol level was 151 upon admission. Cardiology was consulted, stress test was recommended, but patient refused numerous times despite complaining of pain. CT head was also ordered but resulted WNL. Psych evaluated pt, and he was found to have personality disorder with recommendation to continue anxiolytic medication regimen. Patient became agreeable to having stress test performed on 11/29/2017. Stress test was sta rted, but he left AMA prior to nuclear imaging could be completed. Patient reports drinking 4 beers one night ago, but denies alcohol dependency. PMHx: COPD, anxiety, HTN, chronic back pain, alcohol abuse, substance abuse, CAD s/p triple vessel CABG 2012, migraines; hydrocele with chronic testicular pain PSHx: triple vessel CABG in 2012; appendectomy Family hx: Mother- pancreatic cancer; Father- Cardiac history, patient unsure Social: alcohol: 6-8 beers/week, tobacco 1/2 pack per day, denies drug use Allergies: peanuts (anaphylaxis); shellfish (anaphylaxis) PMD: Dr. Whiting Present on Admission - Present on Admission Any Indicators Present on Admission: No Review of Systems - Review of Systems Review of Systems: 12 point ROS obtained and noted as in HPI Past Patient History - Infectious Disease Hx of Infectious Diseases: None - Tetanus Immunizations Tetanus Immunization: Unknown - Past Medical History & Family History Past Medical History?: Yes - Past Social History Smoking Status: Heavy Smoker > 10 Cigarettes Daily - CARDIAC Hx Heart Attack: Yes (unsure of # of stents) Hx Hypertension: Yes - PULMONARY Hx Chronic Obstructive Pulmonary Disease (COPD): Yes - NEUROLOGICAL Hx Neurological Disorder: Yes Hx Migraine: Yes Other/Comment: Has history of migraine, does not get headaches a lot but has aura most of the time like. floaters - HEENT Hx HEENT Problems: No - RENAL Hx Chronic Kidney Disease: No - ENDOCRINE/METABOLIC Hx Endocrine Disorders: No - HEMATOLOGICAL/ONCOLOGICAL Hx Blood Disorders: No - INTEGUMENTARY Hx Dermatological Problems: Yes Other/Comment: generalized red raised chronic body rash unknown origin "I have has it for years.", multiple tatoos, - MUSCULOSKELETAL/RHEUMATOLOGICAL Hx Falls: Yes - GASTROINTESTINAL Hx Gastrointestinal Disorders: Yes Hx Gastroesophageal Reflux: Yes - GENITOURINARY/GYNECOLOGICAL Hx Genitourinary Disorders: Yes Other/Comment: hydrocele with chronic testicular pain - PSYCHIATRIC Hx Psychophysiologic Disorder: Yes Hx Anxiety: Yes Hx Depression: No Hx Emotional Abuse: No Hx Physical Abuse: No Hx Substance Use: No - SURGICAL HISTORY Hx Coronary Artery Bypass Graft: Yes - ANESTHESIA Hx Anesthesia: Yes Hx Anesthesia Reactions: No Hx Malignant Hyperthermia: No Meds Allergies/Adverse Reactions: Allergies Allergy/AdvReac Type Severity Reaction Status Date / Time peanut Allergy ANAPHYLAXIS Verified 12/02/17 12:01 shellfish derived Allergy ANAPHYLAXIS Verified 12/02/17 12:01 Physical Exam - Constitutional Appears: Non-toxic, No Acute Distress - Head Exam Head Exam: NORMAL INSPECTION, NORMOCEPHALIC - Eye Exam Eye Exam: EOMI, Normal appearance. absent: Nystagmus, Scleral icterus - ENT Exam ENT Exam: Mucous Membranes Moist - Respiratory Exam Respiratory Exam: Clear to Auscultation Bilateral, NORMAL BREATHING PATTERN. absent: Rhonchi, Wheezes, Respiratory Distress - Cardiovascular Exam Cardiovascular Exam: REGULAR RHYTHM, +S1, +S2 - GI/Abdominal Exam GI & Abdominal Exam: Normal Bowel Sounds, Soft - Extremities Exam Extremities exam: Positive for: normal inspection. Negative for: calf tenderness, pedal edema - Back Exam Back exam: NORMAL INSPECTION - Neurological Exam Neurological exam: Alert, Oriented x3 - Psychiatric Exam Psychiatric exam: Normal Affect, Normal Mood - Skin Skin Exam: Intact, Normal Color Results - Vital Signs Recent Vital Signs: Last Vital Signs Temp 98.3 F 12/02/17 11:54 Pulse 80 12/02/17 14:37 Resp 18 12/02/17 14:37 BP 122/56 L 12/02/17 14:37 Pulse Ox 96 12/02/17 14:37 - Labs Result Diagrams: 12/02/17 12:20 12/02/17 12:20 Labs: Laboratory Results - last 24 hr 12/02/17 12/02/17 12/02/17 12:20 12:20 12:20 WBC 9.8 RBC 5.17 Hgb 17.5 D Hct 49.4 MCV 95.6 MCH 33.8 MCHC 35.4 RDW 13.3 Plt Count 269 MPV 9.0 Gran % 66.8 Lymph % (Auto) 21.8 L Laporte % (Auto) 9.6 H Eos % (Auto) 1.3 L Baso % (Auto) 0.5 Gran # 6.57 H Lymph # (Auto) 2.2 Laporte # (Auto) 0.9 H Eos # (Auto) 0.1 Baso # (Auto) 0.05 PT 11.4 INR 0.99 APTT 27.0 Sodium 132 Potassium 5.3 H Chloride 97 L Carbon Dioxide 23 Anion Gap 18 BUN 21 Creatinine 1.1 Est GFR ( Amer) > 60 Est GFR (Non-Af Amer) > 60 Random Glucose 147 H Calcium 9.5 Magnesium 2.0 Total Bilirubin 1.8 H AST 41 ALT 61 H Alkaline Phosphatase 122 Lactate Dehydrogenase 403 Total Creatine Kinase 63 Troponin I < 0.01 Total Protein 8.0 Albumin 4.7 Globulin 3.3 Albumin/Globulin Ratio 1.5 Urine Opiates Screen Urine Methadone Screen Ur Barbiturates Screen Ur Phencyclidine Scrn Ur Amphetamines Screen U Benzodiazepines Scrn U Oth Cocaine Metabols U Cannabinoids Screen Alcohol, Quantitative 12/02/17 12/02/17 12:30 13:20 WBC RBC Hgb Hct MCV MCH MCHC RDW Plt Count MPV Gran % Lymph % (Auto) Laporte % (Auto) Eos % (Auto) Baso % (Auto) Gran # Lymph # (Auto) Laporte # (Auto) Eos # (Auto) Baso # (Auto) PT INR APTT Sodium Potassium Chloride Carbon Dioxide Anion Gap BUN Creatinine Est GFR ( Amer) Est GFR (Non-Af Amer) Random Glucose Calcium Magnesium Total Bilirubin AST ALT Alkaline Phosphatase Lactate Dehydrogenase Total Creatine Kinase Troponin I Total Protein Albumin Globulin Albumin/Globulin Ratio Urine Opiates Screen Negative Urine Methadone Screen Negative Ur Barbiturates Screen Negative Ur Phencyclidine Scrn Negative Ur Amphetamines Screen Negative U Benzodiazepines Scrn Positive H U Oth Cocaine Metabols Negative U Cannabinoids Screen Negative Alcohol, Quantitative < 10 Assessment & Plan - Assessment and Plan (Free Text) Assessment: Patient is a 52 yo male with PMH of COPD, anxiety, HTN, HLD, chronic back pain, alcohol abuse, substance abuse, and CAD s/p CABG 2012 who was admitted after presenting to the ED with complaints of 10/10 midsternal chest pain radiating to the left chest with associated left chest pressure. Plan: Chest Pain Cardiology Consult - Dr. 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 Valadez- recommendations appreciated Alprazolam 0.5 mg BID PRN for anxiety Hx of COPD Duoneb 3mL IH [id number] PRN Hx of HLD Atorvastatin 10 mg PO DIN PPX GI- Pepcid 40 mg HS DVT- Heparin 5000 units q8 <Sandra Krishna - Last Filed: 12/02/17 18:38> Results - Vital Signs Recent Vital Signs: Last Vital Signs Temp 98.3 F 12/02/17 17:39 Pulse 84 12/02/17 17:39 Resp 19 12/02/17 17:39 BP 126/83 12/02/17 17:39 Pulse Ox 97 12/02/17 17:39 - Labs Result Diagrams: 12/02/17 12:20 12/02/17 12:20 Labs: Laboratory Results - last 24 hr 12/02/17 12/02/17 12/02/17 12:20 12:20 12:20 WBC 9.8 RBC 5.17 Hgb 17.5 D Hct 49.4 MCV 95.6 MCH 33.8 MCHC 35.4 RDW 13.3 Plt Count 269 MPV 9.0 Gran % 66.8 Lymph % (Auto) 21.8 L Laporte % (Auto) 9.6 H Eos % (Auto) 1.3 L Baso % (Auto) 0.5 Gran # 6.57 H Lymph # (Auto) 2.2 Laporte # (Auto) 0.9 H Eos # (Auto) 0.1 Baso # (Auto) 0.05 PT 11.4 INR 0.99 APTT 27.0 Sodium 132 Potassium 5.3 H Chloride 97 L Carbon Dioxide 23 Anion Gap 18 BUN 21 Creatinine 1.1 Est GFR ( Amer) > 60 Est GFR (Non-Af Amer) > 60 Random Glucose 147 H Calcium 9.5 Magnesium 2.0 Total Bilirubin 1.8 H AST 41 ALT 61 H Alkaline Phosphatase 122 Lactate Dehydrogenase 403 Total Creatine Kinase 63 Troponin I < 0.01 Total Protein 8.0 Albumin 4.7 Globulin 3.3 Albumin/Globulin Ratio 1.5 Urine Opiates Screen Urine Methadone Screen Ur Barbiturates Screen Ur Phencyclidine Scrn Ur Amphetamines Screen U Benzodiazepines Scrn U Oth Cocaine Metabols U Cannabinoids Screen Alcohol, Quantitative 12/02/17 12/02/17 12:30 13:20 WBC RBC Hgb Hct MCV MCH MCHC RDW Plt Count MPV Gran % Lymph % (Auto) Laporte % (Auto) Eos % (Auto) Baso % (Auto) Gran # Lymph # (Auto) Laporte # (Auto) Eos # (Auto) Baso # (Auto) PT INR APTT Sodium Potassium Chloride Carbon Dioxide Anion Gap BUN Creatinine Est GFR ( Amer) Est GFR (Non-Af Amer) Random Glucose Calcium Magnesium Total Bilirubin AST ALT Alkaline Phosphatase Lactate Dehydrogenase Total Creatine Kinase Troponin I Total Protein Albumin Globulin Albumin/Globulin Ratio Urine Opiates Screen Negative Urine Methadone Screen Negative Ur Barbiturates Screen Negative Ur Phencyclidine Scrn Negative Ur Amphetamines Screen Negative U Benzodiazepines Scrn Positive H U Oth Cocaine Metabols Negative U Cannabinoids Screen Negative Alcohol, Quantitative < 10 Attending/Attestation - Attestation I have personally seen and examined this patient.: Yes I have fully participated in the care of the patient.: Yes I have reviewed all pertinent clinical information: Yes Notes (Text): 12/02/17 18:32 52 year old male with past medical history of COPD, CAD s/p CABG, hypertension, alcohol abuse, substance abuse and anxiety who presents with complaint of chest pain. He was recently admitted last week as well for chest pain but signed out against medical advice prior to completing his stress test. Will obtain serial cardiac enzymes to rule out ACS. Cardiology evaluation is requested. Continue with aspirin, metoprolol and statin. Lisinopril held secondary to hyperkalemia. Will repeat K+ after kayexalate. Patient is on percocet and requesting iv medications. Pain medication seeking behavior suspected. Chest pain is reproducible. Consider naprosyn if he requests more than percocet. Anxiety component also likely contributing to his symptoms. He is on xanax prn. Psychiatry evaluation is requested. He was counselled on alcohol cessation. He was counselled on narcotic and substance abuse. Sandra Krishna MD Hospitalist.
[2017-12-02 19:48] LABS: BLOOD UREA NITROGEN 27 mg/dL (7-21); CALCIUM 9.1 mg/dL (8.4-10.5); GFR NON-AFRICAN AMERICAN 49
[2017-12-02 19:54] LABS: TROPONIN I < 0.01 ng/mL
[2017-12-02 22:08] VITALS: BMI 31.4
[2017-12-02] MEDS ORDERED: Pneumococcal 23-Valent Vaccine IM ONE (22:08)
[2017-12-02] MEDS ORDERED: Influenza Vaccine 60 mcg/0.5 mL SYR (4YR UP) IM ONE (22:08)
[2017-12-03 07:16] LABS: BASO # 0.05 K/mm3 (0.0-2.0); BASO % 0.6 % (0.0-3.0); EOS # 0.1 (0.0-0.7); EOS % 1.2 % (1.5-5.0); GRAN # 3.59 (1.4-6.5); GRAN % 43.7 % (50.0-68.0); HEMOGLOBIN 15.2 g/dL (14.0-18.0); LYMPH # 3.6 (1.2-3.4); LYMPH % 43.7 % (22.0-35.0); MEAN CELL VOLUME 96.5 fl (80.0-105.0); MEAN CORPUSCULAR HEMOGLOBIN 32.9 pg (25.0-35.0); MEAN CORPUSCULAR HGB CONC 34.1 g/dl (31.0-37.0); MEAN PLATELET VOLUME 8.9 fl (7.0-11.0); MONO # 0.9 (0.1-0.6); MONO % 10.8 % (1.0-6.0); RBC 4.62 10^6/uL (3.5-6.1); RED CELL DISTRIBUTION WIDTH 13.4 % (11.5-14.5); WHITE BLOOD COUNT 8.2 10^3/ul (4.5-11.0)
[2017-12-03 07:34] LABS: ALB/GLOB RATIO 1.3 (1.1-1.8); CALCIUM 8.5 mg/dL (8.4-10.5)
--- NOTE | 2017-12-03 10:27 | CARD ---
APPROVED REPORT Date of service: 12/03/2017 EKG Measurement Heart [id number] <Conclusion> Normal sinus rhythm Small q waves 2,3,F STTW changes c/w ischemia
[2017-12-03] MEDS: Oxycodone/Acetaminophen 5/325 mg Tab PO PRN ×2 (11:15→21:41)
--- NOTE | 2017-12-03 12:06 | CON ---
DATE: 12/03/2017 REASON FOR CONSULTATION: Chest pain. The patient is very in-cooperative in history taking and at times verbally abusive. The patient is a 52-year-old male who has a history of coronary artery disease, status post coronary artery bypass surgery 5 years ago at [facility]. The patient has history of chronic obstructive lung disease and he is a smoker and alcohol abuser as well as has history of substance abuse. The patient presents because of left-sided chest pain, nonradiating. The patient does not recall any coronary intervention following his coronary artery bypass surgery and refuses to follow with his evp marketing, Dr. Walker. SOCIAL HISTORY: The patient is smoker and EtOH abuser. MEDICATIONS: Aspirin 81 mg once a day, heparin 5000 units subcutaneously 8 hours, Lipitor 10 mg once a day, Lopressor 100 mg once a day, Percocet 1 tablet b.i.d. p.r.n. for moderate pain and Xanax 0.5 mg twice a day. REVIEW OF SYSTEMS: No fever or chills. The patient complains of occasional cough. He denies any dizziness or syncope. He does use a walking cane for imbalance gait. PHYSICAL EXAMINATION: GENERAL: The patient is a middle-aged male who does not appear to be in acute distress. VITAL SIGNS: Blood pressure 109/50, heart rate 68, temperature 97.5, respiration 20. HEENT: Normocephalic. Chest: Bilateral rhonchi. HEART: S1, S2 regular. ABDOMEN: Soft. EXTREMITIES: Trace leg edema. EKG revealed sinus rhythm and small Q-waves in the inferior leads, ST-T wave changes consistent with ischemia. LABORATORY DATA: Hemoglobin and hematocrit 15.2 and 44.5, white count and platelet count are within normal limits. SMA-7, today's sodium 135, potassium 3.9, chloride 97, CO2 of 29, glucose 117, BUN 40, creatinine 1.6. Three sets of troponins are negative. Chest x-ray revealed cardiomegaly with prominent bronchovascular markings. The most recent Lexiscan was positive for chest pain and indeterminate for ischemia due to resting changes. No arrhythmia occurred. The test was performed 3 days ago. Echocardiographic study also performed on 11/25/2017 revealed normal ventricular size, wall thickness and systolic function. ASSESSMENT: 1. Chest pain, myocardial infarction is ruled out. 2. Coronary artery disease, status post coronary artery triple bypass surgery 5 years ago. 3. Chronic obstructive lung disease. 4. History of ethyl alcohol abuse. RECOMMENDATIONS: Continue aspirin 81 mg once a day, subcutaneous heparin 5000 units twice a day, Lipitor 10 mg once a day, Lopressor 100 mg once a day. Stop Plavix 75 mg once a day and Imdur 60 mg once a day and trial of medical therapy is recommended. Case will be discussed with the primary evp marketing, Dr. Walker. Danilo Martines MD
[2017-12-03] MEDS: Sodium Chloride 0.9% 1,000 ML IV SCH (16:03)
--- NOTE | 2017-12-03 17:13 | CP.PCM.PN ---
<Sonam hSaw - Last Filed: 12/03/17 18:26> Subjective - Date & Time of Evaluation Date of Evaluation: 12/03/17 Time of Evaluation: 11:00 - Subjective Subjective: PGY-1 Sonam Shaw Medicine Progress Note for Dr. Krishna's service Patient seen and examined at bedside. Patient continues to complain of chest pain located near the sternum and left upper chest. Patient admits to oral tingling, leg and arm tingling. Patient denies sob, n/v, diahporesis, headaches, weakness, lightheadedness, dizziness, constipation or diarrhea. Objective - Vital Signs/Intake and Output Vital Signs (last 24 hours): Temp Pulse Resp BP Pulse Ox 97.5 F L 68 20 109/50 L 96 12/03/17 06:00 12/03/17 06:00 12/03/17 06:00 12/03/17 06:00 12/03/17 06:00 Intake and Output: 12/03/17 12/03/17 06:59 18:59 Intake Total 120 Balance 120 - Medications Medications: Current Medications Acetaminophen (Tylenol 325mg Tab) 650 mg PO Q6H PRN PRN Reason: Pain, Mild (1-3) Albuterol/Ipratropium (Duoneb 3 Mg/0.5 Mg (3 Ml) Ud) 3 ml IH [id number] PRN PRN Reason: Shortness of Breath Alprazolam (Xanax) 0.5 mg PO BID PRN; Protocol PRN Reason: Pain, Mild (1-3) Last Admin: 12/03/17 16:02 Dose: 0.5 mg Aspirin (Aspirin Chewable) 81 mg PO DAILY [facility] Last Admin: 12/03/17 16:02 Dose: 81 mg Atorvastatin Calcium (Lipitor) 10 mg PO DIN [facility] Last Admin: 12/03/17 16:02 Dose: 10 mg Clopidogrel Bisulfate (Plavix) 75 mg PO DAILY [facility] Last Admin: 12/03/17 11:15 Dose: 75 mg Famotidine (Pepcid) 20 mg PO HS [facility] Last Admin: 12/02/17 21:59 Dose: 20 mg Heparin Sodium (Porcine) (Heparin) 5,000 units SC Q8H [facility]; Protocol Last Admin: 12/03/17 14:33 Dose: Not Given Sodium Chloride (Sodium Chloride 0.9%) 1,000 mls @ 100 mls/hr IV .Q10H [facility] Last Admin: 12/03/17 16:03 Dose: 100 mls/hr Isosorbide Mononitrate (Imdur) 60 mg PO DAILY [facility] Last Admin: 12/03/17 11:15 Dose: 60 mg Metoprolol Tartrate (Lopressor) 100 mg PO DAILY [facility] Last Admin: 12/03/17 09:20 Dose: 100 mg Oxycodone/Acetaminophen (Percocet 5/325 Mg Tab) 1 tab PO BID PRN PRN Reason: Pain, moderate (4-7) Stop: 12/05/17 14:21 Last Admin: 12/03/17 11:15 Dose: 1 tab Sumatriptan Succinate (Imitrex Tab) 25 mg PO DAILY PRN PRN Reason: Headache - Labs Labs: 12/03/17 06:30 12/03/17 06:30 PT 11.4 SECONDS (9.4-12.5) 12/02/17 12:20 INR 0.99 12/02/17 12:20 APTT 27.0 Seconds (25.1-36.5) 12/02/17 12:20 - Constitutional Appears: Non-toxic, No Acute Distress - Head Exam Head Exam: NORMAL INSPECTION, NORMOCEPHALIC - Eye Exam Eye Exam: EOMI, Normal appearance. absent: Nystagmus, Scleral icterus - ENT Exam ENT Exam: Mucous Membranes Moist - Respiratory Exam Respiratory Exam: Clear to Ausculation Bilateral, NORMAL BREATHING PATTERN. absent: Rales, Rhonchi, Wheezes - Cardiovascular Exam Cardiovascular Exam: REGULAR RHYTHM, +S1, +S2 - GI/Abdominal Exam GI & Abdominal Exam: Soft, Normal Bowel Sounds. absent: Tenderness - Extremities Exam Extremities Exam: Normal Inspection. absent: Calf Tenderness, Pedal Edema - Neurological Exam Neurological Exam: Alert, Awake, Oriented x3 - Psychiatric Exam Psychiatric exam: Agitated, Anxious - Skin Skin Exam: Intact, Normal Color Assessment and Plan - Assessment and Plan (Free Text) Assessment: Patient is a 52 yo male with PMH of COPD, anxiety, HTN, HLD, chronic back pain, alcohol abuse, substance abuse, and CAD s/p CABG 2012 who was admitted after presenting to the ED with complaints of 10/10 midsternal chest pain radiating to the left chest with associated left chest pressure. Cardio started patient on imdur and plavix. Plan: Chest Pain possibly cardiac or anxiety related Cardiology Consult - Dr. 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 Valadez- recommendations appreciated Alprazolam 0.5 mg BID PRN for anxiety Hx of COPD Duoneb 3mL IH [id number] PRN Hx of HLD Atorvastatin 10 mg PO DIN PPX GI- Pepcid 40 mg HS DVT- Heparin 5000 units q8 <Sandra Krishna - Last Filed: 12/04/17 08:03> Objective - Vital Signs/Intake and Output Vital Signs (last 24 hours): Temp Pulse Resp BP Pulse Ox 98.5 F 65 20 110/51 L 97 12/03/17 17:23 12/03/17 17:23 12/03/17 17:23 12/03/17 17:23 12/03/17 17:23 Intake and Output: 12/04/17 12/04/17 06:59 18:59 Intake Total 860 Balance 860 - Medications Medications: Current Medications Acetaminophen (Tylenol 325mg Tab) 650 mg PO Q6H PRN PRN Reason: Pain, Mild (1-3) Last Admin: 12/03/17 17:06 Dose: 650 mg Albuterol/Ipratropium (Duoneb 3 Mg/0.5 Mg (3 Ml) Ud) 3 ml IH [id number] PRN PRN Reason: Shortness of Breath Alprazolam (Xanax) 0.5 mg PO BID PRN; Protocol PRN Reason: Pain, Mild (1-3) Last Admin: 12/03/17 16:02 Dose: 0.5 mg Aspirin (Aspirin Chewable) 81 mg PO DAILY [facility] Last Admin: 12/03/17 16:02 Dose: 81 mg Atorvastatin Calcium (Lipitor) 10 mg PO DIN [facility] Last Admin: 12/03/17 16:02 Dose: 10 mg Clopidogrel Bisulfate (Plavix) 75 mg PO DAILY [facility] Last Admin: 12/03/17 11:15 Dose: 75 mg Famotidine (Pepcid) 20 mg PO HS [facility] Last Admin: 12/03/17 21:41 Dose: 20 mg Heparin Sodium (Porcine) (Heparin) 5,000 units SC Q8H [facility]; Protocol Last Admin: 12/04/17 06:02 Dose: Not Given Sodium Chloride (Sodium Chloride 0.9%) 1,000 mls @ 100 mls/hr IV .Q10H [facility] Last Admin: 12/03/17 16:03 Dose: 100 mls/hr Isosorbide Mononitrate (Imdur) 60 mg PO DAILY [facility] Last Admin: 12/03/17 11:15 Dose: 60 mg Metoprolol Tartrate (Lopressor) 100 mg PO DAILY [facility] Last Admin: 12/03/17 09:20 Dose: 100 mg Oxycodone/Acetaminophen (Percocet 5/325 Mg Tab) 1 tab PO BID PRN PRN Reason: Pain, moderate (4-7) Stop: 12/05/17 14:21 Last Admin: 12/03/17 21:41 Dose: 1 tab Sumatriptan Succinate (Imitrex Tab) 25 mg PO DAILY PRN PRN Reason: Headache - Labs Labs: 12/03/17 06:30 12/03/17 06:30 PT 11.4 SECONDS (9.4-12.5) 12/02/17 12:20 INR 0.99 12/02/17 12:20 APTT 27.0 Seconds (25.1-36.5) 12/02/17 12:20 Attending/Attestation - Attestation I have personally seen and examined this patient.: Yes I have fully participated in the care of the patient.: Yes I have reviewed all pertinent clinical information, including history, physical exam and plan: Yes Notes (Text): 12/03/17 52 year old male with past medical history of COPD, CAD s/p CABG, hypertension, alcohol abuse, substance abuse and anxiety who presented with complaint of chest pain. He was recently admitted last week as well for chest pain but signed out against medical advice prior to completing his stress test. Serial cardiac enzymes are negative and ACS has been ruled out. However he continues to complain of chest pain and is started on imdur and plavix. Cardiology evaluation was appreciated. Continue with aspirin, metoprolol and statin. Lisinopril held secondary to JESIKA. Started on iv fluids for mild JESIKA. Patient is on percocet and requesting iv medications. Pain medication seeking behavior suspected. Anxiety component also likely contributing to his symptoms. He is on xanax prn. Psychiatry input was appreciated. He was counselled on alcohol cessation. He was counselled on narcotic and substance abuse. Sandra Krishna MD Hospitalist.
--- NOTE | 2017-12-03 18:28 | CP.PCM.PCO ---
Addendum Addendum: 12/03/17 18:22 pt is well known to this automobile service writer from the recent consultation 11/29/17 please see note for more detailed info this time medical team asked this automobile service writer to evaluate pt for anxiety and panic attacks pt has manipulative and entitled behavior last admission this time pt is not depressed/not suicidal/not agitated or aggressive, not psychotic discussed with pt's current presentation chest pain and palpitation could be related to significant cardiac problems pt is stable from the psychiatric standpoint please see previous consult for more detailed info in case of change in presentation depression/si/hi/agitation/psychosis please do not hesitate to reconsult, but is not presenting this way now. thank you. 12/03/17 18:25
[2017-12-04] MEDS: Oxycodone/Acetaminophen 5/325 mg Tab PO PRN ×2 (08:07→21:13)
[2017-12-04 09:51] LABS: BASO # 0.04 K/mm3 (0.0-2.0); BASO % 0.6 % (0.0-3.0); EOS # 0.1 (0.0-0.7); EOS % 1.4 % (1.5-5.0); GRAN # 4.22 (1.4-6.5); GRAN % 58.1 % (50.0-68.0); HEMOGLOBIN 13.9 g/dL (14.0-18.0); LYMPH # 2.3 (1.2-3.4); LYMPH % 31.8 % (22.0-35.0); MEAN CELL VOLUME 97.4 fl (80.0-105.0); MEAN CORPUSCULAR HEMOGLOBIN 33.2 pg (25.0-35.0); MEAN CORPUSCULAR HGB CONC 34.1 g/dl (31.0-37.0); MEAN PLATELET VOLUME 8.8 fl (7.0-11.0); MONO # 0.6 (0.1-0.6); MONO % 8.1 % (1.0-6.0); RBC 4.19 10^6/uL (3.5-6.1); RED CELL DISTRIBUTION WIDTH 13.4 % (11.5-14.5); WHITE BLOOD COUNT 7.3 10^3/ul (4.5-11.0)
[2017-12-04] MEDS: Sodium Chloride 0.9% 1,000 ML IV SCH (09:53)
[2017-12-04 10:10] LABS: ALB/GLOB RATIO 1.5 (1.1-1.8); ALT/SGPT 46 U/L (7-56); AST/SGOT 33 U/L (17-59); BLOOD UREA NITROGEN 27 mg/dL (7-21); CALCIUM 8.4 mg/dL (8.4-10.5); GFR NON-AFRICAN AMERICAN > 60
--- NOTE | 2017-12-04 14:29 | CP.PCM.PN ---
<Maria Varghese - Last Filed: 12/04/17 14:26> Subjective - Date & Time of Evaluation Date of Evaluation: 12/04/17 Time of Evaluation: 14:26 - Subjective Subjective: Maria Varghese PGY1 Progress note for Dr. Krishna Pt was examined at bedside this morning. He reports continuation of his chest pain, which he describes as in the center and the right lateral chest. He denies palpitations but reports associated sweating. He also reported some intermittent dizzines. Pt reports resolution of his aura associated with migraine. He denies nausea, vomiting, abdominal pain, diarrhea, dysuria. Objective - Vital Signs/Intake and Output Vital Signs (last 24 hours): Temp Pulse Resp BP Pulse Ox 97.7 F 81 18 103/67 98 12/04/17 06:00 12/04/17 09:50 12/04/17 06:00 12/04/17 09:50 12/04/17 06:00 Intake and Output: 12/04/17 12/04/17 06:59 18:59 Intake Total 860 Balance 860 - Medications Medications: Current Medications Acetaminophen (Tylenol 325mg Tab) 650 mg PO Q6H PRN PRN Reason: Pain, Mild (1-3) Last Admin: 12/03/17 17:06 Dose: 650 mg Albuterol/Ipratropium (Duoneb 3 Mg/0.5 Mg (3 Ml) Ud) 3 ml IH [id number] PRN PRN Reason: Shortness of Breath Alprazolam (Xanax) 0.5 mg PO BID PRN; Protocol PRN Reason: Pain, Mild (1-3) Last Admin: 12/04/17 08:07 Dose: 0.5 mg Aspirin (Aspirin Chewable) 81 mg PO DAILY REPLACED BY [facility] Last Admin: 12/04/17 09:50 Dose: 81 mg Atorvastatin Calcium (Lipitor) 10 mg PO DIN REPLACED BY [facility] Last Admin: 12/03/17 16:02 Dose: 10 mg Clopidogrel Bisulfate (Plavix) 75 mg PO DAILY REPLACED BY [facility] Last Admin: 12/04/17 09:50 Dose: 75 mg Famotidine (Pepcid) 20 mg PO HS REPLACED BY [facility] Last Admin: 12/03/17 21:41 Dose: 20 mg Heparin Sodium (Porcine) (Heparin) 5,000 units SC Q8H REPLACED BY [facility]; Protocol Last Admin: 12/04/17 06:02 Dose: Not Given Isosorbide Mononitrate (Imdur) 60 mg PO DAILY REPLACED BY [facility] Last Admin: 12/04/17 09:50 Dose: 60 mg Metoprolol Tartrate (Lopressor) 100 mg PO DAILY REPLACED BY [facility] Last Admin: 12/04/17 09:50 Dose: 100 mg Oxycodone/Acetaminophen (Percocet 5/325 Mg Tab) 1 tab PO BID PRN PRN Reason: Pain, moderate (4-7) Stop: 12/05/17 14:21 Last Admin: 12/04/17 08:07 Dose: 1 tab Sumatriptan Succinate (Imitrex Tab) 25 mg PO DAILY PRN PRN Reason: Headache - Labs Labs: 12/04/17 09:30 12/04/17 09:30 PT 11.4 SECONDS (9.4-12.5) 12/02/17 12:20 INR 0.99 12/02/17 12:20 APTT 27.0 Seconds (25.1-36.5) 12/02/17 12:20 - Constitutional Appears: Well, No Acute Distress - Head Exam Head Exam: ATRAUMATIC, NORMOCEPHALIC - Eye Exam Eye Exam: EOMI, Normal appearance Pupil Exam: NORMAL ACCOMODATION - ENT Exam ENT Exam: Mucous Membranes Moist - Neck Exam Neck Exam: Normal Inspection. absent: Lymphadenopathy - Respiratory Exam Respiratory Exam: Clear to Ausculation Bilateral, NORMAL BREATHING PATTERN. absent: Rhonchi, Wheezes, Stridor - Cardiovascular Exam Cardiovascular Exam: REGULAR RHYTHM, +S1, +S2. absent: Gallop, Rubs, Murmur - GI/Abdominal Exam GI & Abdominal Exam: Soft, Normal Bowel Sounds. absent: Distended, Rigid, Tenderness - Extremities Exam Extremities Exam: Normal Inspection. absent: Pedal Edema - Neurological Exam Neurological Exam: Alert, Awake, Oriented x3 - Psychiatric Exam Psychiatric exam: Anxious, Depressed Assessment and Plan - Assessment and Plan (Free Text) Assessment: 52 yo M with PMH of COPD, anxiety, HTN, HLD, chronic back pain, alcohol abuse, substance abuse, and CAD s/p CABG 2012 who was admitted after presenting to the ED with complaints of 10/10 midsternal chest pain radiating to the left chest with associated left chest pressure. Plan: Chest Pain - r/o cardiac etiology - likely anxiety related - EKG 12/03: NSR; small q waves 2,3,F; STTW changes c/w ischemia - Troponin <0.01 x3 - continue Aspirin 81 mg PO daily - continue heparin 5000u BID, as per cardio - d/c plavix 75 PO BID PRN , as per cardio - Oxycodone/acetaminophen 5/325 mg 1 tab PO BID PRN for pain - Xanax 0.5mg po bid PRN - continue Imdur 60mg po daily, as per cardio - Cardiology Consult - Dr. Martines consulted, recs appreciated JESIKA - BUN 27 from 40 - NS @ 100 mls/hr - continue to monitor Alcohol abuse disorder - UA positive for benzodiazepines - Crisis Therapist on alcohol cessation HTN - continue Metoprolol tartrate 100 mg PO daily History of anxiety - continue Alprazolam 0.5 mg BID PRN for anxiety - Psych consulted - Dr. Valadez- familiar with patient, recs appreciated Hx of COPD - Duoneb 3mL IH [id number] PRN Hx of HLD - Atorvastatin 10 mg PO DIN PPX GI- Pepcid 40 mg HS DVT- Heparin 5000 units q8 Pt seen, plan reviewed and discussed with Dr. Krishna <Sandra Krishna - Last Filed: 12/04/17 16:31> Objective - Vital Signs/Intake and Output Vital Signs (last 24 hours): Temp Pulse Resp BP Pulse Ox 97.7 F 81 18 103/67 98 12/04/17 06:00 12/04/17 09:50 12/04/17 06:00 12/04/17 09:50 12/04/17 06:00 Intake and Output: 12/04/17 12/04/17 06:59 18:59 Intake Total 860 Balance 860 - Medications Medications: Current Medications Acetaminophen (Tylenol 325mg Tab) 650 mg PO Q6H PRN PRN Reason: Pain, Mild (1-3) Last Admin: 12/03/17 17:06 Dose: 650 mg Albuterol/Ipratropium (Duoneb 3 Mg/0.5 Mg (3 Ml) Ud) 3 ml IH [id number] PRN PRN Reason: Shortness of Breath Alprazolam (Xanax) 0.5 mg PO BID PRN; Protocol PRN Reason: Pain, Mild (1-3) Last Admin: 12/04/17 08:07 Dose: 0.5 mg Aspirin (Aspirin Chewable) 81 mg PO DAILY REPLACED BY [facility] Last Admin: 12/04/17 09:50 Dose: 81 mg Atorvastatin Calcium (Lipitor) 10 mg PO DIN REPLACED BY [facility] Last Admin: 12/03/17 16:02 Dose: 10 mg Clopidogrel Bisulfate (Plavix) 75 mg PO DAILY REPLACED BY [facility] Last Admin: 12/04/17 09:50 Dose: 75 mg Famotidine (Pepcid) 20 mg PO HS REPLACED BY [facility] Last Admin: 12/03/17 21:41 Dose: 20 mg Heparin Sodium (Porcine) (Heparin) 5,000 units SC Q8H REPLACED BY [facility]; Protocol Last Admin: 12/04/17 06:02 Dose: Not Given Isosorbide Mononitrate (Imdur) 60 mg PO DAILY REPLACED BY [facility] Last Admin: 12/04/17 09:50 Dose: 60 mg Metoprolol Tartrate (Lopressor) 100 mg PO DAILY REPLACED BY [facility] Last Admin: 12/04/17 09:50 Dose: 100 mg Oxycodone/Acetaminophen (Percocet 5/325 Mg Tab) 1 tab PO BID PRN PRN Reason: Pain, moderate (4-7) Stop: 12/05/17 14:21 Last Admin: 12/04/17 08:07 Dose: 1 tab Sumatriptan Succinate (Imitrex Tab) 25 mg PO DAILY PRN PRN Reason: Headache - Labs Labs: 12/04/17 09:30 12/04/17 09:30 PT 11.4 SECONDS (9.4-12.5) 12/02/17 12:20 INR 0.99 12/02/17 12:20 APTT 27.0 Seconds (25.1-36.5) 12/02/17 12:20 Attending/Attestation - Attestation I have personally seen and examined this patient.: Yes I have fully participated in the care of the patient.: Yes I have reviewed all pertinent clinical information, including history, physical exam and plan: Yes Notes (Text): 12/04/17 16:28 52 year old male with past medical history of COPD, CAD s/p CABG, hypertension, alcohol abuse, substance abuse and anxiety who presented with complaint of chest pain. He was recently admitted last week as well for chest pain but signed out against medical advice prior to completing his stress test. Serial cardiac enzymes are negative and ACS has been ruled out. EKG reviewed with graphics software engineer. Patient is on aspirin, plavix, metoprolol and statin. He was started on imdur yesterday as well by cardiology. Case was discussed with Dr. Martines; if chest pain persistent consider increasing imdur dose. Patient is refusing cardiac cath or stress test. Continue with medical management. His JESIKA has resolved. Will discontinue with fluids. Lisinopril was held. Patient is on percocet and requesting iv medications. Pain medication seeking behavior suspected. Anxiety component also likely contributing to his symptoms. He is on xanax prn. Psychiatry input was appreciated. He was counselled on alcohol cessation. He was counselled on narcotic and substance abuse. Sandra Krishna MD Hospitalist.
--- NOTE | 2017-12-04 15:21 | PN ---
DATE: 12/04/2017 FOLLOWUP SUBJECTIVE: The patient complains of steady chest discomfort and cough. PHYSICAL EXAMINATION: VITAL SIGNS: Blood pressure 103/67, heart rate 81, temperature 97.7, respirations 18. HEENT: Normocephalic. CHEST: Bilateral rhonchi. HEART: S1 and S2 regular. EXTREMITIES: 1+ pitting edema. LABORATORY DATA: Hemoglobin and hematocrit 13.9 and 40.8. White count and platelet count are within normal limits. Today's SMA-7 is within normal limits except for glucose of 155 and BUN of 27. ASSESSMENT: 1. Chest pain. Myocardial infarction is ruled out. The patient strongly refuses the idea of cardiac catheterization. 2. Chronic obstructive lung disease. 3. Ethyl alcohol abuse. RECOMMENDATIONS: Continue aspirin 81 mg once a day, Imdur 60 mg once a day, which may increase to 120 as the patient continues to have chest pain. Continue Lipitor 10 mg once a day, Lopressor 100 mg twice a day, Plavix 75 mg once a day. Danilo Martines MD
[2017-12-05 07:15] LABS: BASO # 0.05 K/mm3 (0.0-2.0); BASO % 0.7 % (0.0-3.0); EOS # 0.1 (0.0-0.7); EOS % 2.1 % (1.5-5.0); GRAN # 2.8 (1.4-6.5); GRAN % 41.1 % (50.0-68.0); HEMOGLOBIN 14.4 g/dL (14.0-18.0); LYMPH # 3.1 (1.2-3.4); LYMPH % 44.7 % (22.0-35.0); MEAN CELL VOLUME 98.1 fl (80.0-105.0); MEAN CORPUSCULAR HEMOGLOBIN 33.3 pg (25.0-35.0); MEAN PLATELET VOLUME 8.8 fl (7.0-11.0); MONO # 0.8 (0.1-0.6); MONO % 11.4 % (1.0-6.0); RBC 4.32 10^6/uL (3.5-6.1); RED CELL DISTRIBUTION WIDTH 13.1 % (11.5-14.5); WHITE BLOOD COUNT 6.8 10^3/ul (4.5-11.0)
[2017-12-05 07:39] LABS: ALB/GLOB RATIO 1.5 (1.1-1.8); ALT/SGPT 43 U/L (7-56); AST/SGOT 28 U/L (17-59); BLOOD UREA NITROGEN 17 mg/dL (7-21); CALCIUM 8.8 mg/dL (8.4-10.5); GFR NON-AFRICAN AMERICAN > 60
[2017-12-05] MEDS: Oxycodone/Acetaminophen 5/325 mg Tab PO PRN ×2 (08:44→21:41)
--- NOTE | 2017-12-05 12:21 | CP.PCM.PN ---
<Maria Varghese - Last Filed: 12/05/17 12:18> Subjective - Date & Time of Evaluation Date of Evaluation: 12/05/17 Time of Evaluation: 12:18 - Subjective Subjective: Maria Varghese PGY1 Progress Note for Dr. Krishna Pt was seen at bedside this morning. He reported continuation of his chest pain, which is pressure-like in the center of his chest and extends to the L side under his arm. Upon discussion of discharge planning, pt admitted he was nervous to go home by himself, and claimed he wanted to stay here another day so that his friend could receive him at home tomorrow. He was explained that he will continue with medical management, as he refuses cath. Objective - Vital Signs/Intake and Output Vital Signs (last 24 hours): Temp Pulse Resp BP Pulse Ox 97.7 F 84 18 143/82 97 12/05/17 06:00 12/05/17 10:00 12/05/17 06:00 12/05/17 06:00 12/05/17 06:00 Intake and Output: 12/05/17 12/05/17 06:59 18:59 Intake Total 0 Output Total 260 Balance -260 - Medications Medications: Current Medications Acetaminophen (Tylenol 325mg Tab) 650 mg PO Q6H PRN PRN Reason: Pain, Mild (1-3) Last Admin: 12/04/17 21:20 Dose: 650 mg Albuterol/Ipratropium (Duoneb 3 Mg/0.5 Mg (3 Ml) Ud) 3 ml IH [id number] PRN PRN Reason: Shortness of Breath Alprazolam (Xanax) 0.5 mg PO BID PRN; Protocol PRN Reason: Pain, Mild (1-3) Last Admin: 12/05/17 09:05 Dose: 0.5 mg Aspirin (Aspirin Chewable) 81 mg PO DAILY [facility] Last Admin: 12/05/17 09:05 Dose: 81 mg Atorvastatin Calcium (Lipitor) 10 mg PO DIN [facility] Last Admin: 12/04/17 16:23 Dose: 10 mg Clopidogrel Bisulfate (Plavix) 75 mg PO DAILY [facility] Last Admin: 12/05/17 09:05 Dose: 75 mg Famotidine (Pepcid) 20 mg PO HS [facility] Last Admin: 12/04/17 21:13 Dose: 20 mg Heparin Sodium (Porcine) (Heparin) 5,000 units SC Q8H [facility]; Protocol Last Admin: 12/05/17 05:54 Dose: Not Given Isosorbide Mononitrate (Imdur) 120 mg PO DAILY [facility] Last Admin: 12/05/17 09:05 Dose: 120 mg Metoprolol Tartrate (Lopressor) 100 mg PO DAILY [facility] Last Admin: 12/05/17 09:04 Dose: 100 mg Oxycodone/Acetaminophen (Percocet 5/325 Mg Tab) 1 tab PO BID PRN PRN Reason: Pain, moderate (4-7) Stop: 12/05/17 14:21 Last Admin: 12/05/17 08:44 Dose: 1 tab Sumatriptan Succinate (Imitrex Tab) 25 mg PO DAILY PRN PRN Reason: Headache - Labs Labs: 12/05/17 06:30 12/05/17 06:30 PT 11.4 SECONDS (9.4-12.5) 12/02/17 12:20 INR 0.99 12/02/17 12:20 APTT 27.0 Seconds (25.1-36.5) 12/02/17 12:20 - Constitutional Appears: Well, No Acute Distress - Head Exam Head Exam: ATRAUMATIC, NORMOCEPHALIC - Eye Exam Eye Exam: EOMI, Normal appearance Pupil Exam: NORMAL ACCOMODATION - ENT Exam ENT Exam: Mucous Membranes Moist - Neck Exam Neck Exam: Full ROM, Normal Inspection. absent: Tenderness - Respiratory Exam Respiratory Exam: Clear to Ausculation Bilateral, NORMAL BREATHING PATTERN. absent: Decreased Breath Sounds, Rales, Rhonchi, Wheezes - Cardiovascular Exam Cardiovascular Exam: REGULAR RHYTHM, +S1, +S2. absent: Gallop, Rubs, Murmur - GI/Abdominal Exam GI & Abdominal Exam: Soft, Normal Bowel Sounds. absent: Distended, Firm, Tenderness - Extremities Exam Extremities Exam: Normal Inspection. absent: Pedal Edema, Tenderness - Neurological Exam Neurological Exam: Alert, Awake, Oriented x3 - Psychiatric Exam Psychiatric exam: Depressed Assessment and Plan - Assessment and Plan (Free Text) Assessment: 52 yo M with PMH of COPD, anxiety, HTN, HLD, chronic back pain, alcohol abuse, substance abuse, and CAD s/p CABG 2012 who was admitted after presenting to the ED with complaints of 1010 midsternal chest pain radiating to the left chest with associated left chest pressure. Plan: Chest Pain - pt continues to complain today of CP - likely anxiety related - EKG 12/03: NSR; small q waves 2,3,F; STTW changes c/w ischemia - Troponin <0.01 x3 - continue Aspirin 81 mg PO daily - continue heparin 5000u BID, as per cardio - increase imdur to 120 mg PO daily, as per cardio - Oxycodone/acetaminophen 5/325 mg 1 tab PO BID PRN for pain - Xanax 0.5mg po bid PRN - Cardiology Consult - Dr. Martines consulted, recs appreciated Alcohol abuse disorder - UA positive for benzodiazepines - Departure Clerk on alcohol cessation HTN - continue Metoprolol tartrate 100 mg PO daily History of anxiety - continue xanax 0.5 mg BID PRN for anxiety - Psych consulted - Dr. Valadez- familiar with patient, recs appreciated Hx of COPD - Duoneb 3mL IH [id number] PRN Hx of HLD - Atorvastatin 10 mg PO DIN PPX GI- Pepcid 40 mg HS DVT- Heparin 5000 units q8 Dispo: Pt was spoken to regarding d/c, expressed anxiety of being alone at hime will monitor symptoms today plan for d/c tomorrow when roommate is available Pt seen, plan reviewed and discussed with Dr. Krishna <Sandra Krishna - Last Filed: 12/05/17 13:25> Objective - Vital Signs/Intake and Output Vital Signs (last 24 hours): Temp Pulse Resp BP Pulse Ox 97.7 F 84 18 143/82 97 12/05/17 06:00 12/05/17 10:00 12/05/17 06:00 12/05/17 06:00 12/05/17 06:00 Intake and Output: 12/05/17 12/05/17 06:59 18:59 Intake Total 0 Output Total 260 Balance -260 - Medications Medications: Current Medications Acetaminophen (Tylenol 325mg Tab) 650 mg PO Q6H PRN PRN Reason: Pain, Mild (1-3) Last Admin: 12/04/17 21:20 Dose: 650 mg Albuterol/Ipratropium (Duoneb 3 Mg/0.5 Mg (3 Ml) Ud) 3 ml IH [id number] PRN PRN Reason: Shortness of Breath Alprazolam (Xanax) 0.5 mg PO BID PRN; Protocol PRN Reason: Pain, Mild (1-3) Last Admin: 12/05/17 09:05 Dose: 0.5 mg Aspirin (Aspirin Chewable) 81 mg PO DAILY [facility] Last Admin: 12/05/17 09:05 Dose: 81 mg Atorvastatin Calcium (Lipitor) 10 mg PO DIN [facility] Last Admin: 12/04/17 16:23 Dose: 10 mg Clopidogrel Bisulfate (Plavix) 75 mg PO DAILY [facility] Last Admin: 12/05/17 09:05 Dose: 75 mg Famotidine (Pepcid) 20 mg PO HS [facility] Last Admin: 12/04/17 21:13 Dose: 20 mg Heparin Sodium (Porcine) (Heparin) 5,000 units SC Q8H [facility]; Protocol Last Admin: 12/05/17 05:54 Dose: Not Given Isosorbide Mononitrate (Imdur) 120 mg PO DAILY [facility] Last Admin: 12/05/17 09:05 Dose: 120 mg Metoprolol Tartrate (Lopressor) 100 mg PO DAILY [facility] Last Admin: 12/05/17 09:04 Dose: 100 mg Oxycodone/Acetaminophen (Percocet 5/325 Mg Tab) 1 tab PO BID PRN PRN Reason: Pain, moderate (4-7) Stop: 12/05/17 14:21 Last Admin: 12/05/17 08:44 Dose: 1 tab Sumatriptan Succinate (Imitrex Tab) 25 mg PO DAILY PRN PRN Reason: Headache - Labs Labs: 12/05/17 06:30 12/05/17 06:30 PT 11.4 SECONDS (9.4-12.5) 12/02/17 12:20 INR 0.99 12/02/17 12:20 APTT 27.0 Seconds (25.1-36.5) 12/02/17 12:20 Attending/Attestation - Attestation I have personally seen and examined this patient.: Yes I have fully participated in the care of the patient.: Yes I have reviewed all pertinent clinical information, including history, physical exam and plan: Yes Notes (Text): 12/05/17 13:16 52 year old male with past medical history of COPD, CAD s/p CABG, hypertension, alcohol abuse, substance abuse and anxiety who presented with complaint of chest pain. He was recently admitted last week as well for chest pain but signed out against medical advice prior to completing his stress test. Serial cardiac enzymes are negative and ACS has been ruled out. Patient is on aspirin, plavix, metoprolol and statin. He was on lisinopril which was held due to JESKIA which has resolved; consider to resume. Patient reports chest pain is constant and he is started on imdur. Cardiology is following. Case was discussed with Dr. Martines today. Patient refused stress test. He refused cardiac cath. Continue with medical management as above. He is on percocet prn for pain. He is comfortable in bed. Has door closed with curtain pulled. Lights off watching TV during the weekend. Upon examination then he appears anxious and begins to complain of chest pain. Likely strong anxiety component contributing to his symptoms. When discharge planning discussed he states he will go home tomorrow because his roommate is away today. Reports if he goes home alone with will have a panic attack and return to the hospital. At the same time patient does not feel he has history of anxiety or panic attacks. He states he follows up with pmd Dr. Whiting and does not need to follow up with a psychiatrist. We did request a psychiatry evaluation while patient is inhouse and her input was appreciated. He was counselled on alcohol cessation. He was counselled on narcotic and substance abuse. Sandra Krishna MD Hospitalist.
[2017-12-05] MEDS ORDERED: Iodixanol 320 MG/ML 100 ML BOTTLE IV ONE (14:26)
--- NOTE | 2017-12-05 17:33 | CT ---
Date of service: 12/05/2017 PROCEDURE: CT Chest without contrast HISTORY: CHEST PAIN COMPARISON: None. TECHNIQUE: Contiguous axial images were obtained through the chest without intravenous contrast enhancement. Sagittal and coronal reconstructions were performed. Radiation dose (DLP): 767.35 mGy-cm. This CT exam was performed using one or more of the following dose reduction techniques: Automated exposure control, adjustment of the mA and/or kV according to patient size, and/or use of iterative reconstruction technique. FINDINGS: LUNGS: Peripheral nodule 4.5 mm right middle lobe. The nodule is noncalcified. 3 mm nodule superior segment left lower lobe. 3 mm nodule lingula MEDIASTINUM: Unremarkable thoracic aorta. No aneurysm. Normal sized heart. Main pulmonary artery unremarkable. No vascular congestion. No lymphadenopathy. PLEURA: Pleural-based scarring adjacent to the posterior segment left upper lobe. BONES: No fracture. No destructive lesion. UPPER ABDOMEN: Grossly unremarkable. OTHER FINDINGS: None. IMPRESSION: There are multiple, solid, pulmonary nodules that are less than 6 mm in size. According to the 2017 Fleischner criteria, if the patient is low risk, no routine follow-up is recommended. If the patient is high risk, an optional CT at 12 months is recommended.
--- NOTE | 2017-12-05 20:19 | PN ---
DATE: 12/05/2017 SUBJECTIVE: The patient is still experiencing severe chest discomfort as well as cough. PHYSICAL EXAMINATION: VITAL SIGNS: Blood pressure 143/82, heart rate 69, temperature 97.7, respirations 18. HEENT: Normocephalic. CHEST: Diffused bilateral rhonchi. HEART: S1 and S2, regular. EXTREMITIES: Trace pitting edema. LABORATORY DATA: Today's hemoglobin, hematocrit, white count and platelet count are within normal limits. Today's SMA-7 is within normal limit except for glucose of 120. ASSESSMENT: 1. Chest pain, myocardial infarction ruled out. 2. Chronic obstructive lung disease. 3. History of ethyl alcohol abuse. RECOMMENDATIONS: Case was discussed with Dr. Mike. Continue aspirin 81 mg once a day, Imdur 120 mg once a day, Lipitor 10 mg once a day, Lopressor 100 mg once a day. Obtain Plavix 75 mg once a day. Obtain chest CT and angio to rule out pulmonary embolism. Danilo Martines MD
[2017-12-06 07:03] VITALS: O2SAT 97
[2017-12-06 07:47] LABS: BASO # 0.05 K/mm3 (0.0-2.0); BASO % 0.7 % (0.0-3.0); EOS # 0.2 (0.0-0.7); EOS % 2.2 % (1.5-5.0); GRAN # 3.68 (1.4-6.5); GRAN % 48.6 % (50.0-68.0); HEMOGLOBIN 14.3 g/dL (14.0-18.0); LYMPH # 3.1 (1.2-3.4); LYMPH % 40.7 % (22.0-35.0); MEAN CORPUSCULAR HEMOGLOBIN 32.4 pg (25.0-35.0); MEAN PLATELET VOLUME 8.8 fl (7.0-11.0); MONO # 0.6 (0.1-0.6); MONO % 7.8 % (1.0-6.0); RBC 4.42 10^6/uL (3.5-6.1); RED CELL DISTRIBUTION WIDTH 13.2 % (11.5-14.5); WHITE BLOOD COUNT 7.6 10^3/ul (4.5-11.0)
[2017-12-06 08:16] LABS: ALB/GLOB RATIO 1.5 (1.1-1.8); ALBUMIN 4.1 g/dL (3.0-4.8); ALT/SGPT 49 U/L (7-56); AST/SGOT 31 U/L (17-59); BLOOD UREA NITROGEN 23 mg/dL (7-21); CALCIUM 9.2 mg/dL (8.4-10.5); GFR NON-AFRICAN AMERICAN > 60
[2017-12-06] MEDS: Oxycodone/Acetaminophen 5/325 mg Tab PO PRN ×2 (08:45→16:54)
--- NOTE | 2017-12-06 15:19 | NM ---
Date of service: 12/06/2017 COMPARISON: 12/02/2017 TECHNIQUE: 30.0 mCi technetium 99-m DTPA aerosol. 4.1 mCI technetium 99-m MAA administered intravenously. FINDINGS: VENTILATION COMPONENT: Normal. PERFUSION COMPONENT: Normal. IMPRESSION: Lowprobability ventilation perfusion scan for pulmonary embolism.
[2017-12-06 17:07] VITALS: BP 114/76; RESP 20; TEMP 98
--- NOTE | 2017-12-06 17:43 | CP.PCM.DIS ---
Provider - Provider Date of Admission: 12/04/17 10:12 Attending physician: Sandra Krishna MD Primary care physician: Justin Whiting MD Consults: Dr. Jamari Paiz Time Spent in preparation of Discharge (in minutes): 45 Hospital Course - Lab Results Lab Results: Most Recent Lab Values WBC 7.6 10^3/ul (4.5-11.0) 12/06/17 07:00 RBC 4.42 10^6/uL (3.5-6.1) 12/06/17 07:00 Hgb 14.3 g/dL (14.0-18.0) 12/06/17 07:00 Hct 43.3 % (42.0-52.0) 12/06/17 07:00 MCV 98.0 fl (80.0-105.0) 12/06/17 07:00 MCH 32.4 pg (25.0-35.0) 12/06/17 07:00 MCHC 33.0 g/dl (31.0-37.0) 12/06/17 07:00 RDW 13.2 % (11.5-14.5) 12/06/17 07:00 Plt Count 236 10^3/uL (120.0-450.0) 12/06/17 07:00 MPV 8.8 fl (7.0-11.0) 12/06/17 07:00 Gran % 48.6 % (50.0-68.0) L 12/06/17 07:00 Lymph % (Auto) 40.7 % (22.0-35.0) H 12/06/17 07:00 Deuel % (Auto) 7.8 % (1.0-6.0) H 12/06/17 07:00 Eos % (Auto) 2.2 % (1.5-5.0) 12/06/17 07:00 Baso % (Auto) 0.7 % (0.0-3.0) 12/06/17 07:00 Gran # 3.68 (1.4-6.5) 12/06/17 07:00 Lymph # (Auto) 3.1 (1.2-3.4) 12/06/17 07:00 Deuel # (Auto) 0.6 (0.1-0.6) 12/06/17 07:00 Eos # (Auto) 0.2 (0.0-0.7) 12/06/17 07:00 Baso # (Auto) 0.05 K/mm3 (0.0-2.0) 12/06/17 07:00 PT 11.4 SECONDS (9.4-12.5) 12/02/17 12:20 INR 0.99 12/02/17 12:20 APTT 27.0 Seconds (25.1-36.5) 12/02/17 12:20 D-Dimer, Quantitative < 200 ng/mlDDU (0-243) 12/03/17 11:00 Sodium 138 mmol/L (132-148) 12/06/17 07:00 Potassium 4.9 mmol/L (3.6-5.0) 12/06/17 07:00 Chloride 105 mmol/L (98-107) 12/06/17 07:00 Carbon Dioxide 26 mmol/L (21-33) 12/06/17 07:00 Anion Gap 12 (10-20) 12/06/17 07:00 BUN 23 mg/dL (7-21) H 12/06/17 07:00 Creatinine 1.1 mg/dl (0.8-1.5) 12/06/17 07:00 Est GFR ( Amer) > 60 12/06/17 07:00 Est GFR (Non-Af Amer) > 60 12/06/17 07:00 POC Glucose (mg/dL) 136 mg/dL (65-110) H 12/03/17 21:21 Random Glucose 129 mg/dL (70-110) H 12/06/17 07:00 Calcium 9.2 mg/dL (8.4-10.5) 12/06/17 07:00 Magnesium 2.0 mg/dL (1.7-2.2) 12/02/17 12:20 Total Bilirubin 0.4 mg/dL (0.2-1.3) 12/06/17 07:00 AST 31 U/L (17-59) 12/06/17 07:00 ALT 49 U/L (7-56) 12/06/17 07:00 Alkaline Phosphatase 92 U/L (38-126) 12/06/17 07:00 Lactate Dehydrogenase 403 U/L (333-699) 12/02/17 12:20 Total Creatine Kinase 63 U/L (35-230) 12/02/17 12:20 Troponin I < 0.01 ng/mL 12/03/17 00:40 Total Protein 6.9 g/dL (5.8-8.3) 12/06/17 07:00 Albumin 4.1 g/dL (3.0-4.8) 12/06/17 07:00 Globulin 2.8 gm/dL 12/06/17 07:00 Albumin/Globulin Ratio 1.5 (1.1-1.8) 12/06/17 07:00 Urine Opiates Screen Negative (NEGATIVE) 12/02/17 12:30 Urine Methadone Screen Negative (NEGATIVE) 12/02/17 12:30 Ur Barbiturates Screen Negative (NEGATIVE) 12/02/17 12:30 Ur Phencyclidine Scrn Negative (NEGATIVE) 12/02/17 12:30 Ur Amphetamines Screen Negative (NEGATIVE) 12/02/17 12:30 U Benzodiazepines Scrn Positive (NEGATIVE) H 12/02/17 12:30 U Oth Cocaine Metabols Negative (NEGATIVE) 12/02/17 12:30 U Cannabinoids Screen Negative (NEGATIVE) 12/02/17 12:30 Alcohol, Quantitative < 10 mg/dL (0-10) 12/02/17 13:20 - Hospital Course Hospital Course: Upon admission: Patient 52 year old male with a past medical history of COPD, anxiety, HTN, HLD, chronic back pain, alcohol abuse, substance abuse, and CAD s/p CABG 2012 who was admitted after presenting to the ED with complaints of 10/10 midsternal chest pain radiating to the left chest with associated left chest pressure. He reports that the pain has been persistent since leaving AMA on 11/29/2017, but worsened one night ago prompting him to present to the ED. Pain is constant, unchanged with rest or exertion. He was given Aspirin, Ketorolac 15mg IVP, nitro, and lorazepam 1 mg in the ED but did not experience relief. He has also had SOB, nausea, feeling lightheaded, dizziness, chills, generalized weakness, and palpitations. He has had decreased PO secondary to pain, but denies weight loss. Patient's last echo and stress test were performed 03/2017, resulting an EF of 65%. He notes feeling anxious, but denies any other symptoms at this time. Patient presented with similar symptoms on 11/24/2017 during which time he was admitted to tele and placed on CIWA protocol. Alcohol level was 151 upon admission. Cardiology was consulted, stress test was recommended, but patient refused numerous times despite complaining of pain. CT head was also ordered but resulted WNL. Psych evaluated pt, and he was found to have personality disorder with recommendation to continue anxiolytic medication regimen. Patient became agreeable to having stress test performed on 11/29/2017. Stress test was started, but he left AMA prior to nuclear imaging could be completed. Patient reports drinking 4 beers one night ago, but denies alcohol dependency. Hospital Course: 52 year old male admitted for midsternal chest pain radiating to the left chest. While in the ED, labs revealed hyperkalemia, which resolved after being given Kayexalate. Transaminitis was noted and monitored which resolved on repeat CMP likely due to alcohol use. EKG, CXR, and serial troponins were obtained in the ED. Cardiology was consulted. CXR resulted discoid atelectasis in left lung base. Troponins resulted WNL. Initial EKG resulted NSR with possible left atrial enlargement. Repeat EKG resulted NSR; small q waves 2,3,F; STTW changes c/w ischemia. During hospital stay, labs resulted showing acute kidney injury, likely secondary to Lisinopril. Patient was given fluids and Lisinopril was held, JESIKA resolved. Cardiology recommended starting patient on Imdur 120 mg once a day and Plavix 75 mg once a day, and CTA. Patient refused CTA, reporting that he had an allergy to dye so CT chest was performed. CT chest resulted multiple solid pulmonary nodules, less than 6mm in size, low risk with no f/u recommended. V/Q scan ordered and resulted benign. Patient denied cardiac catheterization. Symptoms of chest pain likely anxiety related, psychiatry was consulted. Psychiatry recommended that patient continue with current at home med ication regimen, and cleared him. Patient has a history of substance abuse and drug seeking behavior. He persistently complained of pain, unresolved with medications being given. Counseled on alcohol cessation. Counseled on smoking cessation. Patient seems to have drug seeking behavior. Patient refuses tests at times when warranted and states that he was not informed. Patient did this in prior ho spitalization extending his stay but left AMA during prior admission during stress test. Discharge plan: Patient is stable for discharge to home as per Dr. Em. He was counseled to return to the emergency department if symptoms return or worsen. Patient is to follow up with primary medical doctor, Dr. Justin Whiting, within 3-5 days of discharge. Patient is to follow up with cardiology, Dr. Walker within 3-5 days. Patient should resume Albuterol HFA, Alprazolam 0.5 mg PO BID PRN, simvastatin 20 mg PO daily, Metoprolol Tartrate 100 mg PO daily, Percocet 5/325 mg 1 tablet PO TID, Rizatriptan 10 mg as prescribed and instructed. Patient to begin Plavix 75 mg PO daily and Imdur 120 PO daily as prescribed and instructed in discharge instructions. Reviewed all medications with patient, and he understands instructions. Patient understands and agrees with discharge plan. Disclaimer: Written above is a synopsis of patients current hospital admission. For full admission refer to EMR. Discharge Exam - Head Exam Head Exam: ATRAUMATIC, NORMOCEPHALIC - Eye Exam Eye Exam: EOMI, Normal appearance - ENT Exam ENT Exam: Mucous Membranes Moist - Respiratory Exam Respiratory Exam: NORMAL BREATHING PATTERN. absent: Rales, Rhonchi, Wheezes, Respiratory Distress - Cardiovascular Exam Cardiovascular Exam: REGULAR RHYTHM, +S1, +S2 - GI/Abdominal Exam GI & Abdominal Exam: Normal Bowel Sounds, Soft. absent: Tenderness - Neurological Exam Neurological exam: Alert, CN II-XII Intact, Oriented x3 - Psychiatric Exam Psychiatric exam: Anxious, Normal Mood - Skin Skin Exam: Intact, Normal Color Discharge Plan - Discharge Medications Prescriptions: Albuterol HFA [Ventolin HFA 90 mcg/actuation (8 g)] 2 puff INH Q4 #30 inhaler ALPRAZolam [Xanax] 0.5 mg PO BID PRN 3 Days #6 tab PRN Reason: Anxiety Atorvastatin [Lipitor] 10 mg PO DIN #14 tab Clopidogrel [Plavix] 75 mg PO DAILY #14 tab Isosorbide Mononitrate [Imdur] 120 mg PO DAILY #14 tab Metoprolol Tartrate [Lopressor] 100 mg PO DAILY #14 tab Omeprazole 40 mg PO BID #14 capsule.dr oxyCODONE/Acetaminophen [Percocet 5/325 mg Tab] 1 tab PO BID PRN 3 Days #6 tab PRN Reason: Pain, Severe (8-10) Rizatriptan Benzoate [Rizatriptan] 10 mg PO DAILY PRN #14 tab.rapdis PRN Reason: Migraine Headache - Follow Up Plan Condition: FAIR Disposition: HOME/ ROUTINE Instructions: Quitting Smoking for Older Adults, Chest Pain (DC) Additional Instructions: 1. Patient is stable for discharge to home as per Dr. Em. 2. Patient is educated to follow up with primary medical doctor Dr. Kong within 3-5 days of discharge from hospital. Patient is to followup with Missile Inspector Dr. Walker within 3-5 days of discharge from hospital. 3. Patient has currently ran out of home medications. Patient will be written scripts for the following medications for a 2 week supply: Lipitor 10mg 14 pills once a day by mouth at night, Plavix 75mg 14 pills once a day by mouth, Imdur 120mg 14 pills once a day by mouth, Lopressor 100mg 14 pills once a day by mouth, Omeprazole 40mg 14 pills once a day by mouth, Rizatriptan 10mg 14 pills by mouth as needed. Patient will also be discharged with percocet and xanax for 3 days until he can follow up with primary medical doctor Dr. Kong. 4. Patient is educated to return to hospital if symptoms worsen or recur. Patient is educated to follow up with doctors outpatient as medications were adjusted. Referrals: Espinoza Walker MD [Staff Provider] - Justin Whiting MD [Primary Care Provider] -
--- NOTE | 2017-12-06 19:57 | US ---
HISTORY: Leg pain and swelling. Evaluate for DVT PHYSICIAN(S): Osiel Blanton MD. TECHNIQUE: Duplex sonography and color-flow Doppler with graded compression were used to evaluate the deep venous systems of both lower extremities. FINDINGS: The visualized deep venous systems of both lower extremities are sonographically normal and compressible. Normal wave forms and augmentation are seen. There is no sonographic evidence for deep venous thrombosis in the visualized segments of both lower extremities. IMPRESSION: No sonographic evidence for deep venous thrombosis in the visualized segments of both lower extremities.
[2017-12-06 20:09] VITALS: PULSE 85
--- NOTE | 2017-12-06 22:20 | PN ---
DATE: 12/06/2017 SUBJECTIVE: The patient is experiencing a steady chest discomfort and cough. PHYSICAL EXAMINATION: VITAL SIGNS: Blood pressure 116/56, heart rate 70, temperature 97.8, and respirations 18. HEENT: Head is normocephalic. CHEST: Minimal rhonchi. HEART: S1 and S2 regular. EXTREMITIES: Trace leg edema. LABORATORY DATA: Hemoglobin and hematocrit 14.3 and 43.3, white count 7.6, platelet count 236,000. Today's SMA-7 is within normal limits except for glucose of 129 and BUN of 23. Ventilation/perfusion scan, low probability for PE. Venous Doppler was performed and the report is still pending. Chest CT scan without contrast revealed marked pulmonary nodules that are less than 6 mm in size. ASSESSMENT: 1. Atypical chest pain. 2. Coronary artery disease with history of coronary artery bypass surgery in the past. 3. Chronic obstructive lung disease. 4. Ethyl alcohol abuse. RECOMMENDATIONS: Continue current conservative medical approach including aspirin 81 mg once a day, Imdur 120 mg once a day, Lipitor 10 mg once a day, Lopressor 100 mg once a day, Plavix 75 mg once a day. I will follow up venous Doppler of the lower extremity. Cardiac catheterization would not be justified in view of the patient's poor compliance and also given that the patient is allergic to radiocontrast agent and the fact that the patient's compliance with medications is very poor and any coronary intervention may result more harm to the patient, however, if the patient agrees for cardiac catheterization, we will contact Dr. Walker to perform it as the primary test skein winder. Danilo Martines MD
--- NOTE | 2017-12-06 22:47 | PN ---
DATE: 12/06/2017 Dr. Martines, who was seeing the patient, asked me to rethink cardiac catheterization because the patient is complaining of chest pain, though the patient ruled out for myocardial infarction. The patient initially refused, then agreed and then refused again. At this time, it looks like agreed, so scheduled for cardia catheterization on 12/08/2017 at 10:30. Discussed with the patient. The patient appears that he is willing for cardiac catheterization. We will inform Dr. Martines. We will also inform Dr. Em. Further recommendation depending upon cath finding. We will follow with you. We will keep n.p.o. after Wednesday midnight for cardiac catheterization on . If the patient is again schedule as outpatient. Thank you, Dr. Martines as well as Dr. Em, for providing us the opportunity in taking care of the patient, Donovan Tariq. Espinoza Walker MD
== END 2017-12-06 19:06 | disposition home or self-care (01) | DRG 543 ==
LOC: ED 11:47 → ERH 13:36 → 3RSO 16:53 → OBSVTOIN 12-04 10:12
PROVIDERS: ADMIT Internal Medicine; ATTEND Internal Medicine
DX: R07.9 Chest pain, unspecified (principal); N17.9 Acute kidney failure, unspecified; E87.5 Hyperkalemia; J44.9 Chronic obstructive pulmonary disease, unspecified; J98.11 Atelectasis; E78.5 Hyperlipidemia, unspecified; F10.10 Alcohol abuse, uncomplicated; F17.210 Nicotine dependence, cigarettes, uncomplicated; F41.0 Panic disorder [episodic paroxysmal anxiety]; F60.9 Personality disorder, unspecified; I10 Essential (primary) hypertension; I25.10 Atherosclerotic heart disease of native coronary artery without angina pectoris; K21.9 Gastro-esophageal reflux disease without esophagitis; T46.4X5A Adverse effect of angiotensin-converting-enzyme inhibitors, initial encounter; Y90.6 Blood alcohol level of 120-199 mg/100 ml; Z76.5 Malingerer [conscious simulation]; Z79.02 Long term (current) use of antithrombotics/antiplatelets; Z79.82 Long term (current) use of aspirin; Z80.0 Family history of malignant neoplasm of digestive organs; Z95.1 Presence of aortocoronary bypass graft; Z87.892 Personal history of anaphylaxis; Z91.010 Allergy to peanuts; Z91.013 Allergy to seafood; R74.0 Nonspecific elevation of levels of transaminase and lactic acid dehydrogenase [LDH]; G43.909 Migraine, unspecified, not intractable, without status migrainosus

== ENCOUNTER 2017-12-14 18:25 | Observation (INO) | payer OTHER ==
[2017-12-14 18:25] VITALS: BMI 31.4
[2017-12-14] MEDS ORDERED: Sodium Chloride 0.9% 500 ML IV STA (18:44)
--- NOTE | 2017-12-14 18:52 | ED PDOC ---
Arrival/HPI - General Time Seen by Provider: 12/14/17 18:31 Historian: Patient - History of Present Illness Narrative History of Present Illness (Text): 12/14/17 18:45 52 year old male with a past medical history of COPD, anxiety, HTN, HLD, chronic back pain, alcohol abuse, substance abuse, and CAD s/p CABG 2012, presents to the Emergency Department complaining of worsening chest pain since today. Patient informs similar symptoms in the past for which he was scheduled for an outpatient echo and cardiac catheterization on 12/09, however patient did not present to his scheduled appointment. Patient admits to significant alcohol use today to "numb the pain". Patient denies any associated shortness of breath, neck pain or back pain. Patient denies any fever, chills, nausea, vomiting, diarrhea, abdominal pain, headache, dizziness, dysuria, urinary symptoms, changes in bowel movement or any other complaints. PMD: Dr. Whiting Estate Manager: Dr. Walker Time/Duration: 24 hours Symptom Onset: Gradual Symptom Course: Unchanged Quality: Aching Activities at Onset: Light Context: Home Past Medical History - Provider Review Nursing Documentation Reviewed: Yes - Infectious Disease Hx of Infectious Diseases: None - Tetanus Immunization Tetanus Immunization: Unknown - Cardiac Hx Cardiac Disorders: Yes Hx Hypertension: Yes Other/Comment: cabg 2012 unsure of number of stents, athersclerosis, cad, mi - Pulmonary Hx Respiratory Disorders: Yes Hx Chronic Obstructive Pulmonary Disease (COPD): Yes Hx Pneumonia: Yes (in 7th grade) - Neurological Hx Neurological Disorder: Yes (syncope) Hx Migraine: Yes Other/Comment: Has history of migraine, does not get headaches a lot but has aura most of the time like. floaters - HEENT Hx HEENT Disorder: Yes (eyeglasses) - Renal Hx Renal Disorder: Yes Hx Kidney Stones: Yes - Endocrine/Metabolic Hx Endocrine Disorders: No - Hematological/Oncological Hx Blood Disorders: No - Integumentary Hx Dermatological Disorder: Yes Other/Comment: generalized red raised chronic body rash unknown origin "I have has it for years.", multiple tatoos, scratch li to lower legs from his dogs, bruising to abd from injections - Musculoskeletal/Rheumatological Hx Musculoskeletal Disorders: Yes Hx Back Pain: Yes Hx Falls: Yes (past) Hx Unsteady Gait: Yes (cane) - Gastrointestinal Hx Gastrointestinal Disorders: Yes (obese) Hx Gastroesophageal Reflux: Yes - Genitourinary/Gynecological Hx Genitourinary Disorders: Yes Hx Urinary Tract Infection: Yes Other/Comment: hydrocele with chronic testicular pain - Psychiatric Hx Psychophysiologic Disorder: Yes Hx Anxiety: Yes Hx Depression: No Hx Emotional Abuse: No Hx Physical Abuse: No Hx Substance Use: No - Surgical History Hx Appendectomy: Yes Hx Cardiac Catheterization: Yes Hx Open Heart Surgery: Yes - Anesthesia Hx Anesthesia: Yes Hx Anesthesia Reactions: No Hx Malignant Hyperthermia: No - Suicidal Assessment Feels Threatened In Home Enviroment: No Family/Social History - Physician Review Nursing Documentation Reviewed: Yes Family/Social History: No Known Family HX Smoking Status: Light Smoker < 10 Cigarettes Daily Hx Alcohol Use: Yes (occasional beer) Hx Substance Use: No Substance used: cocaine Hx Substance Use Treatment: No Allergies/Home Meds Allergies/Adverse Reactions: Allergies Iodinated Contrast- Oral and IV Dye Allergy (Verified 12/05/17 15:27) ANAPHYLAXIS Shellfish allergy peanut Allergy (Verified 12/02/17 12:01) ANAPHYLAXIS AND ANYTHING THAT IS DERIVED FROM ANY NUTS PER PATIENT. shellfish derived Allergy (Verified 12/02/17 12:01) ANAPHYLAXIS Bread at this facility Allergy (Intermediate, Uncoded 12/05/17 15:27) ANAPHYLAXIS Proccessed with nuts. Past reaction. Review of Systems - Review of Systems Constitutional: absent: Fevers Respiratory: absent: SOB, Cough Cardiovascular: Chest Pain. absent: HERNANDEZ Gastrointestinal: absent: Abdominal Pain, Diarrhea, Nausea, Vomiting Genitourinary Male: absent: Dysuria, Urinary Output Changes Musculoskeletal: absent: Back Pain, Neck Pain Neurological: absent: Headache, Dizziness Physical Exam Vital Signs Reviewed: Yes Vital Signs Temp Pulse Resp BP Pulse Ox 12/14/17 18:31 97.7 F 87 18 98/57 L 95 Temperature: Afebrile Blood Pressure: Normal Pulse: Regular Respiratory Rate: Normal Appearance: Positive for: Comfortable, Other (Alcohol smell on breath) Pain Distress: None Mental Status: Positive for: Alert and Oriented X 3 - Systems Exam Head: Present: Atraumatic, Normocephalic Pupils: Present: PERRL Extroacular Muscles: Present: EOMI Conjunctiva: Present: Normal Mouth: Present: Moist Mucous Membranes Neck: Present: Normal Range of Motion Respiratory/Chest: Present: Clear to Auscultation, Good Air Exchange. No: Respiratory Distress, Accessory Muscle Use Cardiovascular: Present: Regular Rate and Rhythm, Normal S1, S2. No: Murmurs Abdomen: No: Tenderness, Distention, Peritoneal Signs Back: Present: Normal Inspection Upper Extremity: Present: Normal Inspection. No: Cyanosis, Edema Lower Extremity: Present: Normal Inspection. No: Edema Neurological: Present: GCS=15, CN II-XII Intact, Speech Normal Skin: Present: Warm, Dry, Normal Color. No: Rashes Psychiatric: Present: Alert, Oriented x 3, Normal Insight, Normal Concentration Medical Decision Making ED Course and Treatment: 12/14/17 18:38 Impression: 52 year old male presents to the Emergency Department complaining of chest pain. Plan: -- Labs -- Chest X-ray -- Aspirin -- Nitroglycerin -- IV Fluids -- Reassess and disposition Prior Visits: Notes and results from previous visits were reviewed. Progress Notes: 12/14/17 18:38 EKG: Ordered, reviewed, and independently interpreted the EKG. Rate : 89 BPM Rhythm : NSR Interpretation : ST depression at V2 through V5. Similar to prior EKG. - RAD Interpretation Radiology Orders: 12/14/17 18:39 CHEST PORTABLE [RAD] Stat - Medication Orders Current Medication Orders: Sodium Chloride (Sodium Chloride 0.9%) 500 mls @ 999 mls/hr IV .Q31M STA Stop: 12/14/17 19:14 Discontinued Medications Aspirin (Aspirin Chewable) 324 mg PO STAT STA Stop: 12/14/17 18:39 Nitroglycerin (Nitrostat Sl Tab) 0.3 mg SL STAT STA Stop: 12/14/17 18:39 - Scribe Statement The provider has reviewed the documentation as recorded by the Scribe Omar Wick. All medical record entries made by the Scribe were at my direction and personally dictated by me. I have reviewed the chart and agree that the record accurately reflects my personal performance of the history, physical exam, medical decision making, and the department course for this patient. I have also personally directed, reviewed, and agree with the discharge instructions and disposition. Disposition/Present on Arrival - Present on Arrival Any Indicators Present on Arrival: No History of DVT/PE: No History of Uncontrolled Diabetes: No Urinary Catheter: No History Surgical Site Infection Following: None - Disposition Have Diagnosis and Disposition been Completed?: Yes Diagnosis: Chest pain Disposition: HOSPITALIZED Disposition Time: 18:31 Patient Plan: Observation Condition: FAIR Discharge Instructions (ExitCare): Chest Pain (ED)
[2017-12-14 19:50] LABS: BASO # 0.03 K/mm3 (0.0-2.0); BASO % 0.3 % (0.0-3.0); EOS # 0.1 (0.0-0.7); EOS % 1.2 % (1.5-5.0); GRAN # 5.01 (1.4-6.5); GRAN % 49.3 % (50.0-68.0); HEMOGLOBIN 14.8 g/dL (14.0-18.0); LYMPH # 4.3 (1.2-3.4); LYMPH % 42.3 % (22.0-35.0); MEAN CELL VOLUME 95.5 fl (80.0-105.0); MEAN CORPUSCULAR HEMOGLOBIN 33.4 pg (25.0-35.0); MEAN PLATELET VOLUME 8.8 fl (7.0-11.0); MONO # 0.7 (0.1-0.6); MONO % 6.9 % (1.0-6.0); RBC 4.43 10^6/uL (3.5-6.1); RED CELL DISTRIBUTION WIDTH 13.4 % (11.5-14.5); WHITE BLOOD COUNT 10.2 10^3/ul (4.5-11.0)
[2017-12-14 19:55] LABS: PARTIAL THROMBOPLASTIN TIME 25.3 Seconds (25.1-36.5); PROTHROMBIN TIME 11.4 SECONDS (9.4-12.5)
[2017-12-14 20:00] LABS: ALB/GLOB RATIO 1.3 (1.1-1.8); ALBUMIN 4.2 g/dL (3.0-4.8); ALT/SGPT 49 U/L (7-56); AST/SGOT 28 U/L (17-59); BLOOD UREA NITROGEN 14 mg/dL (7-21); CALCIUM 8.8 mg/dL (8.4-10.5); GFR NON-AFRICAN AMERICAN > 60
[2017-12-14 20:02] LABS: B-TYPE NATRIURETIC PEPTIDE 330 pg/mL (0-450); TROPONIN I < 0.01 ng/mL
--- NOTE | 2017-12-14 21:24 | CP.PCM.HP ---
<Alexandro Huerta - Last Filed: 12/14/17 22:12> History of Present Illness - History of Present Illness History of Present Illness: Alexandro Huerta, PGY-1 History and Physical for Hospitalist Service CC: Chest Pain HPI: Mr. Tariq is a 52 M with a past medical history of CAD s/p CABG 2012, substance and ETOH abuse, HTN, HLD, anxiety and COPD who was admitted after presenting with complaints of 12/15 midsternal chest pain radiating to the left chest with associated left chest pressure. He reports that the pain has been persistent for weeks but has worsened over past 4 days, prompting him to present to the ED. Pain is dull and constant, unchanged with rest or exertion. Pain was associated with SOB, nausea, feeling lightheaded, dizziness, chills, tingling in lower extremities, generalized weakness, and palpitations. He has had decreased PO secondary to pain, but denies weight loss. Patient's last echo and stress test were performed 03/2017, resulting an EF of 65%. He notes feeling anxious, but denies any other symptoms at this time. Patient was set for a cardiac cath on 12/09/[address] Walker but patient did not show up for procedure. Patient reports that he had unanswered questions and was thus unable to show up. PMHx: COPD, anxiety, HTN, chronic back pain, alcohol abuse, substance abuse, CAD s/p triple vessel CABG 2012, migraines; hydrocele with chronic testicular pain PSHx: triple vessel CABG in 2012; appendectomy Family hx: Mother- pancreatic cancer; Father- Cardiac history, patient unsure Social: alcohol: 6-8 beers/week, tobacco 1/2 pack per day, denies drug use Allergies: peanuts (anaphylaxis); shellfish (anaphylaxis) PMD: Dr. Whiting Cardio: Dr. Walker Present on Admission - Present on Admission Any Indicators Present on Admission: No Review of Systems - Review of Systems Review of Systems: 12 point ROS completed and negative except as described in HPI. Past Patient History - Infectious Disease Hx of Infectious Diseases: None - Tetanus Immunizations Tetanus Immunization: Unknown - Past Medical History & Family History Past Medical History?: Yes - Past Social History Smoking Status: Light Smoker < 10 Cigarettes Daily - CARDIAC Hx Cardiac Disorders: Yes Hx Hypertension: Yes Other/Comment: cabg 2013 unsure of number of stents, athersclerosis, cad, mi - PULMONARY Hx Respiratory Disorders: Yes Hx Chronic Obstructive Pulmonary Disease (COPD): Yes Hx Pneumonia: Yes (in 7th grade) - NEUROLOGICAL Hx Neurological Disorder: Yes (syncope) Hx Migraine: Yes Other/Comment: Has history of migraine, does not get headaches a lot but has aura most of the time like. floaters - HEENT Hx HEENT Problems: Yes (eyeglasses) - RENAL Hx Chronic Kidney Disease: Yes Hx Kidney Stones: Yes - ENDOCRINE/METABOLIC Hx Endocrine Disorders: No - HEMATOLOGICAL/ONCOLOGICAL Hx Blood Disorders: No - INTEGUMENTARY Hx Dermatological Problems: Yes Other/Comment: generalized red raised chronic body rash unknown origin "I have has it for years.", multiple tatoos, scratch li to lower legs from his dogs, bruising to abd from injections - MUSCULOSKELETAL/RHEUMATOLOGICAL Hx Musculoskeletal Disorders: Yes Hx Back Pain: Yes Hx Falls: Yes (past) Hx Unsteady Gait: Yes (cane) - GASTROINTESTINAL Hx Gastrointestinal Disorders: Yes (obese) Hx Gastroesophageal Reflux: Yes - GENITOURINARY/GYNECOLOGICAL Hx Genitourinary Disorders: Yes Hx Urinary Tract Infection: Yes Other/Comment: hydrocele with chronic testicular pain - PSYCHIATRIC Hx Psychophysiologic Disorder: Yes Hx Anxiety: Yes Hx Depression: No Hx Emotional Abuse: No Hx Physical Abuse: No Hx Substance Use: No - SURGICAL HISTORY Hx Appendectomy: Yes Hx Cardiac Catheterization: Yes Hx Open Heart Surgery: Yes - ANESTHESIA Hx Anesthesia: Yes Hx Anesthesia Reactions: No Hx Malignant Hyperthermia: No Meds Allergies/Adverse Reactions: Allergies Allergy/AdvReac Type Severity Reaction Status Date / Time Iodinated Contrast- Oral and Allergy ANAPHYLAXIS Verified 12/05/17 15:27 IV Dye peanut Allergy ANAPHYLAXIS Verified 12/02/17 12:01 shellfish derived Allergy ANAPHYLAXIS Verified 12/02/17 12:01 Bread at this facility Allergy Intermediate ANAPHYLAXIS Uncoded 12/05/17 15:27 Physical Exam - Additional Findings Additional findings: - Constitutional Appears: Non-toxic, No Acute Distress. Uncomfortable. - Head Exam Head Exam: NORMAL INSPECTION, NORMOCEPHALIC - Eye Exam Eye Exam: EOMI, Normal appearance. absent: Nystagmus, Scleral icterus - ENT Exam ENT Exam: Mucous Membranes Moist - Respiratory Exam Respiratory Exam: Clear to Auscultation Bilateral, NORMAL BREATHING PATTERN. absent: Rhonchi, Wheezes, Respiratory Distress - Cardiovascular Exam Cardiovascular Exam: REGULAR RHYTHM, +S1, +S2 - GI/Abdominal Exam GI & Abdominal Exam: Normal Bowel Sounds, Soft. Ecchymosis in RLQ likely due to heparin administration on previous admissions. Denies trauma to area. - Extremities Exam Extremities exam: Positive for: normal inspection. Negative for: calf tenderness, pedal edema - Back Exam Back exam: NORMAL INSPECTION - Neurological Exam Neurological exam: Alert, Oriented x3 - Psychiatric Exam Psychiatric exam: Normal Affect, Normal Mood - Skin Skin Exam: Intact, Normal Color Results - Vital Signs Recent Vital Signs: Last Vital Signs Temp 97.7 F 12/14/17 18:31 Pulse 87 12/14/17 18:31 Resp 18 12/14/17 18:31 BP 98/57 L 12/14/17 18:31 Pulse Ox 95 12/14/17 18:31 - Labs Result Diagrams: 12/14/17 19:20 12/14/17 19:20 Labs: Laboratory Results - last 24 hr 12/14/17 12/14/17 12/14/17 19:20 19:20 19:20 WBC 10.2 D RBC 4.43 Hgb 14.8 Hct 42.3 MCV 95.5 MCH 33.4 MCHC 35.0 RDW 13.4 Plt Count 306 MPV 8.8 Gran % 49.3 L Lymph % (Auto) 42.3 H [place] % (Auto) 6.9 H Eos % (Auto) 1.2 L Baso % (Auto) 0.3 Gran # 5.01 Lymph # (Auto) 4.3 H [place] # (Auto) 0.7 H Eos # (Auto) 0.1 Baso # (Auto) 0.03 PT 11.4 INR 1.00 APTT 25.3 Sodium 134 Potassium 3.8 Chloride 98 Carbon Dioxide 20 L Anion Gap 19 BUN 14 Creatinine 1.1 Est GFR ( Amer) > 60 Est GFR (Non-Af Amer) > 60 Random Glucose 118 H Calcium 8.8 Phosphorus 4.7 H Magnesium 1.8 Total Bilirubin 0.5 AST 28 ALT 49 Alkaline Phosphatase 106 Total Creatine Kinase 48 Troponin I < 0.01 NT-Pro-B Natriuret Pep 330 Total Protein 7.4 Albumin 4.2 Globulin 3.2 Albumin/Globulin Ratio 1.3 Alcohol, Quantitative 12/14/17 19:20 WBC RBC Hgb Hct MCV MCH MCHC RDW Plt Count MPV Gran % Lymph % (Auto) [place] % (Auto) Eos % (Auto) Baso % (Auto) Gran # Lymph # (Auto) [place] # (Auto) Eos # (Auto) Baso # (Auto) PT INR APTT Sodium Potassium Chloride Carbon Dioxide Anion Gap BUN Creatinine Est GFR ( Amer) Est GFR (Non-Af Amer) Random Glucose Calcium Phosphorus Magnesium Total Bilirubin AST ALT Alkaline Phosphatase Total Creatine Kinase Troponin I NT-Pro-B Natriuret Pep Total Protein Albumin Globulin Albumin/Globulin Ratio Alcohol, Quantitative 104 H Assessment & Plan - Assessment and Plan (Free Text) Assessment: Assessment: Patient is a 52 yo male with PMH of COPD, anxiety, HTN, HLD, chronic back pain, alcohol abuse, substance abuse, and CAD s/p CABG 2012 who was admitted after presenting to the ED with complaints of 10/10 midsternal chest pain radiating to the left chest with associated left chest pressure. Plan: Chest Pain r/o ACS Cardiology Consult - Dr. Walker consulted for recommendations EKG reviewed: NSR @[address] depressions in leads V2-V5. Compared to past EKG, no significant changes. Therefore no Hep drip warranted at this time. 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 Pt is to follow up outpatient to have repeat CT chest in 12 months Nicoderm patch HTN Metoprolol tartrate 100 mg PO daily, Amlodipine 10 mg, Lisinopril 40 mg - day team to follow up with pharmacy regarding suspected Metoprolol succinate instead of tartrate Transaminitis stable as on previous admission Likely 2/2 to alcohol use Observe for now, Will Monitor with CMP History of anxiety Hold Alprazolam 0.5 mg BID PRN for anxiety due to elevated blood ETOH Hx of HLD Simvastatin 20 mg PO DIN PPX GI- Omeprazole 40 mg BID DVT- Heparin 5000 q8 Patient seen, case reviewed and plan discussed with Dr. Lowery, attending. Alexandro Huerta, PGY-1 <Sonja Lowery - Last Filed: 12/14/17 23:49> Results - Vital Signs Recent Vital Signs: Last Vital Signs Temp 97.7 F 12/14/17 18:31 Pulse 86 12/14/17 22:20 Resp 18 12/14/17 22:59 BP 98/68 L 12/14/17 22:20 Pulse Ox 96 12/14/17 22:20 - Labs Result Diagrams: 12/14/17 19:20 12/14/17 19:20 Labs: Laboratory Results - last 24 hr 12/14/17 12/14/17 12/14/17 19:20 19:20 19:20 WBC 10.2 D RBC 4.43 Hgb 14.8 Hct 42.3 MCV 95.5 MCH 33.4 MCHC 35.0 RDW 13.4 Plt Count 306 MPV 8.8 Gran % 49.3 L Lymph % (Auto) 42.3 H [place] % (Auto) 6.9 H Eos % (Auto) 1.2 L Baso % (Auto) 0.3 Gran # 5.01 Lymph # (Auto) 4.3 H [place] # (Auto) 0.7 H Eos # (Auto) 0.1 Baso # (Auto) 0.03 PT 11.4 INR 1.00 APTT 25.3 Sodium 134 Potassium 3.8 Chloride 98 Carbon Dioxide 20 L Anion Gap 19 BUN 14 Creatinine 1.1 Est GFR ( Amer) > 60 Est GFR (Non-Af Amer) > 60 Random Glucose 118 H Calcium 8.8 Phosphorus 4.7 H Magnesium 1.8 Total Bilirubin 0.5 AST 28 ALT 49 Alkaline Phosphatase 106 Total Creatine Kinase 48 Troponin I < 0.01 NT-Pro-B Natriuret Pep 330 Total Protein 7.4 Albumin 4.2 Globulin 3.2 Albumin/Globulin Ratio 1.3 Urine Opiates Screen Urine Methadone Screen Ur Barbiturates Screen Ur Phencyclidine Scrn Ur Amphetamines Screen U Benzodiazepines Scrn U Oth Cocaine Metabols U Cannabinoids Screen Alcohol, Quantitative 12/14/17 12/14/17 19:20 21:00 WBC RBC Hgb Hct MCV MCH MCHC RDW Plt Count MPV Gran % Lymph % (Auto) [place] % (Auto) Eos % (Auto) Baso % (Auto) Gran # Lymph # (Auto) [place] # (Auto) Eos # (Auto) Baso # (Auto) PT INR APTT Sodium Potassium Chloride Carbon Dioxide Anion Gap BUN Creatinine Est GFR ( Amer) Est GFR (Non-Af Amer) Random Glucose Calcium Phosphorus Magnesium Total Bilirubin AST ALT Alkaline Phosphatase Total Creatine Kinase Troponin I NT-Pro-B Natriuret Pep Total Protein Albumin Globulin Albumin/Globulin Ratio Urine Opiates Screen Negative Urine Methadone Screen Negative Ur Barbiturates Screen Negative Ur Phencyclidine Scrn Negative Ur Amphetamines Screen Negative U Benzodiazepines Scrn Negative U Oth Cocaine Metabols Negative U Cannabinoids Screen Negative Alcohol, Quantitative 104 H Attending/Attestation - Attestation I have personally seen and examined this patient.: Yes I have fully participated in the care of the patient.: Yes I have reviewed all pertinent clinical information: Yes Notes (Text): 12/14/17 23:42 O/E pt has noJVD. Pt seen with resident by bedside. Case discussed in detail. Agree with documentation,assessment and plan of treatment.
[2017-12-14 21:26] LABS: OPIATES, UR NEGATIVE (NEGATIVE)
[2017-12-14] MEDS: Oxycodone/Acetaminophen 5/325 mg Tab PO PRN (21:26)
[2017-12-14 21:27] LABS: BARBITURATES, UR NEGATIVE (NEGATIVE); BENZODIAZEPINES, UR NEGATIVE (NEGATIVE); PHENCYCLIDINE, UR NEGATIVE (NEGATIVE)
[2017-12-14] MEDS ORDERED: Sodium Chloride 0.9% 1,000 ML IV SCH (22:00)
[2017-12-15] MEDS: Nitroglycerin 2% Ointment Foilpak UD TOP SCH ×5 (00:31→22:44)
[2017-12-15] MEDS: Oxycodone/Acetaminophen 5/325 mg Tab PO PRN ×2 (05:33→18:52)
--- NOTE | 2017-12-15 06:30 | CARD ---
APPROVED REPORT Date of service: 12/14/2017 EKG Measurement Heart [id number] 150P [id number] <Conclusion> Normal sinus rhythm Left posterior fascicular block Cannot rule out Inferior infarct, age undetermined Abnormal ECG
[2017-12-15 07:16] LABS: BASO # 0.05 K/mm3 (0.0-2.0); BASO % 0.6 % (0.0-3.0); EOS # 0.1 (0.0-0.7); EOS % 1.1 % (1.5-5.0); GRAN # 4.3 (1.4-6.5); GRAN % 49.4 % (50.0-68.0); HEMOGLOBIN 13.7 g/dL (14.0-18.0); LYMPH # 3.6 (1.2-3.4); LYMPH % 41.3 % (22.0-35.0); MEAN CELL VOLUME 96.9 fl (80.0-105.0); MEAN CORPUSCULAR HEMOGLOBIN 33.2 pg (25.0-35.0); MEAN CORPUSCULAR HGB CONC 34.3 g/dl (31.0-37.0); MEAN PLATELET VOLUME 8.7 fl (7.0-11.0); MONO # 0.7 (0.1-0.6); MONO % 7.6 % (1.0-6.0); RBC 4.13 10^6/uL (3.5-6.1); RED CELL DISTRIBUTION WIDTH 13.6 % (11.5-14.5); WHITE BLOOD COUNT 8.7 10^3/ul (4.5-11.0)
[2017-12-15 07:18] LABS: ALB/GLOB RATIO 1.2 (1.1-1.8); ALBUMIN 3.5 g/dL (3.0-4.8); ALT/SGPT 47 U/L (7-56); AST/SGOT 28 U/L (17-59); BLOOD UREA NITROGEN 17 mg/dL (7-21); CALCIUM 8.4 mg/dL (8.4-10.5); GFR NON-AFRICAN AMERICAN > 60; HDL CHOLESTEROL 26 mg/dL (29-60)
[2017-12-15 07:25] LABS: LDL CHOLESTEROL 91 mg/dL (0-129)
[2017-12-15 07:26] LABS: TROPONIN I < 0.01 ng/mL
[2017-12-15 07:31] LABS: FREE T4 1.38 ng/dL (0.78-2.19)
--- NOTE | 2017-12-15 08:36 | RAD ---
Date of service: 12/14/2017 HISTORY: chest pain COMPARISON: 12/02/2017 FINDINGS: LUNGS: No active pulmonary disease. PLEURA: No significant pleural effusion identified, no pneumothorax apparent. CARDIOVASCULAR: No radiographic findings to suggest acute or significant cardiovascular disease. Incidental Finding(s): Postoperative changes related to sternotomy. OSSEOUS STRUCTURES: No significant abnormalities. VISUALIZED UPPER ABDOMEN: Normal. OTHER FINDINGS: None. IMPRESSION: No active disease. No significant interval change compared to the prior examination(s).
--- NOTE | 2017-12-15 09:17 | CARD ---
APPROVED REPORT Date of service: 12/15/2017 EKG Measurement Heart [id number] <Conclusion> Normal sinus rhythm Possible Left atrial enlargement LVH. Nonspecific ST abnormality Abnormal ECG
[2017-12-15] MEDS: Multivitamin Therapeutic Tab PO SCH (11:14)
[2017-12-15] MEDS: Pantoprazole 40 mg EC Tab PO SCH ×2 (11:15→18:52)
--- NOTE | 2017-12-15 20:03 | CP.PCM.PN ---
Subjective - Date & Time of Evaluation Date of Evaluation: 12/15/17 Time of Evaluation: 11:15 - Subjective Subjective: INTERNAL MEDICINE PROGRESS NOTE FOR DR. JACOB Rodas D.O. PGY-1 Pt seen and examined at bedside this am with attending physician. He reports continued chest pain, however reports he is comfortable. Pt complaining that he is hungry and would like food. Pt agreed to undergo cardiac catheterization next am. Aware he will be NPO after midnight. Benefits, risks and alternatives of the procedure were explained in detail to the patient. He denies shortness of breath, palpitations, nausea, vomiting, headache, dizziness, constipation, diarrhea, dysuria. Objective - Vital Signs/Intake and Output Vital Signs (last 24 hours): Temp Pulse Resp BP Pulse Ox 97.8 F 96 H 20 139/84 98 12/15/17 12:00 12/15/17 18:00 12/15/17 12:00 12/15/17 12:00 12/15/17 06:00 Intake and Output: 12/15/17 12/16/17 18:59 06:59 Intake Total 1095 Output Total 800 Balance 295 - Medications Medications: Current Medications Alprazolam (Xanax) 0.5 mg PO BID PRN; Protocol PRN Reason: Anxiety Stop: 12/22/17 11:54 Last Admin: 12/15/17 11:59 Dose: 0.5 mg Amlodipine Besylate (Norvasc) 10 mg PO DAILY [facility] Last Admin: 12/15/17 11:14 Dose: 10 mg Aspirin (Aspirin Chewable) 81 mg PO DAILY [facility] Last Admin: 12/15/17 11:14 Dose: 81 mg Atorvastatin Calcium (Lipitor) 10 mg PO [facility] Clopidogrel Bisulfate (Plavix) 75 mg PO DAILY [facility] Last Admin: 12/15/17 11:16 Dose: 75 mg Fenofibrate (Tricor) 145 mg PO DAILY [facility] Last Admin: 12/15/17 11:14 Dose: 145 mg Folic Acid (Folic Acid) 1 mg PO DAILY [facility] Last Admin: 12/15/17 11:14 Dose: 1 mg Heparin Sodium (Porcine) (Heparin) 5,000 units SC Q8 [facility]; Protocol Last Admin: 12/15/17 14:15 Dose: 5,000 units Sodium Chloride (Sodium Chloride 0.9%) 1,000 mls @ 45 mls/hr IV .[id number] [facility] Last Admin: 12/14/17 22:11 Dose: 45 mls/hr Lisinopril (Zestril) 40 mg PO DAILY [facility] Last Admin: 12/15/17 11:15 Dose: 40 mg Metoprolol Tartrate (Lopressor) 100 mg PO DAILY [facility] Last Admin: 12/15/17 11:15 Dose: 100 mg Multivitamins (Thera Tab) 1 tab PO 0800 [facility] Last Admin: 12/15/17 11:14 Dose: 1 tab Nicotine (Nicoderm Cq) 1 patch TD DAILY [facility] Last Admin: 12/15/17 11:15 Dose: 1 patch Nitroglycerin (Nitro-Bid 2% Oint) 1 ea TOP Q6H [facility] Last Admin: 12/15/17 11:15 Dose: 1 ea Oxycodone/Acetaminophen (Percocet 5/325 Mg Tab) 1 tab PO BID PRN PRN Reason: Pain, severe (8-10) Stop: 12/17/17 21:11 Last Admin: 12/15/17 18:52 Dose: 1 tab Pantoprazole Sodium (Protonix Ec Tab) 40 mg PO BID [facility] Last Admin: 12/15/17 18:52 Dose: 40 mg Thiamine HCl (Vitamin B1 Tab) 50 mg PO DAILY [facility] Last Admin: 12/15/17 11:14 Dose: 50 mg - Labs Labs: 12/15/17 06:30 12/15/17 06:30 PT 11.4 SECONDS (9.4-12.5) 12/14/17 19:20 INR 1.00 12/14/17 19:20 APTT 25.3 Seconds (25.1-36.5) 12/14/17 19:20 - Constitutional Appears: Well, Non-toxic, No Acute Distress - Head Exam Head Exam: NORMAL INSPECTION, NORMOCEPHALIC - Eye Exam Eye Exam: EOMI, Normal appearance - ENT Exam ENT Exam: Mucous Membranes Moist, Normal Exam - Neck Exam Neck Exam: Normal Inspection - Respiratory Exam Respiratory Exam: Clear to Ausculation Bilateral, NORMAL BREATHING PATTERN - Cardiovascular Exam Cardiovascular Exam: REGULAR RHYTHM, +S1, +S2 - GI/Abdominal Exam GI & Abdominal Exam: Soft. absent: Tenderness - Extremities Exam Extremities Exam: Normal Inspection. absent: Calf Tenderness - Back Exam Back Exam: NORMAL INSPECTION - Neurological Exam Neurological Exam: Alert, Awake, Oriented x3 - Psychiatric Exam Psychiatric exam: Normal Affect, Normal Mood - Skin Skin Exam: Dry, Intact, Warm Assessment and Plan - Assessment and Plan (Free Text) Assessment: Patient is a 52 yo male with PMH of COPD, anxiety, HTN, HLD, chronic back pain, alcohol abuse, substance abuse, and CAD s/p CABG 2012 who was admitted after presenting to the ED with complaints of 10/10 midsternal chest pain radiating to the left chest with associated left chest pressure. Discussion was made with cardiology and PMD about cardiac catheterization. Pt agreed to procedure in am. Plan: Chest Pain r/o ACS Cardiology Consult - Dr. Walker consulted for recommendations NPO after midnight. Pt agreed to undergo cardiac cath in am EKG reviewed: NSR @[address] depressions in leads V2-V5. Compared to past EKG, no significant changes. Therefore no Hep drip warranted at this time. 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 Pt is to follow up outpatient to have repeat CT chest in 12 months Nicoderm patch HTN Metoprolol tartrate 100 mg PO daily, Amlodipine 10 mg, Lisinopril 40 mg - day team to follow up with pharmacy regarding suspected Metoprolol succinate instead of tartrate Transaminitis stable as on previous admission Likely 2/2 to alcohol use Observe for now, Will Monitor with CMP History of anxiety Hold Alprazolam 0.5 mg BID PRN for anxiety due to elevated blood ETOH Hx of HLD Simvastatin 20 mg PO DIN PPX GI- Omeprazole 40 mg BID DVT- Heparin 5000 q8 Case seen, examined and discussed with attending physician, Dr. Alcocer
--- NOTE | 2017-12-15 21:30 | CON ---
DATE: 12/15/2017 REASON FOR CONSULTATION: Chest pain, cardiac evaluation, is scheduled for cardiac catheterization past Wednesday, did not showup and refuse to have a cardiac catheterization, still refusing cardiac catheterization tomorrow. BRIEF CLINICAL HISTORY: This is a 52-year-old male with past medical history significant for coronary artery disease status post coronary artery bypass 5 years ago at [facility], COPD, history of alcohol abuse, history of tobacco abuse, ex-substance abuse who initially admitted last week on 12/02/[address] Martines's service, underwent a stress test, but incomplete, the patient did not complete the stress test. So, I have asked Dr. Martines at that time to see and scheduled for a cardiac catheterization. Discussed with the patient before, and the patient agreed, scheduled for cardiac catheterization for 12/13/2017, but the patient did not show and the patient refused to come for cardiac catheterization. PAST SURGICAL HISTORY: Significant for coronary artery disease, CABG on 01/11/2013 where the patient underwent DUONG (left internal mammary artery) to LAD and right internal mammary artery (JOSE) to OM1 and SVG to RPD by Dr. Stafford dated 01/11/2013 at [facility]. Other surgical history is significant for appendectomy. RECENT CARDIAC WORKUP: As follows; the patient underwent a stress test, but did not complete the whole stress test. Recent echo on 04/06/2017 revealed ejection fraction 65%, trace aortic regurgitation, mild mitral regurgitation, mild tricuspid regurgitation, RV systolic pressure 19, trace pulmonary insufficiency, ejection fraction 65% dated . CURRENT MEDICATIONS: The patient is taking at home; oxycodone, acetaminophen, rizatriptan, omeprazole, Lopressor 100 mg daily, isosorbide 120 mg daily, Plavix 75 mg daily, atorvastatin 10 mg daily, aspirin 81 mg daily, albuterol metered dose inhaler. ALLERGIES: IODINE CONTRAST, PEANUT, SHELLFISH, AND BREAD AT [facility]. SOCIAL HISTORY: Claims that he quit smoking and quit drinking. REVIEW OF SYSTEMS: As per HPI. PHYSICAL EXAMINATION: VITAL SIGNS: Height of the patient is 5 feet 8 inches, weight of the patient is 176 pounds, body mass index 27 kg/m2. Rest of examination, temperature afebrile, heart rate 78, blood pressure 119/60. HEENT: PERRLA. Extraocular muscles intact. NECK: Supple. No carotid bruits or thyromegaly. CHEST: Clear to auscultation. HEART: S1 and S2, regular. ABDOMEN: Soft. EXTREMITIES: Clubbing and cyanosis negative. LABORATORY DATA: Blood workup as follows: WBC 8.7, hemoglobin 13.7, hematocrit 40, platelet count 234. Chemistry shows sodium 135, potassium 3.9, chloride 105, carbon dioxide 23, anion gap of 12, BUN 17, creatinine 0.9. Troponin is 0.01 negative. EKG showed normal sinus, left ____ AV block, inferior [place] of undermined age. IMPRESSION: A 52-year-old male with past medical history for coronary artery disease, nonischemic status post coronary artery bypass surgery on 01/11/2013, three-vessels left internal mammary artery to left anterior descending coronary artery and right internal mammary artery to obtuse marginal 1 and saphenous vein graft to right posterior descending artery, multiple admission with chest pain, recently admitted to Dr. Martines's service underwent a stress test, but could not complete and get out of the camera. Multiple admissions for chest pain, so I asked Dr. Martines to schedule cardiac catheterization which the patient was schedule for cardiac catheterization for 12/13/2017, but patient did not showup and refuse to come. Again the patient admitted, discussed at length 15 minutes time 2 sitting, wanted to give every detail, because he say that he completely forgot at that time cardiac catheterization because at that time he was under anesthesia and did not recall the cardiac catheterization, but at the same time also said that last time cardiac catheterization hurt him like hell and does not want to go again to the hell, wanted to treat of, give panic medications and pain medication before cardiac catheterization. Also want to guarantee that no complication will happen and that he will not . Explained in length, explained the risks including infection, bleeding, heart attack, stroke limited including , but not limited to. The patient does not want any complications, so preferred not to have the cardiac catheterization. We will discuss with Dr. Alcocer and if the patient does not want a cardiac catheterization, we will sign off the case and possible discharge. Discussed with the patient. We will follow with you. Thank you, Dr. Alcocer, for providing us the opportunity in taking care of the patient, Donovan Tariq. Espinoza Walker MD
[2017-12-16 01:20] VITALS: RESP 16
[2017-12-16] MEDS: Oxycodone/Acetaminophen 5/325 mg Tab PO PRN (03:24)
--- NOTE | 2017-12-16 05:00 | CP.PCM.PN ---
Subjective - Date & Time of Evaluation Date of Evaluation: 12/16/17 - Subjective Subjective: INTERNAL MEDICINE PROGRESS NOTE FOR DR. JACOB Rodas D.O. PGY-1 Pt seen and examined at bedside this am. Pt is NPO past midnight. Pt agreed yesterday to undergo cardiac catheterization. Scheduled today for procedure. Objective - Vital Signs/Intake and Output Vital Signs (last 24 hours): Temp Pulse Resp BP Pulse Ox 98.6 F 82 16 118/75 95 12/16/17 00:01 12/16/17 02:00 12/16/17 00:01 12/16/17 00:01 12/16/17 00:01 Intake and Output: 12/15/17 12/16/17 18:59 06:59 Intake Total 1095 Output Total 800 Balance 295 - Medications Medications: Current Medications Alprazolam (Xanax) 0.5 mg PO BID PRN; Protocol PRN Reason: Anxiety Stop: 12/22/17 11:54 Last Admin: 12/15/17 21:11 Dose: 0.5 mg Amlodipine Besylate (Norvasc) 10 mg PO DAILY [facility] Last Admin: 12/15/17 11:14 Dose: 10 mg Aspirin (Aspirin Chewable) 81 mg PO DAILY [facility] Last Admin: 12/15/17 11:14 Dose: 81 mg Atorvastatin Calcium (Lipitor) 10 mg PO HS [facility] Last Admin: 12/15/17 22:44 Dose: 10 mg Clopidogrel Bisulfate (Plavix) 75 mg PO DAILY [facility] Last Admin: 12/15/17 11:16 Dose: 75 mg Fenofibrate (Tricor) 145 mg PO DAILY [facility] Last Admin: 12/15/17 11:14 Dose: 145 mg Folic Acid (Folic Acid) 1 mg PO DAILY [facility] Last Admin: 12/15/17 11:14 Dose: 1 mg Heparin Sodium (Porcine) (Heparin) 5,000 units SC Q8 [facility]; Protocol Last Admin: 12/15/17 22:49 Dose: Not Given Lisinopril (Zestril) 40 mg PO DAILY [facility] Last Admin: 12/15/17 11:15 Dose: 40 mg Metoprolol Tartrate (Lopressor) 100 mg PO DAILY [facility] Last Admin: 12/15/17 11:15 Dose: 100 mg Multivitamins (Thera Tab) 1 tab PO 0800 [facility] Last Admin: 12/15/17 11:14 Dose: 1 tab Nicotine (Nicoderm Cq) 1 patch TD DAILY [facility] Last Admin: 12/15/17 11:15 Dose: 1 patch Nitroglycerin (Nitro-Bid 2% Oint) 1 ea TOP Q6H [facility] Last Admin: 12/15/17 22:44 Dose: 1 ea Oxycodone/Acetaminophen (Percocet 5/325 Mg Tab) 1 tab PO BID PRN PRN Reason: Pain, severe (8-10) Stop: 12/17/17 21:11 Last Admin: 12/16/17 03:24 Dose: 1 tab Pantoprazole Sodium (Protonix Ec Tab) 40 mg PO BID [facility] Last Admin: 12/15/17 18:52 Dose: 40 mg Thiamine HCl (Vitamin B1 Tab) 50 mg PO DAILY [facility] Last Admin: 12/15/17 11:14 Dose: 50 mg - Labs Labs: 12/15/17 06:30 12/15/17 06:30 PT 11.4 SECONDS (9.4-12.5) 12/14/17 19:20 INR 1.00 12/14/17 19:20 APTT 25.3 Seconds (25.1-36.5) 12/14/17 19:20 - Constitutional Appears: Well, Non-toxic, No Acute Distress - Head Exam Head Exam: NORMAL INSPECTION, NORMOCEPHALIC - Eye Exam Eye Exam: EOMI, Normal appearance - ENT Exam ENT Exam: Mucous Membranes Moist, Normal Exam - Neck Exam Neck Exam: Normal Inspection. absent: Meningismus - Respiratory Exam Respiratory Exam: Clear to Ausculation Bilateral, NORMAL BREATHING PATTERN - Cardiovascular Exam Cardiovascular Exam: REGULAR RHYTHM, +S1, +S2 - GI/Abdominal Exam GI & Abdominal Exam: Soft. absent: Distended, Tenderness - Extremities Exam Extremities Exam: Normal Inspection. absent: Calf Tenderness - Back Exam Back Exam: NORMAL INSPECTION. absent: CVA tenderness (L), CVA tenderness (R) - Neurological Exam Neurological Exam: Alert, Awake, CN II-XII Intact, Oriented x3 - Psychiatric Exam Psychiatric exam: Normal Affect, Normal Mood - Skin Skin Exam: Dry, Intact, Warm Assessment and Plan - Assessment and Plan (Free Text) Assessment: Patient is a 52 yo male with PMH of CAD s/p CABG 2012 ([facility] to [facility]), COPD, anxiety, HTN, HLD, chronic back pain, alcohol abuse, substance abuse, and who was admitted after presenting to the ED with complaints of 10/10 midsternal chest pain radiating to the left chest with associated left chest pressure. Discussion was made with cardiology and PMD about cardiac catheterization. Pt initially disagreed on day of admission for cardiac catheterization. Upon further discussion, patient agreed to undergo cardiac ca theterization procedure for today am. Extensive discussion at length about indications, risks, benefits, alternatives of cardiac catheterization were discussed with patient. He has been NPO past midnight. Plan: Chest Pain r/o ACS Cardiology Consult - Dr. Walker consulted for recommendations NPO after midnight. Pt agreed to undergo cardiac cath in am. Was previously scheduled for cardiac cath 12/13/17 but did not show up. Extensive explanation given to patient of risks of cardiac cath, including infection, bleeding, heart attack, stroke, . Benefits of procedure explained, including increased visual of coronary anatomy. Pt agreed to pro cedure after extensive discussion. EKG reviewed: NSR @[address]ressions in leads V2-V5. Compared to past EKG, no significant changes. Therefore no Hep drip warranted at this time. 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 CIWA q4 Ativan 1 q6 PRN Continue nicotine patch Continue folic acid 1mg po Continue thiamine 50mg po Continue multivitamin replacement HTN Continue Amlodipine 10 mg Continue Metoprolol tartrate 100 mg PO qd Continue Lisinopril 40 mg day team to follow up with pharmacy regarding suspected Metoprolol succinate instead of tartrate Transaminitis stable as on previous admission Likely 2/2 to alcohol use Observe for now, Will Monitor with CMP History of anxiety Hold Alprazolam 0.5 mg BID PRN for anxiety Hx of HLD Continue Atorvastatin 10 mg PO DIN Continue fenofibrate 145mg Hx of lung nodules CT chest (11/2017) showed multiple lung nodules. Pt is to follow up outpatient to have repeat CT chest in 12 months PPX GI- Omeprazole 40 mg BID DVT- Heparin SC 5000 q8 Case seen, examined and discussed with attending physician, Dr. Alcocer
[2017-12-16] MEDS: Nitroglycerin 2% Ointment Foilpak UD TOP SCH ×2 (06:06→12:19)
[2017-12-16 06:21] VITALS: TEMP 98; O2SAT 97
[2017-12-16] MEDS ORDERED: Sodium Chloride 0.9% 1,000 ML IV SCH (06:30)
[2017-12-16 07:53] LABS: BASO # 0.02 K/mm3 (0.0-2.0); BASO % 0.3 % (0.0-3.0); EOS # 0.1 (0.0-0.7); GRAN # 3.09 (1.4-6.5); GRAN % 50.8 % (50.0-68.0); LYMPH # 2.4 (1.2-3.4); MEAN CELL VOLUME 95.6 fl (80.0-105.0); MEAN CORPUSCULAR HEMOGLOBIN 32.3 pg (25.0-35.0); MEAN CORPUSCULAR HGB CONC 33.8 g/dl (31.0-37.0); MEAN PLATELET VOLUME 8.7 fl (7.0-11.0); MONO # 0.4 (0.1-0.6); MONO % 6.9 % (1.0-6.0); RBC 4.33 10^6/uL (3.5-6.1); RED CELL DISTRIBUTION WIDTH 13.3 % (11.5-14.5); WHITE BLOOD COUNT 6.1 10^3/ul (4.5-11.0)
[2017-12-16 08:12] LABS: ALB/GLOB RATIO 1.3 (1.1-1.8); ALBUMIN 3.8 g/dL (3.0-4.8); ALT/SGPT 43 U/L (7-56); AST/SGOT 26 U/L (17-59); BLOOD UREA NITROGEN 14 mg/dL (7-21); CALCIUM 8.7 mg/dL (8.4-10.5); GFR NON-AFRICAN AMERICAN > 60
[2017-12-16] MEDS: Pantoprazole 40 mg EC Tab PO SCH (09:33)
--- NOTE | 2017-12-16 09:34 | CP.PCM.PN ---
Subjective - Date & Time of Evaluation Date of Evaluation: 12/16/17 Time of Evaluation: 06:20 - Subjective Subjective: Awake, alert, anxious, denies chest pain, denies shortness of breath Reason for consultation and follow up:Cardiac evaluation of chest pain, history of coronary artery disease, post CABG 2013, substance and alcohol abuse, hypertension Seen and examined by me and Dr. Walker Objective - Vital Signs/Intake and Output Vital Signs (last 24 hours): Temp Pulse Resp BP Pulse Ox 98 F 80 16 143/83 97 12/16/17 06:00 12/16/17 06:00 12/16/17 06:00 12/16/17 06:00 12/16/17 06:00 Intake and Output: 12/16/17 12/16/17 06:59 18:59 Intake Total 1855 Output Total 800 Balance 1055 - Medications Medications: Current Medications Alprazolam (Xanax) 0.5 mg PO BID PRN; Protocol PRN Reason: Anxiety Stop: 12/22/17 11:54 Last Admin: 12/16/17 06:05 Dose: 0.5 mg Amlodipine Besylate (Norvasc) 10 mg PO DAILY [facility] Last Admin: 12/15/17 11:14 Dose: 10 mg Aspirin (Aspirin Chewable) 81 mg PO DAILY [facility] Last Admin: 12/15/17 11:14 Dose: 81 mg Atorvastatin Calcium (Lipitor) 10 mg PO HS [facility] Last Admin: 12/15/17 22:44 Dose: 10 mg Clopidogrel Bisulfate (Plavix) 75 mg PO DAILY [facility] Last Admin: 12/15/17 11:16 Dose: 75 mg Fenofibrate (Tricor) 145 mg PO DAILY [facility] Last Admin: 12/15/17 11:14 Dose: 145 mg Folic Acid (Folic Acid) 1 mg PO DAILY [facility] Last Admin: 12/15/17 11:14 Dose: 1 mg Heparin Sodium (Porcine) (Heparin) 5,000 units SC Q8 [facility]; Protocol Last Admin: 12/16/17 06:04 Dose: Not Given Sodium Chloride (Sodium Chloride 0.9%) 1,000 mls @ 45 mls/hr IV .[id number] [facility] Last Admin: 12/16/17 06:40 Dose: Not Given Lisinopril (Zestril) 40 mg PO DAILY [facility] Last Admin: 12/15/17 11:15 Dose: 40 mg Metoprolol Tartrate (Lopressor) 100 mg PO DAILY [facility] Last Admin: 12/15/17 11:15 Dose: 100 mg Multivitamins (Thera Tab) 1 tab PO 0800 [facility] Last Admin: 12/15/17 11:14 Dose: 1 tab Nicotine (Nicoderm Cq) 1 patch TD DAILY [facility] Last Admin: 12/16/17 06:05 Dose: 1 patch Nitroglycerin (Nitro-Bid 2% Oint) 1 ea TOP Q6H [facility] Last Admin: 12/16/17 06:06 Dose: 1 ea Oxycodone/Acetaminophen (Percocet 5/325 Mg Tab) 1 tab PO BID PRN PRN Reason: Pain, severe (8-10) Stop: 12/17/17 21:11 Last Admin: 12/16/17 03:24 Dose: 1 tab Pantoprazole Sodium (Protonix Ec Tab) 40 mg PO BID [facility] Last Admin: 12/15/17 18:52 Dose: 40 mg Thiamine HCl (Vitamin B1 Tab) 50 mg PO DAILY [facility] Last Admin: 12/15/17 11:14 Dose: 50 mg - Labs Labs: 12/16/17 07:00 12/16/17 07:00 PT 11.4 SECONDS (9.4-12.5) 12/14/17 19:20 INR 1.00 12/14/17 19:20 APTT 25.3 Seconds (25.1-36.5) 12/14/17 19:20 - Constitutional Appears: Non-toxic, No Acute Distress - Head Exam Head Exam: NORMAL INSPECTION, NORMOCEPHALIC - ENT Exam ENT Exam: Mucous Membranes Dry - Respiratory Exam Respiratory Exam: Decreased Breath Sounds, Clear to Ausculation Bilateral, NORMAL BREATHING PATTERN - Cardiovascular Exam Cardiovascular Exam: REGULAR RHYTHM, +S1, +S2 Additional comments: telemetry NSR 70's denies chest pain - GI/Abdominal Exam GI & Abdominal Exam: Soft, Normal Bowel Sounds - Extremities Exam Extremities Exam: Full ROM, Normal Capillary Refill - Neurological Exam Neurological Exam: Alert, Awake, Oriented x3 - Psychiatric Exam Psychiatric exam: Anxious - Skin Skin Exam: Dry, Intact, Normal Color, Warm Assessment and Plan - Assessment and Plan (Free Text) Assessment: A 52 year old male who came in to the ER due to midsternal chest pain. He was scheduled to have cardiac cath 12/09/17 but did not show up. History of coronary artery disease, post CABG 2012 (DUONG to [facility], JOSE to [facility], SVG to [facility] ) hypertension,hyperlipidemia, anxiety,COPD, chronic back pain, migraines,hydrocele with chronic testicular pain, substance and alcohol abuse. Unstable angina. Troponin normal x 3. EKG normal sinus rhythm,left post fascicular block. Refusing cardiac catheterization. After extensive explanation, agreed to procedure. Plan: Supposedly for cardiac catheterization today but patient ate Procedure cancelled, patient refusing procedure Explained extensively the benefits of having cardiac catheterization, questions and concerns answered Patient is very concern about pain and anxiety medications Denies chest pain,denies shortness of breath,anxious Heart rate and blood pressure stable Blood alcohol level elevated Watch out for withdrawal symptoms Continue current medications Continue current treatment Chart reviewed Will follow up Plan and treatment discussed with Dr. Walker
[2017-12-16 09:39] VITALS: BP 143/89; PULSE 83
[2017-12-16] MEDS: Multivitamin Therapeutic Tab PO SCH (09:41)
--- NOTE | 2017-12-16 20:17 | CP.PCM.DIS ---
Provider - Provider Date of Admission: 12/14/17 20:10 Attending physician: Alina Alcocer DO Consults: Cardiology: Dr. Walker Time Spent in preparation of Discharge (in minutes): 45 Hospital Course - Lab Results Lab Results: Most Recent Lab Values WBC 6.1 10^3/ul (4.5-11.0) D 12/16/17 07:00 RBC 4.33 10^6/uL (3.5-6.1) 12/16/17 07:00 Hgb 14.0 g/dL (14.0-18.0) 12/16/17 07:00 Hct 41.4 % (42.0-52.0) L 12/16/17 07:00 MCV 95.6 fl (80.0-105.0) 12/16/17 07:00 MCH 32.3 pg (25.0-35.0) 12/16/17 07:00 MCHC 33.8 g/dl (31.0-37.0) 12/16/17 07:00 RDW 13.3 % (11.5-14.5) 12/16/17 07:00 Plt Count 222 10^3/uL (120.0-450.0) 12/16/17 07:00 MPV 8.7 fl (7.0-11.0) 12/16/17 07:00 Gran % 50.8 % (50.0-68.0) 12/16/17 07:00 Lymph % (Auto) 40.0 % (22.0-35.0) H 12/16/17 07:00 Brown % (Auto) 6.9 % (1.0-6.0) H 12/16/17 07:00 Eos % (Auto) 2.0 % (1.5-5.0) 12/16/17 07:00 Baso % (Auto) 0.3 % (0.0-3.0) 12/16/17 07:00 Gran # 3.09 (1.4-6.5) 12/16/17 07:00 Lymph # (Auto) 2.4 (1.2-3.4) 12/16/17 07:00 Brown # (Auto) 0.4 (0.1-0.6) 12/16/17 07:00 Eos # (Auto) 0.1 (0.0-0.7) 12/16/17 07:00 Baso # (Auto) 0.02 K/mm3 (0.0-2.0) 12/16/17 07:00 PT 11.4 SECONDS (9.4-12.5) 12/14/17 19:20 INR 1.00 12/14/17 19:20 APTT 25.3 Seconds (25.1-36.5) 12/14/17 19:20 Sodium 139 mmol/L (132-148) 12/16/17 07:00 Potassium 4.1 mmol/L (3.6-5.0) 12/16/17 07:00 Chloride 106 mmol/L (98-107) 12/16/17 07:00 Carbon Dioxide 24 mmol/L (21-33) 12/16/17 07:00 Anion Gap 13 (10-20) 12/16/17 07:00 BUN 14 mg/dL (7-21) 12/16/17 07:00 Creatinine 0.8 mg/dl (0.8-1.5) 12/16/17 07:00 Est GFR ( Amer) > 60 12/16/17 07:00 Est GFR (Non-Af Amer) > 60 12/16/17 07:00 Random Glucose 108 mg/dL (70-110) 12/16/17 07:00 Hemoglobin A1c 5.8 % (4.2-6.5) 12/15/17 06:30 Calcium 8.7 mg/dL (8.4-10.5) 12/16/17 07:00 Phosphorus 4.3 mg/dL (2.5-4.5) 12/16/17 07:00 Magnesium 2.2 mg/dL (1.7-2.2) 12/16/17 07:00 Total Bilirubin 0.4 mg/dL (0.2-1.3) 12/16/17 07:00 AST 26 U/L (17-59) 12/16/17 07:00 ALT 43 U/L (7-56) 12/16/17 07:00 Alkaline Phosphatase 100 U/L (38-126) 12/16/17 07:00 Total Creatine Kinase 48 U/L (35-230) 12/14/17 19:20 Troponin I < 0.01 ng/mL 12/15/17 06:30 NT-Pro-B Natriuret Pep 330 pg/mL (0-450) 12/14/17 19:20 Total Protein 6.8 g/dL (5.8-8.3) 12/16/17 07:00 Albumin 3.8 g/dL (3.0-4.8) 12/16/17 07:00 Globulin 3.0 gm/dL 12/16/17 07:00 Albumin/Globulin Ratio 1.3 (1.1-1.8) 12/16/17 07:00 Triglycerides 786 mg/dL (35-160) H 12/15/17 06:30 Cholesterol 201 mg/dL (130-200) H 12/15/17 06:30 LDL Cholesterol Direct 91 mg/dL (0-129) 12/15/17 06:30 HDL Cholesterol 26 mg/dL (29-60) L 12/15/17 06:30 Free T4 1.38 ng/dL (0.78-2.19) 12/15/17 06:30 TSH 3rd Generation 1.67 mIU/mL (0.46-4.68) 12/15/17 06:30 Urine Opiates Screen Negative (NEGATIVE) 12/14/17 21:00 Urine Methadone Screen Negative (NEGATIVE) 12/14/17 21:00 Ur Barbiturates Screen Negative (NEGATIVE) 12/14/17 21:00 Ur Phencyclidine Scrn Negative (NEGATIVE) 12/14/17 21:00 Ur Amphetamines Screen Negative (NEGATIVE) 12/14/17 21:00 U Benzodiazepines Scrn Negative (NEGATIVE) 12/14/17 21:00 U Oth Cocaine Metabols Negative (NEGATIVE) 12/14/17 21:00 U Cannabinoids Screen Negative (NEGATIVE) 12/14/17 21:00 Alcohol, Quantitative 104 mg/dL (0-10) H 12/14/17 19:20 - Hospital Course Hospital Course: Mr. Tariq is a 52 M with a past medical history of CAD s/p CABG 2012, substance and ETOH abuse, HTN, HLD, anxiety and COPD who was admitted after presenting with complaints of 1010 midsternal chest pain radiating to the left chest with associated left chest pressure. He reports that the pain has been persistent for weeks but has worsened over past 4 days, prompting him to present to the ED. Pain is dull and constant, unchanged with rest or exertion. Pain was associated with SOB, nausea, feeling lightheaded, dizziness, chills, tingling in lower extremities, generalized weakness, and palpitations. He has had decreased PO secondary to pain, but denies weight loss. Patient's last echo and stress test were performed 03/2017, resulting an EF of 65%. He notes feeling anxious, but denies any other symptoms at this time. Patient was set for a cardiac cath on 12/09/[address] Walker but patient did not show up for procedure. Patient reports that he had unanswered questions and was thus unable to show up. Pt was admitted to telemetry floor and restarted on home medications. R/o ACS protocol was conducted, which included serial troponin measurements and serial EKGs. Dr. Walker from cardiology was consulted for his recommendations. On day of admission, pt was evaluated by cardiology and pt was recommended cardiac catheterization. Extensive discussion about the procedure was done with the patient. Pt had refused cardiac catheterization recommendation by Dr. Walker initially. Upon further discussion with primary team, pt agreed to cardiac catheterization and agreed to be on NPO diet past midnight for the procedure. Pt was placed on schedule to undergo procedure. The next am, nursing staff had reported that pt had ate at midnight and was demanding "double portions" breakfast. He had refused the cardiac catheterization that morning again, and demanded meals and pain medications. Per nursing staff, patient was verbally abusive towards staff. Pt was advised again the next morning that a cardiac catheterization was recommended by cardiology. Several extensive discussions were done with the patient regarding details of cardiac catheterization. Indications, benefits, risks and alternatives were explained in great length to the patient. Pt responded again the he was agreeable to the procedure. Later during the hospital stay, on 12/16/2017, pt was found not to be in his room. Nursing staff reported that patient had eloped. No chance was given to explain risks of signing out against medical advice. Physical exam was not able to be performed because patient had eloped - Date & Time of H&P Date of H&P: 12/14/17 Time of H&P: 21:08 Discharge Exam - Head Exam Head Exam: NORMAL INSPECTION, NORMOCEPHALIC Discharge Plan - Discharge Medications Prescriptions: Fenofibrate [Tricor] 145 mg PO DAILY #14 tab - Follow Up Plan Condition: FAIR Disposition: ELOPED FROM NURSING UNIT Instructions: Quitting Smoking Additional Instructions: Please follow up with your primary care doctor within 3-5 days. Please discuss all medical issues addressed during your admission. Please follow up with your automobile service writer within 3-5 days. Please discuss all medical issues addressed during your admission. The automobile service writer that saw you during your admission has recommended cardiac catheterization. You have elected to not have this done during your admission but we recommend that you get this done as soon as possible. Please stop smoking all tobacco products as discussed. These are detrimental to your health. Please stop drinking alcohol as discussed. This is detrimental to your health. If your symptoms return, please return to the nearest emergency room. Referrals: Justin Whiting MD [Family Provider] -
--- NOTE | 2017-12-17 09:14 | PN ---
DATE: 12/16/2017 This note is an addition to the initial dictated by our nurse practitioner yesterday. The patient had a long discussion, initially refused, but later on the patient agreed. This morning, the patient again refusing very nervous, does not want to do cardiac catheterization. RECOMMENDATIONS: We will continue medical treatment. Discontinue telemetry and sign off the case. I am glad to follow p.r.n. If the patient changes mind and agreeable for cardiac catheterization, I will be more than happy to arrange. Thus, I will sign off the medical treatment. So far, troponin remains negative. No evidence of acute OK. Thank you, Dr. Alcocer, for providing us the opportunity in taking care of the patient, Donovan Tariq. Espinoza Walker MD
== END 2017-12-16 13:47 | disposition left against medical advice (07) ==
LOC: ED 18:25 → ERH 20:10 → 2RSO 22:20
PROVIDERS: ADMIT Hospitalist; ATTEND Hospitalist
DX: R07.9 Chest pain, unspecified (principal); E78.5 Hyperlipidemia, unspecified; F10.10 Alcohol abuse, uncomplicated; F17.210 Nicotine dependence, cigarettes, uncomplicated; F41.9 Anxiety disorder, unspecified; I10 Essential (primary) hypertension; I25.110 Atherosclerotic heart disease of native coronary artery with unstable angina pectoris; I44.60 Unspecified fascicular block; J44.9 Chronic obstructive pulmonary disease, unspecified; K21.9 Gastro-esophageal reflux disease without esophagitis; Z80.0 Family history of malignant neoplasm of digestive organs; Z87.01 Personal history of pneumonia (recurrent); Z87.440 Personal history of urinary (tract) infections; Z87.442 Personal history of urinary calculi; Z90.49 Acquired absence of other specified parts of digestive tract; Z95.1 Presence of aortocoronary bypass graft; R91.8 Other nonspecific abnormal finding of lung field; R74.0 Nonspecific elevation of levels of transaminase and lactic acid dehydrogenase [LDH]; Z72.89 Other problems related to lifestyle

== ENCOUNTER 2018-05-18 16:29 | Observation (INO) | payer OTHER ==
[2018-05-18 16:33] VITALS: BMI 32.1
--- NOTE | 2018-05-18 17:22 | ED PDOC ---
Arrival/HPI - General Time Seen by Provider: 05/18/18 17:04 Historian: Patient - History of Present Illness Narrative History of Present Illness (Text): 05/18/18 17:23 53 year old male with a past medical history of COPD, anxiety, hypertension, hyperlipidemia, chronic back pain, alcohol abuse, substance abuse, and CAD s/p CABG 2012, presents to the Emergency Department complaining of chest pain for the past 4 days. Patient states the pain is to the right/ center of his chest. He notes he is anxious and has been experiencing shortness of breath, similar to COPD, for 1 week, and palpitations. Patient reports he had 5 beers yesterday to alleviate the pain, with no improvement and has been using his breathing treatment at home 4x a day with no relief. Patient denies any fevers, chills, headache, dizziness, abdominal pain, nausea, vomiting, diarrhea, back pain, neck pain, or any other complaint. PMD: Dr. Whiting Time/Duration: < week (4 days) Symptom Onset: Gradual Symptom Course: Unchanged Activities at Onset: Light Context: Home Past Medical History - Provider Review Nursing Documentation Reviewed: Yes - Infectious Disease Hx of Infectious Diseases: None - Tetanus Immunization Tetanus Immunization: Unknown - Cardiac Hx Cardiac Disorders: Yes Hx Hypertension: Yes Other/Comment: cabg 2012 unsure of number of stents, athersclerosis, cad, mi - Pulmonary Hx Respiratory Disorders: Yes Hx Chronic Obstructive Pulmonary Disease (COPD): Yes Hx Pneumonia: Yes (in 7th grade) - Neurological Hx Neurological Disorder: Yes (syncope) Hx Migraine: Yes - HEENT Hx HEENT Disorder: Yes (eyeglasses) - Renal Hx Renal Disorder: Yes Hx Kidney Stones: Yes - Endocrine/Metabolic Hx Endocrine Disorders: No - Hematological/Oncological Hx Blood Disorders: No - Integumentary Hx Dermatological Disorder: Yes - Musculoskeletal/Rheumatological Hx Musculoskeletal Disorders: Yes Hx Back Pain: Yes Hx Falls: Yes Hx Unsteady Gait: Yes (cane) - Gastrointestinal Hx Gastrointestinal Disorders: Yes Hx Gastroesophageal Reflux: Yes - Genitourinary/Gynecological Hx Genitourinary Disorders: Yes Hx Urinary Tract Infection: Yes Other/Comment: hydrocele with chronic testicular pain - Psychiatric Hx Psychophysiologic Disorder: Yes Hx Anxiety: Yes Hx Depression: No Hx Emotional Abuse: No Hx Physical Abuse: No Hx Substance Use: No - Surgical History Hx Appendectomy: Yes Hx Cardiac Catheterization: Yes Hx Open Heart Surgery: Yes - Anesthesia Hx Anesthesia: Yes Hx Anesthesia Reactions: No Hx Malignant Hyperthermia: No - Suicidal Assessment Feels Threatened In Home Enviroment: No Family/Social History - Physician Review Nursing Documentation Reviewed: Yes Family/Social History: No Known Family HX Smoking Status: Current Some Days Smoker Hx Alcohol Use: No Hx Substance Use: No Substance used: cocaine Hx Substance Use Treatment: No Allergies/Home Meds Allergies/Adverse Reactions: Allergies Iodinated Contrast- Oral and IV Dye Allergy (Verified 12/05/17 15:27) ANAPHYLAXIS Shellfish allergy peanut Allergy (Verified 12/02/17 12:01) ANAPHYLAXIS AND ANYTHING THAT IS DERIVED FROM ANY NUTS PER PATIENT. shellfish derived Allergy (Verified 12/02/17 12:01) ANAPHYLAXIS strawberry Allergy (Verified 12/15/17 04:19) ANAPHYLAXIS Bread at this facility Allergy (Intermediate, Uncoded 12/05/17 15:27) ANAPHYLAXIS Proccessed with nuts. Past reaction. Home Medications: Home Meds Medication Instructions Recorded Confirmed Lisinopril [Zestril] 40 mg PO DAILY 12/14/17 12/14/17 Simvastatin [Zocor] 20 mg PO HS 12/14/17 12/14/17 amLODIPine [Norvasc] 10 mg PO DAILY 12/14/17 12/14/17 Review of Systems - Physician Review All systems were reviewed & negative as marked: Yes - Review of Systems Constitutional: absent: Fevers Gastrointestinal: absent: Abdominal Pain Physical Exam - Physical Exam Narrative Physical Exam (Text): 05/18/18 17:20 Constitutional: No acute distress. Head: Normocephalic. Atraumatic. Eyes: PERRL. ENT: Moist mucous membranes. Neck: Supple. Cardiovascular: Regular rate. Chest: No tenderness. Respiratory: Clear to auscultation bilaterally. Decreased breath sounds diffusely. GI: Soft. Nontender. Nondistended. Back: No CVA tenderness. Musculoskeletal: No tenderness or swelling of extremities. Skin: No rash. Neurologic: Alert, no focal deficit. Vital Signs Reviewed: Yes Vital Signs Temp Pulse Resp BP Pulse Ox 05/18/18 16:33 98.7 F 90 19 125/82 96 Temperature: Afebrile Blood Pressure: Normal Pulse: Regular Respiratory Rate: Normal Appearance: Positive for: Well-Appearing, Non-Toxic, Comfortable Pain Distress: None Mental Status: Positive for: Alert and Oriented X 3 Medical Decision Making ED Course and Treatment: 05/18/18 17:20 Impression: 53 year old male who presents to the emergency department complaining of chest pain. Plan: -- Labs -- Chest X-ray -- SOLU-medrol -- Xopenex -- Reassess and disposition Prior Visits: Notes and results from previous visits were reviewed. Progress Notes: 05/18/18 17:21 EKG reviewed, shows: NSR at 90bpm with no ST elevations ST depressions and T wave inversions laterally. 05/18/18 18:49 Chest X-ray reviewed, by radiologist, shows: IMPRESSION: No active pulmonary disease. - Scribe Statement The provider has reviewed the documentation as recorded by the [place] Travis Provider Scribe Attestation: All medical record entries made by the Scribe were at my direction and personally dictated by me. I have reviewed the chart and agree that the record accurately reflects my personal performance of the history, physical exam, medical decision making, and the department course for this patient. I have also personally directed, reviewed, and agree with the discharge instructions and disposition. Disposition/Present on Arrival - Present on Arrival Any Indicators Present on Arrival: No History of DVT/PE: No History of Uncontrolled Diabetes: No Urinary Catheter: No History Surgical Site Infection Following: None - Disposition Have Diagnosis and Disposition been Completed?: Yes Diagnosis: Chest pain, COPD exacerbation Disposition: HOSPITALIZED Disposition Time: 18:48 Patient Plan: Observation, Telemetry Condition: FAIR
[2018-05-18] MEDS: Levalbuterol 1.25 MG/3 ML Inhal Soln UD IH SCH ×3 (17:30→17:58)
[2018-05-18 17:56] LABS: ALB/GLOB RATIO 1.3 (1.1-1.8)
[2018-05-18 17:57] LABS: ALBUMIN 4.4 g/dL (3.0-4.8); ALT/SGPT 49 U/L (7-56); AST/SGOT 50 U/L (17-59); BLOOD UREA NITROGEN 11 mg/dL (7-21); CALCIUM 9.2 mg/dL (8.4-10.5); GFR NON-AFRICAN AMERICAN > 60
--- NOTE | 2018-05-18 17:58 | RAD ---
Date of service: 05/18/2018 HISTORY: dyspnea COMPARISON: 12/14/2017 FINDINGS: LUNGS: The lungs are well inflated and clear. PLEURA: No pleural effusions or pneumothorax. CARDIOVASCULAR: There is mild cardiomegaly. Status post CABG. There are aortic atherosclerotic calcifications present. OSSEOUS STRUCTURES: Within normal limits for the patient's age. VISUALIZED UPPER ABDOMEN: Normal. OTHER FINDINGS: None. IMPRESSION: No active pulmonary disease.
[2018-05-18 18:14] LABS: TROPONIN I < 0.01 ng/mL
[2018-05-18 18:26] LABS: BASO # 0.04 K/mm3 (0.0-2.0); BASO % 0.4 % (0.0-3.0); EOS # 0.1 (0.0-0.7); EOS % 1.5 % (1.5-5.0); HEMOGLOBIN 16.3 g/dL (14.0-18.0); LYMPH # 3.4 (1.2-3.4); LYMPH % 36.3 % (22.0-35.0); MEAN CELL VOLUME 98.9 fl (80.0-105.0); MEAN CORPUSCULAR HEMOGLOBIN 34.5 pg (25.0-35.0); MEAN CORPUSCULAR HGB CONC 34.8 g/dl (31.0-37.0); MEAN PLATELET VOLUME 8.8 fl (7.0-11.0); MONO # 0.7 (0.1-0.6); RBC 4.73 10^6/uL (3.5-6.1); RED CELL DISTRIBUTION WIDTH 13.7 % (11.5-14.5); WHITE BLOOD COUNT 9.3 10^3/uL (4.5-11.0)
[2018-05-18] MEDS ORDERED: TraMADol/Apap 37.5/325 mg Tab PO STA (18:39)
--- NOTE | 2018-05-18 19:55 | CARD ---
APPROVED REPORT Date of service: 05/18/2018 EKG Measurement Heart [id number] <Conclusion> Normal sinus rhythm Possible Left atrial enlargement Left ventricular hypertrophy Cannot rule out Inferior infarct, age undetermined ST & T wave abnormality, consider anterolateral ischemia Abnormal ECG
[2018-05-18 19:57] LABS: HDL CHOLESTEROL 30 mg/dL (29-60)
[2018-05-18] MEDS ORDERED: Albuterol HFA 90 mcg/actuation (8 g) INH SCH (20:00)
[2018-05-18 20:08] LABS: LDL CHOLESTEROL 179 mg/dL (0-129)
--- NOTE | 2018-05-18 20:12 | CP.PCM.HP ---
<Alexandro Huerta - Last Filed: 05/18/18 19:56> History of Present Illness - History of Present Illness History of Present Illness: Alexandro Huerta, PGY-1 History and Physical for Hospitalist Service CC: Chest Pain HPI: Mr. Tariq is a 53 M with a past medical history of CAD s/p CABG 2012, substance and ETOH abuse, HTN, HLD, anxiety and COPD who was admitted after presenting with complaints of 8/10 midsternal chest pain of four days duration. Patient reports pain which had originally been dull has turned sharp today. Patient states pain is radiating to the left chest with associated left chest pressure. He reports that the pain has been persistent for weeks but has worsened over past 4 days, prompting him to present to the ED. Pain is unchanged with rest or exertion. Pain was associated with SOB, nausea, feeling lightheaded, dizziness, chills, tingling in lower extremities, generalized weakness, and palpitations. He has had decreased PO secondary to pain, but denies weight loss. Patient's last echo and stress test were performed 03/2017, resulting an EF of 65%. He notes feeling anxious, but denies any other symptoms at this time. Patient was set for a cardiac cath on 12/09/[address] Walker but patient did not show up for procedure. Patient reports that he had unanswered questions and was thus unable to show up. Patient has history of elopement on previous admission. PMHx: COPD, anxiety, HTN, chronic back pain, alcohol abuse, substance abuse, CAD s/p triple vessel CABG 2012, migraines; hydrocele with chronic testicular pain PSHx: triple vessel CABG in 2012; appendectomy Family hx: Mother- pancreatic cancer; Father- Cardiac history, patient unsure Social: alcohol: 6-8 24 ounce beers/week, tobacco 1/2 pack per day, denies drug use Allergies: peanuts (anaphylaxis); shellfish (anaphylaxis) PMD: Dr. Whiting Cardio: Dr. Walker Present on Admission - Present on Admission Any Indicators Present on Admission: No Review of Systems - Review of Systems Review of Systems: 12 point ROS completed and negative except as described in HPI. Past Patient History - Infectious Disease Hx of Infectious Diseases: None - Tetanus Immunizations Tetanus Immunization: Unknown - Past Medical History & Family History Past Medical History?: Yes - Past Social History Smoking Status: Current Some Days Smoker - CARDIAC Hx Cardiac Disorders: Yes Hx Hypertension: Yes Other/Comment: cabg 2012 unsure of number of stents, athersclerosis, cad, mi - PULMONARY Hx Respiratory Disorders: Yes Hx Chronic Obstructive Pulmonary Disease (COPD): Yes Hx Pneumonia: Yes (in 7th grade) - NEUROLOGICAL Hx Neurological Disorder: Yes (syncope) Hx Migraine: Yes - HEENT Hx HEENT Problems: Yes (eyeglasses) - RENAL Hx Chronic Kidney Disease: Yes Hx Kidney Stones: Yes - ENDOCRINE/METABOLIC Hx Endocrine Disorders: No - HEMATOLOGICAL/ONCOLOGICAL Hx Blood Disorders: No - INTEGUMENTARY Hx Dermatological Problems: Yes - MUSCULOSKELETAL/RHEUMATOLOGICAL Hx Musculoskeletal Disorders: Yes Hx Back Pain: Yes Hx Falls: Yes Hx Unsteady Gait: Yes (cane) - GASTROINTESTINAL Hx Gastrointestinal Disorders: Yes Hx Gastroesophageal Reflux: Yes - GENITOURINARY/GYNECOLOGICAL Hx Genitourinary Disorders: Yes Hx Urinary Tract Infection: Yes Other/Comment: hydrocele with chronic testicular pain - PSYCHIATRIC Hx Psychophysiologic Disorder: Yes Hx Anxiety: Yes Hx Depression: No Hx Emotional Abuse: No Hx Physical Abuse: No Hx Substance Use: No - SURGICAL HISTORY Hx Appendectomy: Yes Hx Cardiac Catheterization: Yes Hx Open Heart Surgery: Yes - ANESTHESIA Hx Anesthesia: Yes Hx Anesthesia Reactions: No Hx Malignant Hyperthermia: No Meds Allergies/Adverse Reactions: Allergies Allergy/AdvReac Type Severity Reaction Status Date / Time Iodinated Contrast- Oral and Allergy ANAPHYLAXIS Verified 12/05/17 15:27 IV Dye peanut Allergy ANAPHYLAXIS Verified 12/02/17 12:01 shellfish derived Allergy ANAPHYLAXIS Verified 12/02/17 12:01 strawberry Allergy ANAPHYLAXIS Verified 12/15/17 04:19 Bread at this facility Allergy Intermediate ANAPHYLAXIS Uncoded 12/05/17 15:27 Physical Exam - Additional Findings Additional findings: - Constitutional Appears: Non-toxic, No Acute Distress. Uncomfortable. - Head Exam Head Exam: NORMAL INSPECTION, NORMOCEPHALIC - Eye Exam Eye Exam: EOMI, Normal appearance. absent: Nystagmus, Scleral icterus - ENT Exam ENT Exam: Mucous Membranes Moist - Respiratory Exam Respiratory Exam: Clear to Auscultation Bilateral, NORMAL BREATHING PATTERN. Midline upper vertical scar. absent: Rhonchi, Wheezes, Respiratory Distress - Cardiovascular Exam Cardiovascular Exam: REGULAR RHYTHM, +S1, +S2 - GI/Abdominal Exam GI & Abdominal Exam: Normal Bowel Sounds, Soft. Ecchymosis in RLQ likely due to heparin administration on previous admissions. Denies trauma to area. - Extremities Exam Extremities exam: Positive for: normal inspection. Negative for: calf tenderness, pedal edema - Back Exam Back exam: NORMAL INSPECTION - Neurological Exam Neurological exam: Alert, Oriented x3 - Psychiatric Exam Psychiatric exam: Normal Affect, Normal Mood - Skin Skin Exam: Intact, Normal Color Results - Vital Signs Recent Vital Signs: Last Vital Signs Temp 98.7 F 05/18/18 16:33 Pulse 100 H 05/18/18 18:43 Resp 18 05/18/18 18:43 BP 102/50 L 05/18/18 18:43 Pulse Ox 98 05/18/18 18:43 - Labs Result Diagrams: 05/18/18 17:40 05/18/18 17:40 Labs: Laboratory Results - last 24 hr 05/18/18 05/18/18 17:40 17:40 WBC 9.3 RBC 4.73 Hgb 16.3 D Hct 46.8 MCV 98.9 D MCH 34.5 MCHC 34.8 RDW 13.7 Plt Count 242 MPV 8.8 Neut % (Auto) 54.8 Lymph % (Auto) 36.3 H [place] % (Auto) 7.0 H Eos % (Auto) 1.5 Baso % (Auto) 0.4 Lymph # (Auto) 3.4 [place] # (Auto) 0.7 H Eos # (Auto) 0.1 Baso # (Auto) 0.04 Absolute Neuts (auto) 5.07 Sodium 133 Potassium 3.9 Chloride 100 Carbon Dioxide 18 L Anion Gap 20 BUN 11 Creatinine 0.9 Est GFR ( Amer) > 60 Est GFR (Non-Af Amer) > 60 Random Glucose 114 H Calcium 9.2 Total Bilirubin 0.5 AST 50 ALT 49 Alkaline Phosphatase 93 Total Creatine Kinase 165 Troponin I < 0.01 Total Protein 7.9 Albumin 4.4 Globulin 3.4 Albumin/Globulin Ratio 1.3 Assessment & Plan - Assessment and Plan (Free Text) Assessment: 53 M with a past medical history of COPD, anxiety, hypertension, hyperlipidemia, chronic back pain, alcohol abuse, substance abuse, and CAD s/p CABG 2012, who presents with sharp chest pain. Chest Pain r/o ACS -Cardiology Consult - Dr. Aaron consulted for recommendations -EKG reviewed: NSR @ [address] or T wave changes in leads V2- V5. 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 Pt is to follow up outpatient to have repeat CT chest in 12 months -Nicoderm patch HTN -Metoprolol tartrate 100 mg PO daily, Amlodipine 10 mg, Lisinopril 40 mg - day team to follow up with pharmacy regarding suspected Metoprolol succinate instead of tartrate Hx of HLD -C/w home statin PPX -GI- Protonix -DVT- SCD HHD Patient seen, case reviewed and plan approved by Dr. Ta. Alexandro Huerta, PGY-1 <Naresh Ta - Last Filed: 05/19/18 06:37> Results - Vital Signs Recent Vital Signs: Last Vital Signs Temp 98 F 05/19/18 06:00 Pulse 95 H 05/19/18 06:00 Resp 20 05/19/18 06:00 BP 147/72 05/19/18 06:00 Pulse Ox 96 05/19/18 06:00 - Labs Result Diagrams: 05/18/18 17:40 05/18/18 17:40 Labs: Laboratory Results - last 24 hr 05/18/18 05/18/18 05/18/18 17:40 17:40 17:40 WBC 9.3 RBC 4.73 Hgb 16.3 D Hct 46.8 MCV 98.9 D MCH 34.5 MCHC 34.8 RDW 13.7 Plt Count 242 MPV 8.8 Neut % (Auto) 54.8 Lymph % (Auto) 36.3 H [place] % (Auto) 7.0 H Eos % (Auto) 1.5 Baso % (Auto) 0.4 Lymph # (Auto) 3.4 [place] # (Auto) 0.7 H Eos # (Auto) 0.1 Baso # (Auto) 0.04 Absolute Neuts (auto) 5.07 Sodium 133 Potassium 3.9 Chloride 100 Carbon Dioxide 18 L Anion Gap 20 BUN 11 Creatinine 0.9 Est GFR ( Amer) > 60 Est GFR (Non-Af Amer) > 60 Random Glucose 114 H Calcium 9.2 Total Bilirubin 0.5 AST 50 ALT 49 Alkaline Phosphatase 93 Total Creatine Kinase 165 Troponin I < 0.01 Total Protein 7.9 Albumin 4.4 Globulin 3.4 Albumin/Globulin Ratio 1.3 Triglycerides 412 H Cholesterol 262 H LDL Cholesterol Direct 179 H HDL Cholesterol 30 Urine Color Urine Appearance Urine pH Ur Specific [place] Urine Protein Urine Glucose (UA) Urine Ketones Urine Blood Urine Nitrate Urine Bilirubin Urine Urobilinogen Ur Leukocyte Esterase Urine Opiates Screen Urine Methadone Screen Ur Barbiturates Screen Ur Phencyclidine Scrn Ur Amphetamines Screen U Benzodiazepines Scrn U Oth Cocaine Metabols U Cannabinoids Screen Alcohol, Quantitative 05/18/18 05/18/18 05/18/18 20:20 20:20 20:20 WBC RBC Hgb Hct MCV MCH MCHC RDW Plt Count MPV Neut % (Auto) Lymph % (Auto) [place] % (Auto) Eos % (Auto) Baso % (Auto) Lymph # (Auto) [place] # (Auto) Eos # (Auto) Baso # (Auto) Absolute Neuts (auto) Sodium Potassium Chloride Carbon Dioxide Anion Gap BUN Creatinine Est GFR ( Amer) Est GFR (Non-Af Amer) Random Glucose Calcium Total Bilirubin AST ALT Alkaline Phosphatase Total Creatine Kinase Troponin I Total Protein Albumin Globulin Albumin/Globulin Ratio Triglycerides Cholesterol LDL Cholesterol Direct HDL Cholesterol Urine Color Yellow Urine Appearance Clear Urine pH 6.0 Ur Specific [place] 1.015 Urine Protein Negative Urine Glucose (UA) Negative Urine Ketones Negative Urine Blood Negative Urine Nitrate Negative Urine Bilirubin Negative Urine Urobilinogen 0.2 Ur Leukocyte Esterase Negative Urine Opiates Screen Negative Urine Methadone Screen Negative Ur Barbiturates Screen Negative Ur Phencyclidine Scrn Negative Ur Amphetamines Screen Negative U Benzodiazepines Scrn Positive H U Oth Cocaine Metabols Negative U Cannabinoids Screen Negative Alcohol, Quantitative 87 H 05/19/18 00:10 WBC RBC Hgb Hct MCV MCH MCHC RDW Plt Count MPV Neut % (Auto) Lymph % (Auto) [place] % (Auto) Eos % (Auto) Baso % (Auto) Lymph # (Auto) [place] # (Auto) Eos # (Auto) Baso # (Auto) Absolute Neuts (auto) Sodium Potassium Chloride Carbon Dioxide Anion Gap BUN Creatinine Est GFR ( Amer) Est GFR (Non-Af Amer) Random Glucose Calcium Total Bilirubin AST ALT Alkaline Phosphatase Total Creatine Kinase Troponin I < 0.01 Total Protein Albumin Globulin Albumin/Globulin Ratio Triglycerides Cholesterol LDL Cholesterol Direct HDL Cholesterol Urine Color Urine Appearance Urine pH Ur Specific [place] Urine Protein Urine Glucose (UA) Urine Ketones Urine Blood Urine Nitrate Urine Bilirubin Urine Urobilinogen Ur Leukocyte Esterase Urine Opiates Screen Urine Methadone Screen Ur Barbiturates Screen Ur Phencyclidine Scrn Ur Amphetamines Screen U Benzodiazepines Scrn U Oth Cocaine Metabols U Cannabinoids Screen Alcohol, Quantitative Attending/Attestation - Attestation I have personally seen and examined this patient.: Yes I have fully participated in the care of the patient.: Yes I have reviewed all pertinent clinical information: Yes Notes (Text): 05/19/18 06:37 Patient was seen when she was in [facility]. Medical record was reviewed. Agree with history, physical examination, assessment and plan.
[2018-05-18] MEDS: Albuterol 0.5% Inhal Sol (2.5 mg/0.5 ml) UD IH SCH (20:24)
[2018-05-18 20:32] LABS: URINE BILIRUBIN NEGATIVE (NEGATIVE); URINE BLOOD NEGATIVE (NEGATIVE); URINE GLUCOSE (UA) NEGATIVE (NEGATIVE); URINE LEUKOCYTE ESTERASE NEGATIVE Leu/uL (NEGATIVE); URINE PROTEIN NEGATIVE mg/dL (<30 mg/dL); URINE UROBILINOGEN 0.2 E.U./dL (<1 E.U./dL)
[2018-05-18 20:35] LABS: URINE APPEARANCE CLEAR (CLEAR); URINE COLOR YELLOW (YELLOW)
[2018-05-18 20:52] LABS: PHENCYCLIDINE, UR NEGATIVE (NEGATIVE)
[2018-05-18 20:54] LABS: BARBITURATES, UR NEGATIVE (NEGATIVE); BENZODIAZEPINES, UR POSITIVE (NEGATIVE); OPIATES, UR NEGATIVE (NEGATIVE)
[2018-05-18] MEDS: Albuterol-Ipratrop 3 mg / 0.5 (3 ml) UD IH PRN (22:57)
[2018-05-19] MEDS ORDERED: Morphine 2 mg/ml ISec IVP ONE (00:13)
[2018-05-19] MEDS: guaiFENesin 100 mg/5 ml Syrup UD PO PRN ×4 (00:20→15:51)
[2018-05-19] MEDS: Albuterol 0.5% Inhal Sol (2.5 mg/0.5 ml) UD IH SCH ×4 (01:55→20:44)
[2018-05-19] MEDS: Pantoprazole 40 mg EC Tab PO SCH (06:17)
[2018-05-19] MEDS ORDERED: Multivitamin (MVI) 10 ML, Thiamine 100 MG, Folic Acid 1 MG in Sodium Chloride 0.9% 1,00... IV ONE (06:58)
[2018-05-19 07:16] LABS: HEMOGLOBIN 15.2 g/dL (14.0-18.0); MEAN CORPUSCULAR HEMOGLOBIN 33.6 pg (25.0-35.0); MEAN CORPUSCULAR HGB CONC 33.6 g/dl (31.0-37.0); MEAN PLATELET VOLUME 8.9 fl (7.0-11.0); RBC 4.53 10^6/uL (3.5-6.1); WHITE BLOOD COUNT 8.9 10^3/uL (4.5-11.0)
[2018-05-19 08:39] LABS: TROPONIN I < 0.01 ng/mL
[2018-05-19 08:42] LABS: ALB/GLOB RATIO 1.3 (1.1-1.8); ALBUMIN 4.2 g/dL (3.0-4.8); ALT/SGPT 41 U/L (7-56); AST/SGOT 35 U/L (17-59); BLOOD UREA NITROGEN 16 mg/dL (7-21); CALCIUM 9.1 mg/dL (8.4-10.5); GFR NON-AFRICAN AMERICAN > 60
--- NOTE | 2018-05-19 10:18 | CP.PCM.CON ---
History of Present Illness - History of Present Illness History of Present Illness: Awake, no distress, lying in bed Reason for consultation: Cardiac evaluation of chest pain, history of coronary artery disease post CABG 2012 Brief history of present illness: A 53 year old male who came in to the ER due to worsening midsternal chest pain radiating to left side of chest for the past few days. History of coronary artery disease post coronary artery bypass grafting in 2013, hypertension, hyperlipidemia, alcohol and substance abuse,anxiety, COPD,chronic back pain, hydrocele with chronic testicular pain, appendectomy.Drinks 6-8 24 ounce beers/week, and tobacco 1/2 pack per day. Seen and examined by me and Dr. Walker Review of Systems - Review of Systems All systems: reviewed and no additional remarkable complaints except Review of Systems: as per HPI Past Patient History - Infectious Disease Hx of Infectious Diseases: None - Tetanus Immunizations Tetanus Immunization: Unknown - Past Medical History & Family History Past Medical History?: Yes - Past Social History Smoking Status: Current Some Days Smoker - CARDIAC Hx Cardiac Disorders: Yes Hx Hypertension: Yes Other/Comment: cabg 2013 unsure of number of stents, athersclerosis, cad, mi - PULMONARY Hx Chronic Obstructive Pulmonary Disease (COPD): Yes - NEUROLOGICAL Hx Neurological Disorder: Yes (syncope) Hx Migraine: Yes - HEENT Hx HEENT Problems: Yes (eyeglasses) - RENAL Hx Chronic Kidney Disease: Yes Hx Kidney Stones: Yes - ENDOCRINE/METABOLIC Hx Endocrine Disorders: No - HEMATOLOGICAL/ONCOLOGICAL Hx Blood Disorders: No - INTEGUMENTARY Hx Dermatological Problems: Yes - MUSCULOSKELETAL/RHEUMATOLOGICAL Hx Falls: No - GASTROINTESTINAL Hx Gastrointestinal Disorders: Yes Hx Gastroesophageal Reflux: Yes - GENITOURINARY/GYNECOLOGICAL Hx Genitourinary Disorders: Yes Hx Urinary Tract Infection: Yes Other/Comment: hydrocele with chronic testicular pain - PSYCHIATRIC Hx Psychophysiologic Disorder: Yes Hx Anxiety: Yes Hx Depression: No Hx Emotional Abuse: No Hx Physical Abuse: No Hx Substance Use: No - SURGICAL HISTORY Hx Appendectomy: Yes Hx Cardiac Catheterization: Yes Hx Open Heart Surgery: Yes - ANESTHESIA Hx Anesthesia: Yes Hx Anesthesia Reactions: No Hx Malignant Hyperthermia: No Meds Allergies/Adverse Reactions: Allergies Allergy/AdvReac Type Severity Reaction Status Date / Time Iodinated Contrast- Oral and Allergy ANAPHYLAXIS Verified 12/05/17 15:27 IV Dye peanut Allergy ANAPHYLAXIS Verified 12/02/17 12:01 shellfish derived Allergy ANAPHYLAXIS Verified 12/02/17 12:01 strawberry Allergy ANAPHYLAXIS Verified 12/15/17 04:19 Bread at this facility Allergy Intermediate ANAPHYLAXIS Uncoded 12/05/17 15:27 - Medications Medications: Current Medications Albuterol Sulfate (Albuterol 0.5% Inhal Lazara (2.5 Mg/0.5 Ml) Ud) 2.5 mg IH [id number] [facility]ARY Last Admin: 05/19/18 01:55 Dose: 2.5 mg Albuterol/Ipratropium (Duoneb 3 Mg/0.5 Mg (3 Ml) Ud) 3 ml IH Q2H PRN PRN Reason: Shortness of Breath Last Admin: 05/18/18 22:57 Dose: 3 ml Amlodipine Besylate (Norvasc) 10 mg PO DAILY [facility] Aspirin (Aspirin Chewable) 81 mg PO DAILY [facility] Atorvastatin Calcium (Lipitor) 10 mg PO DIN [facility] Clopidogrel Bisulfate (Plavix) 75 mg PO DAILY [facility] Fenofibrate (Tricor) 145 mg PO DAILY [facility] Folic Acid (Folic Acid) 1 mg PO DAILY [facility] Guaifenesin (Robitussin) 100 mg PO Q4H PRN PRN Reason: Cough Last Admin: 05/19/18 04:41 Dose: 100 mg Multivitamins/Vitamin C 10 ml/Thiamine HCl 100 mg/ Folic Acid 1 mg/ Sodium Chlor sabino 1,011.2 mls @ 100 mls/hr IV .Q10H7M ONE Stop: 05/19/18 17:04 Lisinopril (Zestril) 40 mg PO DAILY [facility] Lorazepam (Ativan) 1 mg IVP Q4H PRN; Protocol PRN Reason: Symptoms of alcohol withdrawl Last Admin: 05/19/18 08:50 Dose: 1 mg Metoprolol Tartrate (Lopressor) 100 mg PO DAILY [facility] Multivitamins/Minerals (Therapeutic-M Tab) 1 tab PO 0800 [facility] Nicotine (Nicoderm Cq) 1 patch TD DAILY [facility] Pantoprazole Sodium (Protonix Ec Tab) 40 mg PO 0600 [facility] Last Admin: 05/19/18 06:17 Dose: 40 mg Thiamine HCl (Vitamin B1 Tab) 100 mg PO DAILY [facility] Physical Exam - Constitutional Appears: Non-toxic, No Acute Distress - Head Exam Head Exam: NORMAL INSPECTION, NORMOCEPHALIC - Eye Exam Eye Exam: Normal appearance Pupil Exam: NORMAL ACCOMODATION - ENT Exam ENT Exam: Mucous Membranes Moist - Respiratory Exam Respiratory Exam: Decreased Breath Sounds, Clear to Auscultation Bilateral, NORMAL BREATHING PATTERN - Cardiovascular Exam Cardiovascular Exam: REGULAR RHYTHM, +S1, +S2 Additional comments: telemetry NSR denies chest pain now - GI/Abdominal Exam GI & Abdominal Exam: Normal Bowel Sounds, Soft - Extremities Exam Extremities exam: Positive for: full ROM, normal capillary refill - Neurological Exam Neurological exam: Alert, Oriented x3 - Psychiatric Exam Psychiatric exam: Normal Affect, Normal Mood - Skin Skin Exam: Dry, Normal Color, Warm Results - Vital Signs Recent Vital Signs: Last Vital Signs Temp 98 F 05/19/18 06:00 Pulse 95 H 05/19/18 06:00 Resp 20 05/19/18 06:00 BP 147/72 05/19/18 06:00 Pulse Ox 96 05/19/18 06:00 - Labs Result Diagrams: 05/19/18 07:00 05/19/18 07:00 Labs: Laboratory Results - last 24 hr 05/18/18 05/18/18 05/18/18 17:40 17:40 17:40 WBC 9.3 RBC 4.73 Hgb 16.3 D Hct 46.8 MCV 98.9 D MCH 34.5 MCHC 34.8 RDW 13.7 Plt Count 242 MPV 8.8 Neut % (Auto) 54.8 Lymph % (Auto) 36.3 H [place] % (Auto) 7.0 H Eos % (Auto) 1.5 Baso % (Auto) 0.4 Lymph # (Auto) 3.4 [place] # (Auto) 0.7 H Eos # (Auto) 0.1 Baso # (Auto) 0.04 Absolute Neuts (auto) 5.07 Sodium 133 Potassium 3.9 Chloride 100 Carbon Dioxide 18 L Anion Gap 20 BUN 11 Creatinine 0.9 Est GFR ( Amer) > 60 Est GFR (Non-Af Amer) > 60 Random Glucose 114 H Calcium 9.2 Phosphorus Magnesium Total Bilirubin 0.5 AST 50 ALT 49 Alkaline Phosphatase 93 Total Creatine Kinase 165 Troponin I < 0.01 Total Protein 7.9 Albumin 4.4 Globulin 3.4 Albumin/Globulin Ratio 1.3 Triglycerides 412 H Cholesterol 262 H LDL Cholesterol Direct 179 H HDL Cholesterol 30 Urine Color Urine Appearance Urine pH Ur Specific [place] Urine Protein Urine Glucose (UA) Urine Ketones Urine Blood Urine Nitrate Urine Bilirubin Urine Urobilinogen Ur Leukocyte Esterase Urine Opiates Screen Urine Methadone Screen Ur Barbiturates Screen Ur Phencyclidine Scrn Ur Amphetamines Screen U Benzodiazepines Scrn U Oth Cocaine Metabols U Cannabinoids Screen Alcohol, Quantitative 05/18/18 05/18/18 05/18/18 20:20 20:20 20:20 WBC RBC Hgb Hct MCV MCH MCHC RDW Plt Count MPV Neut % (Auto) Lymph % (Auto) [place] % (Auto) Eos % (Auto) Baso % (Auto) Lymph # (Auto) [place] # (Auto) Eos # (Auto) Baso # (Auto) Absolute Neuts (auto) Sodium Potassium Chloride Carbon Dioxide Anion Gap BUN Creatinine Est GFR ( Amer) Est GFR (Non-Af Amer) Random Glucose Calcium Phosphorus Magnesium Total Bilirubin AST ALT Alkaline Phosphatase Total Creatine Kinase Troponin I Total Protein Albumin Globulin Albumin/Globulin Ratio Triglycerides Cholesterol LDL Cholesterol Direct HDL Cholesterol Urine Color Yellow Urine Appearance Clear Urine pH 6.0 Ur Specific [place] 1.015 Urine Protein Negative Urine Glucose (UA) Negative Urine Ketones Negative Urine Blood Negative Urine Nitrate Negative Urine Bilirubin Negative Urine Urobilinogen 0.2 Ur Leukocyte Esterase Negative Urine Opiates Screen Negative Urine Methadone Screen Negative Ur Barbiturates Screen Negative Ur Phencyclidine Scrn Negative Ur Amphetamines Screen Negative U Benzodiazepines Scrn Positive H U Oth Cocaine Metabols Negative U Cannabinoids Screen Negative Alcohol, Quantitative 87 H 05/19/18 05/19/18 05/19/18 00:10 07:00 07:00 WBC 8.9 RBC 4.53 Hgb 15.2 Hct 45.3 MCV 100.0 MCH 33.6 MCHC 33.6 RDW 14.0 Plt Count 227 MPV 8.9 Neut % (Auto) Lymph % (Auto) [place] % (Auto) Eos % (Auto) Baso % (Auto) Lymph # (Auto) [place] # (Auto) Eos # (Auto) Baso # (Auto) Absolute Neuts (auto) Sodium 136 Potassium 4.6 Chloride 103 Carbon Dioxide 21 Anion Gap 17 BUN 16 Creatinine 0.8 Est GFR ( Amer) > 60 Est GFR (Non-Af Amer) > 60 Random Glucose 227 H Calcium 9.1 Phosphorus Magnesium Total Bilirubin 0.5 AST 35 ALT 41 Alkaline Phosphatase 89 Total Creatine Kinase Troponin I < 0.01 Total Protein 7.5 Albumin 4.2 Globulin 3.3 Albumin/Globulin Ratio 1.3 Triglycerides Cholesterol LDL Cholesterol Direct HDL Cholesterol Urine Color Urine Appearance Urine pH Ur Specific [place] Urine Protein Urine Glucose (UA) Urine Ketones Urine Blood Urine Nitrate Urine Bilirubin Urine Urobilinogen Ur Leukocyte Esterase Urine Opiates Screen Urine Methadone Screen Ur Barbiturates Screen Ur Phencyclidine Scrn Ur Amphetamines Screen U Benzodiazepines Scrn U Oth Cocaine Metabols U Cannabinoids Screen Alcohol, Quantitative 05/19/18 07:00 WBC RBC Hgb Hct MCV MCH MCHC RDW Plt Count MPV Neut % (Auto) Lymph % (Auto) [place] % (Auto) Eos % (Auto) Baso % (Auto) Lymph # (Auto) [place] # (Auto) Eos # (Auto) Baso # (Auto) Absolute Neuts (auto) Sodium Potassium Chloride Carbon Dioxide Anion Gap BUN Creatinine Est GFR ( Amer) Est GFR (Non-Af Amer) Random Glucose Calcium Phosphorus 2.6 Magnesium 2.4 H Total Bilirubin AST ALT Alkaline Phosphatase Total Creatine Kinase Troponin I < 0.01 Total Protein Albumin Globulin Albumin/Globulin Ratio Triglycerides Cholesterol LDL Cholesterol Direct HDL Cholesterol Urine Color Urine Appearance Urine pH Ur Specific [place] Urine Protein Urine Glucose (UA) Urine Ketones Urine Blood Urine Nitrate Urine Bilirubin Urine Urobilinogen Ur Leukocyte Esterase Urine Opiates Screen Urine Methadone Screen Ur Barbiturates Screen Ur Phencyclidine Scrn Ur Amphetamines Screen U Benzodiazepines Scrn U Oth Cocaine Metabols U Cannabinoids Screen Alcohol, Quantitative Assessment & Plan - Assessment and Plan (Free Text) Assessment: A 53 year old male who came in to the ER due to worsening midsternal chest pain radiating to left side of chest for the past few days. History of coronary artery disease post coronary artery bypass grafting at [facility] in 2012, hypertension, hyperlipidemia, alcohol and substance abuse,anxiety, COPD,chronic back pain, hydrocele with chronic testicular pain, appendectomy.Drinks 6-8 24 ounce beers/week, and tobacco 1/2 pack per day. On 11/30/17 he was admitted for chest pain thus stress test was scheduled on 12/02/17 however Stress test was incomplete and patient refused to complete the test. Recommended cardiac catheterization at that time but patient agreed to be done as outpatient. Patient was discharged and scheduled cardiac catheterization on 12/09/17 but patient did not show up for procedure. Coronary artery disease post Coronary artery bypass grafting (01/11/2013 at [facility]) DUONG to LAD, JOSE to OM1, SVG to RPD. Echo on 11/25/17 showed LVEF 5 8%,normal ventricles, trace tricuspid regurgitation. Unstable angina, Troponin normal. Recommended cardiac catheterization to define coronary artery bypass grafting status but patient refusing. Will optimize medical treatment. Alcohol withdrawal precaution. Urine toxicology -Alcohol level 82, Positive Benzodiazepine. Monitor closely. Plan: Denies chest pain now Refusing cardiac catheterization Medical treatment On Norvasc 10 mg daily,ASA 81 mg daily,Lipitor 10 mg daily, Plavix 75 mg daily, Tricor 145 mg daily, Lisinopril 40 mg daily Lopressor 100 mg daily,Nicotine patch daily Will add Nitropaste Watch for alcohol withdrawal symptom Continue current treatment Continue current medications Will follow up Plan and treatment discussed with Dr. Walker Thank you Dr. Alcocer for the opportunity of taking care of Donovan Tariq - Date & Time Date: 05/19/18 Time: 06:55
[2018-05-19] MEDS ORDERED: Thiamine 100 mg/ml Inj ONE (10:59)
--- NOTE | 2018-05-19 11:09 | CARD ---
APPROVED REPORT Date of service: 05/19/2018 EKG Measurement Heart [id number] <Conclusion> Sinus tachycardia Left atrial enlargement Cannot rule out Inferior infarct, age undetermined Abnormal ECG
[2018-05-19] MEDS: Multivitamin With Minerals Tab PO SCH (11:20)
[2018-05-19] MEDS: Nitroglycerin 2% Ointment Foilpak UD TOP SCH ×2 (13:40→17:34)
[2018-05-19] MEDS: Albuterol-Ipratrop 3 mg / 0.5 (3 ml) UD IH PRN (14:04)
--- NOTE | 2018-05-19 15:07 | CP.PCM.PN ---
<JacquieOtto - Last Filed: 05/19/18 14:47> Subjective - Date & Time of Evaluation Date of Evaluation: 05/19/18 Time of Evaluation: 14:47 - Subjective Subjective: Medicine Progress Note for Dr. Krishna 53M seen and evaluated at bedside this morning. No acute events overnight. Patient states he does not have chest pain. At this time, patient would not like a cardiac cath unless he is fully sedated. Denies f/c, n/v/d, SOB, CP, or urinary symptoms. Objective - Vital Signs/Intake and Output Vital Signs (last 24 hours): Temp Pulse Resp BP Pulse Ox 98 F 116 H 20 151/82 H 96 05/19/18 12:00 05/19/18 12:00 05/19/18 12:00 05/19/18 12:00 05/19/18 06:00 Intake and Output: 05/19/18 05/19/18 06:59 18:59 Intake Total 480 Balance 480 - Medications Medications: Current Medications Albuterol Sulfate (Albuterol 0.5% Inhal Lazara (2.5 Mg/0.5 Ml) Ud) 2.5 mg IH Q6H RESP [facility] Last Admin: 05/19/18 14:05 Dose: Not Given Albuterol/Ipratropium (Duoneb 3 Mg/0.5 Mg (3 Ml) Ud) 3 ml IH Q2H PRN PRN Reason: Shortness of Breath Last Admin: 05/19/18 14:04 Dose: 3 ml Amlodipine Besylate (Norvasc) 10 mg PO DAILY [facility] Last Admin: 05/19/18 11:20 Dose: 10 mg Aspirin (Aspirin Chewable) 81 mg PO DAILY [facility] Last Admin: 05/19/18 11:22 Dose: 81 mg Atorvastatin Calcium (Lipitor) 40 mg PO DIN [facility] Clopidogrel Bisulfate (Plavix) 75 mg PO DAILY [facility] Last Admin: 05/19/18 11:23 Dose: 75 mg Fenofibrate (Tricor) 145 mg PO DAILY [facility] Last Admin: 05/19/18 11:20 Dose: 145 mg Folic Acid (Folic Acid) 1 mg PO DAILY [facility] Last Admin: 05/19/18 11:23 Dose: 1 mg Guaifenesin (Robitussin) 100 mg PO Q4H PRN PRN Reason: Cough Last Admin: 05/19/18 11:22 Dose: 100 mg Multivitamins/Vitamin C 10 ml/Thiamine HCl 100 mg/ Folic Acid 1 mg/ Sodium Chloride 1,011.2 mls @ 100 mls/hr IV .Q10H7M ONE Stop: 05/19/18 17:04 Last Admin: 05/19/18 11:16 Dose: 100 mls/hr Lisinopril (Zestril) 40 mg PO DAILY [facility] Last Admin: 05/19/18 11:22 Dose: 40 mg Lorazepam (Ativan) 1 mg IVP Q4H PRN; Protocol PRN Reason: Symptoms of alcohol withdrawl Last Admin: 05/19/18 13:39 Dose: 1 mg Metoprolol Tartrate (Lopressor) 100 mg PO DAILY [facility] Last Admin: 05/19/18 11:17 Dose: 100 mg Multivitamins/Minerals (Therapeutic-M Tab) 1 tab PO 0800 [facility] Last Admin: 05/19/18 11:20 Dose: 1 tab Nicotine (Nicoderm Cq) 1 patch TD DAILY [facility] Last Admin: 05/19/18 11:23 Dose: 1 patch Nitroglycerin (Nitro-Bid 2% Oint) 1 ea TOP Q6 [facility] Last Admin: 05/19/18 13:40 Dose: 1 ea Pantoprazole Sodium (Protonix Ec Tab) 40 mg PO 0600 [facility] Last Admin: 05/19/18 06:17 Dose: 40 mg Thiamine HCl (Vitamin B1 Tab) 100 mg PO DAILY [facility] - Labs Labs: 05/19/18 07:00 05/19/18 07:00 - Constitutional Appears: Well, Non-toxic, No Acute Distress - Head Exam Head Exam: ATRAUMATIC, NORMAL INSPECTION, NORMOCEPHALIC - Eye Exam Eye Exam: EOMI - ENT Exam ENT Exam: Mucous Membranes Dry - Respiratory Exam Respiratory Exam: NORMAL BREATHING PATTERN. absent: Wheezes, Respiratory Distress - Cardiovascular Exam Cardiovascular Exam: Tachycardia, REGULAR RHYTHM, +S1, +S2 - GI/Abdominal Exam GI & Abdominal Exam: Soft, Normal Bowel Sounds. absent: Tenderness - Extremities Exam Extremities Exam: Normal Inspection. absent: Pedal Edema - Neurological Exam Neurological Exam: Alert, Awake, Oriented x3 - Psychiatric Exam Psychiatric exam: Anxious - Skin Skin Exam: Dry, Intact, Normal Color, Warm Assessment and Plan - Assessment and Plan (Free Text) Assessment: 53M, PMH of COPD, anxiety, hypertension, hyperlipidemia, chronic back pain, alcohol abuse, substance abuse, and CAD s/p CABG 2012, who presents with sharp chest pain. Plan: Chest Pain - Cardiology Consult - Dr. Zheng recommendations appreciated - EKG reviewed: NSR @ [address] or T wave changes in leads V2- V5 - Repeat EKG 05/19: Sinus tach, left atrial enlargement - Troponin <0.01 x3 - Aspirin 81 mg PO - Plavix 75 mg PO - Nitroglycerin paste - Hgb A1c 5.9 - CXR: no active pulmonary disease - F/u Echo, per nurse patient refused ECHO - Daily labs - Heart healthy diet - Cardiology following Hx of Multi-substance and Alcohol Abuse - CIWA - Urine positive for Benzos and Alcohol 87 - Monitor for withdrawal - Ativan 0.5mg Q6H - Folate/Thiamine/MV Tobacco Use Disorder - CT chest (11/2017) showed multiple lung nodules. Pt is to follow up outpatient to have repeat CT chest in 12 months - CXR: No active disease - Nicotine Patch - Counseled on smoking cessation Meets Depression Criteria - Patient is seeking alcohol and drug counselor, would like to speak to someone regarding his condition - Psychiatry consulted, recommendations appreciated HTN - Metoprolol tartrate 100 mg PO daily - Amlodipine 10 mg - Lisinopril 40 mg Hx of HLD - Lipid panel shows elevated Triglycerides, and Cholesterol - Lipitor 40mg QD - Fenofibrate 145mg PO QD PPX - GI: Protonix - DVT: SCD Patient plan discussed with Dr. Erendira Dhillon PGY1 <Sandra Krishna - Last Filed: 05/19/18 15:26> Objective - Vital Signs/Intake and Output Vital Signs (last 24 hours): Temp Pulse Resp BP Pulse Ox 98 F 116 H 20 151/82 H 96 05/19/18 12:00 05/19/18 12:00 05/19/18 12:00 05/19/18 12:00 05/19/18 06:00 Intake and Output: 05/19/18 05/19/18 06:59 18:59 Intake Total 480 Balance 480 - Medications Medications: Current Medications Albuterol Sulfate (Albuterol 0.5% Inhal Lazara (2.5 Mg/0.5 Ml) Ud) 2.5 mg IH [id number] [facility] Last Admin: 05/19/18 14:05 Dose: Not Given Albuterol/Ipratropium (Duoneb 3 Mg/0.5 Mg (3 Ml) Ud) 3 ml IH Q2H PRN PRN Reason: Shortness of Breath Last Admin: 05/19/18 14:04 Dose: 3 ml Amlodipine Besylate (Norvasc) 10 mg PO DAILY [facility] Last Admin: 05/19/18 11:20 Dose: 10 mg Aspirin (Aspirin Chewable) 81 mg PO DAILY [facility] Last Admin: 05/19/18 11:22 Dose: 81 mg Atorvastatin Calcium (Lipitor) 40 mg PO DIN [facility] Clopidogrel Bisulfate (Plavix) 75 mg PO DAILY [facility] Last Admin: 05/19/18 11:23 Dose: 75 mg Fenofibrate (Tricor) 145 mg PO DAILY [facility] Last Admin: 05/19/18 11:20 Dose: 145 mg Folic Acid (Folic Acid) 1 mg PO DAILY [facility] Last Admin: 05/19/18 11:23 Dose: 1 mg Guaifenesin (Robitussin) 100 mg PO Q4H PRN PRN Reason: Cough Last Admin: 05/19/18 11:22 Dose: 100 mg Multivitamins/Vitamin C 10 ml/Thiamine HCl 100 mg/ Folic Acid 1 mg/ Sodium Chloride 1,011.2 mls @ 100 mls/hr IV .Q10H7M ONE Stop: 05/19/18 17:04 Last Admin: 05/19/18 11:16 Dose: 100 mls/hr Lisinopril (Zestril) 40 mg PO DAILY [facility] Last Admin: 05/19/18 11:22 Dose: 40 mg Lorazepam (Ativan) 0.5 mg IVP Q6H PRN; Protocol PRN Reason: Anxiety Metoprolol Tartrate (Lopressor) 100 mg PO DAILY [facility] Last Admin: 05/19/18 11:17 Dose: 100 mg Multivitamins/Minerals (Therapeutic-M Tab) 1 tab PO 0800 [facility] Last Admin: 05/19/18 11:20 Dose: 1 tab Nicotine (Nicoderm Cq) 1 patch TD DAILY [facility] Last Admin: 05/19/18 11:23 Dose: 1 patch Nitroglycerin (Nitro-Bid 2% Oint) 1 ea TOP Q6 [facility] Last Admin: 05/19/18 13:40 Dose: 1 ea Pantoprazole Sodium (Protonix Ec Tab) 40 mg PO 0600 [facility] Last Admin: 05/19/18 06:17 Dose: 40 mg Thiamine HCl (Vitamin B1 Tab) 100 mg PO DAILY [facility] - Labs Labs: 05/19/18 07:00 05/19/18 07:00 Attending/Attestation - Attestation I have personally seen and examined this patient.: Yes I have fully participated in the care of the patient.: Yes I have reviewed all pertinent clinical information, including history, physical exam and plan: Yes Notes (Text): 05/19/18 15:20 53 year old male with past medical history of CAD s/p CABG, COPD, hypertension, alcohol/substance abuse, anxiety and active smoker who presented with complaint of chest pain. Serial cardiac enzymes x 3 are negative. Patient was seen by Dr. Walker who offered cardiac cath. Patient refused, requesting full sedation during procedure and second opinion with second dealership manager. Will follow up with Dr. Zheng's recommendations. Continue with aspirin, plavix, metoprolol and statin. Lipid panel was reviewed and tricor was added as well. He was counselled on smoking cessation. Patient is also on banana bag and ativan prn. Monitor for alcohol withdrawal. Psychiatry is following for anxiety and panic attacks. Sandra Krishna MD Hospitalist.
--- NOTE | 2018-05-19 17:06 | CON ---
DATE OF CONSULTATION: 05/19/2018 HISTORY OF PRESENT ILLNESS: In short, the patient is a 53-year-old male with history of COPD, hypertension, hyperlipidemia, chronic back pain, alcohol abuse, substance abuse history, history of CABG in 2012. The patient was admitted on the medical side for evaluation of chest pain. Psych consult was called for evaluation of mood symptoms. As per the patient's primary team, the patient presented to be depressed, and they want to rule out suicidal ideation. The patient was seen today and examined. 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 The patient has strong, either a borderline personality or passive aggressive personality traits. The patient was upset that somebody started him on one-to-one observation. The patient was screaming out loud that he is not suicidal and he is not homicidal. This telegraphic typewriter installer discontinued one-to-one. The patient is still going on and on. The patient wants to know, who initiated one-to-one observation, but by the end of the interview, the patient was able to calm down. The patient reported that medical issues are making him feel very depressed. He has low energy. The patient reported at times he feels hopeless, but adamantly denied any thoughts of harming himself or others. The patient wants to take medication for depression and anxiety because he feels that his depressive symptoms are more severe to compare with regular adjustment. The patient denied any psychotic symptoms, denied hearing voices, denied seeing things. PHYSICAL EXAMINATION: VITAL SIGNS: Reviewed, seems to be stable, but the patient is tachycardic. MEDICATIONS: Reviewed. LABORATORY DATA: Labs reviewed. Toxicology reviewed. Alcohol was positive and benzodiazepines positive. PAST PSYCHIATRIC HISTORY: The patient reported that he has history of being evaluated by psychiatrist and once he was prescribed antipsychotic medication from what he had side effects, such as throat closing. MENTAL STATUS EXAMINATION: The patient presented to be alert and oriented, entitle, irritable with overproductive speech, but not pressured. Mood described "I know I have a lot of medical issues, I know that I'm dying, I'm fine with that." Thought process, circumstantial, tangential. Thought content, the patient denied visual, auditory, or tactile hallucinations. Denied paranoid ideation. The patient denied thoughts of harming himself or others. Denied intent or plan. Insight and judgment seemed to be fair. Impulses are well controlled. IMPRESSION: 1. Rule out adjustment disorder. 2. Rule out mood disorder due to general medical condition. PLAN: This telegraphic typewriter installer will implement Paxil at the nighttime for depression and anxiety. Risks, benefits and alternatives discussed with the patient. There is no need to for this patient to be on any benzodiazepines, but medical team called. I will follow up on this patient and advise accordingly. Thank you very much for letting me participate in care of your patient. Na Valadez MD
--- NOTE | 2018-05-19 21:55 | CON ---
DATE OF CONSULTATION: 05/19/2018 REQUESTING PHYSICIAN: Dr. Krishna. REASON FOR CONSULTATION: Chest pain. HISTORY: This is a 53-year-old male with known coronary artery disease, status post prior bypass surgery, who has had multiple admissions in the past for chest pain. He now presented with chest discomfort and evaluation was requested. He was seen by Dr. Walker, who recommended repeat cardiac catheterization, and apparently, the patient became upset with Dr. Walker and asked for another cardiology opinion. He is seen lying in bed on telemetry. He reportedly has a history of hypertension, hyperlipidemia, chronic anxiety, and COPD. He has a history of alcohol abuse and substance abuse. He underwent coronary artery bypass surgery approximately 5 years ago at [facility]. PAST MEDICAL HISTORY: His past history is notable for the problems mentioned above. He has a history of gastroesophageal reflux disease. MEDICATIONS: Medications at home include lisinopril, Zocor, and amlodipine. ALLERGIES: HE REPORTEDLY HAD REACTIONS TO IV CONTRAST WELL SHELLFISH AND PEANUTS. SOCIAL HISTORY: He smokes actively. He has also used cocaine. He has a history of alcohol abuse as well. FAMILY HISTORY: He cannot recall. REVIEW OF SYSTEMS: A 10-point review of systems is notable mainly for the problems mentioned above. PHYSICAL EXAMINATION: GENERAL: He is a somewhat agitated, middle-aged man. VITAL SIGNS: His blood pressure is 146/70 with a pulse of 110, respirations are 16. He is afebrile. HEENT: Head: Normocephalic, atraumatic. NECK: Supple. No JVD noted. CHEST: Bilateral scattered rhonchi heard. HEART: PMI in normal position. No pathological murmurs or gallops audible. Rhythm is tachycardic. ABDOMEN: Soft, nontender with normoactive bowel sounds. EXTREMITIES: No edema. SKIN: Warm and dry. PSYCHIATRIC: Moderate anxiety and mild agitation. NEUROLOGICAL: Alert and oriented x3. No gross motor or sensory deficits notable. DIAGNOSTIC DATA: The electrocardiogram reveals sinus rhythm with left atrial abnormality, left ventricular hypertrophy and ST-T changes. Anterolateral ischemia cannot be excluded. Chest x-ray reveals post sternotomy changes with normal cardiac silhouette and clear lung pat. White count is 8.9, hemoglobin and hematocrit of 15.2 and 45.3 with a platelet count of 227,000. Potassium 4.6, BUN and creatinine are 16 and 0.8. Hemoglobin A1c of 5.9. Bilirubin is 2.4. Three sets of cardiac enzymes are negative. Cholesterol 262, triglycerides of 412, LDL 179, HDL 30. Toxicology is positive for an alcohol level of 87 and benzodiazepines. IMPRESSION: 1. Chest pain, suspicious for angina. 2. Coronary artery disease, status post prior bypass surgery and prior stenting. Full details unavailable. 3. History of anxiety and psychiatric disorder with baseline agitation. 4. Polysubstance abuse. 5. Rest of problems as noted. RECOMMENDATIONS: At this time, it would appear reasonable to schedule a stress test to assess him for the presence and extent of cardiac ischemia. He states that he has a history of claustrophobia and is requesting cardiac catheterization with general anesthesia. It was explained to him that this is not medically appropriate. At this time, I would advise stress testing to risk stratify him with respect to the extent of ischemia. Anxiolytic can be administered prior to the stress test should he feel claustrophobic. Intensified medical therapy and avoidance of substance abuse, especially smoking was discussed with him. He did not appear happy with my recommendations and continued to request general anesthesia for cardiac catheterization. Chetan Davis MD
[2018-05-20] MEDS: Nitroglycerin 2% Ointment Foilpak UD TOP SCH ×2 (01:19→06:44)
[2018-05-20 02:13] VITALS: O2SAT 97
[2018-05-20] MEDS: Albuterol 0.5% Inhal Sol (2.5 mg/0.5 ml) UD IH SCH ×2 (04:38→07:58)
[2018-05-20] MEDS: Pantoprazole 40 mg EC Tab PO SCH (06:44)
[2018-05-20 06:55] LABS: HEMOGLOBIN 14.8 g/dL (14.0-18.0); MEAN CELL VOLUME 101.4 fl (80.0-105.0); MEAN CORPUSCULAR HEMOGLOBIN 33.3 pg (25.0-35.0); MEAN CORPUSCULAR HGB CONC 32.9 g/dl (31.0-37.0); MEAN PLATELET VOLUME 9.2 fl (7.0-11.0); RBC 4.44 10^6/uL (3.5-6.1); RED CELL DISTRIBUTION WIDTH 14.1 % (11.5-14.5); WHITE BLOOD COUNT 7.5 10^3/uL (4.5-11.0)
[2018-05-20 07:13] VITALS: RESP 18; TEMP 97.7
[2018-05-20 09:21] LABS: ALB/GLOB RATIO 1.3 (1.1-1.8); ALT/SGPT 42 U/L (7-56); AST/SGOT 38 U/L (17-59); BLOOD UREA NITROGEN 20 mg/dL (7-21); CALCIUM 8.7 mg/dL (8.4-10.5); GFR NON-AFRICAN AMERICAN > 60
[2018-05-20] MEDS: Multivitamin With Minerals Tab PO SCH (10:10)
[2018-05-20 10:12] VITALS: BP 110/62; PULSE 109
--- NOTE | 2018-05-20 11:02 | CP.PCM.DIS ---
<Otto Dhillon - Last Filed: 05/20/18 13:52> Provider - Provider Date of Admission: 05/19/18 09:02 Attending physician: Sandra Krishna MD Primary care physician: Justin Whiting MD Consults: 05/18/18 18:53 Physician Consult Routine Comment: Consulting Provider: Espinoza Walker Consulting Physician: Espinoza Walker Reason for Consult: ACS rule out 05/19/18 02:18 Social Work Referral Routine Comment: Lidia Lee Physician Instructions: Reason For Exam: Lives alone 05/19/18 02:23 Transition In Care/Readmission Reduction Routine Comment: Physician Instructions: Reason For Exam: chest pain , shortness of breath, copd 05/19/18 07:56 Psychiatry Consult Routine Comment: Consulting Provider: Na Valadez Consulting Physician: Na Valadez Reason for Consult: Depression, Suicidal thoughts 05/19/18 09:09 Cardiology Consult Routine Comment: Consulting Provider: Chetan Davis Consulting Physician: Chetan Davis Reason for Consult: Chest pain, Hx of CABG and PCI Time Spent in preparation of Discharge (in minutes): 60 Hospital Course - Lab Results Lab Results: Most Recent Lab Values WBC 7.5 10^3/uL (4.5-11.0) 05/20/18 06:00 RBC 4.44 10^6/uL (3.5-6.1) 05/20/18 06:00 Hgb 14.8 g/dL (14.0-18.0) 05/20/18 06:00 Hct 45.0 % (42.0-52.0) 05/20/18 06:00 MCV 101.4 fl (80.0-105.0) 05/20/18 06:00 MCH 33.3 pg (25.0-35.0) 05/20/18 06:00 MCHC 32.9 g/dl (31.0-37.0) 05/20/18 06:00 RDW 14.1 % (11.5-14.5) 05/20/18 06:00 Plt Count 197 10^3/uL (120.0-450.0) 05/20/18 06:00 MPV 9.2 fl (7.0-11.0) 05/20/18 06:00 Neut % (Auto) 54.8 % (50.0-68.0) 05/18/18 17:40 Lymph % (Auto) 36.3 % (22.0-35.0) H 05/18/18 17:40 [place] % (Auto) 7.0 % (1.0-6.0) H 05/18/18 17:40 Eos % (Auto) 1.5 % (1.5-5.0) 05/18/18 17:40 Baso % (Auto) 0.4 % (0.0-3.0) 05/18/18 17:40 Lymph # (Auto) 3.4 (1.2-3.4) 05/18/18 17:40 [place] # (Auto) 0.7 (0.1-0.6) H 05/18/18 17:40 Eos # (Auto) 0.1 (0.0-0.7) 05/18/18 17:40 Baso # (Auto) 0.04 K/mm3 (0.0-2.0) 05/18/18 17:40 Absolute Neuts (auto) 5.07 (1.4-6.5) 05/18/18 17:40 Sodium 138 mmol/L (132-148) 05/20/18 07:00 Potassium 4.2 mmol/L (3.6-5.0) 05/20/18 07:00 Chloride 104 mmol/L (98-107) 05/20/18 07:00 Carbon Dioxide 26 mmol/L (21-33) 05/20/18 07:00 Anion Gap 12 (10-20) 05/20/18 07:00 BUN 20 mg/dL (7-21) 05/20/18 07:00 Creatinine 0.8 mg/dl (0.8-1.5) 05/20/18 07:00 Est GFR ( Amer) > 60 05/20/18 07:00 Est GFR (Non-Af Amer) > 60 05/20/18 07:00 Random Glucose 115 mg/dL (70-110) H 05/20/18 07:00 Hemoglobin A1c 5.9 % (4.2-6.5) 05/18/18 17:40 Calcium 8.7 mg/dL (8.4-10.5) 05/20/18 07:00 Phosphorus 4.1 mg/dL (2.5-4.5) 05/20/18 07:00 Magnesium 2.3 mg/dL (1.7-2.2) H 05/20/18 07:00 Total Bilirubin 0.6 mg/dL (0.2-1.3) 05/20/18 07:00 AST 38 U/L (17-59) 05/20/18 07:00 ALT 42 U/L (7-56) 05/20/18 07:00 Alkaline Phosphatase 82 U/L (38-126) 05/20/18 07:00 Total Creatine Kinase 115 U/L (35-230) 05/19/18 11:05 Troponin I < 0.01 ng/mL 05/19/18 07:00 Total Protein 7.1 g/dL (5.8-8.3) 05/20/18 07:00 Albumin 4.0 g/dL (3.0-4.8) 05/20/18 07:00 Globulin 3.1 gm/dL 05/20/18 07:00 Albumin/Globulin Ratio 1.3 (1.1-1.8) 05/20/18 07:00 Triglycerides 412 mg/dL (35-160) H 05/18/18 17:40 Cholesterol 262 mg/dL (130-200) H 05/18/18 17:40 LDL Cholesterol Direct 179 mg/dL (0-129) H 05/18/18 17:40 HDL Cholesterol 30 mg/dL (29-60) 05/18/18 17:40 Urine Color Yellow (YELLOW) 05/18/18 20:20 Urine Appearance Clear (CLEAR) 05/18/18 20:20 Urine pH 6.0 (4.7-8.0) 05/18/18 20:20 Ur Specific [place] 1.015 (1.005-1.035) 05/18/18 20:20 Urine Protein Negative mg/dL (<30 mg/dL) 05/18/18 20:20 Urine Glucose (UA) Negative mg/dL (NEGATIVE) 05/18/18 20:20 Urine Ketones Negative mg/dL (NEGATIVE) 05/18/18 20:20 Urine Blood Negative (NEGATIVE) 05/18/18 20:20 Urine Nitrate Negative (NEGATIVE) 05/18/18 20:20 Urine Bilirubin Negative (NEGATIVE) 05/18/18 20:20 Urine Urobilinogen 0.2 E.U./dL (<1 E.U./dL) 05/18/18 20:20 Ur Leukocyte Esterase Negative Radha/uL (NEGATIVE) 05/18/18 20:20 Urine Opiates Screen Negative (NEGATIVE) 05/18/18 20:20 Urine Methadone Screen Negative (NEGATIVE) 05/18/18 20:20 Ur Barbiturates Screen Negative (NEGATIVE) 05/18/18 20:20 Ur Phencyclidine Scrn Negative (NEGATIVE) 05/18/18 20:20 Ur Amphetamines Screen Negative (NEGATIVE) 05/18/18 20:20 U Benzodiazepines Scrn Positive (NEGATIVE) H 05/18/18 20:20 U Oth Cocaine Metabols Negative (NEGATIVE) 05/18/18 20:20 U Cannabinoids Screen Negative (NEGATIVE) 05/18/18 20:20 Alcohol, Quantitative 87 mg/dL (0-10) H 05/18/18 20:20 - Hospital Course Hospital Course: 53 year old male with a past medical history of CAD s/p CABG 2012, substance, tobacco, and ETOH abuse, HTN, HLD, anxiety and COPD who was admitted after presenting with complaints of 8/10 midsternal chest pain of four days duration. Patient reports pain which had originally been dull had turned sharp. Patient stated pain is radiating to the left chest with associated left chest pressure. He reports that the pain had been persistent for weeks but had worsened over past 4 days, prompting him to present to the ED. Pain was unchanged with rest or exertion. Pain was associated with SOB, nausea, feeling lightheaded, dizziness, chills, tingling in lower extremities, generalized weakness, and palpitations. He had decreased PO intake secondary to pain, but denied weight loss. Patient's last echo and stress test was performed 03/2017, resulting an EF of 65%. Patient was originally scheduled for a cardiac cath, from a prior admission, on 12/09/[address] Walker but patient did not show up for procedure. Patient reported that he had unanswered questions and was thus unable to show up. Upon admission, patient was monitored on telemetry. He was continued on Aspirin, Plavix, and nitropaste. Troponins were negative x3. Dr. Walker was placed on consult for possible cardiac cath the following day; however patient refused Dr. Walker's services. Patient also refused inpatient ECHO. Dr. Davis, a second analyst food and beverage, was consulted who recommended the patient get a stress test prior to any interventional procedure. Patient was adament on getting a cardiac cath with General Anesthesia which, per cardiology, is not possible. Cardiology recommended an outpatient stress test on Wednesday and scripts were given. During admission, UDS/toxicology was positive for Benzos and Alcohol. Patient was given a Banana bag and Ativan PRN. He was monitored for withdrawal. Patient counseled extensively on tobacco, drug and smoking cessation because of its effects on his medical conditions. Patient was having thoughts of suicide and a 1:1 was placed. He also requested to speak to psychiatry because he was feeling depressed and anxious. Dr. Monzon was consulted who discontinued the 1:1 sitter, and continued his Paxil. Patient's home blood pressure medications were continued (Metoprolol, Lisinopril, and Amlodipine). Lipid panel showed elevated cholesterol and triglycerides for which Lipitor was increased to 40mg and Fenofibrate to 145mg. Hgb A1c 5.9. Patient counseled on diet modifications. Appropriate GI prophylaxis and SCDs were provided. Patient is to follow up with Dr. Davis regarding outpatient stress test and further management. Patient given prescriptions for Lipitor, Fenofibrate, and Paxil. Patient has seen a psychiatrist in the past for depression and was advised by Dr. Monzon to follow up with psychiatrist. Follow up instructions explained to patient. Patient acknowledged and verbalized understanding of the treatment plan. If symptoms worsen, patient instructed to promptly return to the nearest emergency department. Above is a brief summary, for a detailed encounter please refer to medical rec ords. - Date & Time of H&P Date of H&P: 05/18/18 Time of H&P: 17:19 Discharge Exam - Head Exam Head Exam: ATRAUMATIC, NORMAL INSPECTION, NORMOCEPHALIC - Eye Exam Eye Exam: EOMI Pupil Exam: PERRL - ENT Exam ENT Exam: Mucous Membranes Dry - Respiratory Exam Respiratory Exam: NORMAL BREATHING PATTERN. absent: Wheezes, Respiratory Distress - Cardiovascular Exam Cardiovascular Exam: Tachycardia, REGULAR RHYTHM - GI/Abdominal Exam GI & Abdominal Exam: Normal Bowel Sounds, Soft. absent: Tenderness - Extremities Exam Extremities exam: normal inspection, pedal pulses present - Neurological Exam Neurological exam: Alert, Oriented x3 - Psychiatric Exam Psychiatric exam: Anxious - Skin Skin Exam: Dry, Intact, Normal Color, Warm Discharge Plan - Discharge Medications Prescriptions: Atorvastatin [Lipitor] 40 mg PO DIN 14 Days #14 tab Fenofibrate [Tricor] 145 mg PO DAILY #14 tab PARoxetine [Paxil] 10 mg PO HS 7 Days #7 tab - Follow Up Plan Condition: FAIR Disposition: HOME/ ROUTINE Instructions: Heart Healthy Diet, Quitting Smoking for Older Adults, Exacerbation of COPD, Chest Pain (ED) Additional Instructions: Please follow up with your primary medical doctor, Dr. Whiting, within 1-2 weeks. Please follow up with analyst food and beverage, Dr. Womack, regarding your outpatient stress test for which a script has been provided. We have provided you prescriptions for Lipitor, which we increased the dosage from 10mg to 40mg by mouth once a day, and Fenofibrate 145mg. If you have any muscle pain after taking these medications, please follow up with your PMD. Please follow up with Dr. Monzon, the psychiatrist for additional evaluation and management. We have provided a script for Paxil. Please take new medications as prescribed. Please resume all home medications and multivitamins. Please abstain from alcohol intake and smoking as these can worsen your medical conditions. If symptoms worsen, please promptly return to the nearest emergency department. Referrals: Justin Whiting MD [Primary Care Provider] - Chetan Davis MD [Staff Provider] - Na Valadez MD [Staff Provider] - <Sandra Krishna - Last Filed: 05/20/18 14:46> Provider - Provider Date of Admission: 05/18/18 18:46 Attending physician: Sandra Krishna MD Primary care physician: Justin Whiting MD Consults: 05/18/18 18:53 Physician Consult Routine Comment: Consulting Provider: Espinoza Walker Consulting Physician: Espinoza Walker Reason for Consult: ACS rule out 05/19/18 02:18 Social Work Referral Routine Comment: Lidia Lee Physician Instructions: Reason For Exam: Lives alone 05/19/18 02:23 Transition In Care/Readmission Reduction Routine Comment: Physician Instructions: Reason For Exam: chest pain , shortness of breath, copd 05/19/18 07:56 Psychiatry Consult Routine Comment: Consulting Provider: Na Valadez Consulting Physician: Na Valadez Reason for Consult: Depression, Suicidal thoughts 05/19/18 09:09 Cardiology Consult Routine Comment: Consulting Provider: Chetan Davis Consulting Physician: Chetan Davis Reason for Consult: Chest pain, Hx of CABG and PCI Hospital Course - Lab Results Lab Results: Most Recent Lab Values WBC 7.5 10^3/uL (4.5-11.0) 05/20/18 06:00 RBC 4.44 10^6/uL (3.5-6.1) 05/20/18 06:00 Hgb 14.8 g/dL (14.0-18.0) 05/20/18 06:00 Hct 45.0 % (42.0-52.0) 05/20/18 06:00 MCV 101.4 fl (80.0-105.0) 05/20/18 06:00 MCH 33.3 pg (25.0-35.0) 05/20/18 06:00 MCHC 32.9 g/dl (31.0-37.0) 05/20/18 06:00 RDW 14.1 % (11.5-14.5) 05/20/18 06:00 Plt Count 197 10^3/uL (120.0-450.0) 05/20/18 06:00 MPV 9.2 fl (7.0-11.0) 05/20/18 06:00 Neut % (Auto) 54.8 % (50.0-68.0) 05/18/18 17:40 Lymph % (Auto) 36.3 % (22.0-35.0) H 05/18/18 17:40 [place] % (Auto) 7.0 % (1.0-6.0) H 05/18/18 17:40 Eos % (Auto) 1.5 % (1.5-5.0) 05/18/18 17:40 Baso % (Auto) 0.4 % (0.0-3.0) 05/18/18 17:40 Lymph # (Auto) 3.4 (1.2-3.4) 05/18/18 17:40 [place] # (Auto) 0.7 (0.1-0.6) H 05/18/18 17:40 Eos # (Auto) 0.1 (0.0-0.7) 05/18/18 17:40 Baso # (Auto) 0.04 K/mm3 (0.0-2.0) 05/18/18 17:40 Absolute Neuts (auto) 5.07 (1.4-6.5) 05/18/18 17:40 Sodium 138 mmol/L (132-148) 05/20/18 07:00 Potassium 4.2 mmol/L (3.6-5.0) 05/20/18 07:00 Chloride 104 mmol/L (98-107) 05/20/18 07:00 Carbon Dioxide 26 mmol/L (21-33) 05/20/18 07:00 Anion Gap 12 (10-20) 05/20/18 07:00 BUN 20 mg/dL (7-21) 05/20/18 07:00 Creatinine 0.8 mg/dl (0.8-1.5) 05/20/18 07:00 Est GFR ( Amer) > 60 05/20/18 07:00 Est GFR (Non-Af Amer) > 60 05/20/18 07:00 Random Glucose 115 mg/dL (70-110) H 05/20/18 07:00 Hemoglobin A1c 5.9 % (4.2-6.5) 05/18/18 17:40 Calcium 8.7 mg/dL (8.4-10.5) 05/20/18 07:00 Phosphorus 4.1 mg/dL (2.5-4.5) 05/20/18 07:00 Magnesium 2.3 mg/dL (1.7-2.2) H 05/20/18 07:00 Total Bilirubin 0.6 mg/dL (0.2-1.3) 05/20/18 07:00 AST 38 U/L (17-59) 05/20/18 07:00 ALT 42 U/L (7-56) 05/20/18 07:00 Alkaline Phosphatase 82 U/L (38-126) 05/20/18 07:00 Total Creatine Kinase 115 U/L (35-230) 05/19/18 11:05 Troponin I < 0.01 ng/mL 05/19/18 07:00 Total Protein 7.1 g/dL (5.8-8.3) 05/20/18 07:00 Albumin 4.0 g/dL (3.0-4.8) 05/20/18 07:00 Globulin 3.1 gm/dL 05/20/18 07:00 Albumin/Globulin Ratio 1.3 (1.1-1.8) 05/20/18 07:00 Triglycerides 412 mg/dL (35-160) H 05/18/18 17:40 Cholesterol 262 mg/dL (130-200) H 05/18/18 17:40 LDL Cholesterol Direct 179 mg/dL (0-129) H 05/18/18 17:40 HDL Cholesterol 30 mg/dL (29-60) 05/18/18 17:40 Urine Color Yellow (YELLOW) 05/18/18 20:20 Urine Appearance Clear (CLEAR) 05/18/18 20:20 Urine pH 6.0 (4.7-8.0) 05/18/18 20:20 Ur Specific [place] 1.015 (1.005-1.035) 05/18/18 20:20 Urine Protein Negative mg/dL (<30 mg/dL) 05/18/18 20:20 Urine Glucose (UA) Negative mg/dL (NEGATIVE) 05/18/18 20:20 Urine Ketones Negative mg/dL (NEGATIVE) 05/18/18 20:20 Urine Blood Negative (NEGATIVE) 05/18/18 20:20 Urine Nitrate Negative (NEGATIVE) 05/18/18 20:20 Urine Bilirubin Negative (NEGATIVE) 05/18/18 20:20 Urine Urobilinogen 0.2 E.U./dL (<1 E.U./dL) 05/18/18 20:20 Ur Leukocyte Esterase Negative Radha/uL (NEGATIVE) 05/18/18 20:20 Urine Opiates Screen Negative (NEGATIVE) 05/18/18 20:20 Urine Methadone Screen Negative (NEGATIVE) 05/18/18 20:20 Ur Barbiturates Screen Negative (NEGATIVE) 05/18/18 20:20 Ur Phencyclidine Scrn Negative (NEGATIVE) 05/18/18 20:20 Ur Amphetamines Screen Negative (NEGATIVE) 05/18/18 20:20 U Benzodiazepines Scrn Positive (NEGATIVE) H 03/13/19 20:20 U Oth Cocaine Metabols Negative (NEGATIVE) 05/18/18 20:20 U Cannabinoids Screen Negative (NEGATIVE) 05/18/18 20:20 Alcohol, Quantitative 87 mg/dL (0-10) H 05/18/18 20:20 Attending/Attestation - Attestation I have personally seen and examined this patient.: Yes I have fully participated in the care of the patient.: Yes I have reviewed all pertinent clinical information, including history, physical exam and plan: Yes Notes (Text): 05/20/18 14:44 53 year old male with past medical history of CAD s/p CABG, COPD, hypertension, alcohol/substance abuse, anxiety and active smoker who presented with complaint of chest pain. Serial cardiac enzymes x 3 were negative and ACS was ruled out. Patient was seen by Dr. Walker who offered cardiac cath. Patient refused, requesting full sedation during procedure and second opinion with second analyst food and beverage. He was then seen by Dr. Zheng who recommended outpatient stress test. He is on aspirin, plavix, metoprolol and statin. Lipid panel was reviewed and tricor was added as well. He was counselled on smoking cessation. He was counselled on alcohol abstinence. Patient is discharged home to follow up with pmd. Follow up with analyst food and beverage for outpatient stress test. Follow up with psychiatrist. Sandra Krishna MD Hospitalist.
--- NOTE | 2018-05-20 21:19 | PN ---
DATE: 05/20/2018 SUBJECTIVE: The patient was followed up today. The patient presented somewhat better. The patient was in the process of discharge when this information writer rounded. The patient reports that he likes Paxil and he slept well on that medication. This information writer educated the patient again, about the importance to be compliant with the medications; the risk, benefits and alternatives were discussed. This information writer educated the patient about outpatient providers in the community. The patient was also provided with printout of local psychiatrists and clinics as well as tele-psychiatry. The patient verbalized understanding and was appreciative. At the same time, the patient has strong borderline personality, tendency of splitting staff. The patient is always unsatisfied with the services. The patient was calling this hospital as [facility], but patient keeps coming back to this hospital again and again. OBJECTIVE: VITAL SIGNS: Reviewed. Temperature 97.7, pulse is 89, blood pressure 112/76, respiration 18, oxygen saturation is 97%. MEDICATIONS: Reviewed. In regards of medication. Paxil 10 mg was provided yesterday. LABORATORY DATA: Labs reviewed. MENTAL STATUS EXAM: The patient presented to be alert and oriented, somewhat pleasant. Intermittent eye contact. Speech was normal rate, tone, quality and quantity. Mood described as not feeling better from the physical standpoint, but the patient slept well. Thought process circumstantial, but not tangential. Thought content, the patient denied visual, auditory, tactile hallucinations. Denied paranoid ideation. The patient denied thoughts of harming himself or others. Denied intent or plan. Insight and judgment seems to be improving. Impulses are well controlled. IMPRESSION: Most likely the patient has mood disorder due to general medical condition, rule-out borderline personality disorder. A urine drug screen was positive for benzodiazepines and alcohol. PLAN: Paxil was prescribed. This information writer provided the patient with information about outpatient programs. The patient was appreciative. The patient was advised in case of worsening of the symptoms come back to the hospital. At the moment of discharge, the patient posed no imminent danger to self or others. Thank you very much for letting me participate in care of your patient. Should you have any questions give me a call back Na Valadez MD MTDD
== END 2018-05-20 11:51 | disposition home or self-care (01) ==
LOC: ED 16:29 → INTOOBSV 18:46 → OBSVTOIN 18:46 → ERH 18:46 → 2RSO 21:51 → OBSVTOIN 05-19 09:02 → INTOOBSV 05-19 09:02 → 2RSO 05-20 01:21
PROVIDERS: ADMIT Internal Medicine; ATTEND Internal Medicine
DX: R07.89 Other chest pain (principal); J44.1 Chronic obstructive pulmonary disease with (acute) exacerbation; I25.10 Atherosclerotic heart disease of native coronary artery without angina pectoris; I10 Essential (primary) hypertension; F17.210 Nicotine dependence, cigarettes, uncomplicated; E78.5 Hyperlipidemia, unspecified; F10.10 Alcohol abuse, uncomplicated; F32.9 Major depressive disorder, single episode, unspecified; F41.0 Panic disorder [episodic paroxysmal anxiety]; K21.9 Gastro-esophageal reflux disease without esophagitis; Y90.4 Blood alcohol level of 80-99 mg/100 ml; E78.00 Pure hypercholesterolemia, unspecified; Z79.02 Long term (current) use of antithrombotics/antiplatelets; Z79.82 Long term (current) use of aspirin; Z95.1 Presence of aortocoronary bypass graft; Z80.0 Family history of malignant neoplasm of digestive organs
CPT/HCPCS: 36415; 71045; 80053; 80061; 80320; 80324; 80345; 80346; 80349; 80353; 80358; 80361; 81003; 82550; 83036; 83735; 83992; 84100; 84484; 85025; 85027; 93005; 94640; 94760; 96374; 96375; 96376; 99285; G0378; J2060; J2270; J2930; J3411; J7030